=== PATIENT | female | born 1940 | race Caucasian/White ===

== ENCOUNTER 2017-09-25 14:04 | Inpatient (IN) | payer MEDICARE, BC ==
[2017-09-25] MEDS ORDERED: HYDROmorphone 0.5 MG/0.5 ML Syringe IVPUSH ONE (14:11)
[2017-09-25] MEDS ORDERED: Metoclopramide 10 MG/2 ML SDV IVPUSH ONE (14:11)
--- NOTE | 2017-09-25 14:20 | EDM.PDOC ---
ED HPI GENERAL MEDICAL PROBLEM - General Chief Complaint: Trauma Stated Complaint: [facility] Time Seen by Provider: 09/25/17 14:05 Source of Information: Reports: Patient, EMS History Limitations: Reports: No Limitations - History of Present Illness INITIAL COMMENTS - FREE TEXT/NARRATIVE: 77-year-old female reports that she was walking back towards her easy chair in her living room when she got tripped up and fell. She was carrying a cup of hot apple cider and honey which she spilled up all over herself including her hair. She landed hard on her left hip and was unable to get up from the floor. She therefore had to use her life alert to call for help. Patient has suffered a previous fracture to her left hip and had open reduction internal fixation it's unclear whether she had an Danilo Kumar prosthesis or a compression mary alice and side plate. Her pain is currently from above her right iliac crest laterally to her toes. Patient by history has multiple sclerosis. Her left side is weak at the best of times. She also has a peripheral neuropathy involving the lower extremities. She does not believe she hit her head and did not strike any furniture. She denies any pain in her ribs. She states she landed on thinly carpeted floor on top of concrete. 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.) Left Feet Pain Score (Numeric/FACES): 5 Abdomen Pain Score (Numeric/FACES): 5 - Related Data Allergies Allergy/AdvReac Type Severity Reaction Status Date / Time Sulfa (Sulfonamide Allergy Cannot Verified 04/08/15 01:23 Antibiotics) Remember Home Meds: Home Meds Diazepam [Valium] 5 mg PO BEDTIME PRN 03/09/14 [History] Gabapentin [Neurontin] 300 mg PO TID 03/09/14 [History] Acetaminophen/Diphenhydramine [Acetaminophen Pm Gelcap] 1 tab PO BEDTIME [History] Aspirin [Adult Low Dose Aspirin EC] 81 mg PO BEDTIME 04/08/15 [History] Fish Oil/[place]-3 Fatty Acids [Fish Oil 1,000 MG] 1,000 mg PO TID 04/08/15 [ History] Lactobacillus Acidophilus [Acidophilus] 1 each PO BEDTIME 04/08/15 [History] Multivits-Min/Iron/FA/Lutein [Centrum Silver Women Tablet] 1 tab PO DAILY [History] Vit A/Vit C/Vit E/Zinc/Copper [Preservision Areds Softgel] 1 tab PO DAILY [History] Docusate Sodium [Colace] 100 mg PO BID PRN #60 cap 04/12/15 [Rx] Trimethoprim 100 mg PO BEDTIME 09/25/17 [History] Acetaminophen/HYDROcodone [[place] 325-5 MG] 1 tab PO Q6H PRN #20 tablet 09/28/17 [Rx] Bisacodyl [Dulcolax] 10 mg RECTAL DAILY PRN supp 09/28/17 [Rx] Calcium Carbonate [Tums] 500 mg PO Q2H PRN tab.chew 09/28/17 [Rx] Magnesium Hydroxide [Milk of Magnesia] 30 ml PO BID PRN cup 09/28/17 [Rx] Pantoprazole [ProTONIX] 40 mg PO DAILY@0700 #30 tab.cr 09/28/17 [Rx] Sucralfate [Carafate] 1 gm PO QIDACANDBED #480 ml 09/28/17 [Rx] Past Medical History Other Musculoskeletal History: pt has progressing MS Other Neuro History: previous CVA Social & Family History - Tobacco Use Smoking Status *Q: Former Smoker (quit 40yrs ago) Years of Tobacco use: 40 Second Hand Smoke Exposure: No - Alcohol Use Days Per Week of Alcohol Use: 1 Number of Drinks Per Day: 1 Total Drinks Per Week: 1 - Recreational Drug Use Recreational Drug Use: No - Living Situation & Occupation Living situation: Reports: Occupation: Retired Review of Systems - Review of Systems Review Of Systems: See Below Constitutional: Denies: Chills, Diaphoresis, Fever, Weakness, Other Eyes: Reports: No Symptoms Ears: Reports: No Symptoms Nose: Reports: No Symptoms Mouth/Throat: Reports: No Symptoms Respiratory: Reports: No Symptoms Cardiovascular: Reports: No Symptoms GI/Abdominal: Reports: No Symptoms Genitourinary: Reports: Incontinence (Chronic incontinence due to multiple sclerosis.) Musculoskeletal: Reports: Leg Pain (Left hip and thigh pain.) Skin: Reports: No Symptoms Neurological: Reports: Difficulty Walking (Due to multiple sclerosis. Findings that she trips quite easily.) Psychiatric: Reports: No Symptoms ED EXAM, GENERAL - Physical Exam Exam: See Below Exam Limited By: No Limitations General Appearance: Alert, WD/WN, Moderate Distress (In obvious pain and discomfort upon movement of her lower extremities.) Eye Exam: Bilateral Eye: Normal Inspection Throat/Mouth: Normal Inspection, Normal Lips, Normal Oropharynx Head: Atraumatic Neck: Normal Inspection, Supple, Non-Tender, Full Range of Motion Respiratory/Chest: No Respiratory Distress, Lungs Clear, Normal Breath Sounds, No Accessory Muscle Use Cardiovascular: Normal Peripheral Pulses, Regular Rate, Rhythm, No Edema, No Gallop, No Murmur Peripheral Pulses: 1+: Posterior Tibial (L), Posterior Tibial (R), Dorsalis Pedis (L), Dorsalis Pedis (R) GI/Abdominal: Normal Bowel Sounds, Soft, Non-Tender, No Organomegaly, No Abnormal Bruit, No Mass Back Exam: Normal Inspection, Full Range of Motion Extremities: No Pedal Edema, Other (Left great toe is ecchymotic. Any movement causes pain. It does not show any obvious deformity. There is mild pain on squeezing the mid aspect of the foot as well. Ankle appears to be intact. There is soft tissue swelling of both anterior knees but there is a traumatic effusion on the left as compared to the right. Slight abrasion appreciated over the patella on the right knee.) Neurological: Alert, Oriented, CN II-XII Intact, Normal Cognition, Abnormal Gait Psychiatric: Normal Affect, Normal Mood (She tends to have a left foot drag due to multiple sclerosis.) Skin Exam: Warm, Dry, Intact, Normal Color, No Rash Course - Vital Signs Last Recorded V/S: Last Vital Signs Temp 36.7 C 09/28/17 08:56 Pulse 96 09/28/17 08:56 Resp 18 12/15/17 08:56 BP 124/49 L 12/15/17 08:56 Pulse Ox 93 L 09/28/17 08:56 - Orders/Labs/Meds Labs: Laboratory Tests 09/25/17 09/25/17 09/25/17 Range/Units 14:12 14:41 14:41 WBC 6.10 (3.98-10.04) K/mm3 RBC 4.03 (3.98-5.22) M/mm3 Hgb 12.4 (11.2-15.7) gm/L Hct 37.8 (34.1-44.9) % MCV 93.8 (79.4-94.8) fl MCH 30.8 (25.6-32.2) pg MCHC 32.8 (32.2-35.5) g/dl RDW Std Deviation 45.0 (36.4-46.3) fL Plt Count 224 (182-369) K/mm3 MPV 9.0 L (9.4-12.3) fl Neutrophils % (Manual) 76 H (40-60) % Band Neutrophils % 0 (0-10) % Lymphocytes % (Manual) 15 L (20-40) % Atypical Lymphs % 0 % Monocytes % (Manual) 8 (2-10) % Eosinophils % (Manual) 1 (0.7-5.8) % Basophils % (Manual) 0 L (0.1-1.2) Platelet Estimate Adequate Plt Morphology Comment Normal RBC Morph Comment Normal Sodium 138 (136-145) mEq/L Potassium 3.4 L (3.5-5.1) mEq/L Chloride 104 (98-107) mEq/L Carbon Dioxide 28 (21-32) mEq/L Anion Gap 9.4 (5-15) BUN 15 (7-18) mg/dL Creatinine 0.8 (0.55-1.02) mg/dL Est Cr Clr Drug Dosing 56.56 mL/min Estimated GFR (MDRD) > 60 (>60) mL/min BUN/Creatinine Ratio 18.8 H (14-18) Glucose 108 (83-115) mg/dL Calcium 8.9 (8.5-10.1) mg/dL Total Bilirubin 0.7 (0.2-1.0) mg/dL AST 26 (15-37) U/L ALT 23 (14-59) U/L Alkaline Phosphatase 99 (46-116) U/L NT-Pro-B Natriuret Pep 82 (0-450) pg/mL Total Protein 7.1 (6.4-8.2) g/dl Albumin 3.3 L (3.4-5.0) g/dl Globulin 3.8 gm/dL Albumin/Globulin Ratio 0.9 L (1-2) Blood Type O POSITIVE Meds: Medications Discontinued Medications Generic Name Dose Route Start Last Admin Trade Name Freq PRN Reason Stop Dose Admin Hydrocodone Bitart/Acetaminophen 1 tab 09/25/17 19:34 09/27/17 20:16 [place]ett 325-5 Mg PO 1 tab Q6H PRN Administration pain Aspirin 81 mg 09/28/17 21:00 Halfprin PO BEDTIME GEETA Bisacodyl 10 mg 09/26/17 10:52 09/26/17 11:01 Dulcolax RECTAL 10 mg DAILY PRN Administration Constipation Calcium Carbonate/Glycine 500 mg 09/27/17 10:40 09/28/17 06:16 Tums PO 500 mg Q2H PRN Administration Indigestion Diazepam 5 mg 09/26/17 12:02 Valium. PO BEDTIME PRN Sleep Enoxaparin Sodium 40 mg 09/28/17 09:00 09/28/17 09:32 Lovenox SUBCUT 40 mg DAILY GEETA Administration Furosemide 10 mg 09/27/17 09:00 09/27/17 08:12 Lasix IVPUSH 09/27/17 09:01 10 mg DAILY ONE Administration Gabapentin 300 mg 09/26/17 15:00 09/27/17 08:13 Neurontin PO 300 mg TID GEETA Administration Gabapentin 300 mg 09/27/17 15:00 09/28/17 09:32 Neurontin PO 300 mg TID GEETA Administration Hydromorphone HCl 0.5 mg 09/25/17 14:11 09/25/17 15:07 Dilaudid IVPUSH 09/25/17 14:12 0.5 mg ONETIME ONE Administration Hydromorphone HCl 1 mg 09/25/17 19:27 09/28/17 02:30 Dilaudid IVPUSH 1 mg Q4H PRN Administration Pain Sodium Chloride 1,000 mls @ 150 mls/hr 09/25/17 14:15 09/26/17 12:09 Normal Saline IV 150 mls/hr ASDIRECTED GEETA Administration Magnesium Sulfate 2 gm/ Premix 50 mls @ 25 mls/hr 09/26/17 12:11 09/26/17 12: 34 IV 09/26/17 14:10 25 mls/hr ONETIME ONE Administration Lorazepam 0.5 mg 09/28/17 07:23 Ativan PO TID PRN restlessness Magnesium Hydroxide 30 ml 09/26/17 10:51 09/26/17 11:01 Milk Of Magnesia PO 30 ml BID PRN Administration Constipation Metoclopramide HCl 7.5 mg 09/25/17 14:11 09/25/17 15:07 Reglan IVPUSH 09/25/17 14:12 7.5 mg ONETIME ONE Administration Ondansetron HCl 4 mg 09/25/17 19:36 09/27/17 06:19 Zofran IVPUSH 4 mg Q8H PRN Administration Nausea/Vomiting Oxycodone/Acetaminophen 1 tab 09/25/17 16:57 09/25/17 17:02 Percocet 325-5 Mg PO 09/25/17 16:58 1 tab ONETIME ONE Administration Pantoprazole Sodium 40 mg 09/27/17 10:45 09/28/17 06:16 Protonix PO 40 mg DAILY@0700 GEETA Administration Potassium Chloride 40 meq 09/26/17 12:11 09/26/17 12:34 Potassium Chloride PO 09/26/17 12:12 40 meq ONETIME ONE Administration Potassium Chloride 40 meq 09/27/17 08:00 09/27/17 08:13 Potassium Chloride PO 09/27/17 08:01 40 meq ONETIME ONE Administration Sucralfate 1 gm 09/28/17 11:00 09/28/17 11:01 Carafate PO 1 gm QIDACANDBED GEETA Administration Temazepam 15 mg 09/25/17 19:35 09/27/17 20:15 Restoril PO 15 mg BEDTIME PRN Administration Insomnia - Radiology Interpretation Free Text/Narrative:: 77-year-old female reports the ED per ambulance after falling at home. She states she was on her way to the living room to sit in her easy chair when she got tripped up and fell to the floor. She landed hard on her left hip and has pain from above the iliac crest on the left side to below the knee. She has had previous fracture of the left hip requiring open reduction internal fixation the by way of sideplate and compression screw. She denies hitting her head shows no outward signs of head or trauma to her ribs. She has pain with any movement of her pelvis or left hip. Plan IV normal saline at 150 mils per hour. Dilaudid 0.5 mg IV with Reglan 7.5 mg IV for pain and nausea relief routine labs including type and screen. ECG and a portable chest x-ray will be done as she clinically has a fractured hip and preop assessment exams will be done. - Re-Assessments/Exams Free Text/Narrative Re-Assessment/Exam: 09/25/17 15:20 On reexamination she is having increasing pain in her lower back now on the left side. Pain is L3,4,5 to palpation. No bruising is evident. I will therefore have lumbar spine CT done since she may have landed butt first instead of hip first. X-rays of her left hip do not reveal any fractures but they do show a hematoma developing. X-rays of the left femur also reveal osteopenic bone but no fractures evident. Similarly hematomas evident over the left anterior knee and she has a mild abrasion over both knees. Her pain in her great toe on the left side is increasing and on examination it is now black and blue. She has some pain in the mid forefoot as well. Therefore x-rays of the foot which will include the toe will be done as well 09/25/17 16:42 Labs reveal a white count of 6.10 with a hemoglobin of 12.4 differential is 76% neutrophils no bands. Hematocrit was 37.8 with platelets of 224,000. Sodium 138 potassium slightly low at 3.4. Chloride 104 bicarbonate 28. And a gap is 9.4 BUN is 15. Creatinine is 0.8 EGFR is greater than 60. Glucose 108. Calcium 8.9. Albumin low at 3.3. BNP is normal at 82. X-rays of the left foot reveals severe osteopenia the bones and no definitive fracture in the toe was identified. Of course occult fracture could easily be missed. See CT of her lumbar spine reveals degenerative changes but no acute compression fractures. There is vacuum disc phenomena noted at T12-L1 through L4-5 disks. Degenerative apophyseal changes noted within the L3-4 and L5-S1 facets. Spoke with her and her daughters about the findings of x-rays. At present her toe hurts worse than anything. I will give her a Percocet by mouth for pain. We will try and get her up and see if she can weight-bear or walk at all. I suspect she will not be up to do so. She does use a walker at home. 09/25/17 17:29 Patient was assisted up with 3 person assist and manage to take 2 steps. Her legs wouldn't given out and she would've fallen. She seems to be off balance and having significant amount of pain both in her left toe and her left knee and her left hip. It therefore appears she will not be able to go home as she has no care providers. I will speak with hospitalist in this regard. 09/25/17 17:[address] 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 Patient will be admitted to the hospital because she essentially cannot weight-bear or walk and she lives alone. She has suffered substantial contusion to her left hip and has a traumatic effusion of her left knee without fracture and injury to her left great toe which limits her mobility. Not safe to send home as fall risk is extremely high. Of note patient does use a walker at home Departure - Departure Time of Disposition: 19:45 Disposition: Admitted As Inpatient 68 Condition: Fair Clinical Impression: Fall as cause of accidental injury at home as place of occurrence Qualifiers: Encounter type: initial encounter Qualified Code(s): W19.XXXA - Unspecified fall, initial encounter; Y92.009 - Unspecified place in unspecified non- institutional (private) residence as the place of occurrence of the external cause; Y92.009 - Unspecified place in unspecified non-institutional (private) residence as the place of occurrence of the external cause Contusion of left hip and thigh Qualifiers: Encounter type: initial encounter Qualified Code(s): S70.02XA - Contusion of left hip, initial encounter; S70.12XA - Contusion of left thigh, initial encounter; S70.12XA - Contusion of left thigh, initial encounter Repetitive strain injury of cervical spine Qualifiers: Encounter type: initial encounter Qualified Code(s): S16.1XXA - Strain of muscle, fascia and tendon at neck level, initial encounter Sprain of left great toe Qualifiers: Encounter type: initial encounter Qualified Code(s): S93.502A - Unspecified sprain of left great toe, initial encounter - Discharge Information
[2017-09-25] MEDS: Sodium Chloride 0.9% 1,000 ML IV SCH ×2 (15:07→22:57)
--- NOTE | 2017-09-25 15:21 | CR ---
Chest: Frontal view of the chest was obtained. Comparison: Prior chest x-ray of 04/08/15. Heart size at the upper limits of normal. Tortuous thoracic aorta is seen. Lungs are clear. Bony structures are slightly osteopenic. Mild scoliosis is noted within the spine. Impression: 1. Incidental findings. Nothing acute is seen. Diagnostic code #2
--- NOTE | 2017-09-25 15:21 | CR ---
Left femur: AP and lateral views of the left femur were obtained. Large joint effusion is seen within the knee. Soft tissue swelling appears to be present within the lateral thigh. Mild chondrocalcinosis is seen within medial and lateral menisci. Compression screw and short intramedullary mary alice affix an old fracture which appears healed within the left hip. No acute fracture or other bony abnormality is appreciated. Impression: 1. Joint effusion within the knee. Mild chondrocalcinosis within the knee. 2. Orthopedic hardware within hip affixing an old hip fracture. 3. No acute bony abnormality is appreciated. Diagnostic code #3
--- NOTE | 2017-09-25 15:21 | CR ---
Pelvis: AP view of the pelvis was obtained. Comparison: Previous pelvis study of 04/08/15. Old healed fracture is noted within the left hip with orthopedic hardware in place. Degenerative change is partially seen within the visualized lower lumbar spine. Joint spaces within both hips are maintained. No fracture or other abnormality is appreciated. Impression: 1. Incidental findings. 2. No acute abnormality is appreciated on AP pelvis study. Diagnostic code #2
--- NOTE | 2017-09-25 15:56 | CT ---
CT lumbar spine Technique: Multiple axial sections were obtained from the top of T12 inferiorly through the L5-S1 disc. Reconstructed sagittal and coronal images were reviewed. Comparison: Previous MRI lumbar spine exam of 09/17/17. Scoliosis is noted. Vacuum disc phenomena is noted within the T12-L1 through L4-L5 discs. Scattered endplate osteophytes are seen. Degenerative apophyseal change is noted within the L3-L4 through L5-S1 levels. Vertebral body heights are maintained. No fracture is identified. No abnormal subluxation is seen. Mild diffuse disc bulging is noted. Impression: 1. Scoliosis, osteopenia and degenerative change. 2. No acute fracture or abnormal subluxation is seen on CT study of the lumbar spine. Diagnostic code #2
--- NOTE | 2017-09-25 16:34 | CR ---
Left foot: Four views of the left foot were obtained. Comparison: No previous study. Bony structures are osteoporotic. No definite fracture or other bony abnormality is seen. Impression: 1. Osteoporosis. No definite acute abnormality is seen. If patient remains symptomatic, recommend repeat study in 10-14 days. Diagnostic code #2
[2017-09-25] MEDS ORDERED: Acetaminophen/oxyCODONE 325-5 MG Tab PO ONE (16:57)
--- NOTE | 2017-09-25 19:18 | PCM.HP ---
H&P History of Present Illness - General Date of Service: 09/25/17 Source of Information: Patient, Provider History Limitations: Reports: No Limitations - History of Present Illness Initial Comments - Free Text/Narative: 77 year old female who lives alone reportedly fell while on her way to her easy chair. She has complained of left hip pain which is the same LE that has been repaired, ORIF of the left hip. She also complains of her right hip as well as her left great toe. The pain is being admitted for intarctible pain limiting her activity level. She lives alone, and SNF will be pursue. Onset of Symptoms: Reports: Sudden Symptom Onset Date: 09/25/17 Duration of Symptoms: Reports: Hour(s):, Getting Worse Location: Reports: Lower Extremity, Left, Other (left foot) Quality: Reports: Throbbing Severity: Moderate Improves with: Reports: Medication Worsens with: Reports: Movement Context: Reports: Trauma (fell) Associated Symptoms: Reports: Weakness - Related Data Allergies/Adverse Reactions: Allergies Allergy/AdvReac Type Severity Reaction Status Date / Time Sulfa (Sulfonamide Allergy Cannot Verified 04/08/15 01:23 Antibiotics) Remember Home Medications: Home Meds Diazepam [Valium] 5 mg PO BEDTIME PRN 03/09/14 [History] Gabapentin [Neurontin] 300 mg PO TID 03/09/14 [History] Acetaminophen/Diphenhydramine [Acetaminophen Pm Gelcap] 1 tab PO BEDTIME [History] Aspirin [Adult Low Dose Aspirin EC] 81 mg PO BEDTIME 04/08/15 [History] Fish Oil/[place]-3 Fatty Acids [Fish Oil 1,000 MG] 1,000 mg PO TID 04/08/15 [ History] Lactobacillus Acidophilus [Acidophilus] 1 each PO BEDTIME 04/08/15 [History] Multivits-Min/Iron/FA/Lutein [Centrum Silver Women Tablet] 1 tab PO DAILY [History] Vit A/Vit C/Vit E/Zinc/Copper [Preservision Areds Softgel] 1 tab PO DAILY [History] Docusate Sodium [Colace] 100 mg PO BID PRN #60 cap 04/12/15 [Rx] Trimethoprim 100 mg PO BEDTIME 09/25/17 [History] Past Medical History HEENT History: Reports: Cataract, Impaired Vision Cardiovascular History: Reports: High Cholesterol Gastrointestinal History: Reports: GI Bleed 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 GI bleed 2001 Social & Family History - Family History Neurological: Reports: CVA - Tobacco Use Smoking Status *Q: Former Smoker (quit 40yrs ago) Years of Tobacco use: 40 Second Hand Smoke Exposure: No - Caffeine Use Caffeine Use: Reports: Coffee - Alcohol Use Days Per Week of Alcohol Use: 1 Number of Drinks Per Day: 1 Total Drinks Per Week: 1 - Recreational Drug Use Recreational Drug Use: No - Living Situation & Occupation Living situation: Reports: Occupation: Retired H&P Review of Systems - Review of Systems: Review Of Systems: See Below General: Reports: Weakness HEENT: Reports: No Symptoms Pulmonary: Reports: No Symptoms Cardiovascular: Reports: No Symptoms Gastrointestinal: Reports: No Symptoms Genitourinary: Reports: No Symptoms Musculoskeletal: Reports: Leg Pain, Foot Pain Skin: Reports: No Symptoms Psychiatric: Reports: No Symptoms Neurological: Reports: Difficulty Walking Hematologic/Lymphatic: Reports: No Symptoms Immunologic: Reports: No Symptoms Exam - Exam Exam: See Below - Vital Signs Vital Signs: Last Vital Signs Temp 36.8 C 09/25/17 14:15 Pulse 96 09/25/17 14:15 Resp 18 09/25/17 14:15 BP 127/70 09/25/17 14:15 Pulse Ox 95 09/25/17 14:15 Weight: 58.967 kg - Exam General: Alert, Oriented, Cooperative HEENT: Conjunctiva Clear, EOMI, Nares Patent, Normal Nasal Septum, Pupils Equal , Pupils Reactive, PERRLA Neck: Supple, Trachea Midline Lungs: Normal Respiratory Effort Cardiovascular: Regular Rate, Regular Rhythm GI/Abdominal Exam: Normal Bowel Sounds, Soft, Non-Tender, No Organomegaly, No Distention (Female) Exam: Deferred Rectal (Female) Exam: Deferred Back Exam: Normal Inspection Extremities: Normal Inspection Skin: Warm Neurological: Cranial Nerves Intact, Reflexes Equal Bilateral Neuro Extensive - Mental Status: Alert, Oriented x3, Normal Mood/Affect, Normal Cognition, Memory Intact Neuro Extensive - Motor, Sensory, Reflexes: CN II-XII Intact Psychiatric: Alert, Normal Affect, Normal Mood - Patient Data Result Diagrams: 09/26/17 06:10 09/26/17 06:10 *Q Meaningful Use (ADM) - VTE *Q VTE Criteria *Q: - Stroke *Q Stroke Criteria *Q: - AMI *Q AMI Criteria *Q: - Problem List (1) Status post fall SNOMED Code(s): 308464250 ICD Code: Z91.81 - HISTORY OF FALLING Status: Acute Current Visit: Yes (2) Multiple sclerosis SNOMED Code(s): 75779160 ICD Code: G35 - MULTIPLE SCLEROSIS Status: Chronic Current Visit: No Problem List Initiated/Reviewed/Updated: Yes Orders Last 24hrs: Medication Orders Sodium Chloride (Normal Saline) 1,000 mls @ 150 mls/hr IV ASDIRECTED [facility] Last Admin: 09/25/17 15:07 Dose: 150 mls/hr Assessment/Plan Comment:: Impression: S/P fall in home with injury to left hip, left great toe. Left knee effusion History of MS Chronic left sided weakness Right sided pelvic pain, S/P fall Chronic Former tobacco use History of CVA Plan: Pain mgt SW/PT/OT consults Radiographic study of left hip S/P fall Home meds Daily labs Code---DNR/DNI DVT/GI prophylaxis
[2017-09-25] MEDS: Acetaminophen/HYDROcodone 325-5 MG Tab PO PRN (20:33)
[2017-09-25] MEDS: Temazepam 15 MG Cap PO PRN (22:56)
[2017-09-26] MEDS: Acetaminophen/HYDROcodone 325-5 MG Tab PO PRN ×3 (02:28→20:57)
[2017-09-26] MEDS: Sodium Chloride 0.9% 1,000 ML IV SCH ×2 (05:23→12:09)
[2017-09-26] MEDS ORDERED: Magnesium Hydroxide 400 MG/5 ML Susp 30 ML Cup PO PRN (10:51)
[2017-09-26] MEDS ORDERED: Bisacodyl 10 MG Supp RECTAL PRN (10:52)
[2017-09-26] MEDS ORDERED: Diazepam 5 MG Tab PO PRN (12:02)
[2017-09-26] MEDS ORDERED: Potassium Chloride 10% 20 MEQ/15 ML Soln 30 ML UD Cup PO ONE (12:11)
[2017-09-26] MEDS ORDERED: Magnesium Sulfate/Water 2 GM in Premix Bag 1 BAG IV ONE (12:11)
[2017-09-26] MEDS: Gabapentin 100 MG Cap PO SCH ×2 (16:03→20:56)
[2017-09-26] MEDS: Ondansetron 4 MG/2 ML SDV IVPUSH PRN (16:11)
--- NOTE | 2017-09-26 19:30 | PCM.PN ---
- General Info Date of Service: 09/26/17 Functional Status: Reports: Tolerating Diet, Urinating - Review of Systems General: Reports: Weakness HEENT: Reports: No Symptoms Pulmonary: Reports: No Symptoms Cardiovascular: Reports: No Symptoms Gastrointestinal: Reports: No Symptoms Genitourinary: Reports: No Symptoms Musculoskeletal: Reports: Leg Pain Skin: Reports: No Symptoms Neurological: Reports: No Symptoms Psychiatric: Reports: No Symptoms - Patient Data Vitals - Most Recent: Last Vital Signs Temp 36.7 C 09/26/17 15:40 Pulse 78 09/26/17 15:40 Resp 24 H 09/26/17 15:40 BP 138/66 09/26/17 15:40 Pulse Ox 96 09/26/17 15:40 Weight - Most Recent: 58.967 kg I&O - Last 24 Hours: Intake & Output 09/26/17 09/26/17 09/26/17 06:59 14:59 22:59 Intake Total 1620 90 580 Balance 1620 90 580 Lab Results Last 24 Hours: Laboratory Results - last 24 hr 09/26/17 09/26/17 Range/Units 06:10 06:10 WBC 5.44 (3.98-10.04) K/mm3 RBC 3.79 L (3.98-5.22) M/mm3 Hgb 11.6 (11.2-15.7) gm/L Hct 35.6 (34.1-44.9) % MCV 93.9 (79.4-94.8) fl MCH 30.6 (25.6-32.2) pg MCHC 32.6 (32.2-35.5) g/dl RDW Std Deviation 44.0 (36.4-46.3) fL Plt Count 203 (182-369) K/mm3 MPV 9.0 L (9.4-12.3) fl Neut % (Auto) 69.8 (34.0-71.1) % Lymph % (Auto) 16.2 L (19.3-51.7) % [place] % (Auto) 11.2 (4.7-12.5) % Eos % (Auto) 2.2 (0.7-5.8) Baso % (Auto) 0.4 (0.1-1.2) % Neut # (Auto) 3.80 (1.56-6.13) K/mm3 Lymph # (Auto) 0.88 L (1.18-3.74) K/mm3 [place] # (Auto) 0.61 H (0.24-0.36) K/mm3 Eos # (Auto) 0.12 (0.04-0.36) K/mm3 Baso # (Auto) 0.02 (0.01-0.08) K/mm3 Sodium 140 (136-145) mEq/L Potassium 3.5 (3.5-5.1) mEq/L Chloride 106 (98-107) mEq/L Carbon Dioxide 26 (21-32) mEq/L Anion Gap 11.5 (5-15) BUN 8 (7-18) mg/dL Creatinine 0.5 L (0.55-1.02) mg/dL Est Cr Clr Drug Dosing 91.01 mL/min Estimated GFR (MDRD) > 60 (>60) mL/min BUN/Creatinine Ratio 16.0 (14-18) Glucose 103 (83-115) mg/dL Calcium 8.1 L (8.5-10.1) mg/dL Magnesium 1.7 L (1.8-2.4) mg/dl Troponin I < 0.017 (0.00-0.056) ng/mL C-Reactive Protein 5.8 H* (<1.0) mg/dL J[place] Results Last 24 Hours: Microbiology 09/26/17 07:03 Influenza Type A Antigen Screen - Final Nasopharyngeal Swab - Nare, Unspecified NEGATIVE INFLUENZA A VIRUS AG Influenza Type B Antigen Screen - Final NEGATIVE INFLUENZA B VIRUS AG Med Orders - Current: Current Medications Hydrocodone Bitart/Acetaminophen ([place] 325-5 Mg) 1 tab PO Q6H PRN PRN Reason: pain Last Admin: 09/26/17 11:40 Dose: 1 tab Bisacodyl (Dulcolax) 10 mg RECTAL DAILY PRN PRN Reason: Constipation Last Admin: 09/26/17 11:01 Dose: 10 mg Diazepam (Valium.) 5 mg PO BEDTIME PRN PRN Reason: Sleep Gabapentin (Neurontin) 300 mg PO TID [facility] Last Admin: 09/26/17 16:03 Dose: 300 mg Hydromorphone HCl (Dilaudid) 1 mg IVPUSH Q4H PRN PRN Reason: Pain Sodium Chloride (Normal Saline) 1,000 mls @ 150 mls/hr IV ASDIRECTED [facility] Last Admin: 09/26/17 12:09 Dose: 150 mls/hr Magnesium Hydroxide (Milk Of Magnesia) 30 ml PO BID PRN PRN Reason: Constipation Last Admin: 09/26/17 11:01 Dose: 30 ml Ondansetron HCl (Zofran) 4 mg IVPUSH Q8H PRN PRN Reason: Nausea/Vomiting Last Admin: 09/26/17 16:11 Dose: 4 mg Temazepam (Restoril) 15 mg PO BEDTIME PRN PRN Reason: Insomnia Last Admin: 09/25/17 22:56 Dose: 15 mg Discontinued Medications Hydromorphone HCl (Dilaudid) 0.5 mg IVPUSH ONETIME ONE Stop: 09/25/17 14:12 Last Admin: 09/25/17 15:07 Dose: 0.5 mg Magnesium Sulfate 2 gm/ Premix 50 mls @ 25 mls/hr IV ONETIME ONE Stop: 09/26/17 14:10 Last Admin: 09/26/17 12:34 Dose: 25 mls/hr Metoclopramide HCl (Reglan) 7.5 mg IVPUSH ONETIME ONE Stop: 09/25/17 14:12 Last Admin: 09/25/17 15:07 Dose: 7.5 mg Oxycodone/Acetaminophen (Percocet 325-5 Mg) 1 tab PO ONETIME ONE Stop: 09/25/17 16:58 Last Admin: 09/25/17 17:02 Dose: 1 tab Potassium Chloride (Potassium Chloride) 40 meq PO ONETIME ONE Stop: 09/26/17 12:12 Last Admin: 09/26/17 12:34 Dose: 40 meq - Exam Quality Assessment: DVT Prophylaxis General: Alert, Oriented, Cooperative, No Acute Distress HEENT: Pupils Equal, Pupils Reactive, EOMI Neck: Supple, Trachea Midline, No JVD Lungs: Normal Respiratory Effort Cardiovascular: Regular Rate, Regular Rhythm GI/Abdominal Exam: Normal Bowel Sounds, Soft, Non-Tender, No Organomegaly, No Distention (Female) Exam: Deferred Back Exam: Normal Inspection Extremities: Normal Inspection Skin: Warm Neurological: No New Focal Deficit Psy/Mental Status: Alert, Normal Affect, Normal Mood - Problem List & Annotations (1) Status post fall SNOMED Code(s): 336682558 Code(s): Z91.81 - HISTORY OF FALLING Status: Acute Priority: High (2) Multiple sclerosis SNOMED Code(s): 34714260 Code(s): G35 - MULTIPLE SCLEROSIS Status: Chronic Priority: Medium - Problem List Review Problem List Initiated/Reviewed/Updated: Yes - My Orders Last 24 Hours: My Active Orders 09/25/17 19:27 HYDROmorphone [Dilaudid] 1 mg IVPUSH Q4H PRN 09/25/17 19:34 Acetaminophen/HYDROcodone [[place] 325-5 MG] 1 tab PO Q6H PRN 09/25/17 19:35 Temazepam [Restoril] 15 mg PO BEDTIME PRN 09/25/17 19:36 Ondansetron [Zofran] 4 mg IVPUSH Q8H PRN 09/26/17 01:30 Resuscitation Status Routine 09/26/17 03:11 Heat Therapy [OM.PC] Routine 09/26/17 10:36 Consult to Nuclear Technician [CONS] Routine 09/26/17 10:51 Magnesium Hydroxide [Milk of Magnesia] 30 ml PO BID PRN 09/26/17 10:52 Bisacodyl [Dulcolax] 10 mg RECTAL DAILY PRN 09/26/17 12:02 Diazepam [Valium] 5 mg PO BEDTIME PRN 09/26/17 15:00 Gabapentin [Neurontin] 300 mg PO TID 09/27/17 05:00 BASIC METABOLIC PANEL,BMP [CHEM] DAILY CBC WITH AUTO DIFF [HEME] DAILY CRP [C-REACTIVE PROTEIN] [CHEM] DAILY MAGNESIUM [CHEM] DAILY 09/28/17 05:00 BASIC METABOLIC PANEL,BMP [CHEM] DAILY CBC WITH AUTO DIFF [HEME] DAILY CRP [C-REACTIVE PROTEIN] [CHEM] DAILY MAGNESIUM [CHEM] DAILY 09/29/17 05:00 CBC WITH AUTO DIFF [HEME] DAILY CRP [C-REACTIVE PROTEIN] [CHEM] DAILY MAGNESIUM [CHEM] DAILY - Plan Plan:: Impression: S/P fall in home with injury to left hip, left great toe. Chronic left sided weakness Right sided pelvic pain History of MS Chronic Former tobacco use History of CVA Plan: Pain mgt SW/PT/OT consults Radiographic study of left hip S/P fall Home meds Daily labs Code---DNR/DNI DVT/GI prophylaxis
[2017-09-26] MEDS: Temazepam 15 MG Cap PO PRN (20:56)
[2017-09-27] MEDS: HYDROmorphone 1 MG/ML Syringe IVPUSH PRN (01:58)
[2017-09-27] MEDS: Ondansetron 4 MG/2 ML SDV IVPUSH PRN (06:19)
[2017-09-27] MEDS ORDERED: Potassium Chloride 10% 20 MEQ/15 ML Soln 30 ML UD Cup PO ONE (08:00)
[2017-09-27] MEDS: Gabapentin 100 MG Cap PO SCH (08:13)
[2017-09-27] MEDS ORDERED: Furosemide 20 MG/2 ML VIAL IVPUSH ONE (09:00)
[2017-09-27] MEDS: Calcium Carbonate 500 MG Tab.Chew PO PRN ×2 (11:46→20:15)
[2017-09-27] MEDS: Pantoprazole 40 MG Tab.CR PO SCH (11:46)
[2017-09-27] MEDS: Gabapentin 300 MG Cap PO SCH ×2 (14:28→20:16)
[2017-09-27] MEDS: Temazepam 15 MG Cap PO PRN (20:15)
[2017-09-27] MEDS: Acetaminophen/HYDROcodone 325-5 MG Tab PO PRN (20:16)
[2017-09-28] MEDS: Calcium Carbonate 500 MG Tab.Chew PO PRN ×2 (02:30→06:16)
[2017-09-28] MEDS: HYDROmorphone 1 MG/ML Syringe IVPUSH PRN (02:30)
[2017-09-28] MEDS: Pantoprazole 40 MG Tab.CR PO SCH (06:16)
[2017-09-28] MEDS ORDERED: LORazepam 0.5 MG Tab PO PRN (07:23)
[2017-09-28 08:59] VITALS: BP 124/49
[2017-09-28] MEDS ORDERED: Enoxaparin 40 MG/0.4 ML Syringe SUBCUT SCH (09:00)
[2017-09-28] MEDS: Gabapentin 300 MG Cap PO SCH (09:32)
--- NOTE | 2017-09-28 10:13 | PCM.DCSUM1 ---
Discharge Summary - Hospital Course Free Text/Narrative:: 77-year-old female reports that she was walking back towards her easy chair in her living room when she got tripped up and fell. She was carrying a cup of hot apple cider and honey which she spilled up all polyp herself including her hair. She landed hard in her left hip and was unable to get up from the floor. She therefore had to use her life alert to call for help. is suffered a previous fracture to her left hip and had open reduction internal fixation it's unclear whether she had an Danilo Kumar prosthesis or a compression mary alice and side plate. Her pain is currently from above her right iliac crest laterally to her toes. Patient by history has multiple sclerosis. Her left side is weak at the best of times. She also has a peripheral neuropathy involving the lower extremities. She does not believe she hit her head and did not strike any furniture. She denies any pain in her ribs. She states she landed on thinly carpeted floor on top of concrete. - Discharge Data Discharge Date: 09/28/17 (admit date 09/25/17) Discharge Disposition: DC/Tfer to SNF 03 Condition: Fair - Discharge Diagnosis/Problem(s) (1) Status post fall SNOMED Code(s): 124458670 ICD Code: Z91.81 - HISTORY OF FALLING Status: Acute Priority: High Current Visit: Yes (2) Generalized weakness SNOMED Code(s): 50228203 ICD Code: R53.1 - WEAKNESS Status: Chronic Priority: High Current Visit : Yes (3) Multiple sclerosis SNOMED Code(s): 99076346 ICD Code: G35 - MULTIPLE SCLEROSIS Status: Chronic Priority: Medium Current Visit: No - Patient Summary/Data Operative Procedure(s) Performed: None Complications: None Consults: Consultations 09/26/17 07:53 OT Evaluation and Treatment [CONS] Routine PT Evaluation and Treatment [CONS] Routine 09/26/17 10:36 Consult to [employer] [place] [employer] [CONS] Routine Labs Pending at D/C: None Recommended Follow-up Testing/Procedures: Patient DC instructions: Physical and occupational therapy to evaluate and treat. Dr. Shepard has accepted care of patient at [facility] Follow up with PCP within one week of discharge. Planned Operative Procedure(s) after DC: None Hospital Course: ED evaluation, scans and xrays were all unremarkable for acute changes or fractures. Patient was admitted, hydrated. Labs were followed and essentially WNL. PT/OT worked with her, recommend SNF stay as patient is pivot and turn with assist currently. She is started on protonix and carafate (which she has taken in the past) for GERD/heartburn symptoms; she does have hx of PUD. Hgb is stable. Recommend f/up with PCP to assure improvement with medications. She is discharged to [facility] for SNF/Rehab stay. Dr. Zabala will oversee her care there, Jessica Perkins has been her PCP prior to this time. - Patient Instructions Diet: Drink 8-10+ Glasses/Day Activity: As Tolerated (Continue with PT/OT at SNF) Driving: Do Not Drive Showering/Bathing: May Shower Notify Provider of: Fever, Increased Pain, Nausea and/or Vomiting - Discharge Plan Prescriptions/Med Rec: Acetaminophen/HYDROcodone [[place] 325-5 MG] 1 tab PO Q6H PRN #20 tablet PRN Reason: pain Pantoprazole [ProTONIX] 40 mg PO DAILY@0700 #30 tab.cr Sucralfate [Carafate] 1 gm PO QIDACANDBED #480 ml Home Medications: Home Meds Diazepam [Valium] 5 mg PO BEDTIME PRN 03/09/14 [History] Gabapentin [Neurontin] 300 mg PO TID 03/09/14 [History] Acetaminophen/Diphenhydramine [Acetaminophen Pm Gelcap] 1 tab PO BEDTIME [History] Aspirin [Adult Low Dose Aspirin EC] 81 mg PO BEDTIME 04/08/15 [History] Fish Oil/[place]-3 Fatty Acids [Fish Oil 1,000 MG] 1,000 mg PO TID 04/08/15 [ History] Lactobacillus Acidophilus [Acidophilus] 1 each PO BEDTIME 04/08/15 [History] Multivits-Min/Iron/FA/Lutein [Centrum Silver Women Tablet] 1 tab PO DAILY [History] Vit A/Vit C/Vit E/Zinc/Copper [Preservision Areds Softgel] 1 tab PO DAILY [History] Docusate Sodium [Colace] 100 mg PO BID PRN #60 cap 04/12/15 [Rx] Trimethoprim 100 mg PO BEDTIME 09/25/17 [History] Acetaminophen/HYDROcodone [[place] 325-5 MG] 1 tab PO Q6H PRN #20 tablet 09/28/17 [Rx] Bisacodyl [Dulcolax] 10 mg RECTAL DAILY PRN supp 09/28/17 [Rx] Calcium Carbonate [Tums] 500 mg PO Q2H PRN tab.chew 09/28/17 [Rx] Magnesium Hydroxide [Milk of Magnesia] 30 ml PO BID PRN cup 09/28/17 [Rx] Pantoprazole [ProTONIX] 40 mg PO DAILY@0700 #30 tab.cr 09/28/17 [Rx] Sucralfate [Carafate] 1 gm PO QIDACANDBED #480 ml 09/28/17 [Rx] Patient Handouts: Fall Prevention in the Home, [id number], Deconditioning Referrals: Jessica Perkins PA-C [Primary Care Provider] - Ciaran Shepard MD [Physician] - - Discharge Summary/Plan Comment DC Time >30 min.: Yes (40 min) - General Info Date of Service: 09/28/17 Functional Status: Reports: Pain Controlled, Tolerating Diet, Urinating. Denies : Ambulating (stand and pivot with assist) - Review of Systems General: Reports: Weakness, Fatigue. Denies: Fever HEENT: Reports: No Symptoms Pulmonary: Reports: No Symptoms. Denies: Shortness of Breath Cardiovascular: Reports: No Symptoms. Denies: Chest Pain Gastrointestinal: Reports: Other (heartburn and "sour stomach"- better today) Genitourinary: Reports: No Symptoms Musculoskeletal: Reports: Back Pain, Leg Pain, Foot Pain, Joint Pain Neurological: Reports: No Symptoms Psychiatric: Reports: No Symptoms - Patient Data Vitals - Most Recent: Last Vital Signs Temp 98.1 F 09/28/17 08:56 Pulse 96 09/28/17 08:56 Resp 18 09/28/17 08:56 BP 124/49 L 09/28/17 08:56 Pulse Ox 93 L 09/28/17 08:56 Weight - Most Recent: 135 lb 8 oz I&O - Last 24 hours: Intake & Output 09/27/17 09/28/17 09/28/17 22:59 06:59 14:59 Intake Total 800 400 Balance 800 400 Lab Results - Last 24 hrs: Laboratory Results - last 24 hr 09/28/17 09/28/17 Range/Units 06:04 06:04 WBC 5.03 (3.98-10.04) K/mm3 RBC 4.06 (3.98-5.22) M/mm3 Hgb 12.6 (11.2-15.7) gm/L Hct 38.3 (34.1-44.9) % MCV 94.3 (79.4-94.8) fl MCH 31.0 (25.6-32.2) pg MCHC 32.9 (32.2-35.5) g/dl RDW Std Deviation 44.6 (36.4-46.3) fL Plt Count 232 (182-369) K/mm3 MPV 8.7 L (9.4-12.3) fl Neut % (Auto) 52.1 (34.0-71.1) % Lymph % (Auto) 28.0 (19.3-51.7) % [place] % (Auto) 12.3 (4.7-12.5) % Eos % (Auto) 6.8 H (0.7-5.8) Baso % (Auto) 0.6 (0.1-1.2) % Neut # (Auto) 2.62 (1.56-6.13) K/mm3 Lymph # (Auto) 1.41 (1.18-3.74) K/mm3 [place] # (Auto) 0.62 H (0.24-0.36) K/mm3 Eos # (Auto) 0.34 (0.04-0.36) K/mm3 Baso # (Auto) 0.03 (0.01-0.08) K/mm3 Sodium 140 (136-145) mEq/L Potassium 4.3 (3.5-5.1) mEq/L Chloride 103 (98-107) mEq/L Carbon Dioxide 29 (21-32) mEq/L Anion Gap 12.3 (5-15) BUN 13 (7-18) mg/dL Creatinine 0.7 (0.55-1.02) mg/dL Est Cr Clr Drug Dosing 65.01 mL/min Estimated GFR (MDRD) > 60 (>60) mL/min BUN/Creatinine Ratio 18.6 H (14-18) Glucose 104 (83-115) mg/dL Calcium 9.2 (8.5-10.1) mg/dL Magnesium 2.0 (1.8-2.4) mg/dl C-Reactive Protein 5.7 H* (<1.0) mg/dL Med Orders - Current: Current Medications Hydrocodone Bitart/Acetaminophen ([place] 325-5 Mg) 1 tab PO Q6H PRN PRN Reason: pain Last Admin: 09/27/17 20:16 Dose: 1 tab Aspirin (Halfprin) 81 mg PO BEDTIME [facility] Bisacodyl (Dulcolax) 10 mg RECTAL DAILY PRN PRN Reason: Constipation Last Admin: 09/26/17 11:01 Dose: 10 mg Calcium Carbonate/Glycine (Tums) 500 mg PO Q2H PRN PRN Reason: Indigestion Last Admin: 09/28/17 06:16 Dose: 500 mg Diazepam (Valium.) 5 mg PO BEDTIME PRN PRN Reason: Sleep Enoxaparin Sodium (Lovenox) 40 mg SUBCUT DAILY [facility] Last Admin: 09/28/17 09:32 Dose: 40 mg Gabapentin (Neurontin) 300 mg PO TID [facility] Last Admin: 09/28/17 09:32 Dose: 300 mg Hydromorphone HCl (Dilaudid) 1 mg IVPUSH Q4H PRN PRN Reason: Pain Last Admin: 09/28/17 02:30 Dose: 1 mg Lorazepam (Ativan) 0.5 mg PO TID PRN PRN Reason: restlessness Magnesium Hydroxide (Milk Of Magnesia) 30 ml PO BID PRN PRN Reason: Constipation Last Admin: 09/26/17 11:01 Dose: 30 ml Ondansetron HCl (Zofran) 4 mg IVPUSH Q8H PRN PRN Reason: Nausea/Vomiting Last Admin: 09/27/17 06:19 Dose: 4 mg Pantoprazole Sodium (Protonix) 40 mg PO DAILY@0700 [facility] Last Admin: 09/28/17 06:16 Dose: 40 mg Sucralfate (Carafate) 1 gm PO QIDACANDBED [facility] Temazepam (Restoril) 15 mg PO BEDTIME PRN PRN Reason: Insomnia Last Admin: 09/27/17 20:15 Dose: 15 mg Discontinued Medications Furosemide (Lasix) 10 mg IVPUSH DAILY ONE Stop: 09/27/17 09:01 Last Admin: 09/27/17 08:12 Dose: 10 mg Gabapentin (Neurontin) 300 mg PO TID [facility] Last Admin: 09/27/17 08:13 Dose: 300 mg Hydromorphone HCl (Dilaudid) 0.5 mg IVPUSH ONETIME ONE Stop: 09/25/17 14:12 Last Admin: 09/25/17 15:07 Dose: 0.5 mg Sodium Chloride (Normal Saline) 1,000 mls @ 150 mls/hr IV ASDIRECTED [facility] Last Admin: 09/26/17 12:09 Dose: 150 mls/hr Magnesium Sulfate 2 gm/ Premix 50 mls @ 25 mls/hr IV ONETIME ONE Stop: 09/26/17 14:10 Last Admin: 09/26/17 12:34 Dose: 25 mls/hr Metoclopramide HCl (Reglan) 7.5 mg IVPUSH ONETIME ONE Stop: 09/25/17 14:12 Last Admin: 09/25/17 15:07 Dose: 7.5 mg Oxycodone/Acetaminophen (Percocet 325-5 Mg) 1 tab PO ONETIME ONE Stop: 09/25/17 16:58 Last Admin: 09/25/17 17:02 Dose: 1 tab Potassium Chloride (Potassium Chloride) 40 meq PO ONETIME ONE Stop: 09/26/17 12:12 Last Admin: 09/26/17 12:34 Dose: 40 meq Potassium Chloride (Potassium Chloride) 40 meq PO ONETIME ONE Stop: 09/27/17 08:01 Last Admin: 09/27/17 08:13 Dose: 40 meq - Exam Quality Assessment: Reports: DVT Prophylaxis General: Reports: Alert, Oriented, Cooperative, No Acute Distress HEENT: Reports: Pupils Equal, EOMI, Mucous Membr. Moist/[place] Neck: Reports: Supple Lungs: Reports: Clear to Auscultation, Normal Respiratory Effort Cardiovascular: Reports: Regular Rate, Regular Rhythm GI/Abdominal Exam: Normal Bowel Sounds, Soft, Non-Tender (Female) Exam: Deferred Rectal (Female) Exam: Deferred Neurological: Reports: No New Focal Deficit Psy/Mental Status: Reports: Alert, Normal Affect, Normal Mood *Q Meaningful Use (DIS) - VTE *Q VTE Criteria *Q: - Stroke *Q Stroke Criteria *Q: - AMI *Q AMI Criteria *Q:
[2017-09-28] MEDS ORDERED: Sucralfate Suspension 1 GM/10 ML Cup PO SCH (11:00)
[2017-09-28] MEDS ORDERED: Aspirin 81 MG Tab.EC PO SCH (21:00)
--- NOTE | 2017-10-01 19:38 | PCM.PN ---
- General Info Date of Service: 09/27/17 Admission Dx/Problem (Free Text): Fall, generalized weakness, bilateral leg and foot pain (chronic) Patient with complaints of heartburn today. She is concerned as she has had "a bleeding ulcer" in the past. She is not ambulating. Plans are for SNF rehab stay thus far. Functional Status: Reports: Tolerating Diet, Urinating, Incentive Spirometry - Review of Systems General: Reports: Weakness, Fatigue HEENT: Reports: No Symptoms Pulmonary: Reports: No Symptoms Cardiovascular: Reports: No Symptoms Gastrointestinal: Reports: Other (heartburn and "sour stomach" feelings today) Musculoskeletal: Reports: Other (weakness) Psychiatric: Reports: No Symptoms - Patient Data Vitals - Most Recent: Last Vital Signs Temp 98.1 F 09/28/17 08:56 Pulse 96 09/28/17 08:56 Resp 18 09/28/17 08:56 BP 124/49 L 09/28/17 08:56 Pulse Ox 93 L 09/28/17 08:56 Weight - Most Recent: 130 lb Med Orders - Current: Current Medications Discontinued Medications Hydrocodone Bitart/Acetaminophen ([place] 325-5 Mg) 1 tab PO Q6H PRN PRN Reason: pain Last Admin: 09/27/17 20:16 Dose: 1 tab Aspirin (Halfprin) 81 mg PO BEDTIME [facility] Bisacodyl (Dulcolax) 10 mg RECTAL DAILY PRN PRN Reason: Constipation Last Admin: 09/26/17 11:01 Dose: 10 mg Calcium Carbonate/Glycine (Tums) 500 mg PO Q2H PRN PRN Reason: Indigestion Last Admin: 09/28/17 06:16 Dose: 500 mg Diazepam (Valium.) 5 mg PO BEDTIME PRN PRN Reason: Sleep Enoxaparin Sodium (Lovenox) 40 mg SUBCUT DAILY [facility] Last Admin: 09/28/17 09:32 Dose: 40 mg Furosemide (Lasix) 10 mg IVPUSH DAILY ONE Stop: 09/27/17 09:01 Last Admin: 09/27/17 08:12 Dose: 10 mg Gabapentin (Neurontin) 300 mg PO TID [facility] Last Admin: 09/27/17 08:13 Dose: 300 mg Gabapentin (Neurontin) 300 mg PO TID [facility] Last Admin: 09/28/17 09:32 Dose: 300 mg Hydromorphone HCl (Dilaudid) 0.5 mg IVPUSH ONETIME ONE Stop: 09/25/17 14:12 Last Admin: 09/25/17 15:07 Dose: 0.5 mg Hydromorphone HCl (Dilaudid) 1 mg IVPUSH Q4H PRN PRN Reason: Pain Last Admin: 09/28/17 02:30 Dose: 1 mg Sodium Chloride (Normal Saline) 1,000 mls @ 150 mls/hr IV ASDIRECTED [facility] Last Admin: 09/26/17 12:09 Dose: 150 mls/hr Magnesium Sulfate 2 gm/ Premix 50 mls @ 25 mls/hr IV ONETIME ONE Stop: 09/26/17 14:10 Last Admin: 09/26/17 12:34 Dose: 25 mls/hr Lorazepam (Ativan) 0.5 mg PO TID PRN PRN Reason: restlessness Magnesium Hydroxide (Milk Of Magnesia) 30 ml PO BID PRN PRN Reason: Constipation Last Admin: 09/26/17 11:01 Dose: 30 ml Metoclopramide HCl (Reglan) 7.5 mg IVPUSH ONETIME ONE Stop: 09/25/17 14:12 Last Admin: 09/25/17 15:07 Dose: 7.5 mg Ondansetron HCl (Zofran) 4 mg IVPUSH Q8H PRN PRN Reason: Nausea/Vomiting Last Admin: 09/27/17 06:19 Dose: 4 mg Oxycodone/Acetaminophen (Percocet 325-5 Mg) 1 tab PO ONETIME ONE Stop: 09/25/17 16:58 Last Admin: 09/25/17 17:02 Dose: 1 tab Pantoprazole Sodium (Protonix) 40 mg PO DAILY@0700 [facility] Last Admin: 09/28/17 06:16 Dose: 40 mg Potassium Chloride (Potassium Chloride) 40 meq PO ONETIME ONE Stop: 09/26/17 12:12 Last Admin: 09/26/17 12:34 Dose: 40 meq Potassium Chloride (Potassium Chloride) 40 meq PO ONETIME ONE Stop: 09/27/17 08:01 Last Admin: 09/27/17 08:13 Dose: 40 meq [facility]) [facility] Last Admin: 09/28/17 11:01 Dose: 1 gm Temazepam (Restoril) 15 mg PO BEDTIME PRN PRN Reason: Insomnia Last Admin: 09/27/17 20:15 Dose: 15 mg - Exam Quality Assessment: DVT Prophylaxis General: Alert, Oriented, Cooperative, No Acute Distress HEENT: Pupils Equal, EOMI, Mucous Membr. 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) Peripheral Pulses: 2+: Dorsalis Pedis (L), Dorsalis Pedis (R) Neurological: No New Focal Deficit Psy/Mental Status: Alert, Normal Affect, Normal Mood - Problem List & Annotations (1) Status post fall SNOMED Code(s): 937818414 Code(s): Z91.81 - HISTORY OF FALLING Status: Acute Priority: High (2) Generalized weakness SNOMED Code(s): 41151365 Code(s): R53.1 - WEAKNESS Status: Chronic Priority: High (3) Multiple sclerosis SNOMED Code(s): 71019920 Code(s): G35 - MULTIPLE SCLEROSIS Status: Chronic Priority: Medium - Problem List Review Problem List Initiated/Reviewed/Updated: Yes - Plan Plan:: Impression: S/P fall in home with injury to left hip, left great toe. Chronic left sided weakness Right sided pelvic pain GERD with hx of remote PUD History of MS Chronic Former tobacco use History of CVA Plan: Pain mgt SW/PT/OT consults Radiographic study of left hip S/P fall--unremarkable Add protonix and carafate for GERD symptoms Home meds Daily labs Code---DNR/DNI DVT/GI prophylaxis Plan for DC to SNF tomorrow for rehab stay.
== END 2017-09-28 11:45 | DRG 948 ==
LOC: JD.ED 14:04 → JD.MS 17:35 → UNDOADMIN 18:14 → JD.MS 18:14 → UNDODISIN 09-28 11:45
PROVIDERS: ADMIT Internal Medicine Cardiovascular Disease; ATTEND Internal Medicine Cardiovascular Disease
DX: G89.11 Acute pain due to trauma (principal); R53.1 Weakness; G35 Multiple sclerosis; S70.02XA Contusion of left hip, initial encounter; S70.12XA Contusion of left thigh, initial encounter; S16.1XXA Strain of muscle, fascia and tendon at neck level, initial encounter; S93.502A Unspecified sprain of left great toe, initial encounter; M25.462 Effusion, left knee; W01.0XXA Fall on same level from slipping, tripping and stumbling without subsequent striking against object, initial encounter; Y92.009 Unspecified place in unspecified non-institutional (private) residence as the place of occurrence of the external cause; G62.9 Polyneuropathy, unspecified; Z86.73 Personal history of transient ischemic attack (TIA), and cerebral infarction without residual deficits; K21.9 Gastro-esophageal reflux disease without esophagitis; Z87.891 Personal history of nicotine dependence; Z88.2 Allergy status to sulfonamides; Z79.82 Long term (current) use of aspirin; Z79.899 Other long term (current) drug therapy
CPT/HCPCS: 36415; 71010; 72131; 72170; 73552; 73630; 80053; 83880; 85025; 86900; 86901; 93005; 96361; 96374; 96375; 99285; A9270; J1170; J2765; J7040; 80048; 83735; 84484; 86140; 87804; 97110-GO; 97110-GP; 97161-GP; 97165-GO; 97530-GO; 97530-GP; 99284; J1650; J2405; J3475

== ENCOUNTER 2018-04-18 13:26 | Inpatient (IN) | payer MEDICARE, BC ==
[2018-04-18] MEDS ORDERED: Sodium Chloride 0.9% 10 ML Syringe FLUSH PRN (13:50)
[2018-04-18] MEDS ORDERED: Sodium Chloride 0.9% 500 ML IV ONE (13:53)
--- NOTE | 2018-04-18 14:53 | CT ---
Head CT Technique: Multiple axial sections through the brain were obtained. Intravenous contrast was not utilized. Comparison: Prior head CT study of 10/20/14. Findings: Ventricles along with basal cisterns and sulci over the convexities are mildly prominent. Mild diminished density is noted within the periventricular white matter compatible with small vessel ischemic demyelination change. No other abnormal parenchymal densities are seen. No evidence of intracranial hemorrhage. No midline shift or mass effect is seen. Bone window settings were reviewed which shows no acute calvarial abnormality. Slight soft tissue swelling is seen within the right frontal scalp. Stable areas of mucosal thickening are seen within the ethmoid sinuses. Impression: 1. Slight soft tissue swelling within the right frontal scalp. 2. Mild senescent change. Mild stable sinus disease. 3. No acute intracranial abnormality is seen. Diagnostic code #2
--- NOTE | 2018-04-18 15:03 | EDM.PDOC ---
ED HPI GENERAL MEDICAL PROBLEM - General Chief Complaint: Fever Stated Complaint: [facility] Time Seen by Provider: 04/18/18 13:46 Source of Information: Reports: Patient, Family (daughter) History Limitations: Reports: No Limitations - History of Present Illness INITIAL COMMENTS - FREE TEXT/NARRATIVE: 77-year-old female is brought in via [place] [facility] for evaluation and treatment of injury sustained from a fall. Reportedly the patient fell twice today. She fell around 4 or 5 this morning. States that her walker got away from her. Does not sound that she put the brakes on her walker. EMS was called and came to her apartment and checked her over. She then fell again at least 2 hours prior to arrival in the ER. She is unsure exactly what time this was. She is unable to me exactly why or how she fell. Initially she had pain to her right arm but EMS did notice that she was laying on this arm. She states that she was down for 2 hours calling for help. She reports that she has chronic pain from MS and previous CVA. She has a skin tear to her right hand. She denies any headache, chest pain, shortness of breath, neck pain, abdominal pain, epistaxis, nausea, vomiting or any diarrhea. She denies any blood in her stools recently. She reports back pain but states this is chronic. She has pain and swelling in her legs also reports this is chronic. She is not appreciated any new pain to her back or extremities. She does get frequent urinary tract infections and was just on Macrobid for this. She did not complete the course of Macrobid due to discomfort in her stomach. Upon EMS arrival she was complaining of pain to the right arm. They she was also found to be 80s on room air at the scene. She does not normally wear oxygen. Primary care provider is Jessica Perkins. Onset: Today Head Pain Score (Numeric/FACES): 5 - Related Data Allergies Allergy/AdvReac Type Severity Reaction Status Date / Time Sulfa (Sulfonamide Allergy Cannot Verified 04/18/18 13:53 Antibiotics) Remember Home Meds: Home Meds Diazepam [Valium] 5 mg PO BEDTIME PRN 03/09/14 [History] Aspirin [Adult Low Dose Aspirin EC] 81 mg PO BEDTIME 04/08/15 [History] Trimethoprim 100 mg PO BEDTIME 09/25/17 [History] Gabapentin [Neurontin] 600 mg PO TID 04/18/18 [History] Past Medical History HEENT History: Reports: Cataract, Impaired Vision Cardiovascular History: Reports: High Cholesterol Gastrointestinal History: Reports: GI Bleed [employer]PING [employer]PER[employer] History: Reports: Other Musculoskeletal History: pt has progressing MS Other Neuro History: previous CVA Psychiatric History: Reports: Dementia - Past Surgical History HEENT Surgical History: Reports: Cataract Surgery, Tonsillectomy Other GI Surgeries/Procedures: very sensitive stomach. GI bleed 2001 Social & Family History - Family History Family Medical History: Noncontributory Neurological: Reports: CVA - Caffeine Use Caffeine Use: Reports: Coffee - Living Situation & Occupation Living situation: Reports: Occupation: Retired Review of Systems - Review of Systems Review Of Systems: See Below Respiratory: Denies: Shortness of Breath Cardiovascular: Denies: Chest Pain GI/Abdominal: Denies: Abdominal Pain, Nausea, Vomiting Genitourinary: Reports: Other (frequent UTIs) Musculoskeletal: Reports: Back Pain (chronic), Leg Pain (chronic). Denies: Neck Pain Skin: Reports: Wound (skin tear dorsal right hand) Neurological: Denies: Headache ED EXAM, GENERAL - Physical Exam Exam: See Below Exam Limited By: No Limitations General Appearance: Alert, WD/WN, No Apparent Distress Eye Exam: Bilateral Eye: EOMI, Normal Inspection, PERRL Ears: Normal External Exam Nose: Normal Inspection Throat/Mouth: Normal Inspection, Normal Lips, Normal Voice, No Airway Compromise Head: Atraumatic, Normocephalic Neck: Normal Inspection, Supple, Non-Tender, Full Range of Motion Respiratory/Chest: No Respiratory Distress, Lungs Clear, Normal Breath Sounds Cardiovascular: Normal Peripheral Pulses, Regular Rate, Rhythm, No Murmur Peripheral Pulses: 2+: Radial (L), Radial (R), Posterior Tibial (L), Posterior Tibial (R) GI/Abdominal: Normal Bowel Sounds, Soft, Non-Tender Back Exam: Normal Inspection. No: Vertebral Tenderness Extremities: Normal Inspection, Normal Range of Motion, Non-Tender, Normal Capillary Refill, Other (stable pelvis, no pain with rotation of the hips) Neurological: Alert, Oriented, Normal Cognition Psychiatric: Normal Affect, Normal Mood Skin Exam: Warm, Dry, Normal Color, Erythema (right ear; right poserior shoulder ), Other (skin tear dorsal right hand) EKG INTERPRETATION EKG Date: 04/18/18 Time: 14:45 Rhythm: Other (sinus tachycardia) Rate (Beats/Min): 100 [place]: Normal P-Wave: Present QRS: LBBB ST-T: Normal QT: Normal Comparison: No Change EKG Interpretation Comments: Sinus tachycardia at 100 bpm. LBBB. PVCs. No significant change from 09/25/17 EKG. Reviewed by myself and Dr. Logan. Course - Vital Signs Last Recorded V/S: Last Vital Signs Temp 99.7 F 04/18/18 20:23 Pulse 98 04/18/18 20:24 Resp 18 04/18/18 20:23 BP 103/64 04/18/18 20:23 Pulse Ox 92 L 04/18/18 20:24 - Orders/Labs/Meds Orders: Active Orders 24 hr Category Date Time Status Cardiac Monitoring [RC] . DIRECTED Care 04/18/18 13:50 Active EKG 12 Lead [EKG Documentation Completion] [RC] STAT Care 04/18/18 13:48 Active Consult to It Systems Analyst Consultant [CONS] Routine Cons 04/18/18 17:06 Active Chest 1V Frontal [CR] Stat Exams 04/18/18 13:50 Taken Venous Doppler Lwr Ext Bi [US] Stat Exams 04/18/18 17:06 Taken CULTURE BLOOD [BC] Stat Lab 04/18/18 14:45 Received CULTURE BLOOD [BC] Stat Lab 04/18/18 14:56 Received CULTURE URINE [RM] Stat Lab 04/18/18 13:50 Received UA W/MICROSCOPIC [URIN] Stat Lab 04/18/18 13:50 Ordered Sodium Chloride 0.9% [Saline Flush] Med 04/18/18 13:50 Active 10 ml FLUSH ASDIRECTED PRN Blood Culture x2 Reflex Set [OM.PC] Stat Oth 04/18/18 14:28 Ordered Peripheral IV Insertion Adult [OM.PC] Routine Oth 04/18/18 13:50 Ordered Medication Orders Acetaminophen (Tylenol) 650 mg PO Q6H PRN PRN Reason: Pain/Fever Aspirin (Halfprin) 81 mg PO BEDTIME [facility] Last Admin: 04/18/18 21:56 Dose: 81 mg Diazepam (Valium.) 5 mg PO BEDTIME PRN PRN Reason: Sleep Gabapentin (Neurontin) 600 mg PO TID [facility] Last Admin: 04/18/18 21:56 Dose: 600 mg Ceftriaxone Sodium 2 gm/ (Sodium Chloride) 100 mls @ 100 mls/hr IV Q24H GEETA Sodium Chloride (Normal Saline) 1,000 mls @ 125 mls/hr IV ASDIRECTED GEETA Sodium Chloride (Saline Flush) 10 ml FLUSH ASDIRECTED PRN PRN Reason: Keep Vein Open Last Admin: 04/18/18 14:41 Dose: 10 ml Temazepam (Restoril) 7.5 mg PO BEDTIME PRN PRN Reason: Insomnia Labs: Laboratory Tests 04/18/18 04/18/18 04/18/18 Range/Units 13:50 14:15 14:15 WBC 7.86 (3.98-10.04) K/mm3 RBC 4.13 (3.98-5.22) M/mm3 Hgb 12.8 (11.2-15.7) gm/L Hct 38.8 (34.1-44.9) % MCV 93.9 (79.4-94.8) fl MCH 31.0 (25.6-32.2) pg MCHC 33.0 (32.2-35.5) g/dl RDW Std Deviation 42.7 (36.4-46.3) fL Plt Count 233 (182-369) K/mm3 MPV 8.8 L (9.4-12.3) fl Neut % (Auto) 85.9 H (34.0-71.1) % Lymph % (Auto) 6.1 L (19.3-51.7) % [place] % (Auto) 7.6 (4.7-12.5) % Eos % (Auto) 0 L (0.7-5.8) Baso % (Auto) 0.1 (0.1-1.2) % Neut # (Auto) 6.75 H (1.56-6.13) K/mm3 Lymph # (Auto) 0.48 L (1.18-3.74) K/mm3 [place] # (Auto) 0.60 H (0.24-0.36) K/mm3 Eos # (Auto) 0.00 L (0.04-0.36) K/mm3 Baso # (Auto) 0.01 (0.01-0.08) K/mm3 Manual Slide Review Normal smear PT 11.8 (9.5-12.1) SECONDS INR 1.08 APTT 27 (24-31) SECONDS D-Dimer, Quantitative > 35.20 H (0.19-0.50) mg/L Sodium (136-145) mEq/L Potassium (3.5-5.1) mEq/L Chloride (98-107) mEq/L Carbon Dioxide (21-32) mEq/L Anion Gap (5-15) BUN (7-18) mg/dL Creatinine (0.55-1.02) mg/dL Est Cr Clr Drug Dosing mL/min Estimated GFR (MDRD) (>60) mL/min BUN/Creatinine Ratio (14-18) Glucose (83-115) mg/dL Lactic Acid (0.4-2.0) mmol/L Calcium (8.5-10.1) mg/dL Total Bilirubin (0.2-1.0) mg/dL AST (15-37) U/L ALT (14-59) U/L Alkaline Phosphatase (46-116) U/L Creatine Kinase (26-192) U/L Troponin I (0.00-0.056) ng/mL NT-Pro-B Natriuret Pep (0-450) pg/mL Total Protein (6.4-8.2) g/dl Albumin (3.4-5.0) g/dl Globulin gm/dL Albumin/Globulin Ratio (1-2) Urine Color Yellow (Yellow) Urine Appearance Clear (Clear) Urine pH 7.0 (5.0-8.0) Ur Specific [place] 1.015 (1.005-1.030) Urine Protein 1+ H (Negative) Urine Glucose (UA) Negative (Negative) Urine Ketones 1+ H (Negative) Urine Occult Blood 2+ H (Negative) Urine Nitrite Negative (Negative) Urine Bilirubin Negative (Negative) Urine Urobilinogen 0.2 (0.2-1.0) Ur Leukocyte Esterase 3+ H (Negative) Urine RBC 5-10 H (0-5) /hpf Urine WBC >100 H (0-5) /hpf Urine WBC Clumps Few (NOT SEEN) /hpf Ur Epithelial Cells 10-20 H (0-5) /hpf Urine Bacteria Moderate H (FEW) /hpf Hyaline Casts 0-5 (0-5) /lpf Urine Mucus Not seen (FEW) /hpf 07/05/18 07/05/18 07/05/18 Range/Units 14:15 14:15 14:45 WBC (3.98-10.04) K/mm3 RBC (3.98-5.22) M/mm3 Hgb (11.2-15.7) gm/L Hct (34.1-44.9) % MCV (79.4-94.8) fl MCH (25.6-32.2) pg MCHC (32.2-35.5) g/dl RDW Std Deviation (36.4-46.3) fL Plt Count (182-369) K/mm3 MPV (9.4-12.3) fl Neut % (Auto) (34.0-71.1) % Lymph % (Auto) (19.3-51.7) % [place] % (Auto) (4.7-12.5) % Eos % (Auto) (0.7-5.8) Baso % (Auto) (0.1-1.2) % Neut # (Auto) (1.56-6.13) K/mm3 Lymph # (Auto) (1.18-3.74) K/mm3 [place] # (Auto) (0.24-0.36) K/mm3 Eos # (Auto) (0.04-0.36) K/mm3 Baso # (Auto) (0.01-0.08) K/mm3 Manual Slide Review PT (9.5-12.1) SECONDS INR APTT (24-31) SECONDS D-Dimer, Quantitative (0.19-0.50) mg/L Sodium 138 (136-145) mEq/L Potassium 3.8 (3.5-5.1) mEq/L Chloride 103 (98-107) mEq/L Carbon Dioxide 27 (21-32) mEq/L Anion Gap 11.8 (5-15) BUN 12 (7-18) mg/dL Creatinine 0.8 (0.55-1.02) mg/dL Est Cr Clr Drug Dosing 50.26 mL/min Estimated GFR (MDRD) > 60 (>60) mL/min BUN/Creatinine Ratio 15.0 (14-18) Glucose 143 H (83-115) mg/dL Lactic Acid 1.1 (0.4-2.0) mmol/L Calcium 9.1 (8.5-10.1) mg/dL Total Bilirubin 1.1 H (0.2-1.0) mg/dL AST 41 H (15-37) U/L ALT 31 (14-59) U/L Alkaline Phosphatase 107 (46-116) U/L Creatine Kinase 347 H (26-192) U/L Troponin I 0.046 (0.00-0.056) ng/mL NT-Pro-B Natriuret Pep 404 (0-450) pg/mL Total Protein 7.1 (6.4-8.2) g/dl Albumin 3.4 (3.4-5.0) g/dl Globulin 3.7 gm/dL Albumin/Globulin Ratio 0.9 L (1-2) Urine Color (Yellow) Urine Appearance (Clear) Urine pH (5.0-8.0) Ur Specific [place] (1.005-1.030) Urine Protein (Negative) Urine Glucose (UA) (Negative) Urine Ketones (Negative) Urine Occult Blood (Negative) Urine Nitrite (Negative) Urine Bilirubin (Negative) Urine Urobilinogen (0.2-1.0) Ur Leukocyte Esterase (Negative) Urine RBC (0-5) /hpf Urine WBC (0-5) /hpf Urine WBC Clumps (NOT SEEN) /hpf Ur Epithelial Cells (0-5) /hpf Urine Bacteria (FEW) /hpf Hyaline Casts (0-5) /lpf Urine Mucus (FEW) /hpf Meds: Medications Generic Name Dose Route Start Last Admin Trade Name Freq PRN Reason Stop Dose Admin Acetaminophen 650 mg 04/18/18 20:31 Tylenol PO Q6H PRN Pain/Fever Aspirin 81 mg 04/18/18 21:00 04/18/18 21:56 Halfprin PO 81 mg BEDTIME GEETA Administration Diazepam 5 mg 04/18/18 20:21 Valium. PO BEDTIME PRN Sleep Gabapentin 600 mg 04/18/18 21:00 04/18/18 21:56 Neurontin PO 600 mg TID GEETA Administration Ceftriaxone Sodium 2 gm/ 100 mls @ 100 mls/hr 04/19/18 17:00 Sodium Chloride IV Q24H GEETA Sodium Chloride 1,000 mls @ 125 mls/hr 04/18/18 20:30 Normal Saline IV ASDIRECTED GEETA Sodium Chloride 10 ml 04/18/18 13:50 04/18/18 14:41 Saline Flush FLUSH 10 ml ASDIRECTED PRN Administration Keep Vein Open Temazepam 7.5 mg 04/18/18 20:31 Restoril PO BEDTIME PRN Insomnia Discontinued Medications Generic Name Dose Route Start Last Admin Trade Name Freq PRN Reason Stop Dose Admin Sodium Chloride 500 mls @ 500 mls/hr 04/18/18 13:53 04/18/18 14:41 Normal Saline IV 04/18/18 14:52 500 mls/hr ONETIME ONE Administration Sodium Chloride 100 mls @ 60 mls/hr 04/18/18 15:15 04/18/18 15:32 Normal Saline IV 60 mls/hr ASDIRECTED GEETA Administration Sodium Chloride 1,000 mls @ 100 mls/hr 04/18/18 16:15 Normal Saline IV ASDIRECTED GEETA Ceftriaxone Sodium 2 gm/ 100 mls @ 100 mls/hr 04/18/18 16:46 04/18/18 17:14 Sodium Chloride IV 04/18/18 17:45 100 mls/hr ONETIME ONE Administration Iopamidol 100 ml 04/18/18 15:08 04/18/18 15:32 Isovue-370 (76%) IVPUSH 04/18/18 15:09 100 ml ONETIME ONE Administration Sodium Chloride 10 ml 04/18/18 15:08 04/18/18 15:32 Saline Flush FLUSH 04/18/18 15:09 10 ml ONETIME ONE Administration - Radiology Interpretation Free Text/Narrative:: Head CT Technique: Multiple axial sections through the brain were obtained. Intravenous contrast was not utilized. Comparison: Prior head CT study of 10/20/14. Findings: Ventricles along with basal cisterns and sulci over the convexities are mildly prominent. Mild diminished density is noted within the periventricular white matter compatible with small vessel ischemic demyelination change. No other abnormal parenchymal densities are seen. No evidence of intracranial hemorrhage. No midline shift or mass effect is seen. Bone window settings were reviewed which shows no acute calvarial abnormality. Slight soft tissue swelling is seen within the right frontal scalp. Stable areas of mucosal thickening are seen within the ethmoid sinuses. Impression: 1. Slight soft tissue swelling within the right frontal scalp. 2. Mild senescent change. Mild stable sinus disease. 3. No acute intracranial abnormality is seen. CT chest Technique: Multiple axial sections of the chest were obtained. Intravenous contrast was utilized. Study has been performed as a pulmonary angiogram protocol. Findings: Pulmonary arteries are well opacified. No filling defects are seen to indicate pulmonary embolism. Small portion of the visualized upper abdominal structures are within normal limits. Heart is mildly enlarged. No mediastinal mass or adenopathy is seen. Hilar regions are within normal limits. Basilar lung markings slightly increased compatible with a combination of minimal fibrosis and dependent atelectasis. Lungs otherwise are clear without acute parenchymal change. Bone window settings were obtained which shows minimal degenerative change within the spine. Impression: 1. Incidental findings as noted above. No findings of pulmonary embolism. No acute abnormality is identified. chest xray shows no acute intrathoracic process. doppler ultrasound of the bilateral lower extremities impression per vrad: Negative examination for DVT. - Re-Assessments/Exams Free Text/Narrative Re-Assessment/Exam: 04/18/18 18:45 I reviewed the labs, EKG and imaging with the patient and her daughters. I discussed the case with Dr. Elkins, hospitalist on-call. She agrees to the admission. Patient has been offered pain medication during her ER stay but has declined. Yusra Maurer social insurance specialist has come and seen the patient and her daughter. as she will likely need skilled nursing placement meds after hospitalization. they have begun the process. Patient to be admitted to [facility] for urinary tract infection. Departure - Departure Time of Disposition: 18:50 Disposition: Admitted As Inpatient 68 Condition: Fair Clinical Impression: UTI, Urinary tract infectious disease - Discharge Information - My Orders Last 24 Hours: My Active Orders 04/18/18 13:48 EKG 12 Lead [EKG Documentation Completion] [RC] STAT 04/18/18 13:50 Cardiac Monitoring [RC] . DIRECTED Chest 1V Frontal [CR] Stat CULTURE URINE [RM] Stat UA W/MICROSCOPIC [URIN] Stat Sodium Chloride 0.9% [Saline Flush] 10 ml FLUSH ASDIRECTED PRN Peripheral IV Insertion Adult [OM.PC] Routine 04/18/18 14:28 Blood Culture x2 Reflex Set [OM.PC] Stat 04/18/18 14:45 CULTURE BLOOD [BC] Stat 04/18/18 14:56 CULTURE BLOOD [BC] Stat 04/18/18 17:06 Consult to It Systems Analyst Consultant [CONS] Routine Venous Doppler Lwr Ext Bi [US] Stat - Assessment/Plan Last 24 Hours: My Active Orders 04/18/18 13:48 EKG 12 Lead [EKG Documentation Completion] [RC] STAT 04/18/18 13:50 Cardiac Monitoring [RC] . DIRECTED Chest 1V Frontal [CR] Stat CULTURE URINE [RM] Stat UA W/MICROSCOPIC [URIN] Stat Sodium Chloride 0.9% [Saline Flush] 10 ml FLUSH ASDIRECTED PRN Peripheral IV Insertion Adult [OM.PC] Routine 04/18/18 14:28 Blood Culture x2 Reflex Set [OM.PC] Stat 04/18/18 14:45 CULTURE BLOOD [BC] Stat 04/18/18 14:56 CULTURE BLOOD [BC] Stat 04/18/18 17:06 Consult to It Systems Analyst Consultant [CONS] Routine Venous Doppler Lwr Ext Bi [US] Stat
[2018-04-18] MEDS ORDERED: Sodium Chloride 0.9% 10 ML Syringe FLUSH ONE (15:08)
[2018-04-18] MEDS ORDERED: Iopamidol 755 Mg/ML 100 ML Bottle IVPUSH ONE (15:08)
[2018-04-18] MEDS ORDERED: Sodium Chloride 0.9% 100 ML IV SCH (15:15)
--- NOTE | 2018-04-18 16:00 | CT ---
CT chest Technique: Multiple axial sections of the chest were obtained. Intravenous contrast was utilized. Study has been performed as a pulmonary angiogram protocol. Findings: Pulmonary arteries are well opacified. No filling defects are seen to indicate pulmonary embolism. Small portion of the visualized upper abdominal structures are within normal limits. Heart is mildly enlarged. No mediastinal mass or adenopathy is seen. Hilar regions are within normal limits. Basilar lung markings slightly increased compatible with a combination of minimal fibrosis and dependent atelectasis. Lungs otherwise are clear without acute parenchymal change. Bone window settings were obtained which shows minimal degenerative change within the spine. Impression: 1. Incidental findings as noted above. No findings of pulmonary embolism. No acute abnormality is identified. Diagnostic code #2
[2018-04-18] MEDS ORDERED: Sodium Chloride 0.9% 1,000 ML IV SCH (16:15)
[2018-04-18] MEDS ORDERED: cefTRIAXone 2 GM in Sodium Chloride 0.9% 100 ML IV ONE (16:46)
--- NOTE | 2018-04-18 19:43 | PCM.HP ---
H&P History of Present Illness - General Date of Service: 04/18/18 Admit Problem/Dx: Admission Diagnosis/Problem Admission Diagnosis/Problem Urinary tract infection Source of Information: Family, Provider History Limitations: Reports: No Limitations - History of Present Illness Initial Comments - Free Text/Narative: 77 year old female with MS presents with abdominal pain. 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 The patient is S/ P several falls without LOC. The patient denies SOB, CP, Syncopal, Pre- syncopal episodes. She had been started on Macrobid but took 3/7 days of the ATB therapy. Her PMH includes multiple sclerosis. She is a DNR/DNI and will be admitted to [facility] with telemetry. Onset of Symptoms: Reports: Sudden Symptom Onset Date: 04/18/18 Duration of Symptoms: Reports: Hour(s):, Getting Worse Location: Reports: Generalized Severity: Moderate Improves with: Reports: Medication Worsens with: Reports: None Associated Symptoms: Reports: Confusion, Malaise, Weakness Head Pain Score (Numeric/FACES): 5 - Related Data Allergies/Adverse Reactions: Allergies Allergy/AdvReac Type Severity Reaction Status Date / Time Sulfa (Sulfonamide Allergy Cannot Verified 04/18/18 13:53 Antibiotics) Remember Home Medications: Home Meds Diazepam [Valium] 5 mg PO BEDTIME PRN 03/09/14 [History] Aspirin [Adult Low Dose Aspirin EC] 81 mg PO BEDTIME 04/08/15 [History] Trimethoprim 100 mg PO BEDTIME 09/25/17 [History] Gabapentin [Neurontin] 600 mg PO TID 04/18/18 [History] Past Medical History HEENT History: Reports: Cataract, Impaired Vision Cardiovascular History: Reports: High Cholesterol Gastrointestinal History: Reports: GI Bleed Genitourinary History: Reports: Urinary Incontinence, UTI, Recurrent EAR SPECIALIST History: Reports: Other Musculoskeletal History: pt has progressing MS Neurological History: Reports: CVA Other Neuro History: previous CVA Psychiatric History: Reports: Dementia Hematologic History: Reports: Blood Transfusion(s) - Past Surgical History HEENT Surgical History: Reports: Cataract Surgery, Tonsillectomy Other GI Surgeries/Procedures: very sensitive stomach. GI bleed 2001 Social & Family History - Family History Family Medical History: Noncontributory Neurological: Reports: CVA - Tobacco Use Smoking Status *Q: Former Smoker Used Tobacco, but Quit: Yes Month/Year Tobacco Last Used: 1997 - Caffeine Use Caffeine Use: Reports: Coffee Other Caffeine Use: daily - Recreational Drug Use Recreational Drug Use: No - Living Situation & Occupation Living situation: Reports: Occupation: Retired H&P Review of Systems - Review of Systems: Review Of Systems: See Below General: Reports: Malaise, Weakness HEENT: Reports: No Symptoms Pulmonary: Reports: No Symptoms Cardiovascular: Reports: No Symptoms Gastrointestinal: Reports: Abdominal Pain Genitourinary: Reports: No Symptoms Musculoskeletal: Reports: No Symptoms Skin: Reports: No Symptoms Psychiatric: Reports: No Symptoms Neurological: Reports: No Symptoms Exam - Exam Exam: See Below - Vital Signs Vital Signs: Last Vital Signs Temp 37.1 C 04/18/18 15:59 Pulse 105 H 04/18/18 13:53 Resp 19 04/18/18 15:59 BP 126/68 04/18/18 15:59 Pulse Ox 91 L 04/18/18 15:59 Weight: 63.503 kg - Exam Quality Assessment: Supplemental Oxygen, DVT Prophylaxis, Skin Breakdown General: Alert, Oriented, Cooperative HEENT: Conjunctiva Clear, Nares Patent, Normal Nasal Septum, Pupils Equal, Pupils Reactive Neck: Trachea Midline Lungs: Clear to Auscultation, Normal Respiratory Effort Cardiovascular: Regular Rate GI/Abdominal Exam: Normal Bowel Sounds, Soft, Non-Tender, No Organomegaly (Female) Exam: Normal External Exam, Deferred Rectal (Female) Exam: Deferred Back Exam: Full Range of Motion Extremities: Normal Inspection, Slow Capillary Refill Skin: Warm Neurological: Cranial Nerves Intact Neuro Extensive - Mental Status: Alert, Oriented x3 Neuro Extensive - Motor, Sensory, Reflexes: CN II-XII Intact Psychiatric: Alert, Normal Affect - Patient Data Lab Results Last 24 hrs: Laboratory Results - last 24 hr 04/18/18 04/18/18 04/18/18 Range/Units 13:50 14:15 14:15 WBC 7.86 (3.98-10.04) K/mm3 RBC 4.13 (3.98-5.22) M/mm3 Hgb 12.8 (11.2-15.7) gm/L Hct 38.8 (34.1-44.9) % MCV 93.9 (79.4-94.8) fl MCH 31.0 (25.6-32.2) pg MCHC 33.0 (32.2-35.5) g/dl RDW Std Deviation 42.7 (36.4-46.3) fL Plt Count 233 (182-369) K/mm3 MPV 8.8 L (9.4-12.3) fl Neut % (Auto) 85.9 H (34.0-71.1) % Lymph % (Auto) 6.1 L (19.3-51.7) % [place] % (Auto) 7.6 (4.7-12.5) % Eos % (Auto) 0 L (0.7-5.8) Baso % (Auto) 0.1 (0.1-1.2) % Neut # (Auto) 6.75 H (1.56-6.13) K/mm3 Lymph # (Auto) 0.48 L (1.18-3.74) K/mm3 [place] # (Auto) 0.60 H (0.24-0.36) K/mm3 Eos # (Auto) 0.00 L (0.04-0.36) K/mm3 Baso # (Auto) 0.01 (0.01-0.08) K/mm3 Manual Slide Review Normal smear PT 11.8 (9.5-12.1) SECONDS INR 1.08 APTT 27 (24-31) SECONDS D-Dimer, Quantitative > 35.20 H (0.19-0.50) mg/L Sodium (136-145) mEq/L Potassium (3.5-5.1) mEq/L Chloride (98-107) mEq/L Carbon Dioxide (21-32) mEq/L Anion Gap (5-15) BUN (7-18) mg/dL Creatinine (0.55-1.02) mg/dL Est Cr Clr Drug Dosing mL/min Estimated GFR (MDRD) (>60) mL/min BUN/Creatinine Ratio (14-18) Glucose (83-115) mg/dL Lactic Acid (0.4-2.0) mmol/L Calcium (8.5-10.1) mg/dL Total Bilirubin (0.2-1.0) mg/dL AST (15-37) U/L ALT (14-59) U/L Alkaline Phosphatase (46-116) U/L Creatine Kinase (26-192) U/L Troponin I (0.00-0.056) ng/mL NT-Pro-B Natriuret Pep (0-450) pg/mL Total Protein (6.4-8.2) g/dl Albumin (3.4-5.0) g/dl Globulin gm/dL Albumin/Globulin Ratio (1-2) Urine Color Yellow (Yellow) Urine Appearance Clear (Clear) Urine pH 7.0 (5.0-8.0) Ur Specific [place] 1.015 (1.005-1.030) Urine Protein 1+ H (Negative) Urine Glucose (UA) Negative (Negative) Urine Ketones 1+ H (Negative) Urine Occult Blood 2+ H (Negative) Urine Nitrite Negative (Negative) Urine Bilirubin Negative (Negative) Urine Urobilinogen 0.2 (0.2-1.0) Ur Leukocyte Esterase 3+ H (Negative) Urine RBC 5-10 H (0-5) /hpf Urine WBC >100 H (0-5) /hpf Urine WBC Clumps Few (NOT SEEN) /hpf Ur Epithelial Cells 10-20 H (0-5) /hpf Urine Bacteria Moderate H (FEW) /hpf Hyaline Casts 0-5 (0-5) /lpf Urine Mucus Not seen (FEW) /hpf 04/18/18 04/18/18 04/18/18 Range/Units 14:15 14:15 14:45 WBC (3.98-10.04) K/mm3 RBC (3.98-5.22) M/mm3 Hgb (11.2-15.7) gm/L Hct (34.1-44.9) % MCV (79.4-94.8) fl MCH (25.6-32.2) pg MCHC (32.2-35.5) g/dl RDW Std Deviation (36.4-46.3) fL Plt Count (182-369) K/mm3 MPV (9.4-12.3) fl Neut % (Auto) (34.0-71.1) % Lymph % (Auto) (19.3-51.7) % [place] % (Auto) (4.7-12.5) % Eos % (Auto) (0.7-5.8) Baso % (Auto) (0.1-1.2) % Neut # (Auto) (1.56-6.13) K/mm3 Lymph # (Auto) (1.18-3.74) K/mm3 [place] # (Auto) (0.24-0.36) K/mm3 Eos # (Auto) (0.04-0.36) K/mm3 Baso # (Auto) (0.01-0.08) K/mm3 Manual Slide Review PT (9.5-12.1) SECONDS INR APTT (24-31) SECONDS D-Dimer, Quantitative (0.19-0.50) mg/L Sodium 138 (136-145) mEq/L Potassium 3.8 (3.5-5.1) mEq/L Chloride 103 (98-107) mEq/L Carbon Dioxide 27 (21-32) mEq/L Anion Gap 11.8 (5-15) BUN 12 (7-18) mg/dL Creatinine 0.8 (0.55-1.02) mg/dL Est Cr Clr Drug Dosing 50.26 mL/min Estimated GFR (MDRD) > 60 (>60) mL/min BUN/Creatinine Ratio 15.0 (14-18) Glucose 143 H (83-115) mg/dL Lactic Acid 1.1 (0.4-2.0) mmol/L Calcium 9.1 (8.5-10.1) mg/dL Total Bilirubin 1.1 H (0.2-1.0) mg/dL AST 41 H (15-37) U/L ALT 31 (14-59) U/L Alkaline Phosphatase 107 (46-116) U/L Creatine Kinase 347 H (26-192) U/L Troponin I 0.046 (0.00-0.056) ng/mL NT-Pro-B Natriuret Pep 404 (0-450) pg/mL Total Protein 7.1 (6.4-8.2) g/dl Albumin 3.4 (3.4-5.0) g/dl Globulin 3.7 gm/dL Albumin/Globulin Ratio 0.9 L (1-2) Urine Color (Yellow) Urine Appearance (Clear) Urine pH (5.0-8.0) Ur Specific [place] (1.005-1.030) Urine Protein (Negative) Urine Glucose (UA) (Negative) Urine Ketones (Negative) Urine Occult Blood (Negative) Urine Nitrite (Negative) Urine Bilirubin (Negative) Urine Urobilinogen (0.2-1.0) Ur Leukocyte Esterase (Negative) Urine RBC (0-5) /hpf Urine WBC (0-5) /hpf Urine WBC Clumps (NOT SEEN) /hpf Ur Epithelial Cells (0-5) /hpf Urine Bacteria (FEW) /hpf Hyaline Casts (0-5) /lpf Urine Mucus (FEW) /hpf Result Diagrams: 04/20/18 05:58 04/20/18 05:58 - Problem List (1) UTI, Urinary tract infectious disease SNOMED Code(s): 53207978 ICD Code: N39.0 - URINARY TRACT INFECTION, SITE NOT SPECIFIED Status: Acute Priority: High Current Visit: Yes (2) Dementia SNOMED Code(s): 70895478 ICD Code: F03.90 - UNSPECIFIED DEMENTIA WITHOUT BEHAVIORAL DISTURBANCE Status: Chronic Priority: Medium Current Visit: Yes Qualifiers: Dementia type: unspecified type Dementia behavioral disturbance: without behavioral disturbance Qualified Code(s): F03.90 - Unspecified dementia without behavioral disturbance (3) HLD (hyperlipidemia) SNOMED Code(s): 65399808 ICD Code: E78.5 - HYPERLIPIDEMIA, UNSPECIFIED Status: Chronic Priority: Low Current Visit: No Qualifiers: Hyperlipidemia type: unspecified Qualified Code(s): E78.5 - Hyperlipidemia , unspecified (4) History of CVA (cerebrovascular accident) SNOMED Code(s): 326625982 ICD Code: Z86.73 - PRSNL HX OF TIA (TIA), AND CEREB INFRC W/O RESID DEFICITS Status: Chronic Priority: Medium Current Visit: No Problem List Initiated/Reviewed/Updated: Yes Orders Last 24hrs: Active Orders 24 hr Category Date Time Status Patient Status [ADT] Routine ADT 04/18/18 18:52 Active Cardiac Monitoring [RC] . DIRECTED Care 04/18/18 13:50 Active EKG 12 Lead [EKG Documentation Completion] [RC] STAT Care 04/18/18 13:48 Active Peripheral IV Care [RC] . DIRECTED Care 04/18/18 13:51 Active Consult to Head Of Integrated Media [CONS] Routine Cons 04/18/18 17:06 Active Chest 1V Frontal [CR] Stat Exams 04/18/18 13:50 Taken Venous Doppler Lwr Ext Bi [US] Stat Exams 04/18/18 17:06 Taken CULTURE BLOOD [BC] Stat Lab 04/18/18 14:45 Received CULTURE BLOOD [BC] Stat Lab 04/18/18 14:56 Received CULTURE URINE [RM] Stat Lab 04/18/18 13:50 Received UA W/MICROSCOPIC [URIN] Stat Lab 04/18/18 13:50 Ordered Sodium Chloride 0.9% [Normal Saline] 1,000 ml Med 04/18/18 16:15 Active IV ASDIRECTED Sodium Chloride 0.9% [Normal Saline] 100 ml Med 04/18/18 15:15 Active IV ASDIRECTED Sodium Chloride 0.9% [Saline Flush] Med 04/18/18 13:50 Active 10 ml FLUSH ASDIRECTED PRN Blood Culture x2 Reflex Set [OM.PC] Stat Oth 04/18/18 14:28 Ordered Peripheral IV Insertion Adult [OM.PC] Routine Oth 04/18/18 13:50 Ordered Medication Orders Sodium Chloride (Normal Saline) 100 mls @ 60 mls/hr IV ASDIRECTED GEETA Last Admin: 04/18/18 15:32 Dose: 60 mls/hr Sodium Chloride (Normal Saline) 1,000 mls @ 100 mls/hr IV ASDIRECTED GEETA Sodium Chloride (Saline Flush) 10 ml FLUSH ASDIRECTED PRN PRN Reason: Keep Vein Open Last Admin: 04/18/18 14:41 Dose: 10 ml Assessment/Plan Comment:: Impression: Failed OP therapy for AUTI with medical noncompliance MS-reported as stable per daughters HTN HLD Plan: Rocephin 2mg IV QD. Adjust as needed Daily labs Home meds PT/OT/CM --> Disposition pending. DVT.GI prophylaxis Possible SNF wwwwwwwwwwwwwwwwwwwwwwwwwwwwwwwwwwwwwwwwwwwwwwwwwwwwwwwwwwwwwwwwwwwwwwwwwwwwwwww wwwwwwwwwwwwwwwwwwwwwwwwwww[email or web address]
[2018-04-18] MEDS ORDERED: Temazepam 7.5 MG Cap PO PRN (20:31)
[2018-04-18] MEDS ORDERED: Acetaminophen 325 MG Tab PO PRN (20:31)
[2018-04-18] MEDS: Aspirin 81 MG Tab.EC PO SCH (21:56)
[2018-04-18] MEDS: Gabapentin 300 MG Cap PO SCH (21:56)
[2018-04-18] MEDS: Diazepam 5 MG Tab PO PRN (23:36)
[2018-04-18] MEDS: Sodium Chloride 0.9% 1,000 ML IV SCH (23:38)
[2018-04-19] MEDS: Sodium Chloride 0.9% 1,000 ML IV SCH ×3 (07:37→22:36)
--- NOTE | 2018-04-19 08:25 | CR ---
Chest: Portable view of the chest was obtained. Comparison: Prior chest x-ray of 09/25/17. Heart size at the upper limits of normal. Tortuous thoracic aorta is seen. Lung markings are mildly increased which are felt accentuated from portable technique. No acute parenchymal densities are suspected. Bony structures are osteopenic. Minimal scoliosis is present within the spine. Impression: 1. Incidental findings. Nothing acute is appreciated on portable chest x-ray. Diagnostic code #2
--- NOTE | 2018-04-19 08:25 | US ---
Bilateral lower extremity deep venous ultrasound: Duplex and color flow imaging was obtained of the right and left common femoral, greater saphenous, superficial femoral, popliteal, posterior tibial and peroneal veins. Findings: Normal phasic flow, augmentation and compression are seen. Incidental lymph nodes seen within both inguinal regions which is normal. Impression: 1. No evidence of deep venous thrombosis within the right or left lower extremities. Diagnostic code #1 I agree with preliminary report from [facility], finalized at 04/18/18, 7:01 PM Central Time
[2018-04-19] MEDS: Gabapentin 300 MG Cap PO SCH ×3 (09:22→21:51)
--- NOTE | 2018-04-19 09:50 | PCM.PN ---
- General Info Date of Service: 04/19/18 Admission Dx/Problem (Free Text): Admission Diagnosis/Problem Admission Diagnosis/Problem Urinary tract infection Functional Status: Reports: Pain Controlled, Tolerating Diet, Ambulating, Urinating. Denies: New Symptoms - Review of Systems General: Reports: Weakness, Fatigue. Denies: Fever, Malaise, Chills HEENT: Reports: No Symptoms. Denies: Headaches, Rhinitis, Visual Changes Pulmonary: Reports: No Symptoms. Denies: Shortness of Breath, Cough, Sputum, Wheezing Cardiovascular: Reports: No Symptoms. Denies: Chest Pain, Palpitations, Dyspnea on Exertion, Edema Gastrointestinal: Reports: Decreased Appetite. Denies: Abdominal Pain, Constipation, Nausea, Vomiting Genitourinary: Reports: Frequency, Pain Musculoskeletal: Reports: Back Pain (chronic ), Leg Pain (chronic ), Foot Pain ( left heel) Skin: Reports: No Symptoms Neurological: Reports: Difficulty Walking, Weakness, Gait Disturbance. Denies: Confusion, Dizziness, Numbness, Trouble Speaking Psychiatric: Reports: No Symptoms - Patient Data Vitals - Most Recent: Last Vital Signs Temp 98.4 F 04/19/18 07:45 Pulse 86 04/19/18 07:45 Resp 18 04/19/18 07:45 BP 100/53 L 04/19/18 07:45 Pulse Ox 94 L 04/19/18 07:45 Weight - Most Recent: 128 lb I&O - Last 24 Hours: Intake & Output 04/18/18 04/19/18 04/19/18 22:59 06:59 14:59 Intake Total 1420 Balance 1420 Lab Results Last 24 Hours: Laboratory Results - last 24 hr 04/18/18 04/18/18 04/18/18 Range/Units 13:50 14:15 14:15 WBC 7.86 (3.98-10.04) K/mm3 RBC 4.13 (3.98-5.22) M/mm3 Hgb 12.8 (11.2-15.7) gm/L Hct 38.8 (34.1-44.9) % MCV 93.9 (79.4-94.8) fl MCH 31.0 (25.6-32.2) pg MCHC 33.0 (32.2-35.5) g/dl RDW Std Deviation 42.7 (36.4-46.3) fL Plt Count 233 (182-369) K/mm3 MPV 8.8 L (9.4-12.3) fl Neut % (Auto) 85.9 H (34.0-71.1) % Lymph % (Auto) 6.1 L (19.3-51.7) % [place] % (Auto) 7.6 (4.7-12.5) % Eos % (Auto) 0 L (0.7-5.8) Baso % (Auto) 0.1 (0.1-1.2) % Neut # (Auto) 6.75 H (1.56-6.13) K/mm3 Lymph # (Auto) 0.48 L (1.18-3.74) K/mm3 [place] # (Auto) 0.60 H (0.24-0.36) K/mm3 Eos # (Auto) 0.00 L (0.04-0.36) K/mm3 Baso # (Auto) 0.01 (0.01-0.08) K/mm3 Manual Slide Review Normal smear PT 11.8 (9.5-12.1) SECONDS INR 1.08 APTT 27 (24-31) SECONDS D-Dimer, Quantitative > 35.20 H (0.19-0.50) mg/L Sodium (136-145) mEq/L Potassium (3.5-5.1) mEq/L Chloride (98-107) mEq/L Carbon Dioxide (21-32) mEq/L Anion Gap (5-15) BUN (7-18) mg/dL Creatinine (0.55-1.02) mg/dL Est Cr Clr Drug Dosing mL/min Estimated GFR (MDRD) (>60) mL/min BUN/Creatinine Ratio (14-18) Glucose (83-115) mg/dL Lactic Acid (0.4-2.0) mmol/L Calcium (8.5-10.1) mg/dL Total Bilirubin (0.2-1.0) mg/dL AST (15-37) U/L ALT (14-59) U/L Alkaline Phosphatase (46-116) U/L Creatine Kinase (26-192) U/L Troponin I (0.00-0.056) ng/mL C-Reactive Protein (<1.0) mg/dL NT-Pro-B Natriuret Pep (0-450) pg/mL Total Protein (6.4-8.2) g/dl Albumin (3.4-5.0) g/dl Globulin gm/dL Albumin/Globulin Ratio (1-2) Urine Color Yellow (Yellow) Urine Appearance Clear (Clear) Urine pH 7.0 (5.0-8.0) Ur Specific [place] 1.015 (1.005-1.030) Urine Protein 1+ H (Negative) Urine Glucose (UA) Negative (Negative) Urine Ketones 1+ H (Negative) Urine Occult Blood 2+ H (Negative) Urine Nitrite Negative (Negative) Urine Bilirubin Negative (Negative) Urine Urobilinogen 0.2 (0.2-1.0) Ur Leukocyte Esterase 3+ H (Negative) Urine RBC 5-10 H (0-5) /hpf Urine WBC >100 H (0-5) /hpf Urine WBC Clumps Few (NOT SEEN) /hpf Ur Epithelial Cells 10-20 H (0-5) /hpf Urine Bacteria Moderate H (FEW) /hpf Hyaline Casts 0-5 (0-5) /lpf Urine Mucus Not seen (FEW) /hpf 04/18/18 04/18/18 04/18/18 Range/Units 14:15 14:15 14:45 WBC (3.98-10.04) K/mm3 RBC (3.98-5.22) M/mm3 Hgb (11.2-15.7) gm/L Hct (34.1-44.9) % MCV (79.4-94.8) fl MCH (25.6-32.2) pg MCHC (32.2-35.5) g/dl RDW Std Deviation (36.4-46.3) fL Plt Count (182-369) K/mm3 MPV (9.4-12.3) fl Neut % (Auto) (34.0-71.1) % Lymph % (Auto) (19.3-51.7) % [place] % (Auto) (4.7-12.5) % Eos % (Auto) (0.7-5.8) Baso % (Auto) (0.1-1.2) % Neut # (Auto) (1.56-6.13) K/mm3 Lymph # (Auto) (1.18-3.74) K/mm3 [place] # (Auto) (0.24-0.36) K/mm3 Eos # (Auto) (0.04-0.36) K/mm3 Baso # (Auto) (0.01-0.08) K/mm3 Manual Slide Review PT (9.5-12.1) SECONDS INR APTT (24-31) SECONDS D-Dimer, Quantitative (0.19-0.50) mg/L Sodium 138 (136-145) mEq/L Potassium 3.8 (3.5-5.1) mEq/L Chloride 103 (98-107) mEq/L Carbon Dioxide 27 (21-32) mEq/L Anion Gap 11.8 (5-15) BUN 12 (7-18) mg/dL Creatinine 0.8 (0.55-1.02) mg/dL Est Cr Clr Drug Dosing 50.26 mL/min Estimated GFR (MDRD) > 60 (>60) mL/min BUN/Creatinine Ratio 15.0 (14-18) Glucose 143 H (83-115) mg/dL Lactic Acid 1.1 (0.4-2.0) mmol/L Calcium 9.1 (8.5-10.1) mg/dL Total Bilirubin 1.1 H (0.2-1.0) mg/dL AST 41 H (15-37) U/L ALT 31 (14-59) U/L Alkaline Phosphatase 107 (46-116) U/L Creatine Kinase 347 H (26-192) U/L Troponin I 0.046 (0.00-0.056) ng/mL C-Reactive Protein (<1.0) mg/dL NT-Pro-B Natriuret Pep 404 (0-450) pg/mL Total Protein 7.1 (6.4-8.2) g/dl Albumin 3.4 (3.4-5.0) g/dl Globulin 3.7 gm/dL Albumin/Globulin Ratio 0.9 L (1-2) Urine Color (Yellow) Urine Appearance (Clear) Urine pH (5.0-8.0) Ur Specific [place] (1.005-1.030) Urine Protein (Negative) Urine Glucose (UA) (Negative) Urine Ketones (Negative) Urine Occult Blood (Negative) Urine Nitrite (Negative) Urine Bilirubin (Negative) Urine Urobilinogen (0.2-1.0) Ur Leukocyte Esterase (Negative) Urine RBC (0-5) /hpf Urine WBC (0-5) /hpf Urine WBC Clumps (NOT SEEN) /hpf Ur Epithelial Cells (0-5) /hpf Urine Bacteria (FEW) /hpf Hyaline Casts (0-5) /lpf Urine Mucus (FEW) /hpf 04/19/18 04/19/18 04/19/18 Range/Units 06:24 06:24 06:24 WBC 5.42 (3.98-10.04) K/mm3 RBC 3.63 L (3.98-5.22) M/mm3 Hgb 11.3 (11.2-15.7) gm/L Hct 34.6 (34.1-44.9) % MCV 95.3 H (79.4-94.8) fl MCH 31.1 (25.6-32.2) pg MCHC 32.7 (32.2-35.5) g/dl RDW Std Deviation 43.8 (36.4-46.3) fL Plt Count 191 (182-369) K/mm3 MPV 8.9 L (9.4-12.3) fl Neut % (Auto) 72.1 H (34.0-71.1) % Lymph % (Auto) 15.1 L (19.3-51.7) % [place] % (Auto) 10.0 (4.7-12.5) % Eos % (Auto) 2.4 (0.7-5.8) Baso % (Auto) 0.4 (0.1-1.2) % Neut # (Auto) 3.91 (1.56-6.13) K/mm3 Lymph # (Auto) 0.82 L (1.18-3.74) K/mm3 [place] # (Auto) 0.54 H (0.24-0.36) K/mm3 Eos # (Auto) 0.13 (0.04-0.36) K/mm3 Baso # (Auto) 0.02 (0.01-0.08) K/mm3 Manual Slide Review PT (9.5-12.1) SECONDS INR APTT (24-31) SECONDS D-Dimer, Quantitative (0.19-0.50) mg/L Sodium 142 (136-145) mEq/L Potassium 3.2 L (3.5-5.1) mEq/L Chloride 109 H (98-107) mEq/L Carbon Dioxide 26 (21-32) mEq/L Anion Gap 10.2 (5-15) BUN 9 (7-18) mg/dL Creatinine 0.6 (0.55-1.02) mg/dL Est Cr Clr Drug Dosing 67.02 mL/min Estimated GFR (MDRD) > 60 (>60) mL/min BUN/Creatinine Ratio 15.0 (14-18) Glucose 94 (83-115) mg/dL Lactic Acid 0.5 (0.4-2.0) mmol/L Calcium 7.9 L (8.5-10.1) mg/dL Total Bilirubin (0.2-1.0) mg/dL AST (15-37) U/L ALT (14-59) U/L Alkaline Phosphatase (46-116) U/L Creatine Kinase (26-192) U/L Troponin I (0.00-0.056) ng/mL C-Reactive Protein 12.5 H* (<1.0) mg/dL NT-Pro-B Natriuret Pep (0-450) pg/mL Total Protein (6.4-8.2) g/dl Albumin (3.4-5.0) g/dl Globulin gm/dL Albumin/Globulin Ratio (1-2) Urine Color (Yellow) Urine Appearance (Clear) Urine pH (5.0-8.0) Ur Specific [place] (1.005-1.030) Urine Protein (Negative) Urine Glucose (UA) (Negative) Urine Ketones (Negative) Urine Occult Blood (Negative) Urine Nitrite (Negative) Urine Bilirubin (Negative) Urine Urobilinogen (0.2-1.0) Ur Leukocyte Esterase (Negative) Urine RBC (0-5) /hpf Urine WBC (0-5) /hpf Urine WBC Clumps (NOT SEEN) /hpf Ur Epithelial Cells (0-5) /hpf Urine Bacteria (FEW) /hpf Hyaline Casts (0-5) /lpf Urine Mucus (FEW) /hpf Jayson Results Last 24 Hours: Microbiology 04/18/18 13:50 Urine Culture - Preliminary Urine, Quick Cath (In-Out) NO GROWTH AFTER 1 DAY Med Orders - Current: Current Medications Acetaminophen (Tylenol) 650 mg PO Q6H PRN PRN Reason: Pain/Fever Last Admin: 04/18/18 23:35 Dose: 650 mg Aspirin (Halfprin) 81 mg PO BEDTIME [facility] Last Admin: 04/18/18 21:56 Dose: 81 mg Diazepam (Valium.) 5 mg PO BEDTIME PRN PRN Reason: Sleep Last Admin: 04/18/18 23:36 Dose: 5 mg Gabapentin (Neurontin) 600 mg PO TID [facility] Last Admin: 04/19/18 09:22 Dose: 600 mg Ceftriaxone Sodium 2 gm/ (Sodium Chloride) 100 mls @ 100 mls/hr IV Q24H [facility] Sodium Chloride (Normal Saline) 1,000 mls @ 125 mls/hr IV ASDIRECTED [facility] Last Admin: 04/19/18 07:37 Dose: 125 mls/hr Sodium Chloride (Saline Flush) 10 ml FLUSH ASDIRECTED PRN PRN Reason: Keep Vein Open Last Admin: 04/18/18 14:41 Dose: 10 ml Temazepam (Restoril) 7.5 mg PO BEDTIME PRN PRN Reason: Insomnia Discontinued Medications Sodium Chloride (Normal Saline) 500 mls @ 500 mls/hr IV ONETIME ONE Stop: 04/18/18 14:52 Last Admin: 04/18/18 14:41 Dose: 500 mls/hr Sodium Chloride (Normal Saline) 100 mls @ 60 mls/hr IV ASDIRECTED [facility] Last Admin: 04/18/18 15:32 Dose: 60 mls/hr Sodium Chloride (Normal Saline) 1,000 mls @ 100 mls/hr IV ASDIRECTED [facility] Ceftriaxone Sodium 2 gm/ (Sodium Chloride) 100 mls @ 100 mls/hr IV ONETIME ONE Stop: 04/18/18 17:45 Last Admin: 04/18/18 17:14 Dose: 100 mls/hr Iopamidol (Isovue-370 (76%)) 100 ml IVPUSH ONETIME ONE Stop: 04/18/18 15:09 Last Admin: 04/18/18 15:32 Dose: 100 ml Sodium Chloride (Saline Flush) 10 ml FLUSH ONETIME ONE Stop: 04/18/18 15:09 Last Admin: 04/18/18 15:32 Dose: 10 ml - Exam Quality Assessment: Supplemental Oxygen, DVT Prophylaxis General: Alert, Oriented, Cooperative, No Acute Distress HEENT: Pupils Equal, Pupils Reactive, EOMI, Mucous Membr. Moist/[place] Neck: Supple, Trachea Midline, No JVD Lungs: Clear to Auscultation, Normal Respiratory Effort Cardiovascular: Regular Rate, Regular Rhythm GI/Abdominal Exam: Normal Bowel Sounds, Soft, Non-Tender, No Distention, Pelvis Stable (Female) Exam: Deferred Back Exam: Normal Inspection Extremities: Normal Inspection, Normal Range of Motion, Non-Tender, No Pedal Edema, Normal Capillary Refill Peripheral Pulses: 2+: Radial (L), Radial (R), Posterior Tibial (L), Posterior Tibial (R), Dorsalis Pedis (L), Dorsalis Pedis (R) Skin: Warm, Dry, Intact Wound/Incisions: Healing Well Neurological: No New Focal Deficit Psy/Mental Status: Alert, Normal Affect, Normal Mood - Problem List & Annotations (1) UTI, Urinary tract infectious disease SNOMED Code(s): 61685741 Code(s): N39.0 - URINARY TRACT INFECTION, SITE NOT SPECIFIED Status: Acute Priority: High Current Visit: Yes (2) Fall as cause of accidental injury at home as place of occurrence SNOMED Code(s): 15768849 Code(s): W19.XXXA - UNSPECIFIED FALL, INITIAL ENCOUNTER; Y92.009 - UNSP PLACE IN UNSP NON-INSTITUT (PRIVATE) RESIDENCE PLACE Status: Acute Priority: High Current Visit: Yes Qualifiers: Encounter type: initial encounter Qualified Code(s): W19.XXXA - Unspecified fall, initial encounter; Y92.009 - Unspecified place in unspecified non-institutional (private) residence as the place of occurrence of the external cause; Y92.009 - Unspecified place in unspecified non-institutional ( private) residence as the place of occurrence of the external cause (3) Contusion of left hip and thigh SNOMED Code(s): 026632855 Code(s): S70.02XA - CONTUSION OF LEFT HIP, INITIAL ENCOUNTER; S70.12XA - CONTUSION OF LEFT THIGH, INITIAL ENCOUNTER Status: Acute Priority: Medium Current Visit: No Qualifiers: Encounter type: initial encounter Qualified Code(s): S70.02XA - Contusion of left hip, initial encounter; S70.12XA - Contusion of left thigh, initial encounter; S70.12XA - Contusion of left thigh, initial encounter (4) HLD (hyperlipidemia) SNOMED Code(s): 41309546 Code(s): E78.5 - HYPERLIPIDEMIA, UNSPECIFIED Status: Chronic Priority: Low Current Visit: No Qualifiers: Hyperlipidemia type: unspecified Qualified Code(s): E78.5 - Hyperlipidemia , unspecified (5) History of CVA (cerebrovascular accident) SNOMED Code(s): 751672624 Code(s): Z86.73 - PRSNL HX OF TIA (TIA), AND CEREB INFRC W/O RESID DEFICITS Status: Chronic Priority: Medium Current Visit: No (6) Dementia SNOMED Code(s): 57843119 Code(s): F03.90 - UNSPECIFIED DEMENTIA WITHOUT BEHAVIORAL DISTURBANCE Status: Chronic Priority: Medium Current Visit: Yes Qualifiers: Dementia type: unspecified type Dementia behavioral disturbance: without behavioral disturbance Qualified Code(s): F03.90 - Unspecified dementia without behavioral disturbance (7) Multiple sclerosis SNOMED Code(s): 54878056 Code(s): G35 - MULTIPLE SCLEROSIS Status: Chronic Priority: Medium Current Visit: No - Problem List Review Problem List Initiated/Reviewed/Updated: Yes - Plan Plan:: I/P: Acute: UTI -Reportedly fell multiple times just prior to coming to ED via ambulance -Reportedly was on antibiotic recently for UTI, however stopped taking this after a few days when she experienced upset stomach -Hx/o frequent UTIs, incontinent -Reports increased frequency and pain in groin, however afebrile -No leukocytosis -CRP 12.5 -UA shows 1+ protein, 1+ ketones, 2+ occult blood, 3+ leuk esterase, 5-10 RBC , >100 WBC, 10-20 epithelial cells, Moderate bacteria -Urine cultures and sensitivities pending -Lactic acid 1.1 -Rocephin started in ED - continue -Blood cultures pending -Probiotic Frequent falls/weakness -Has fallen several times at home -Was hospitalized late last year for a fall -Could be exacerbated by UTIs -Hx/o prior CVA, pelvic fracture -Has progressing MS, impaired vision, dementia -Utilizes walker -Negative head CT, CXR in ED -PT/OT -CM/SW consult - will likely need SNF at discharge Multiple contusions/ecchymosis -Reportedly fell twice before being brought in by EMS to ED -Reportedly was laying on ground for several hours -Skin tear to right hand -Right ear and right posterior shoulder erythema -Negative workup in ED Elevated D-Dimmer -D-Dimmer >35.20 -Negative CTA -Negative lower extremity venous ultrasound -Denies SOB -May be due to -No further workup Hypokalemia -Potassium 3.2 today -Supplement -Monitor Chronic: Impaired vision HLD Hx/o GI bleed MS Hx/o CVA Dementia Plan: Admit to medical floor on telemetry Other orders as above Home meds as ordered PT/OT Routine AM labs DVT prophylaxis: Lovenox GI prophylaxis: Pepcid CM/SW for discharge planning - will likely need SNF at discharge Code status: DNR/DNI; PCP: Jessica Perkins PA-C
[2018-04-19] MEDS ORDERED: Potassium Chloride 20 MEQ Tab.ER PO ONE ×2 (10:15→14:00)
[2018-04-19] MEDS ORDERED: Ondansetron 4 MG Tab.DIS PO PRN (12:09)
[2018-04-19] MEDS ORDERED: Ondansetron 4 MG/2 ML SDV IV PRN (12:09)
[2018-04-19] MEDS ORDERED: Acetaminophen/HYDROcodone 325-5 MG Tab PO PRN (12:09)
[2018-04-19] MEDS: Acetaminophen 325 MG Tab PO PRN (12:21)
[2018-04-19] MEDS ORDERED: cefTRIAXone 2 GM in Sodium Chloride 0.9% 100 ML IV SCH (17:00)
[2018-04-19] MEDS: Diazepam 5 MG Tab PO PRN (21:51)
[2018-04-19] MEDS: Famotidine 20 MG Tab PO SCH (21:52)
[2018-04-19] MEDS: Aspirin 81 MG Tab.EC PO SCH (21:52)
[2018-04-20] MEDS: Acetaminophen 325 MG Tab PO PRN (02:13)
[2018-04-20] MEDS: Sodium Chloride 0.9% 1,000 ML IV SCH (08:15)
[2018-04-20] MEDS: Enoxaparin 40 MG/0.4 ML Syringe SUBCUT SCH (08:25)
[2018-04-20] MEDS: Saccharomyces Boulardii (Probiotic) 250 MG Cap PO SCH ×2 (08:25→22:05)
[2018-04-20] MEDS: Gabapentin 300 MG Cap PO SCH ×3 (08:25→22:06)
[2018-04-20] MEDS: Famotidine 20 MG Tab PO SCH ×2 (08:25→22:05)
--- NOTE | 2018-04-20 14:00 | PCM.PN ---
- General Info Date of Service: 04/20/18 Functional Status: Reports: Tolerating Diet, Urinating - Review of Systems General: Reports: No Symptoms HEENT: Reports: No Symptoms Pulmonary: Reports: No Symptoms Cardiovascular: Reports: No Symptoms Gastrointestinal: Reports: No Symptoms Genitourinary: Reports: No Symptoms Musculoskeletal: Reports: No Symptoms Skin: Reports: No Symptoms Neurological: Reports: No Symptoms Psychiatric: Reports: No Symptoms - Patient Data Vitals - Most Recent: Last Vital Signs Temp 36.8 C 04/20/18 11:26 Pulse 81 04/20/18 11:26 Resp 20 04/20/18 11:26 BP 126/62 04/20/18 11:26 Pulse Ox 93 L 04/20/18 12:09 Weight - Most Recent: 63.503 kg I&O - Last 24 Hours: Intake & Output 04/19/18 04/20/18 04/20/18 22:59 06:59 14:59 Intake Total 2201 2119 240 Balance 2201 2119 240 Lab Results Last 24 Hours: Laboratory Results - last 24 hr 04/20/18 04/20/18 04/20/18 Range/Units 05:58 05:58 05:58 WBC 6.03 (3.98-10.04) K/mm3 RBC 3.70 L (3.98-5.22) M/mm3 Hgb 11.2 (11.2-15.7) gm/L Hct 34.7 (34.1-44.9) % MCV 93.8 (79.4-94.8) fl MCH 30.3 (25.6-32.2) pg MCHC 32.3 (32.2-35.5) g/dl RDW Std Deviation 42.4 (36.4-46.3) fL Plt Count 186 (182-369) K/mm3 MPV 9.2 L (9.4-12.3) fl Neut % (Auto) 72.1 H (34.0-71.1) % Lymph % (Auto) 14.6 L (19.3-51.7) % [place] % (Auto) 9.6 (4.7-12.5) % Eos % (Auto) 3.2 (0.7-5.8) Baso % (Auto) 0.3 (0.1-1.2) % Neut # (Auto) 4.35 (1.56-6.13) K/mm3 Lymph # (Auto) 0.88 L (1.18-3.74) K/mm3 [place] # (Auto) 0.58 H (0.24-0.36) K/mm3 Eos # (Auto) 0.19 (0.04-0.36) K/mm3 Baso # (Auto) 0.02 (0.01-0.08) K/mm3 Sodium 138 (136-145) mEq/L Potassium 4.0 (3.5-5.1) mEq/L Chloride 105 (98-107) mEq/L Carbon Dioxide 23 (21-32) mEq/L Anion Gap 14.0 (5-15) BUN 4 L (7-18) mg/dL Creatinine 0.5 L (0.55-1.02) mg/dL Est Cr Clr Drug Dosing 80.42 mL/min Estimated GFR (MDRD) > 60 (>60) mL/min BUN/Creatinine Ratio 8.0 L (14-18) Glucose 104 (83-115) mg/dL Lactic Acid 0.5 (0.4-2.0) mmol/L Calcium 7.8 L (8.5-10.1) mg/dL C-Reactive Protein 15.0 H* (<1.0) mg/dL Jayson Results Last 24 Hours: Microbiology 04/18/18 13:50 Urine Culture - Final Urine, Quick Cath (In-Out) NO GROWTH AFTER 2 DAYS 04/18/18 14:45 Aerobic Blood Culture - Preliminary Blood - Venous NO GROWTH AFTER 1 DAY Anaerobic Blood Culture - Preliminary NO GROWTH AFTER 1 DAY 04/18/18 14:56 Aerobic Blood Culture - Preliminary Blood - Venous - Lab Draw NO GROWTH AFTER 1 DAY Anaerobic Blood Culture - Preliminary NO GROWTH AFTER 1 DAY Med Orders - Current: Current Medications Acetaminophen (Tylenol) 650 mg PO Q4H PRN PRN Reason: Pain (Mild 1-3)/fever Last Admin: 04/20/18 02:13 Dose: 650 mg Hydrocodone Bitart/Acetaminophen ([place] 325-5 Mg) 1 tab PO Q4H PRN PRN Reason: Pain (moderate 4-6) Aspirin (Halfprin) 81 mg PO BEDTIME [facility] Last Admin: 04/19/18 21:52 Dose: 81 mg Diazepam (Valium.) 5 mg PO BEDTIME PRN PRN Reason: Sleep Last Admin: 04/19/18 21:51 Dose: 5 mg Enoxaparin Sodium (Lovenox) 40 mg SUBCUT DAILY [facility] Last Admin: 04/20/18 08:25 Dose: 40 mg Famotidine (Pepcid) 20 mg PO BID [facility] Last Admin: 04/20/18 08:25 Dose: 20 mg Gabapentin (Neurontin) 600 mg PO TID [facility] Last Admin: 04/20/18 08:25 Dose: 600 mg Sodium Chloride (Normal Saline) 1,000 mls @ 125 mls/hr IV ASDIRECTED [facility] Last Admin: 04/20/18 08:15 Dose: 125 mls/hr Ondansetron HCl (Zofran Odt) 4 mg PO Q6H PRN PRN Reason: nausea, able to take PO Ondansetron HCl (Zofran) 4 mg IV Q6H PRN PRN Reason: Nausea/Vomiting Saccharomyces Boulardii (Florastor) 250 mg PO BID [facility] Last Admin: 04/20/18 08:25 Dose: 250 mg Sodium Chloride (Saline Flush) 10 ml FLUSH ASDIRECTED PRN PRN Reason: Keep Vein Open Last Admin: 04/18/18 14:41 Dose: 10 ml Temazepam (Restoril) 7.5 mg PO BEDTIME PRN PRN Reason: Insomnia Discontinued Medications Acetaminophen (Tylenol) 650 mg PO Q6H PRN PRN Reason: Pain/Fever Last Admin: 04/18/18 23:35 Dose: 650 mg Sodium Chloride (Normal Saline) 500 mls @ 500 mls/hr IV ONETIME ONE Stop: 04/18/18 14:52 Last Admin: 04/18/18 14:41 Dose: 500 mls/hr Sodium Chloride (Normal Saline) 100 mls @ 60 mls/hr IV ASDIRECTED [facility] Last Admin: 04/18/18 15:32 Dose: 60 mls/hr Sodium Chloride (Normal Saline) 1,000 mls @ 100 mls/hr IV ASDIRECTED [facility] Ceftriaxone Sodium 2 gm/ (Sodium Chloride) 100 mls @ 100 mls/hr IV ONETIME ONE Stop: 04/18/18 17:45 Last Admin: 04/18/18 17:14 Dose: 100 mls/hr Ceftriaxone Sodium 2 gm/ (Sodium Chloride) 100 mls @ 100 mls/hr IV Q24H [facility] Last Admin: 04/19/18 17:34 Dose: 100 mls/hr Iopamidol (Isovue-370 (76%)) 100 ml IVPUSH ONETIME ONE Stop: 04/18/18 15:09 Last Admin: 04/18/18 15:32 Dose: 100 ml Potassium Chloride (Klor-Con M20) 40 meq PO ONETIME ONE Stop: 04/19/18 10:16 Last Admin: 04/19/18 11:09 Dose: 40 meq Potassium Chloride (Klor-Con M20) 40 meq PO ONETIME ONE Stop: 04/19/18 14:01 Last Admin: 04/19/18 15:10 Dose: 40 meq Sodium Chloride (Saline Flush) 10 ml FLUSH ONETIME ONE Stop: 04/18/18 15:09 Last Admin: 04/18/18 15:32 Dose: 10 ml - Exam Quality Assessment: DVT Prophylaxis General: Alert, Oriented HEENT: Pupils Equal, Pupils Reactive, EOMI Neck: Trachea Midline, No JVD Lungs: Normal Respiratory Effort Cardiovascular: Regular Rate, Regular Rhythm GI/Abdominal Exam: Normal Bowel Sounds, Soft, Non-Tender, No Organomegaly, No Distention (Female) Exam: Deferred Back Exam: Normal Inspection Extremities: Normal Inspection, Normal Capillary Refill Skin: Warm Neurological: No New Focal Deficit Psy/Mental Status: Alert, Normal Affect, Normal Mood - Problem List & Annotations (1) UTI, Urinary tract infectious disease SNOMED Code(s): 46738352 Code(s): N39.0 - URINARY TRACT INFECTION, SITE NOT SPECIFIED Status: Acute Priority: High Current Visit: Yes (2) Dementia SNOMED Code(s): 58657756 Code(s): F03.90 - UNSPECIFIED DEMENTIA WITHOUT BEHAVIORAL DISTURBANCE Status: Chronic Priority: Medium Current Visit: Yes Qualifiers: Dementia type: unspecified type Dementia behavioral disturbance: without behavioral disturbance Qualified Code(s): F03.90 - Unspecified dementia without behavioral disturbance (3) HLD (hyperlipidemia) SNOMED Code(s): 00053095 Code(s): E78.5 - HYPERLIPIDEMIA, UNSPECIFIED Status: Chronic Priority: Low Current Visit: No Qualifiers: Hyperlipidemia type: unspecified Qualified Code(s): E78.5 - Hyperlipidemia , unspecified (4) History of CVA (cerebrovascular accident) SNOMED Code(s): 622208560 Code(s): Z86.73 - PRSNL HX OF TIA (TIA), AND CEREB INFRC W/O RESID DEFICITS Status: Chronic Priority: Medium Current Visit: No - Problem List Review Problem List Initiated/Reviewed/Updated: Yes - My Orders Last 24 Hours: My Active Orders 04/21/18 05:00 BMP [BASIC METABOLIC PANEL,BMP] [CHEM] DAILY CBC WITH AUTO DIFF [HEME] DAILY CRP [C-REACTIVE PROTEIN] [CHEM] DAILY LACTIC ACID [CHEM] DAILY 04/22/18 05:00 BMP [BASIC METABOLIC PANEL,BMP] [CHEM] DAILY CBC WITH AUTO DIFF [HEME] DAILY CRP [C-REACTIVE PROTEIN] [CHEM] DAILY 04/23/18 05:00 BMP [BASIC METABOLIC PANEL,BMP] [CHEM] DAILY CBC WITH AUTO DIFF [HEME] DAILY CRP [C-REACTIVE PROTEIN] [CHEM] DAILY - Plan Plan:: Impression: Failed OP therapy for AUTI with medical noncompliance MS-reported as stable per daughters HTN HLD Plan: Rocephin 2mg IV QD. Adjust as needed Daily labs Home meds PT/OT/CM --> Disposition pending. DVT.GI prophylaxis Possible SNF wwwwwwwwwwwwwwwwwwwwwwwwwwwwwwwwwwwwwwwwwwwwwwwwwwwwwwwwwwwwwwwwwwwwwwww wwwwwwwwwwwwwwwwwwwwwwwwwwwwwwwwwwwwwwwwwwwwwwwwwwwwwwwwwwwwwwwwwwwwwwwwwwwwwwww wwwwwwwwwwwwwwwwwwwwwwwwwwwwwwwwwwwwwwwwwwwwwwwwwwwwwwwwwwwwwwwwwwwwwwwwwwwwwwww wwwwwwwwwwwwwwwwwwwwwwwwwwwwwwwwwwwwwwww wwwwwwwwwwwwwwwwwwwwwwwwwwwwwwwwwwwwwwwwwwwwwwwwwwwwwwwwwwwwwwwwwwwwwwwwwwwwwwww wwwwwwwwwwwwwwwwwwwwwwwwwwwwwwwwwwwwwwwwwwwwwwwwwwwwwwwwwwwwwwwwwwwwwwwwwwwwwmachellew priscillawwwwwwmilton
[2018-04-20] MEDS: Aspirin 81 MG Tab.EC PO SCH (22:05)
[2018-04-20] MEDS: Diazepam 5 MG Tab PO PRN (22:10)
[2018-04-21] MEDS: Gabapentin 300 MG Cap PO SCH ×3 (08:51→21:37)
[2018-04-21] MEDS: Saccharomyces Boulardii (Probiotic) 250 MG Cap PO SCH (08:52)
[2018-04-21] MEDS: Famotidine 20 MG Tab PO SCH ×2 (08:52→21:37)
[2018-04-21] MEDS: Enoxaparin 40 MG/0.4 ML Syringe SUBCUT SCH (08:54)
--- NOTE | 2018-04-21 09:47 | PCM.PN ---
- General Info Date of Service: 04/21/18 Admission Dx/Problem (Free Text): Admission Diagnosis/Problem Admission Diagnosis/Problem Urinary tract infection Subjective Update: Follow Up Functional Status: Reports: Pain Controlled, Tolerating Diet, Urinating. Denies : New Symptoms - Review of Systems General: Denies: Fever, Malaise HEENT: Reports: No Symptoms Pulmonary: Denies: Shortness of Breath Cardiovascular: Denies: Chest Pain, Dyspnea on Exertion, Orthopnea, Edema Gastrointestinal: Denies: Abdominal Pain, Difficulty Swallowing, Nausea, Vomiting Genitourinary: Reports: No Symptoms Musculoskeletal: Reports: No Symptoms Skin: Reports: Other (discoloration on bilateral lower extremity). Denies: Cyanosis, Pruritis Neurological: Reports: Difficulty Walking, Weakness, Gait Disturbance. Denies: Confusion, Dizziness Psychiatric: Reports: Confusion, Anxiety. 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 Otherwise she has no acute issues. Her ESR is 61 and CRP is 14.3. She carries relative hypotension. - Patient Data Vitals - Most Recent: Last Vital Signs Temp 37.3 C 04/21/18 08:04 Pulse 87 04/21/18 08:04 Resp 15 04/21/18 08:04 BP 113/55 L 04/21/18 08:04 Pulse Ox 90 L 04/21/18 08:04 Weight - Most Recent: 57.878 kg I&O - Last 24 Hours: Intake & Output 04/20/18 04/21/18 04/21/18 22:59 06:59 14:59 Intake Total 764 550 Balance 764 550 Lab Results Last 24 Hours: Laboratory Results - last 24 hr 04/21/18 04/21/18 04/21/18 Range/Units 06:05 06:05 06:05 WBC 5.02 (3.98-10.04) K/mm3 RBC 3.92 L (3.98-5.22) M/mm3 Hgb 12.0 (11.2-15.7) gm/L Hct 36.3 (34.1-44.9) % MCV 92.6 (79.4-94.8) fl MCH 30.6 (25.6-32.2) pg MCHC 33.1 (32.2-35.5) g/dl RDW Std Deviation 42.2 (36.4-46.3) fL Plt Count 192 (182-369) K/mm3 MPV 9.7 (9.4-12.3) fl Neut % (Auto) 65.5 (34.0-71.1) % Lymph % (Auto) 16.9 L (19.3-51.7) % [place] % (Auto) 11.2 (4.7-12.5) % Eos % (Auto) 5.8 (0.7-5.8) Baso % (Auto) 0.4 (0.1-1.2) % Neut # (Auto) 3.29 (1.56-6.13) K/mm3 Lymph # (Auto) 0.85 L (1.18-3.74) K/mm3 [place] # (Auto) 0.56 H (0.24-0.36) K/mm3 Eos # (Auto) 0.29 (0.04-0.36) K/mm3 Baso # (Auto) 0.02 (0.01-0.08) K/mm3 Sodium 137 (136-145) mEq/L Potassium 3.7 (3.5-5.1) mEq/L Chloride 103 (98-107) mEq/L Carbon Dioxide 25 (21-32) mEq/L Anion Gap 12.7 (5-15) BUN 6 L (7-18) mg/dL Creatinine 0.6 (0.55-1.02) mg/dL Est Cr Clr Drug Dosing 67.02 mL/min Estimated GFR (MDRD) > 60 (>60) mL/min BUN/Creatinine Ratio 10.0 L (14-18) Glucose 101 (83-115) mg/dL Lactic Acid 0.5 (0.4-2.0) mmol/L Calcium 8.5 (8.5-10.1) mg/dL C-Reactive Protein 14.3 H* (<1.0) mg/dL [place] Results Last 24 Hours: Microbiology 04/18/18 14:45 Aerobic Blood Culture - Preliminary Blood - Venous NO GROWTH AFTER 2 DAYS Anaerobic Blood Culture - Preliminary NO GROWTH AFTER 2 DAYS 04/18/18 14:56 Aerobic Blood Culture - Preliminary Blood - Venous - Lab Draw NO GROWTH AFTER 2 DAYS Anaerobic Blood Culture - Preliminary NO GROWTH AFTER 2 DAYS 04/18/18 13:50 Urine Culture - Final Urine, Quick Cath (In-Out) NO GROWTH AFTER 2 DAYS Med Orders - Current: Current Medications Acetaminophen (Tylenol) 650 mg PO Q4H PRN PRN Reason: Pain (Mild 1-3)/fever Last Admin: 04/20/18 02:13 Dose: 650 mg Hydrocodone Bitart/Acetaminophen ([place] 325-5 Mg) 1 tab PO Q4H PRN PRN Reason: Pain (moderate 4-6) Aspirin (Halfprin) 81 mg PO BEDTIME [facility] Last Admin: 04/20/18 22:05 Dose: 81 mg Diazepam (Valium.) 5 mg PO BEDTIME PRN PRN Reason: Sleep Last Admin: 04/20/18 22:10 Dose: 5 mg Enoxaparin Sodium (Lovenox) 40 mg SUBCUT DAILY [facility] Last Admin: 04/21/18 08:54 Dose: 40 mg Famotidine (Pepcid) 20 mg PO BID [facility] Last Admin: 04/21/18 08:52 Dose: 20 mg Gabapentin (Neurontin) 600 mg PO TID [facility] Last Admin: 04/21/18 08:51 Dose: 600 mg Ondansetron HCl (Zofran Odt) 4 mg PO Q6H PRN PRN Reason: nausea, able to take PO Ondansetron HCl (Zofran) 4 mg IV Q6H PRN PRN Reason: Nausea/Vomiting Sodium Chloride (Saline Flush) 10 ml FLUSH ASDIRECTED PRN PRN Reason: Keep Vein Open Last Admin: 04/18/18 14:41 Dose: 10 ml Temazepam (Restoril) 7.5 mg PO BEDTIME PRN PRN Reason: Insomnia Discontinued Medications Acetaminophen (Tylenol) 650 mg PO Q6H PRN PRN Reason: Pain/Fever Last Admin: 04/18/18 23:35 Dose: 650 mg Sodium Chloride (Normal Saline) 500 mls @ 500 mls/hr IV ONETIME ONE Stop: 04/18/18 14:52 Last Admin: 04/18/18 14:41 Dose: 500 mls/hr Sodium Chloride (Normal Saline) 100 mls @ 60 mls/hr IV ASDIRECTED [facility] Last Admin: 04/18/18 15:32 Dose: 60 mls/hr Sodium Chloride (Normal Saline) 1,000 mls @ 100 mls/hr IV ASDIRECTED [facility] Ceftriaxone Sodium 2 gm/ (Sodium Chloride) 100 mls @ 100 mls/hr IV ONETIME ONE Stop: 04/18/18 17:45 Last Admin: 04/18/18 17:14 Dose: 100 mls/hr Ceftriaxone Sodium 2 gm/ (Sodium Chloride) 100 mls @ 100 mls/hr IV Q24H [facility] Last Admin: 04/19/18 17:34 Dose: 100 mls/hr Sodium Chloride (Normal Saline) 1,000 mls @ 125 mls/hr IV ASDIRECTED [facility] Last Admin: 04/20/18 08:15 Dose: 125 mls/hr Iopamidol (Isovue-370 (76%)) 100 ml IVPUSH ONETIME ONE Stop: 04/18/18 15:09 Last Admin: 04/18/18 15:32 Dose: 100 ml Potassium Chloride (Klor-Con M20) 40 meq PO ONETIME ONE Stop: 04/19/18 10:16 Last Admin: 04/19/18 11:09 Dose: 40 meq Potassium Chloride (Klor-Con M20) 40 meq PO ONETIME ONE Stop: 04/19/18 14:01 Last Admin: 04/19/18 15:10 Dose: 40 meq Saccharomyces Boulardii (Florastor) 250 mg PO BID [facility] Last Admin: 04/21/18 08:52 Dose: 250 mg Sodium Chloride (Saline Flush) 10 ml FLUSH ONETIME ONE Stop: 04/18/18 15:09 Last Admin: 04/18/18 15:32 Dose: 10 ml - Exam General: Alert, Oriented, Cooperative, No Acute Distress HEENT: Pupils Equal, Pupils Reactive, EOMI, Mucous Membr. Moist/[place] Neck: Supple, Trachea Midline, No JVD, No Thyromegaly Lungs: Clear to Auscultation, Normal Respiratory Effort Cardiovascular: Regular Rate, Regular Rhythm GI/Abdominal Exam: Normal Bowel Sounds, Soft, Non-Tender, No Organomegaly, No Distention, No Abnormal Bruit, No Mass (Female) Exam: Deferred Back Exam: Normal Inspection, Decreased Range of Motion Extremities: Normal Inspection, Non-Tender, No Pedal Edema, Normal Capillary Refill, Limited Range of Motion (left lwer extremity) Peripheral Pulses: 2+: Dorsalis Pedis (L), Dorsalis Pedis (R) Skin: Warm, Dry, Intact, Ecchymosis (on dorsum of left hand), Other (brown discoloration on bilateral lower extremity) Neurological: No New Focal Deficit. No: Normal Gait, Strength Equal Bilateral Psy/Mental Status: Alert, Normal Affect, Normal Mood - Problem List Review Problem List Initiated/Reviewed/Updated: Yes - My Orders Last 24 Hours: My Active Orders 04/21/18 09:44 IGM, SERUM [REF] Urgent - Plan Plan:: Impression/Plan: Acute: MS Exacerbation/Relapsing MS - Intolerant of Immuno-suppressants/Anti-inflammatory agents or DMARDs - Offered steroids; refused it--> she just wants to get over the acute phase - Last time she saw rheumatology was a couple of years ago - She is not on DMARDs for maintenance medications - Monitor inflammatory markers (CK, ESR and CRP all elevated) - IgM serum level ordered Significantly High D-Dimer Level - D-Dimer of >35.20 - 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 Autoimmune Disease - CXR shows no acute abnormal findings - CTA shows negative for PE but noted for bibasilar minimal fibrosis and dependent atelectasis on - Duplex U/S shows no DVT Patient has no UTI on this admission - UA shows no growth for 2 days - However she received treatment if intravenous antibiotic Chronic: Impaired Vision HTN HLD Urinary Incontinence from neurogenic bladder: MS vs Hx/o CVA Recurrent UTI H/o CVA Dementia Plan: She is clinically stable Routine AM Labs Continue PT/OT DVT/GI prophylaxis: H2B and Lovenox SubQ daily LOS > 96h hrs pending SNF/Rehab placement for mobility and regain of function
[2018-04-21] MEDS: Aspirin 81 MG Tab.EC PO SCH (21:37)
[2018-04-21] MEDS: Diazepam 5 MG Tab PO PRN (21:37)
[2018-04-21] MEDS: Acetaminophen 325 MG Tab PO PRN (22:51)
[2018-04-22] MEDS: Enoxaparin 40 MG/0.4 ML Syringe SUBCUT SCH (08:10)
[2018-04-22] MEDS: Gabapentin 300 MG Cap PO SCH (08:10)
[2018-04-22] MEDS: Famotidine 20 MG Tab PO SCH (08:10)
--- NOTE | 2018-04-22 11:25 | PCM.DCSUM1 ---
Discharge Summary - Hospital Course HPI Initial Comments: 77 year old female with MS presents with abdominal pain. 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 The patient is S/ P several falls without LOC. The patient denies SOB, CP, Syncopal, Pre- syncopal episodes. She had been started on Macrobid but took 3/7 days of the ATB therapy. Her PMH includes multiple sclerosis. She is a DNR/DNI and will be admitted to [facility] with telemetry. Diagnosis: Stroke: No - Discharge Data Discharge Date: 04/22/18 (Admit date: 04/17/18) Discharge Disposition: DC/Tfer to SNF 03 Condition: Good - Discharge Diagnosis/Problem(s) (1) Exacerbation of multiple sclerosis SNOMED Code(s): 474516275 ICD Code: G35 - MULTIPLE SCLEROSIS Status: Acute Priority: High (2) Fall as cause of accidental injury at home as place of occurrence SNOMED Code(s): 71929205 ICD Code: W19.XXXA - UNSPECIFIED FALL, INITIAL ENCOUNTER; Y92.009 - UNSP PLACE IN UNSP NON-INSTITUT (PRIVATE) RESIDENCE PLACE Status: Acute Priority: High Qualifiers: Encounter type: initial encounter Qualified Code(s): W19.XXXA - Unspecified fall, initial encounter; Y92.009 - Unspecified place in unspecified non-institutional (private) residence as the place of occurrence of the external cause; Y92.009 - Unspecified place in unspecified non-institutional ( private) residence as the place of occurrence of the external cause (3) Contusion of left hip and thigh SNOMED Code(s): 122415845 ICD Code: S70.02XA - CONTUSION OF LEFT HIP, INITIAL ENCOUNTER; S70.12XA - CONTUSION OF LEFT THIGH, INITIAL ENCOUNTER Status: Acute Priority: Medium Qualifiers: Encounter type: initial encounter Qualified Code(s): S70.02XA - Contusion of left hip, initial encounter; S70.12XA - Contusion of left thigh, initial encounter; S70.12XA - Contusion of left thigh, initial encounter (4) HLD (hyperlipidemia) SNOMED Code(s): 03799186 ICD Code: E78.5 - HYPERLIPIDEMIA, UNSPECIFIED Status: Chronic Priority: Low Qualifiers: Hyperlipidemia type: unspecified Qualified Code(s): E78.5 - Hyperlipidemia , unspecified (5) History of CVA (cerebrovascular accident) SNOMED Code(s): 605527818 ICD Code: Z86.73 - PRSNL HX OF TIA (TIA), AND CEREB INFRC W/O RESID DEFICITS Status: Chronic Priority: Medium (6) Dementia SNOMED Code(s): 64113546 ICD Code: F03.90 - UNSPECIFIED DEMENTIA WITHOUT BEHAVIORAL DISTURBANCE Status: Chronic Priority: Medium Qualifiers: Dementia type: unspecified type Dementia behavioral disturbance: without behavioral disturbance Qualified Code(s): F03.90 - Unspecified dementia without behavioral disturbance (7) Multiple sclerosis SNOMED Code(s): 41288042 ICD Code: G35 - MULTIPLE SCLEROSIS Status: Chronic Priority: Medium - Patient Summary/Data Consults: Consultations 04/18/18 17:06 Consult to Account Support Analyst [CONS] Routine 04/19/18 10:00 Consult to Case Management [CONS] Routine 04/19/18 11:00 Consult to Occupational Therapy [OT Evaluation and Treatment] [CONS] Routine Consult to Physical Therapy [PT Evaluation and Treatment] [CONS] Routine Labs Pending at D/C: Serum IgM Recommended Follow-up Testing/Procedures: Follow-up with PCP within 7-10 days of discharge. 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 Disease - CXR shows no acute abnormal findings - CTA shows negative for PE but noted for bibasilar minimal fibrosis and dependent atelectasis - Duplex U/S shows no DVT Patient has no UTI on this admission - UA shows no growth for 2 days - However she received treatment if intravenous antibiotic Chronic: Impaired Vision HTN HLD Urinary Incontinence from neurogenic bladder: MS vs Hx/o CVA Recurrent UTI H/o CVA Dementia Plan: She is clinically stable Routine AM Labs Continue PT/OT DVT/GI prophylaxis: H2B and Lovenox SubQ daily LOS > 96h hrs pending SNF/Rehab placement for mobility and regain of function Overall Juany did ok. She was thought to have a UTI initially and was started on Rocephin. Her cultures continued to have no growth and the antibiotic was stopped. Her D-dimer was very high however VTE workup was negative. All of her inflammatory markers were elevated and she is not on any maintenance medications for her MS. She refused steroids while here. She continued to work with PT/OT and SNF was recommended for a rehabilitation stay. She will be discharged today to [facility] for a rehabilitation stay. She has been continued on her home meds. She should follow-up with her PCP within 7-10 days of discharge. She may benefit from a rheumatology consult in future. - Patient Instructions Diet: Mechanical Soft Activity: As Tolerated Driving: Do Not Drive Showering/Bathing: May Shower Notify Provider of: Fever, Increased Pain, Nausea and/or Vomiting - Discharge Plan Home Medications: Home Meds Aspirin [Adult Low Dose Aspirin EC] 81 mg PO BEDTIME 04/08/15 [History] Trimethoprim 100 mg PO BEDTIME 09/25/17 [History] Patient Handouts: Urinary Tract Infection, Adult, [id number], Contusion, Easy -to-Read Referrals: Jessica Perkins PA-C [Primary Care Provider] - - Discharge Summary/Plan Comment DC Time >30 min.: Yes (45 mins ) - General Info Date of Service: 04/22/18 Admission Dx/Problem (Free Text: Admission Diagnosis/Problem Admission Diagnosis/Problem Urinary tract infection Subjective Update: In to see Juany. She is doing well but still complains of weakness. We discussed her disease progression and plan after discharge. She has no concerns. No nursing concerns. She is excited to leave the hospital and begin her rehabilitation stay. Vitals have been stable and labs look good. Functional Status: Reports: Pain Controlled, Tolerating Diet, Ambulating, Urinating. Denies: New Symptoms - Review of Systems General: Reports: Weakness, Fatigue. Denies: Fever, Malaise, Chills HEENT: Reports: No Symptoms. Denies: Eye Pain, Sinus Congestion, Sore Throat Pulmonary: Reports: No Symptoms. Denies: Shortness of Breath, Cough, Sputum, Wheezing Cardiovascular: Reports: No Symptoms. Denies: Chest Pain, Dyspnea on Exertion, Edema Gastrointestinal: Reports: No Symptoms. Denies: Abdominal Pain, Constipation, Decreased Appetite, Diarrhea, Nausea, Vomiting Genitourinary: Reports: No Symptoms Musculoskeletal: Reports: Other (generalized myaglias ) Skin: Reports: No Symptoms Neurological: Reports: Difficulty Walking, Weakness, Gait Disturbance. Denies: Confusion, Dizziness, Numbness, Seizure, Syncope, Tingling, Trouble Speaking, Change in Speech Psychiatric: Reports: No Symptoms - Patient Data Vitals - Most Recent: Last Vital Signs Temp 98.1 F 04/22/18 06:12 Pulse 83 04/22/18 06:12 Resp 20 04/22/18 06:12 BP 103/54 L 04/22/18 06:12 Pulse Ox 93 L 04/22/18 06:12 Weight - Most Recent: 126 lb 6.4 oz I&O - Last 24 hours: Intake & Output 04/21/18 04/22/18 04/22/18 22:59 06:59 14:59 Intake Total 400 600 Balance 400 600 Lab Results - Last 24 hrs: Laboratory Results - last 24 hr 04/21/18 04/22/18 04/22/18 Range/Units 06:05 05:30 05:30 WBC 4.18 (3.98-10.04) K/mm3 RBC 3.90 L (3.98-5.22) M/mm3 Hgb 11.8 (11.2-15.7) gm/L Hct 36.5 (34.1-44.9) % MCV 93.6 (79.4-94.8) fl MCH 30.3 (25.6-32.2) pg MCHC 32.3 (32.2-35.5) g/dl RDW Std Deviation 43.0 (36.4-46.3) fL Plt Count 218 (182-369) K/mm3 MPV 9.4 (9.4-12.3) fl Neut % (Auto) 53.4 (34.0-71.1) % Lymph % (Auto) 26.1 (19.3-51.7) % [place] % (Auto) 12.4 (4.7-12.5) % Eos % (Auto) 7.4 H (0.7-5.8) Baso % (Auto) 0.5 (0.1-1.2) % Neut # (Auto) 2.23 (1.56-6.13) K/mm3 Lymph # (Auto) 1.09 L (1.18-3.74) K/mm3 [place] # (Auto) 0.52 H (0.24-0.36) K/mm3 Eos # (Auto) 0.31 (0.04-0.36) K/mm3 Baso # (Auto) 0.02 (0.01-0.08) K/mm3 ESR 61 H (0-20) mm/hr Sodium 137 (136-145) mEq/L Potassium 3.8 (3.5-5.1) mEq/L Chloride 102 (98-107) mEq/L Carbon Dioxide 25 (21-32) mEq/L Anion Gap 13.8 (5-15) BUN 12 (7-18) mg/dL Creatinine 0.5 L (0.55-1.02) mg/dL Est Cr Clr Drug Dosing 80.42 mL/min Estimated GFR (MDRD) > 60 (>60) mL/min BUN/Creatinine Ratio 24.0 H (14-18) Glucose 100 (83-115) mg/dL Calcium 8.6 (8.5-10.1) mg/dL C-Reactive Protein 8.2 H* (<1.0) mg/dL [place] Results - Last 24 hrs: Microbiology 04/18/18 14:45 Aerobic Blood Culture - Preliminary Blood - Venous NO GROWTH AFTER 3 DAYS Anaerobic Blood Culture - Preliminary NO GROWTH AFTER 3 DAYS 04/18/18 14:56 Aerobic Blood Culture - Preliminary Blood - Venous - Lab Draw NO GROWTH AFTER 3 DAYS Anaerobic Blood Culture - Preliminary NO GROWTH AFTER 3 DAYS Med Orders - Current: Current Medications Acetaminophen (Tylenol) 650 mg PO Q4H PRN PRN Reason: Pain (Mild 1-3)/fever Last Admin: 04/21/18 22:51 Dose: 650 mg Hydrocodone Bitart/Acetaminophen ([place] 325-5 Mg) 1 tab PO Q4H PRN PRN Reason: Pain (moderate 4-6) Aspirin (Halfprin) 81 mg PO BEDTIME [facility] Last Admin: 04/21/18 21:37 Dose: 81 mg Diazepam (Valium.) 5 mg PO BEDTIME PRN PRN Reason: Sleep Last Admin: 04/21/18 21:37 Dose: 5 mg Enoxaparin Sodium (Lovenox) 40 mg SUBCUT DAILY [facility] Last Admin: 04/22/18 08:10 Dose: 40 mg Famotidine (Pepcid) 20 mg PO BID [facility] Last Admin: 04/22/18 08:10 Dose: 20 mg Gabapentin (Neurontin) 600 mg PO TID [facility] Last Admin: 04/22/18 08:10 Dose: 600 mg Ondansetron HCl (Zofran Odt) 4 mg PO Q6H PRN PRN Reason: nausea, able to take PO Ondansetron HCl (Zofran) 4 mg IV Q6H PRN PRN Reason: Nausea/Vomiting Sodium Chloride (Saline Flush) 10 ml FLUSH ASDIRECTED PRN PRN Reason: Keep Vein Open Last Admin: 04/18/18 14:41 Dose: 10 ml Temazepam (Restoril) 7.5 mg PO BEDTIME PRN PRN Reason: Insomnia Last Admin: 04/21/18 22:51 Dose: 7.5 mg Discontinued Medications Acetaminophen (Tylenol) 650 mg PO Q6H PRN PRN Reason: Pain/Fever Last Admin: 04/18/18 23:35 Dose: 650 mg Sodium Chloride (Normal Saline) 500 mls @ 500 mls/hr IV ONETIME ONE Stop: 04/18/18 14:52 Last Admin: 04/18/18 14:41 Dose: 500 mls/hr Sodium Chloride (Normal Saline) 100 mls @ 60 mls/hr IV ASDIRECTED [facility] Last Admin: 04/18/18 15:32 Dose: 60 mls/hr Sodium Chloride (Normal Saline) 1,000 mls @ 100 mls/hr IV ASDIRECTED [facility] Ceftriaxone Sodium 2 gm/ (Sodium Chloride) 100 mls @ 100 mls/hr IV ONETIME ONE Stop: 04/18/18 17:45 Last Admin: 04/18/18 17:14 Dose: 100 mls/hr Ceftriaxone Sodium 2 gm/ (Sodium Chloride) 100 mls @ 100 mls/hr IV Q24H [facility] Last Admin: 04/19/18 17:34 Dose: 100 mls/hr Sodium Chloride (Normal Saline) 1,000 mls @ 125 mls/hr IV ASDIRECTED [facility] Last Admin: 04/20/18 08:15 Dose: 125 mls/hr Iopamidol (Isovue-370 (76%)) 100 ml IVPUSH ONETIME ONE Stop: 04/18/18 15:09 Last Admin: 04/18/18 15:32 Dose: 100 ml Potassium Chloride (Klor-Con M20) 40 meq PO ONETIME ONE Stop: 04/19/18 10:16 Last Admin: 04/19/18 11:09 Dose: 40 meq Potassium Chloride (Klor-Con M20) 40 meq PO ONETIME ONE Stop: 04/19/18 14:01 Last Admin: 04/19/18 15:10 Dose: 40 meq Saccharomyces Boulardii (Florastor) 250 mg PO BID [facility] Last Admin: 04/21/18 08:52 Dose: 250 mg Sodium Chloride (Saline Flush) 10 ml FLUSH ONETIME ONE Stop: 04/18/18 15:09 Last Admin: 04/18/18 15:32 Dose: 10 ml - Exam Quality Assessment: Reports: DVT Prophylaxis General: Reports: Alert, Oriented, Cooperative, No Acute Distress HEENT: Reports: Pupils Equal, Pupils Reactive, EOMI, Mucous Membr. Moist/[place] Neck: Reports: Supple, Trachea Midline, No JVD Lungs: Reports: Clear to Auscultation, Normal Respiratory Effort Cardiovascular: Reports: Regular Rate, Regular Rhythm GI/Abdominal Exam: Normal Bowel Sounds, Soft, Non-Tender, No Distention (Female) Exam: Deferred Rectal (Female) Exam: Deferred Back Exam: Reports: Normal Inspection, Decreased Range of Motion Extremities: Normal Inspection, Non-Tender, No Pedal Edema, Normal Capillary Refill, Limited Range of Motion Skin: Reports: Warm, Dry, Intact Neurological: Reports: No New Focal Deficit Psy/Mental Status: Reports: Alert, Normal Affect, Normal Mood
[2018-04-22 12:08] VITALS: BP 111/56
== END 2018-04-22 14:00 | DRG 60 ==
LOC: JD.ED 13:26 → JD.MS 18:52
PROVIDERS: ADMIT Internal Medicine Cardiovascular Disease; ATTEND Internal Medicine Cardiovascular Disease
DX: N39.0 Urinary tract infection, site not specified (principal); G35 Multiple sclerosis; S61.411A Laceration without foreign body of right hand, initial encounter; S70.12XA Contusion of left thigh, initial encounter; S70.02XA Contusion of left hip, initial encounter; W18.30XA Fall on same level, unspecified, initial encounter; E78.00 Pure hypercholesterolemia, unspecified; F03.90 Unspecified dementia, unspecified severity, without behavioral disturbance, psychotic disturbance, mood disturbance, and anxiety; E78.5 Hyperlipidemia, unspecified; I10 Essential (primary) hypertension; G89.29 Other chronic pain; M54.9 Dorsalgia, unspecified; M79.605 Pain in left leg; M79.604 Pain in right leg; H54.7 Unspecified visual loss; R32 Unspecified urinary incontinence; R50.9 Fever, unspecified; M79.601 Pain in right arm; R22.43 Localized swelling, mass and lump, lower limb, bilateral; R79.1 Abnormal coagulation profile; N31.9 Neuromuscular dysfunction of bladder, unspecified; E87.6 Hypokalemia; Z88.2 Allergy status to sulfonamides; Z79.82 Long term (current) use of aspirin; Z79.899 Other long term (current) drug therapy; Z87.440 Personal history of urinary (tract) infections; Z86.73 Personal history of transient ischemic attack (TIA), and cerebral infarction without residual deficits; Z91.14 Patient's other noncompliance with medication regimen; Z87.891 Personal history of nicotine dependence; Z66 Do not resuscitate; Z91.81 History of falling
CPT/HCPCS: 36415; 70450; 71045; 71275; 80053; 81001; 82550; 83605; 83880; 84484; 85025; 85379; 85610; 85730; 87040 ×2; 87086; 93005; 93970; 96361; 96365; 99285; J0696; J7030 ×2; J7040 ×2; J7050 ×2; Q9967; 80048; 82784; 85652; 86140; 93010; 97162-GP; 97166-GO; 97530-GO; 97530-GP; 99284; A9270-GY; J1650

== ENCOUNTER 2018-05-31 13:55 | Emergency (ER) | payer MEDICARE, BC ==
[2018-05-31 14:16] VITALS: BP 128/68
--- NOTE | 2018-05-31 14:51 | EDM.PDOC ---
ED HPI GENERAL MEDICAL PROBLEM - General Chief Complaint: Lower Extremity Injury/Pain Stated Complaint: L FOOT SWOLLEN Time Seen by Provider: 05/31/18 14:29 Source of Information: Reports: Patient History Limitations: Reports: No Limitations - History of Present Illness INITIAL COMMENTS - FREE TEXT/NARRATIVE: 78-year-old female presents for evaluation and treatment of swelling to the bilateral lower legs. She first appreciated the swelling several weeks ago it has been worsening. Reports that the left is worse than the left lower leg. She denies any pain to the legs. No chest pain or shortness of breath. No numbness or tingling. She has been using compression socks swelling is not been improved. She's never had anything like this before. No history of any heart problems. No history of any recent trauma. Patient has a PMHx of MS. - Related Data Allergies Allergy/AdvReac Type Severity Reaction Status Date / Time Sulfa (Sulfonamide Allergy Cannot Verified 05/31/18 14:16 Antibiotics) Remember Home Meds: Home Meds Aspirin [Adult Low Dose Aspirin EC] 81 mg PO BEDTIME 04/08/15 [History] Trimethoprim 100 mg PO BEDTIME 09/25/17 [History] Furosemide [Lasix] 20 mg PO DAILY #14 tab 05/31/18 [Rx] Gabapentin [Neurontin] 300 mg PO TID 05/31/18 [History] Potassium Chloride 10 meq PO DAILY #14 tablet.er 05/31/18 [Rx] diazePAM [Valium] 5 mg PO QPM 05/31/18 [History] Past Medical History HEENT History: Reports: Cataract, Impaired Vision Cardiovascular History: Reports: High Cholesterol Gastrointestinal History: Reports: GI Bleed Genitourinary History: Reports: Urinary Incontinence, UTI, Recurrent 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 GI bleed 2001 Social & Family History - Family History Family Medical History: Noncontributory Neurological: Reports: CVA - Tobacco Use Smoking Status *Q: Never Smoker - Caffeine Use Caffeine Use: Reports: None Other Caffeine Use: daily - Recreational Drug Use Recreational Drug Use: No - Living Situation & Occupation Living situation: Reports: Occupation: Retired Review of Systems - Review of Systems Review Of Systems: See Below Respiratory: Denies: Shortness of Breath Cardiovascular: Denies: Chest Pain Musculoskeletal: Reports: Back Pain (chronic), Other (swelling to the left foot and leg). Denies: Leg Pain Neurological: Denies: Numbness, Tingling ED EXAM, GENERAL - Physical Exam Exam: See Below Exam Limited By: No Limitations General Appearance: Alert, WD/WN, No Apparent Distress Nose: Normal Inspection Throat/Mouth: Normal Inspection, Normal Lips, Normal Voice, No Airway Compromise Respiratory/Chest: No Respiratory Distress, Lungs Clear, Normal Breath Sounds Cardiovascular: Normal Peripheral Pulses, Regular Rate, Rhythm, No Murmur Extremities: Normal Inspection, Other (left lower leg and foot selling). No: Leticia's Sign Neurological: Alert, Oriented, Normal Cognition Psychiatric: Normal Affect, Normal Mood Skin Exam: Warm, Dry, Normal Color. No: Ecchymosis, Erythema Course - Vital Signs Last Recorded V/S: Last Vital Signs Temp 98.4 F 05/31/18 14:11 Pulse 75 05/31/18 14:11 Resp 13 05/31/18 14:11 BP 128/68 05/31/18 14:11 Pulse Ox 97 05/31/18 14:11 - Orders/Labs/Meds Labs: Laboratory Tests 05/31/18 05/31/18 05/31/18 Range/Units 14:59 14:59 14:59 WBC 4.11 (3.98-10.04) K/mm3 RBC 3.90 L (3.98-5.22) M/mm3 Hgb 11.9 (11.2-15.7) gm/L Hct 37.1 (34.1-44.9) % MCV 95.1 H (79.4-94.8) fl MCH 30.5 (25.6-32.2) pg MCHC 32.1 L (32.2-35.5) g/dl RDW Std Deviation 43.0 (36.4-46.3) fL Plt Count 244 (182-369) K/mm3 MPV 8.9 L (9.4-12.3) fl Neut % (Auto) 54.3 (34.0-71.1) % Lymph % (Auto) 30.7 (19.3-51.7) % [place] % (Auto) 11.4 (4.7-12.5) % Eos % (Auto) 2.9 (0.7-5.8) Baso % (Auto) 0.7 (0.1-1.2) % Neut # (Auto) 2.23 (1.56-6.13) K/mm3 Lymph # (Auto) 1.26 (1.18-3.74) K/mm3 [place] # (Auto) 0.47 H (0.24-0.36) K/mm3 Eos # (Auto) 0.12 (0.04-0.36) K/mm3 Baso # (Auto) 0.03 (0.01-0.08) K/mm3 Sodium 141 (136-145) mEq/L Potassium 3.6 (3.5-5.1) mEq/L Chloride 105 (98-107) mEq/L Carbon Dioxide 27 (21-32) mEq/L Anion Gap 12.6 (5-15) BUN 11 (7-18) mg/dL Creatinine 0.7 (0.55-1.02) mg/dL Est Cr Clr Drug Dosing 63.65 mL/min Estimated GFR (MDRD) > 60 (>60) mL/min BUN/Creatinine Ratio 15.7 (14-18) Glucose 92 (83-115) mg/dL Calcium 9.2 (8.5-10.1) mg/dL Total Bilirubin 0.5 (0.2-1.0) mg/dL AST 24 (15-37) U/L ALT 17 (14-59) U/L Alkaline Phosphatase 101 (46-116) U/L NT-Pro-B Natriuret Pep 236 (0-450) pg/mL Total Protein 7.2 (6.4-8.2) g/dl Albumin 3.5 (3.4-5.0) g/dl Globulin 3.7 gm/dL Albumin/Globulin Ratio 1.0 (1-2) - Radiology Interpretation Free Text/Narrative:: Bilateral lower extremity deep venous ultrasound: Duplex and color flow imaging was obtained of the right and left common femoral, proximal greater saphenous, superficial femoral, popliteal, posterior tibial and peroneal veins. Comparison: Prior bilateral lower extremity ultrasound dated 04/18/18. Findings: Peroneal veins were not well seen on both sides. Other veins show normal phasic flow, augmentation and compression. Incidental inguinal lymph nodes are seen. Impression: 1. Peroneal veins not well seen. No findings of deep venous thrombosis is seen within either right or left lower extremity. - Re-Assessments/Exams Free Text/Narrative Re-Assessment/Exam: 05/31/18 16:52 Review the labs and imaging were patient. Will start on a low-dose lasix and potassium. Follow-up in the clinic. Discharge instructions as documented. Departure - Departure Time of Disposition: 16:54 Disposition: Home, Self-Care 01 Condition: Good Clinical Impression: Edema - Discharge Information *PRESCRIPTION DRUG MONITORING PROGRAM REVIEWED*: No *COPY OF PRESCRIPTION DRUG MONITORING REPORT IN PATIENT [place]: No Prescriptions: Furosemide [Lasix] 20 mg PO DAILY #14 tab Potassium Chloride 10 meq PO DAILY #14 tablet.er Instructions: Edema, [id number] Referrals: Jessica Perkins PA-C [Primary Care Provider] - Forms: ED Department Discharge Additional Instructions: use compression stockings, low sodium diet and elevation. Start the lasix,1 tab PO every morning. Take the potassium 1 tab PO daily. Follow-up with your PCP in 1-2 weeks for a recheck. Please return to the ER should your symptoms change or worsen.
--- NOTE | 2018-05-31 16:02 | US ---
Bilateral lower extremity deep venous ultrasound: Duplex and color flow imaging was obtained of the right and left common femoral, proximal greater saphenous, superficial femoral, popliteal, posterior tibial and peroneal veins. Comparison: Prior bilateral lower extremity ultrasound dated 04/18/18. Findings: Peroneal veins were not well seen on both sides. Other veins show normal phasic flow, augmentation and compression. Incidental inguinal lymph nodes are seen. Impression: 1. Peroneal veins not well seen. No findings of deep venous thrombosis is seen within either right or left lower extremity. Diagnostic code #2
== END 2018-05-31 17:00 | disposition home or self-care (01) ==
LOC: JD.ED 13:55
DX: R60.0 Localized edema (principal); Z79.82 Long term (current) use of aspirin; Z79.899 Other long term (current) drug therapy; Z88.2 Allergy status to sulfonamides
CPT/HCPCS: 36415; 80053; 83880; 85025; 93970; 93970-26; 99284-25

== ENCOUNTER 2020-07-30 17:50 | Inpatient (IN) | payer MEDICARE, BC ==
--- NOTE | 2020-07-30 18:21 | EDM.PDOC ---
ED HPI GENERAL MEDICAL PROBLEM - General Chief Complaint: General Stated Complaint: [facility] Time Seen by Provider: 07/30/20 18:02 - History of Present Illness INITIAL COMMENTS - FREE TEXT/NARRATIVE: 80-year-old female presents the emergency room brought in by EMS with lower extremity pain and weakness. Patient states this started and progressed between 1 AM and 4 AM this morning she is been unable to get up and move around due to pain and has weakness. The patient suffers from progressive MS. She has not seen a neurologist for this in years. She is not on any therapy. The patient lives independently at home. Patient denies any other problems she is not having any breathing difficulties shortness of breath chest pain chest pressure nausea vomiting abdominal pain or urinary symptoms. Feet Pain Score (Numeric/FACES): 8 - Related Data Allergies Allergy/AdvReac Type Severity Reaction Status Date / Time Sulfa (Sulfonamide Allergy Cannot Verified 07/30/20 18:03 Antibiotics) Remember Home Meds: Home Meds Aspirin [Adult Low Dose Aspirin EC] 81 mg PO BEDTIME 04/08/15 [History] Trimethoprim 100 mg PO BEDTIME 09/25/17 [History] Gabapentin [Neurontin] 600 mg PO TID 05/31/18 [History] diazePAM [Valium.] 5 mg PO QPM 05/31/18 [History] Acetaminophen/Diphenhydramine [Tylenol Pm Ex-Strength Caplet] 2 tab PO BEDTIME 07/30/20 [History] Cranberry Fruit Extract [Cranberry] 1,500 mg PO ASDIRECTED 07/30/20 [History] Sodium Citrate [Nauzene Upset Stomach-Nausea] 1 tab PO ASDIRECTED PRN 07/30/20 [History] Past Medical History HEENT History: Reports: Cataract, Impaired Vision Cardiovascular History: Reports: High Cholesterol Gastrointestinal History: Reports: GI Bleed Genitourinary History: Reports: Urinary Incontinence, UTI, Recurrent 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 GI bleed 2001 Social & Family History - Family History Family Medical History: Noncontributory Neurological: Reports: CVA - Caffeine Use Caffeine Use: Reports: None Other Caffeine Use: daily - Living Situation & Occupation Living situation: Reports: Occupation: Retired ED ROS GENERAL - Review of Systems Review Of Systems: See Below Constitutional: Reports: Weakness. Denies: No Symptoms, Fever, Chills HEENT: Reports: No Symptoms Respiratory: Reports: No Symptoms Cardiovascular: Reports: No Symptoms Endocrine: Reports: No Symptoms GI/Abdominal: Reports: No Symptoms : Reports: No Symptoms Musculoskeletal: Reports: No Symptoms Skin: Reports: No Symptoms Neurological: Reports: No Symptoms Psychiatric: Reports: No Symptoms ED EXAM, GENERAL - Physical Exam Exam: See Below Exam Limited By: No Limitations General Appearance: Alert, No Apparent Distress, Other (She cannot or will not move her lower extremities) Eye Exam: Bilateral Eye: Normal Inspection, PERRL Ears: Normal External Exam, Normal Canal, Hearing Grossly Normal, Normal TMs, Other (Hearing aid had to be removed from the right) Nose: Normal Inspection, Normal Mucosa, No Blood Throat/Mouth: Normal Inspection, Normal Lips, Normal Gums, Normal Oropharynx, Normal Voice, No Airway Compromise, Other (She has dentures in place) Head: Atraumatic, Normocephalic Neck: Normal Inspection, Supple, Non-Tender, Full Range of Motion. No: Lymp hadenopathy (L), Lymphadenopathy (R) Respiratory/Chest: No Respiratory Distress, Lungs Clear, Normal Breath Sounds Cardiovascular: Regular Rate, Rhythm, No Edema, No Murmur GI/Abdominal: Normal Bowel Sounds, Soft, Non-Tender Back Exam: Normal Inspection. No: CVA Tenderness (L), CVA Tenderness (R), Vertebral Tenderness Extremities: Other (She has vague pain in both extremities and will not move them is difficult for her to get her to sit up in the gurney we had to assist with 2 people to get her to sit up) Course - Vital Signs Last Recorded V/S: Last Vital Signs Temp 36.8 C 07/30/20 17:57 Pulse 87 07/30/20 19:28 Resp 18 07/30/20 19:28 BP 113/60 07/30/20 19:28 Pulse Ox 96 07/30/20 19:28 - Orders/Labs/Meds Orders: Active Orders 24 hr Category Date Time Status EKG Documentation Completion [RC] STAT Care 07/30/20 18:43 Active Chest 1V Frontal [CR] Stat Exams 07/30/20 18:43 Taken Head wo Cont [CT] Stat Exams 07/30/20 18:50 Taken Lumbar Spine wo Cont [CT] Stat Exams 07/30/20 18:47 Taken CULTURE BLOOD [BC] Stat Lab 07/30/20 20:21 Ordered CULTURE BLOOD [BC] Stat Lab 07/30/20 20:21 Ordered CULTURE URINE [RM] Stat Lab 07/30/20 19:29 Received Blood Culture x2 Reflex Set [OM.PC] Stat Oth 07/30/20 20:21 Ordered Labs: Laboratory Tests 07/30/20 07/30/20 07/30/20 Range/Units 19:06 19:06 19:06 WBC 12.07 H (3.98-10.04) K/mm3 RBC 3.98 (3.98-5.22) M/mm3 Hgb 12.0 (11.2-15.7) gm/dl Hct 37.2 (34.1-44.9) % MCV 93.5 (79.4-94.8) fl MCH 30.2 (25.6-32.2) pg MCHC 32.3 (32.2-35.5) g/dl RDW Std Deviation 41.9 (36.4-46.3) fL Plt Count 219 (182-369) K/mm3 MPV 8.9 L (9.4-12.3) fl Neut % (Auto) 82.4 H (34.0-71.1) % Lymph % (Auto) 10.3 L (19.3-51.7) % [place] % (Auto) 6.3 (4.7-12.5) % Eos % (Auto) 0.6 L (0.7-5.8) Baso % (Auto) 0.2 (0.1-1.2) % Neut # (Auto) 9.96 H (1.56-6.13) K/mm3 Lymph # (Auto) 1.24 (1.18-3.74) K/mm3 [place] # (Auto) 0.76 H (0.24-0.36) K/mm3 Eos # (Auto) 0.07 (0.04-0.36) K/mm3 Baso # (Auto) 0.02 (0.01-0.08) K/mm3 Manual Slide Review Normal smear Sodium 137 (136-145) mEq/L Potassium 3.8 (3.5-5.1) mEq/L Chloride 100 (98-107) mEq/L Carbon Dioxide 28 (21-32) mEq/L Anion Gap 12.8 (5-15) BUN 14 (7-18) mg/dL Creatinine 0.8 (0.55-1.02) mg/dL Est Cr Clr Drug Dosing 49.80 mL/min Estimated GFR (MDRD) > 60 (>60) mL/min BUN/Creatinine Ratio 17.5 (14-18) Glucose 113 (83-115) mg/dL Calcium 8.8 (8.5-10.1) mg/dL Total Bilirubin 0.5 (0.2-1.0) mg/dL AST 19 (15-37) U/L ALT 19 (14-59) U/L Alkaline Phosphatase 87 (46-116) U/L Troponin I < 0.017 (0.00-0.056) ng/mL Total Protein 7.3 (6.4-8.2) g/dl Albumin 3.3 L (3.4-5.0) g/dl Globulin 4.0 gm/dL Albumin/Globulin Ratio 0.8 L (1-2) Urine Color (Yellow) Urine Appearance (Clear) Urine pH (5.0-8.0) Ur Specific [place] (1.005-1.030) Urine Protein (Negative) Urine Glucose (UA) (Negative) Urine Ketones (Negative) Urine Occult Blood (Negative) Urine Nitrite (Negative) Urine Bilirubin (Negative) Urine Urobilinogen (0.2-1.0) Ur Leukocyte Esterase (Negative) Urine RBC (0-5) /hpf Urine WBC (0-5) /hpf Urine WBC Clumps (NOT SEEN) /hpf Ur Squamous Epith Cells (0-5) /hpf Urine Bacteria (FEW) /hpf Urine Mucus (FEW) /hpf SARS-CoV-2 RNA (CONNIE) (NEGATIVE) 07/30/20 07/30/20 Range/Units 19:29 19:35 WBC (3.98-10.04) K/mm3 RBC (3.98-5.22) M/mm3 Hgb (11.2-15.7) gm/dl Hct (34.1-44.9) % MCV (79.4-94.8) fl MCH (25.6-32.2) pg MCHC (32.2-35.5) g/dl RDW Std Deviation (36.4-46.3) fL Plt Count (182-369) K/mm3 MPV (9.4-12.3) fl Neut % (Auto) (34.0-71.1) % Lymph % (Auto) (19.3-51.7) % [place] % (Auto) (4.7-12.5) % Eos % (Auto) (0.7-5.8) Baso % (Auto) (0.1-1.2) % Neut # (Auto) (1.56-6.13) K/mm3 Lymph # (Auto) (1.18-3.74) K/mm3 [place] # (Auto) (0.24-0.36) K/mm3 Eos # (Auto) (0.04-0.36) K/mm3 Baso # (Auto) (0.01-0.08) K/mm3 Manual Slide Review Sodium (136-145) mEq/L Potassium (3.5-5.1) mEq/L Chloride (98-107) mEq/L Carbon Dioxide (21-32) mEq/L Anion Gap (5-15) BUN (7-18) mg/dL Creatinine (0.55-1.02) mg/dL Est Cr Clr Drug Dosing mL/min Estimated GFR (MDRD) (>60) mL/min BUN/Creatinine Ratio (14-18) Glucose (83-115) mg/dL Calcium (8.5-10.1) mg/dL Total Bilirubin (0.2-1.0) mg/dL AST (15-37) U/L ALT (14-59) U/L Alkaline Phosphatase (46-116) U/L Troponin I (0.00-0.056) ng/mL Total Protein (6.4-8.2) g/dl Albumin (3.4-5.0) g/dl Globulin gm/dL Albumin/Globulin Ratio (1-2) Urine Color Yellow (Yellow) Urine Appearance Clear (Clear) Urine pH 7.5 (5.0-8.0) Ur Specific [place] 1.020 (1.005-1.030) Urine Protein 1+ H (Negative) Urine Glucose (UA) Negative (Negative) Urine Ketones Negative (Negative) Urine Occult Blood Trace-lysed H (Negative) Urine Nitrite Negative (Negative) Urine Bilirubin Negative (Negative) Urine Urobilinogen 0.2 (0.2-1.0) Ur Leukocyte Esterase 3+ H (Negative) Urine RBC 5-10 H (0-5) /hpf Urine WBC 30-40 H (0-5) /hpf Urine WBC Clumps Few (NOT SEEN) /hpf Ur Squamous Epith Cells 0-5 (0-5) /hpf Urine Bacteria Few (FEW) /hpf Urine Mucus Not seen (FEW) /hpf SARS-CoV-2 RNA (CONNIE) Negative (NEGATIVE) - Re-Assessments/Exams Free Text/Narrative Re-Assessment/Exam: 07/30/20 20:30 Labs reviewed white count minimally elevated looks like she is got a urinary tract infection which could explain some of her back pain. At this point we are anticipating admission for treatment of the UTI I will review with neurology whether or not they believe this is an exacerbation of her MS. 07/30/20 20:48 I did discuss situation with Dr. Voss he recommended no steroids at this point he believes at her age the MS is probably burntout. And will treat the UTI case discussed with Dr. Dennis, our hospitalist who kindly accepts the patient for admission. Patient has a pending CT and if she continues to have symptoms further imaging with an MRI would be warranted. Departure - Departure Time of Disposition: 20:26 Disposition: Admitted As Inpatient 68 Clinical Impression: Urinary tract infection, Weakness of lower extremity, Multiple sclerosis - Discharge Information Referrals: PCP,None [Primary Care Provider] - Forms: ED Department Discharge Sepsis Event Note (ED) - Focused Exam Vital Signs: Vital Signs Temp Pulse Resp BP Pulse Ox 07/30/20 19:28 87 18 113/60 96 07/30/20 17:57 36.8 C 93 18 130/61 95 - My Orders Last 24 Hours: My Active Orders 07/30/20 18:43 EKG Documentation Completion [RC] STAT Chest 1V Frontal [CR] Stat 07/30/20 18:47 Lumbar Spine wo Cont [CT] Stat 07/30/20 18:50 Head wo Cont [CT] Stat 07/30/20 19:29 CULTURE URINE [RM] Stat 07/30/20 20:21 CULTURE BLOOD [BC] Stat CULTURE BLOOD [BC] Stat Blood Culture x2 Reflex Set [OM.PC] Stat - Assessment/Plan Last 24 Hours: My Active Orders 07/30/20 18:43 EKG Documentation Completion [RC] STAT Chest 1V Frontal [CR] Stat 07/30/20 18:47 Lumbar Spine wo Cont [CT] Stat 07/30/20 18:50 Head wo Cont [CT] Stat 07/30/20 19:29 CULTURE URINE [RM] Stat 07/30/20 20:21 CULTURE BLOOD [BC] Stat CULTURE BLOOD [BC] Stat Blood Culture x2 Reflex Set [OM.PC] Stat
[2020-07-30] MEDS ORDERED: Acetaminophen 325 MG Tab PO PRN (21:34)
[2020-07-30] MEDS ORDERED: Ondansetron 4 MG/2 ML SDV IV PRN (21:34)
[2020-07-30] MEDS ORDERED: cefTRIAXone 2 GM in Sodium Chloride 0.9% 100 ML IV ONE (21:45)
--- NOTE | 2020-07-30 21:53 | PCM.HP.2 ---
H&P History of Present Illness - General Date of Service: 07/30/20 Admit Problem/Dx: Generalized weakness - History of Present Illness Initial Comments - Free Text/Narative: 80-year-old female with history of MS presents to the emergency department with lower extremity pain and weakness. She states that she is unable to walk because of her MS, but she suddenly was unable to stand up this morning. She states that yesterday she started getting weaker, but this morning after going to the [facility] when she returned to her apartment she could not stand. She has had no other symptoms including nausea, vomiting, diarrhea, right dysuria, fever, chills, or headache. She has had multiple sclerosis for 29 years and is currently on gabapentin for pain. She does not know when the last time she had a urinary tract infection or antibiotics. She was fairly poor historian on recent events. In the emergency department she was found to have pyuria with urine WBCs of 30-40. Blood work also showed white count of 12 with 82% neutrophils and no bands. Normal smear on manual review. Feet Pain Score (Numeric/FACES): 8 - Related Data Allergies/Adverse Reactions: Allergies Allergy/AdvReac Type Severity Reaction Status Date / Time Sulfa (Sulfonamide Allergy Cannot Verified 07/30/20 18:03 Antibiotics) Remember Home Medications: Home Meds Aspirin [Adult Low Dose Aspirin EC] 81 mg PO BEDTIME 04/08/15 [History] Trimethoprim 100 mg PO BEDTIME 09/25/17 [History] Gabapentin [Neurontin] 600 mg PO TID 05/31/18 [History] diazePAM [Valium.] 5 mg PO QPM 05/31/18 [History] Acetaminophen/Diphenhydramine [Tylenol Pm Ex-Strength Caplet] 2 tab PO BEDTIME 07/30/20 [History] Cranberry Fruit Extract [Cranberry] 1,500 mg PO ASDIRECTED 07/30/20 [History] Sodium Citrate [Nauzene Upset Stomach-Nausea] 1 tab PO ASDIRECTED PRN 07/30/20 [History] Past Medical History HEENT History: Reports: Cataract, Impaired Vision Cardiovascular History: Reports: High Cholesterol Gastrointestinal History: Reports: GI Bleed Genitourinary History: Reports: Urinary Incontinence, UTI, Recurrent CHEMICALS DISTILLER History: Reports: Other Musculoskeletal History: pt has progressing MS Neurological History: Reports: CVA Other Neuro History: previous CVA Psychiatric History: Reports: Dementia Hematologic History: Reports: Blood Transfusion(s) - Past Surgical History HEENT Surgical History: Reports: Cataract Surgery, Tonsillectomy Other GI Surgeries/Procedures: very sensitive stomach. GI bleed 2001 Social & Family History - Family History Family Medical History: Noncontributory Neurological: Reports: CVA - Tobacco Use Tobacco Use Status *Q: Former Tobacco User Used Tobacco, but Quit: Yes Month/Year Tobacco Last Used: 1989 - Caffeine Use Caffeine Use: Reports: None Other Caffeine Use: daily - Recreational Drug Use Recreational Drug Use: No - Living Situation & Occupation Living situation: Reports: Occupation: Retired H&P Review of Systems - Review of Systems: Review Of Systems: Comprehensive ROS is negative, except as noted in HPI. Exam - Exam Exam: See Below - Vital Signs Vital Signs: Last Vital Signs Temp 98.2 F 07/30/20 17:57 Pulse 87 07/30/20 19:28 Resp 18 07/30/20 19:28 BP 113/60 07/30/20 19:28 Pulse Ox 96 07/30/20 19:28 Weight: 54.431 kg - Exam Quality Assessment: No: Supplemental Oxygen General: Alert, Oriented, 4 HEENT: Conjunctiva Clear, Mucosa Moist & [place], Normal Nasal Septum Neck: Supple, Trachea Midline, 2 Lungs: Clear to Auscultation, Normal Respiratory Effort Cardiovascular: Regular Rate, Regular Rhythm GI/Abdominal Exam: Normal Bowel Sounds, Soft, Non-Tender, No Organomegaly, No Distention, No Abnormal Bruit, No Mass, Pelvis Stable - Patient Data Lab Results Last 24 hrs: Laboratory Results - last 24 hr 07/30/20 07/30/20 07/30/20 Range/Units 19:06 19:06 19:06 WBC 12.07 H (3.98-10.04) K/mm3 RBC 3.98 (3.98-5.22) M/mm3 Hgb 12.0 (11.2-15.7) gm/dl Hct 37.2 (34.1-44.9) % MCV 93.5 (79.4-94.8) fl MCH 30.2 (25.6-32.2) pg MCHC 32.3 (32.2-35.5) g/dl RDW Std Deviation 41.9 (36.4-46.3) fL Plt Count 219 (182-369) K/mm3 MPV 8.9 L (9.4-12.3) fl Neut % (Auto) 82.4 H (34.0-71.1) % Lymph % (Auto) 10.3 L (19.3-51.7) % [place] % (Auto) 6.3 (4.7-12.5) % Eos % (Auto) 0.6 L (0.7-5.8) Baso % (Auto) 0.2 (0.1-1.2) % Neut # (Auto) 9.96 H (1.56-6.13) K/mm3 Lymph # (Auto) 1.24 (1.18-3.74) K/mm3 [place] # (Auto) 0.76 H (0.24-0.36) K/mm3 Eos # (Auto) 0.07 (0.04-0.36) K/mm3 Baso # (Auto) 0.02 (0.01-0.08) K/mm3 Manual Slide Review Normal smear Sodium 137 (136-145) mEq/L Potassium 3.8 (3.5-5.1) mEq/L Chloride 100 (98-107) mEq/L Carbon Dioxide 28 (21-32) mEq/L Anion Gap 12.8 (5-15) BUN 14 (7-18) mg/dL Creatinine 0.8 (0.55-1.02) mg/dL Est Cr Clr Drug Dosing 49.80 mL/min Estimated GFR (MDRD) > 60 (>60) mL/min BUN/Creatinine Ratio 17.5 (14-18) Glucose 113 (83-115) mg/dL Calcium 8.8 (8.5-10.1) mg/dL Total Bilirubin 0.5 (0.2-1.0) mg/dL AST 19 (15-37) U/L ALT 19 (14-59) U/L Alkaline Phosphatase 87 (46-116) U/L Troponin I < 0.017 (0.00-0.056) ng/mL Total Protein 7.3 (6.4-8.2) g/dl Albumin 3.3 L (3.4-5.0) g/dl Globulin 4.0 gm/dL Albumin/Globulin Ratio 0.8 L (1-2) Urine Color (Yellow) Urine Appearance (Clear) Urine pH (5.0-8.0) Ur Specific [place] (1.005-1.030) Urine Protein (Negative) Urine Glucose (UA) (Negative) Urine Ketones (Negative) Urine Occult Blood (Negative) Urine Nitrite (Negative) Urine Bilirubin (Negative) Urine Urobilinogen (0.2-1.0) Ur Leukocyte Esterase (Negative) Urine RBC (0-5) /hpf Urine WBC (0-5) /hpf Urine WBC Clumps (NOT SEEN) /hpf Ur Squamous Epith Cells (0-5) /hpf Urine Bacteria (FEW) /hpf Urine Mucus (FEW) /hpf SARS-CoV-2 RNA (CONNIE) (NEGATIVE) 07/30/20 07/30/20 Range/Units 19:29 19:35 WBC (3.98-10.04) K/mm3 RBC (3.98-5.22) M/mm3 Hgb (11.2-15.7) gm/dl Hct (34.1-44.9) % MCV (79.4-94.8) fl MCH (25.6-32.2) pg MCHC (32.2-35.5) g/dl RDW Std Deviation (36.4-46.3) fL Plt Count (182-369) K/mm3 MPV (9.4-12.3) fl Neut % (Auto) (34.0-71.1) % Lymph % (Auto) (19.3-51.7) % [place] % (Auto) (4.7-12.5) % Eos % (Auto) (0.7-5.8) Baso % (Auto) (0.1-1.2) % Neut # (Auto) (1.56-6.13) K/mm3 Lymph # (Auto) (1.18-3.74) K/mm3 [place] # (Auto) (0.24-0.36) K/mm3 Eos # (Auto) (0.04-0.36) K/mm3 Baso # (Auto) (0.01-0.08) K/mm3 Manual Slide Review Sodium (136-145) mEq/L Potassium (3.5-5.1) mEq/L Chloride (98-107) mEq/L Carbon Dioxide (21-32) mEq/L Anion Gap (5-15) BUN (7-18) mg/dL Creatinine (0.55-1.02) mg/dL Est Cr Clr Drug Dosing mL/min Estimated GFR (MDRD) (>60) mL/min BUN/Creatinine Ratio (14-18) Glucose (83-115) mg/dL Calcium (8.5-10.1) mg/dL Total Bilirubin (0.2-1.0) mg/dL AST (15-37) U/L ALT (14-59) U/L Alkaline Phosphatase (46-116) U/L Troponin I (0.00-0.056) ng/mL Total Protein (6.4-8.2) g/dl Albumin (3.4-5.0) g/dl Globulin gm/dL Albumin/Globulin Ratio (1-2) Urine Color Yellow (Yellow) Urine Appearance Clear (Clear) Urine pH 7.5 (5.0-8.0) Ur Specific [place] 1.020 (1.005-1.030) Urine Protein 1+ H (Negative) Urine Glucose (UA) Negative (Negative) Urine Ketones Negative (Negative) Urine Occult Blood Trace-lysed H (Negative) Urine Nitrite Negative (Negative) Urine Bilirubin Negative (Negative) Urine Urobilinogen 0.2 (0.2-1.0) Ur Leukocyte Esterase 3+ H (Negative) Urine RBC 5-10 H (0-5) /hpf Urine WBC 30-40 H (0-5) /hpf Urine WBC Clumps Few (NOT SEEN) /hpf Ur Squamous Epith Cells 0-5 (0-5) /hpf Urine Bacteria Few (FEW) /hpf Urine Mucus Not seen (FEW) /hpf SARS-CoV-2 RNA (CONNIE) Negative (NEGATIVE) Result Diagrams: 07/30/20 19:06 07/30/20 19:06 Imaging Impressions Last 24 hrs: Chest x-ray shows no acute infiltrates. CT of the head and CT of the lumbar spine are pending. Sepsis Event Note - Evaluation Sepsis Screening Result: No Definite Risk - Focused Exam Vital Signs: Vital Signs Temp Pulse Resp BP Pulse Ox 07/30/20 19:28 87 18 113/60 96 07/30/20 17:57 98.2 F 93 18 130/61 95 - Problem List (1) Urinary tract infection SNOMED Code(s): 65452050 ICD Code: N39.0 - URINARY TRACT INFECTION, SITE NOT SPECIFIED Status: Acute Current Visit: Yes (2) Weakness of lower extremity SNOMED Code(s): 885017055, 660897607 ICD Code: R29.898 - OTH SYMPTOMS AND SIGNS INVOLVING THE MUSCULOSKELETAL SYSTEM Status: Acute Current Visit: Yes (3) Multiple sclerosis SNOMED Code(s): 23152446 ICD Code: G35 - MULTIPLE SCLEROSIS Status: Chronic Priority: Medium Current Visit: Yes Problem List Initiated/Reviewed/Updated: Yes Orders Last 24hrs: Active Orders 24 hr Category Date Time Status EKG Documentation Completion [RC] STAT Care 07/30/20 18:43 Active Oxygen Therapy [RC] PRN Care 07/30/20 21:34 Ordered Up With Assistance [RC] ASDIRECTED Care 07/30/20 21:34 Ordered VTE/DVT Education [RC] PER UNIT ROUTINE Care 07/30/20 21:34 Ordered Vital Signs [RC] Q4H Care 07/30/20 21:34 Ordered PT Evaluation and Treatment [CONS] Routine Cons 07/30/20 21:34 Ordered Regular Diet [DIET] Diet 07/30/20 Dinner Ordered Chest 1V Frontal [CR] Stat Exams 07/30/20 18:43 Taken Head wo Cont [CT] Stat Exams 07/30/20 18:50 Taken Lumbar Spine wo Cont [CT] Stat Exams 07/30/20 18:47 Taken C-REACTIVE PROTEIN [CHEM] AM Lab 07/31/20 05:11 Ordered CBC WITH AUTO DIFF [HEME] AM Lab 07/31/20 05:11 Ordered COMPREHENSIVE METABOLIC PN,CMP [CHEM] AM Lab 07/31/20 05:11 Ordered CULTURE BLOOD [BC] Stat Lab 07/30/20 20:10 Received CULTURE BLOOD [BC] Stat Lab 07/30/20 20:47 Received CULTURE URINE [RM] Stat Lab 07/30/20 19:29 Received MAGNESIUM [CHEM] AM Lab 07/31/20 05:11 Ordered PHOSPHORUS [CHEM] AM Lab 07/31/20 05:11 Ordered PROCALCITONIN [REF] Routine Lab 07/30/20 21:40 Ordered Acetaminophen [TylenoL] Med 07/30/20 21:34 Ordered 650 mg PO Q4H PRN Aspirin [Halfprin] Med 07/31/20 21:00 Ordered 81 mg PO BEDTIME Enoxaparin [Lovenox] Med 07/31/20 09:00 Ordered 40 mg SUBCUT DAILY Ondansetron [Zofran] Med 07/30/20 21:34 Ordered 4 mg IV Q4H PRN cefTRIAXone [Rocephin] 2 gm Med 07/30/20 21:45 Active Sodium Chloride 0.9% [Normal Saline] 100 ml IV ONETIME cefTRIAXone [Rocephin] 2 gm Med 07/30/20 21:45 Ordered Sodium Chloride 0.9% [Normal Saline] 100 ml IV Q24H diazePAM [Valium.] Med 07/31/20 18:00 Ordered 5 mg PO QPM Blood Culture x2 Reflex Set [OM.PC] Stat Oth 07/30/20 20:21 Ordered Resuscitation Status Routine Resus Stat 07/30/20 21:34 Ordered Medication Orders Acetaminophen (Tylenol) 650 mg PO Q4H PRN PRN Reason: Pain (Mild 1-3)/fever Aspirin (Halfprin) 81 mg PO BEDTIME [facility] Diazepam (Valium.) 5 mg PO QPM [facility] Enoxaparin Sodium (Lovenox) 40 mg SUBCUT DAILY [facility] Ceftriaxone Sodium 2 gm/ (Sodium Chloride) 100 mls @ 200 mls/hr IV Q24H [facility] Ceftriaxone Sodium 2 gm/ (Sodium Chloride) 100 mls @ 200 mls/hr IV ONETIME ONE Stop: 07/30/20 22:14 Ondansetron HCl (Zofran) 4 mg IV Q4H PRN PRN Reason: Nausea/Vomiting Assessment/Plan Comment:: 80-year-old female with history of multiple sclerosis with 29 years presents to the emergency department with lower extremity weakness. UTI * Patient had increasing weakness over the last 24 hours with difficulty or inability to stand this morning. * In the emergency department she was given Rocephin, had urine and blood cultures drawn, and lab work. * White count was slightly elevated at 12 with 80% neutrophils with no bands. * Potential for the urinary tract infection be causing the lower extremity weakness. * Review of her records suggest that she has had problems with recurrent urinary tract infections in the past. She has been on trimethoprim daily and cranberry supplements. Plan * Admit to medical floor * Continue Rocephin 2 g daily * Await urine and blood cultures * Get CBC, CMP, mag, procalcitonin, CRP in the morning * PT to evaluate and treat * Continue home meds * Lovenox for VTE prophylaxis * Length of stay likely 2 to 3 days. - Mortality Measure Prognosis:: Good
[2020-07-31] MEDS: Gabapentin 300 MG Cap PO SCH ×3 (09:05→22:20)
[2020-07-31] MEDS: Oxybutynin 5 MG Tab PO SCH ×2 (09:05→22:20)
[2020-07-31] MEDS: Enoxaparin 40 MG/0.4 ML Syringe SUBCUT SCH (09:06)
--- NOTE | 2020-07-31 09:09 | PCM.PN ---
- General Info Date of Service: 07/31/20 Admission Dx/Problem (Free Text): Generalized weakness Subjective Update: The patient is a 80-year-old lady who was admitted on July 30, 2020 secondary to generalized weakness. The patient has had long-term history of multiple sclerosis. She says that she has not been able to walk secondary to pain in her legs today. The patient says that she does not want to be in bed all day. Is denied any new pain. She has been eating. Functional Status: Denies: Pain Controlled - Review of Systems General: Reports: Weakness HEENT: Reports: No Symptoms Pulmonary: Reports: No Symptoms Cardiovascular: Reports: No Symptoms Gastrointestinal: Reports: No Symptoms Genitourinary: Reports: No Symptoms Musculoskeletal: Reports: Leg Pain Skin: Reports: No Symptoms Neurological: Reports: No Symptoms Psychiatric: Reports: No Symptoms - Patient Data Vitals - Most Recent: Last Vital Signs Temp 36.4 C 07/31/20 00:38 Pulse 82 07/31/20 00:38 Resp 16 07/31/20 00:38 BP 125/64 07/31/20 00:38 Pulse Ox 96 07/31/20 00:38 Weight - Most Recent: 54.431 kg I&O - Last 24 Hours: Intake & Output 07/30/20 07/31/20 07/31/20 22:59 06:59 14:59 Intake Total 60 Balance 60 Lab Results Last 24 Hours: Laboratory Results - last 24 hr 07/30/20 07/30/20 07/30/20 Range/Units 19:06 19:06 19:06 WBC 12.07 H (3.98-10.04) K/mm3 RBC 3.98 (3.98-5.22) M/mm3 Hgb 12.0 (11.2-15.7) gm/dl Hct 37.2 (34.1-44.9) % MCV 93.5 (79.4-94.8) fl MCH 30.2 (25.6-32.2) pg MCHC 32.3 (32.2-35.5) g/dl RDW Std Deviation 41.9 (36.4-46.3) fL Plt Count 219 (182-369) K/mm3 MPV 8.9 L (9.4-12.3) fl Neut % (Auto) 82.4 H (34.0-71.1) % Lymph % (Auto) 10.3 L (19.3-51.7) % [place] % (Auto) 6.3 (4.7-12.5) % Eos % (Auto) 0.6 L (0.7-5.8) Baso % (Auto) 0.2 (0.1-1.2) % Neut # (Auto) 9.96 H (1.56-6.13) K/mm3 Lymph # (Auto) 1.24 (1.18-3.74) K/mm3 [place] # (Auto) 0.76 H (0.24-0.36) K/mm3 Eos # (Auto) 0.07 (0.04-0.36) K/mm3 Baso # (Auto) 0.02 (0.01-0.08) K/mm3 Manual Slide Review Normal smear Sodium 137 (136-145) mEq/L Potassium 3.8 (3.5-5.1) mEq/L Chloride 100 (98-107) mEq/L Carbon Dioxide 28 (21-32) mEq/L Anion Gap 12.8 (5-15) BUN 14 (7-18) mg/dL Creatinine 0.8 (0.55-1.02) mg/dL Est Cr Clr Drug Dosing 49.80 mL/min Estimated GFR (MDRD) > 60 (>60) mL/min BUN/Creatinine Ratio 17.5 (14-18) Glucose 113 (83-115) mg/dL Calcium 8.8 (8.5-10.1) mg/dL Phosphorus (2.6-4.7) mg/dL Magnesium (1.8-2.4) mg/dl Total Bilirubin 0.5 (0.2-1.0) mg/dL AST 19 (15-37) U/L ALT 19 (14-59) U/L Alkaline Phosphatase 87 (46-116) U/L Troponin I < 0.017 (0.00-0.056) ng/mL C-Reactive Protein (<1.0) mg/dL Total Protein 7.3 (6.4-8.2) g/dl Albumin 3.3 L (3.4-5.0) g/dl Globulin 4.0 gm/dL Albumin/Globulin Ratio 0.8 L (1-2) Urine Color (Yellow) Urine Appearance (Clear) Urine pH (5.0-8.0) Ur Specific [place] (1.005-1.030) Urine Protein (Negative) Urine Glucose (UA) (Negative) Urine Ketones (Negative) Urine Occult Blood (Negative) Urine Nitrite (Negative) Urine Bilirubin (Negative) Urine Urobilinogen (0.2-1.0) Ur Leukocyte Esterase (Negative) Urine RBC (0-5) /hpf Urine WBC (0-5) /hpf Urine WBC Clumps (NOT SEEN) /hpf Ur Squamous Epith Cells (0-5) /hpf Urine Bacteria (FEW) /hpf Urine Mucus (FEW) /hpf SARS-CoV-2 RNA (CONNIE) (NEGATIVE) 07/30/20 07/30/20 07/31/20 Range/Units 19:29 19:35 06:15 WBC 8.76 (3.98-10.04) K/mm3 RBC 3.95 L (3.98-5.22) M/mm3 Hgb 11.9 (11.2-15.7) gm/dl Hct 36.8 (34.1-44.9) % MCV 93.2 (79.4-94.8) fl MCH 30.1 (25.6-32.2) pg MCHC 32.3 (32.2-35.5) g/dl RDW Std Deviation 41.8 (36.4-46.3) fL Plt Count 215 (182-369) K/mm3 MPV 9.0 L (9.4-12.3) fl Neut % (Auto) 68.1 (34.0-71.1) % Lymph % (Auto) 20.9 (19.3-51.7) % [place] % (Auto) 8.6 (4.7-12.5) % Eos % (Auto) 2.1 (0.7-5.8) Baso % (Auto) 0.2 (0.1-1.2) % Neut # (Auto) 5.97 (1.56-6.13) K/mm3 Lymph # (Auto) 1.83 (1.18-3.74) K/mm3 [place] # (Auto) 0.75 H (0.24-0.36) K/mm3 Eos # (Auto) 0.18 (0.04-0.36) K/mm3 Baso # (Auto) 0.02 (0.01-0.08) K/mm3 Manual Slide Review Not Reportable Sodium (136-145) mEq/L Potassium (3.5-5.1) mEq/L Chloride (98-107) mEq/L Carbon Dioxide (21-32) mEq/L Anion Gap (5-15) BUN (7-18) mg/dL Creatinine (0.55-1.02) mg/dL Est Cr Clr Drug Dosing mL/min Estimated GFR (MDRD) (>60) mL/min BUN/Creatinine Ratio (14-18) Glucose (83-115) mg/dL Calcium (8.5-10.1) mg/dL Phosphorus (2.6-4.7) mg/dL Magnesium (1.8-2.4) mg/dl Total Bilirubin (0.2-1.0) mg/dL AST (15-37) U/L ALT (14-59) U/L Alkaline Phosphatase (46-116) U/L Troponin I (0.00-0.056) ng/mL C-Reactive Protein (<1.0) mg/dL Total Protein (6.4-8.2) g/dl Albumin (3.4-5.0) g/dl Globulin gm/dL Albumin/Globulin Ratio (1-2) Urine Color Yellow (Yellow) Urine Appearance Clear (Clear) Urine pH 7.5 (5.0-8.0) Ur Specific [place] 1.020 (1.005-1.030) Urine Protein 1+ H (Negative) Urine Glucose (UA) Negative (Negative) Urine Ketones Negative (Negative) Urine Occult Blood Trace-lysed H (Negative) Urine Nitrite Negative (Negative) Urine Bilirubin Negative (Negative) Urine Urobilinogen 0.2 (0.2-1.0) Ur Leukocyte Esterase 3+ H (Negative) Urine RBC 5-10 H (0-5) /hpf Urine WBC 30-40 H (0-5) /hpf Urine WBC Clumps Few (NOT SEEN) /hpf Ur Squamous Epith Cells 0-5 (0-5) /hpf Urine Bacteria Few (FEW) /hpf Urine Mucus Not seen (FEW) /hpf SARS-CoV-2 RNA (CONNIE) Negative (NEGATIVE) 07/31/20 Range/Units 06:15 WBC (3.98-10.04) K/mm3 RBC (3.98-5.22) M/mm3 Hgb (11.2-15.7) gm/dl Hct (34.1-44.9) % MCV (79.4-94.8) fl MCH (25.6-32.2) pg MCHC (32.2-35.5) g/dl RDW Std Deviation (36.4-46.3) fL Plt Count (182-369) K/mm3 MPV (9.4-12.3) fl Neut % (Auto) (34.0-71.1) % Lymph % (Auto) (19.3-51.7) % [place] % (Auto) (4.7-12.5) % Eos % (Auto) (0.7-5.8) Baso % (Auto) (0.1-1.2) % Neut # (Auto) (1.56-6.13) K/mm3 Lymph # (Auto) (1.18-3.74) K/mm3 [place] # (Auto) (0.24-0.36) K/mm3 Eos # (Auto) (0.04-0.36) K/mm3 Baso # (Auto) (0.01-0.08) K/mm3 Manual Slide Review Sodium 137 (136-145) mEq/L Potassium 3.6 (3.5-5.1) mEq/L Chloride 101 (98-107) mEq/L Carbon Dioxide 27 (21-32) mEq/L Anion Gap 12.6 (5-15) BUN 12 (7-18) mg/dL Creatinine 0.7 (0.55-1.02) mg/dL Est Cr Clr Drug Dosing 56.91 mL/min Estimated GFR (MDRD) > 60 (>60) mL/min BUN/Creatinine Ratio 17.1 (14-18) Glucose 96 (83-115) mg/dL Calcium 8.7 (8.5-10.1) mg/dL Phosphorus 3.2 (2.6-4.7) mg/dL Magnesium 1.9 (1.8-2.4) mg/dl Total Bilirubin 0.7 (0.2-1.0) mg/dL AST 19 (15-37) U/L ALT 19 (14-59) U/L Alkaline Phosphatase 79 (46-116) U/L Troponin I (0.00-0.056) ng/mL C-Reactive Protein 12.3 H* (<1.0) mg/dL Total Protein 7.1 (6.4-8.2) g/dl Albumin 3.1 L (3.4-5.0) g/dl Globulin 4.0 gm/dL Albumin/Globulin Ratio 0.8 L (1-2) Urine Color (Yellow) Urine Appearance (Clear) Urine pH (5.0-8.0) Ur Specific [place] (1.005-1.030) Urine Protein (Negative) Urine Glucose (UA) (Negative) Urine Ketones (Negative) Urine Occult Blood (Negative) Urine Nitrite (Negative) Urine Bilirubin (Negative) Urine Urobilinogen (0.2-1.0) Ur Leukocyte Esterase (Negative) Urine RBC (0-5) /hpf Urine WBC (0-5) /hpf Urine WBC Clumps (NOT SEEN) /hpf Ur Squamous Epith Cells (0-5) /hpf Urine Bacteria (FEW) /hpf Urine Mucus (FEW) /hpf SARS-CoV-2 RNA (CONNIE) (NEGATIVE) Med Orders - Current: Current Medications Acetaminophen (Tylenol) 650 mg PO Q4H PRN PRN Reason: Pain (Mild 1-3)/fever Aspirin (Halfprin) 81 mg PO BEDTIME [facility] Diazepam (Valium.) 5 mg PO QPM [facility] Enoxaparin Sodium (Lovenox) 40 mg SUBCUT DAILY [facility] Gabapentin (Neurontin) 600 mg PO TID [facility] Ceftriaxone Sodium 2 gm/ (Sodium Chloride) 100 mls @ 200 mls/hr IV Q24H [facility] Ondansetron HCl (Zofran) 4 mg IV Q4H PRN PRN Reason: Nausea/Vomiting Oxybutynin Chloride (Oxybutynin) 5 mg PO BID [facility] Discontinued Medications Ceftriaxone Sodium 2 gm/ (Sodium Chloride) 100 mls @ 200 mls/hr IV ONETIME ONE Stop: 07/30/20 22:14 Last Admin: 07/30/20 23:01 Dose: 200 mls/hr Documented by: - Exam Quality Assessment: No: Supplemental Oxygen General: Alert, Oriented, Cooperative HEENT: Pupils Equal, Pupils Reactive. No: Mucous Membr. Moist/[place] (Dry) Neck: Supple Lungs: Clear to Auscultation, Normal Respiratory Effort Cardiovascular: Regular Rate, Regular Rhythm GI/Abdominal Exam: Normal Bowel Sounds, Soft, No Distention (Female) Exam: Deferred Back Exam: Normal Inspection (Age-appropriate), Full Range of Motion (Age- appropriate, kyphosis) Extremities: Normal Inspection, No Pedal Edema Skin: Warm, Dry, Intact Psy/Mental Status: Alert, Normal Affect Sepsis Event Note - Evaluation Sepsis Screening Result: No Definite Risk - Focused Exam Vital Signs: Vital Signs Temp Pulse Resp BP Pulse Ox 07/31/20 00:38 36.4 C 82 16 125/64 96 - Problem List & Annotations (1) Urinary tract infection SNOMED Code(s): 61752136 Code(s): N39.0 - URINARY TRACT INFECTION, SITE NOT SPECIFIED Status: Acute Priority: High Current Visit: Yes Qualifiers: Urinary tract infection type: acute cystitis Hematuria presence: with hematuria Qualified Code(s): N30.01 - Acute cystitis with hematuria (2) Weakness of lower extremity SNOMED Code(s): 540202973, 800031898 Code(s): R29.898 - OTH SYMPTOMS AND SIGNS INVOLVING THE MUSCULOSKELETAL SYSTEM Status: Chronic Priority: High Current Visit: Yes Qualifiers: Laterality: bilateral Qualified Code(s): R29.898 - Other symptoms and signs involving the musculoskeletal system (3) Multiple sclerosis SNOMED Code(s): 47984132 Code(s): G35 - MULTIPLE SCLEROSIS Status: Chronic Priority: Medium Current Visit: Yes (4) Physical deconditioning SNOMED Code(s): 81770258120119 Code(s): R53.81 - OTHER [place] Status: Chronic Priority: Medium Current Visit: Yes - Problem List Review Problem List Initiated/Reviewed/Updated: Yes - My Orders Last 24 Hours: My Active Orders 07/31/20 09:00 Gabapentin [Neurontin] 600 mg PO TID Oxybutynin 5 mg PO BID - Plan Plan:: 80-year-old female with history of multiple sclerosis with 29 years presents to the emergency department with lower extremity weakness. UTI * Patient had increasing weakness over the last 24 hours with difficulty or inability to stand this morning. * In the emergency department she was given Rocephin, had urine and blood cultures drawn, and lab work. * White count was slightly elevated at 12 with 80% neutrophils with no bands. * Potential for the urinary tract infection be causing the lower extremity weakness. * Review of her records suggest that she has had problems with recurrent urinary tract infections in the past. She has been on trimethoprim daily and cranberry supplements. Plan * Admit to medical floor * Continue Rocephin 2 g daily * Await urine and blood cultures * Get CBC, CMP, mag, procalcitonin, CRP in the morning * PT to evaluate and treat * Continue home meds * Lovenox for VTE prophylaxis * Length of stay likely 2 to 3 days. 07/31/2020 The patient is currently on ceftriaxone and this will be continued 2 g IV every 24 hours. She has also had her gabapentin restarted. Physical therapy has also been ordered for the patient. Blood cultures are currently pending and her antibiotics will be altered depending upon sensitivities. CBC, CMP, magnesium and CRP will be ordered in the morning. She is also on Lovenox for VTE prophylaxis and this will be continued. The patient has been encouraged to set up in chair.
[2020-07-31] MEDS ORDERED: Diazepam 5 MG Tab PO SCH (18:00)
[2020-07-31] MEDS: Diazepam 5 MG Tab PO SCH (22:20)
[2020-07-31] MEDS: Aspirin 81 MG Tab.EC PO SCH (22:21)
[2020-07-31] MEDS: cefTRIAXone 2 GM in Sodium Chloride 0.9% 100 ML IV SCH (22:22)
--- NOTE | 2020-08-01 07:27 | PCM.PN ---
- General Info Date of Service: 08/01/20 Admission Dx/Problem (Free Text): Generalized weakness Subjective Update: Patient is a 80-year-old lady who was admitted secondary to generalized weakness. The patient does not walk. She has been using her home chair for mobilization. Patient currently lives alone. She states that she has been able to complete her activities of daily living. The patient says that her pain is somewhat improved. She has been tolerating her diet. She has been agreeable to home health helping her. Functional Status: Reports: Pain Controlled, Tolerating Diet - Review of Systems General: Reports: Weakness, Fatigue, Other (Not walking) HEENT: Reports: No Symptoms Pulmonary: Reports: No Symptoms Cardiovascular: Reports: No Symptoms Gastrointestinal: Reports: No Symptoms Genitourinary: Reports: No Symptoms Musculoskeletal: Reports: Leg Pain Skin: Reports: No Symptoms Neurological: Reports: Difficulty Walking Psychiatric: Reports: No Symptoms - Patient Data Vitals - Most Recent: Last Vital Signs Temp 36.6 C 08/01/20 00:26 Pulse 85 08/01/20 00:26 Resp 18 08/01/20 00:26 BP 114/49 L 08/01/20 00:26 Pulse Ox 96 08/01/20 00:26 Weight - Most Recent: 54.431 kg I&O - Last 24 Hours: Intake & Output 07/31/20 08/01/20 08/01/20 22:59 06:59 14:59 Intake Total 500 900 Balance 500 900 Lab Results Last 24 Hours: Laboratory Results - last 24 hr 07/30/20 08/01/20 08/01/20 Range/Units 19:06 06:00 06:00 WBC 6.22 (3.98-10.04) K/mm3 RBC 4.04 (3.98-5.22) M/mm3 Hgb 12.0 (11.2-15.7) gm/dl Hct 38.1 (34.1-44.9) % MCV 94.3 (79.4-94.8) fl MCH 29.7 (25.6-32.2) pg MCHC 31.5 L (32.2-35.5) g/dl RDW Std Deviation 43.4 (36.4-46.3) fL Plt Count 216 (182-369) K/mm3 MPV 9.4 (9.4-12.3) fl Neut % (Auto) 56.6 (34.0-71.1) % Lymph % (Auto) 24.1 (19.3-51.7) % [place] % (Auto) 12.7 H (4.7-12.5) % Eos % (Auto) 5.8 (0.7-5.8) Baso % (Auto) 0.5 (0.1-1.2) % Neut # (Auto) 3.52 (1.56-6.13) K/mm3 Lymph # (Auto) 1.50 (1.18-3.74) K/mm3 [place] # (Auto) 0.79 H (0.24-0.36) K/mm3 Eos # (Auto) 0.36 (0.04-0.36) K/mm3 Baso # (Auto) 0.03 (0.01-0.08) K/mm3 Sodium 138 (136-145) mEq/L Potassium 3.8 (3.5-5.1) mEq/L Chloride 102 (98-107) mEq/L Carbon Dioxide 27 (21-32) mEq/L Anion Gap 12.8 (5-15) BUN 11 (7-18) mg/dL Creatinine 0.5 L (0.55-1.02) mg/dL Est Cr Clr Drug Dosing 79.68 mL/min Estimated GFR (MDRD) > 60 (>60) mL/min BUN/Creatinine Ratio 22.0 H (14-18) Glucose 91 (83-115) mg/dL Calcium 9.0 (8.5-10.1) mg/dL Phosphorus 3.2 (2.6-4.7) mg/dL Magnesium 2.1 (1.8-2.4) mg/dl C-Reactive Protein 13.5 H* (<1.0) mg/dL Procalcitonin <0.05 (<0.10) ng/mL Jayson Results Last 24 Hours: Microbiology 07/30/20 20:47 Aerobic Blood Culture - Preliminary Blood - Venous - Lab Draw NO GROWTH AFTER 1 DAY Anaerobic Blood Culture - Preliminary NO GROWTH AFTER 1 DAY 07/30/20 20:10 Aerobic Blood Culture - Preliminary Blood - Venous NO GROWTH AFTER 1 DAY Anaerobic Blood Culture - Preliminary NO GROWTH AFTER 1 DAY Med Orders - Current: Current Medications Acetaminophen (Tylenol) 650 mg PO Q4H PRN PRN Reason: Pain (Mild 1-3)/fever Aspirin (Halfprin) 81 mg PO BEDTIME [facility] Last Admin: 07/31/20 22:21 Dose: 81 mg Documented by: Diazepam (Valium.) 5 mg PO BEDTIME [facility] Last Admin: 07/31/20 22:20 Dose: 5 mg Documented by: Enoxaparin Sodium (Lovenox) 40 mg SUBCUT DAILY [facility] Last Admin: 07/31/20 09:06 Dose: 40 mg Documented by: Gabapentin (Neurontin) 600 mg PO TID [facility] Last Admin: 07/31/20 22:20 Dose: 600 mg Documented by: Ceftriaxone Sodium 2 gm/ (Sodium Chloride) 100 mls @ 200 mls/hr IV Q24H [facility] Last Admin: 07/31/20 22:22 Dose: 200 mls/hr Documented by: [place] Extra Strength Probiotic * *Own Med 1 cap PO DAILY [facility] Ondansetron HCl (Zofran) 4 mg IV Q4H PRN PRN Reason: Nausea/Vomiting Oxybutynin Chloride (Oxybutynin) 5 mg PO BID [facility] Last Admin: 07/31/20 22:20 Dose: 5 mg Documented by: Discontinued Medications Diazepam (Valium.) 5 mg PO QPM [facility] Ceftriaxone Sodium 2 gm/ (Sodium Chloride) 100 mls @ 200 mls/hr IV ONETIME ONE Stop: 07/30/20 22:14 Last Admin: 07/30/20 23:01 Dose: 200 mls/hr Documented by: - Exam Quality Assessment: No: Supplemental Oxygen General: Alert, Oriented, Cooperative, No Acute Distress HEENT: Pupils Equal, Pupils Reactive, EOMI. No: Mucous Membr. Moist/[place] (Dry) Neck: Supple, Trachea Midline Lungs: Clear to Auscultation, Normal Respiratory Effort Cardiovascular: Regular Rate, Regular Rhythm GI/Abdominal Exam: Normal Bowel Sounds, Soft, Non-Tender, No Distention (Female) Exam: Deferred Back Exam: Normal Inspection Extremities: No Pedal Edema. No: Normal Inspection, Normal Range of Motion Skin: Warm, Dry, Intact Neurological: No New Focal Deficit. No: Normal Gait Psy/Mental Status: Alert, Normal Affect Sepsis Event Note - Evaluation Sepsis Screening Result: No Definite Risk - Focused Exam Vital Signs: Vital Signs Temp Pulse Resp BP Pulse Ox Pulse Ox 08/01/20 00:26 36.6 C 85 18 114/49 L 96 07/31/20 22:33 36.6 C 79 16 120/91 H 95 07/31/20 21:34 98 - Problem List & Annotations (1) Weakness of lower extremity SNOMED Code(s): 469154594, 081270985 Code(s): R29.898 - OTH SYMPTOMS AND SIGNS INVOLVING THE MUSCULOSKELETAL SYSTEM Status: Chronic Priority: High Current Visit: Yes Qualifiers: Laterality: bilateral Qualified Code(s): R29.898 - Other symptoms and signs involving the musculoskeletal system (2) Multiple sclerosis SNOMED Code(s): 12001128 Code(s): G35 - MULTIPLE SCLEROSIS Status: Chronic Priority: Medium Current Visit: Yes (3) Physical deconditioning SNOMED Code(s): 12596089618167 Code(s): R53.81 - OTHER MALAISE Status: Chronic Priority: Medium Current Visit: Yes (4) Urinary tract infection SNOMED Code(s): 86685669 Code(s): N39.0 - URINARY TRACT INFECTION, SITE NOT SPECIFIED Status: Acute Priority: High Current Visit: Yes Qualifiers: Urinary tract infection type: acute cystitis Hematuria presence: with hematuria Qualified Code(s): N30.01 - Acute cystitis with hematuria - Problem List Review Problem List Initiated/Reviewed/Updated: Yes - My Orders Last 24 Hours: My Active Orders 07/31/20 09:00 Gabapentin [Neurontin] 600 mg PO TID Oxybutynin 5 mg PO BID 08/01/20 09:00 Lactobacill 46/B.animal/Inulin [Probiotic-10 10 Bill Cell Cap] 1 cap PO DAILY - Plan Plan:: 80-year-old female with history of multiple sclerosis with 29 years presents to the emergency department with lower extremity weakness. UTI * Patient had increasing weakness over the last 24 hours with difficulty or inability to stand this morning. * In the emergency department she was given Rocephin, had urine and blood cultures drawn, and lab work. * White count was slightly elevated at 12 with 80% neutrophils with no bands. * Potential for the urinary tract infection be causing the lower extremity weakness. * Review of her records suggest that she has had problems with recurrent urinary tract infections in the past. She has been on trimethoprim daily and cranberry supplements. Plan * Admit to medical floor * Continue Rocephin 2 g daily * Await urine and blood cultures * Get CBC, CMP, mag, procalcitonin, CRP in the morning * PT to evaluate and treat * Continue home meds * Lovenox for VTE prophylaxis * Length of stay likely 2 to 3 days. 07/31/2020 The patient is currently on ceftriaxone and this will be continued 2 g IV every 24 hours. She has also had her gabapentin restarted. Physical therapy has also been ordered for the patient. Blood cultures are currently pending and her antibiotics will be altered depending upon sensitivities. CBC, CMP, magnesium and CRP will be ordered in the morning. She is also on Lovenox for VTE prophylaxis and this will be continued. The patient has been encouraged to set up in chair. 08/01/2020 The patient's UTI has improved. She will be continued on ceftriaxone. The patient also will have physical therapy and I have also ordered home health for the patient. The patient does live alone with her cat. Blood cultures are still pending. The patient will be continued on VTE prophylaxis with Lovenox. I have also elected to place patient on prednisone 1 mg/kg daily to help with MS exacerbation. The patient will be kept on her regular diet as tolerated. She has been encouraged to move around more often. The patient should be appropriate for discharge in 1 to 2 days depending upon health set up.
[2020-08-01] MEDS: [UNRECOGNIZED DRUG - OTHER] PO SCH (08:07)
[2020-08-01] MEDS: Enoxaparin 40 MG/0.4 ML Syringe SUBCUT SCH (08:10)
[2020-08-01] MEDS: Gabapentin 300 MG Cap PO SCH ×3 (08:11→22:04)
[2020-08-01] MEDS: Oxybutynin 5 MG Tab PO SCH ×2 (08:11→22:04)
--- NOTE | 2020-08-01 09:11 | PCM.SN.2 ---
- Free Text/Narrative Note: Face to Face meeting with pt and or family. Pt has multiple sclerosis with inability to walk. She lives at home alone and says she can complete her ADL's. Pt is in need Home Health Care services for; low activity tolerance, functional mobility, standing balance, strength, transfers. Nursing for vitals, skilled assessment, medication education, disease management. Physical therapy for pt for balance training, gait training, neuromuscular reduction, therapeutic exercises, and transfer training. Occupational therapy for activity tolerance, self-care training, ADLs and t/f training. Pt is currently homebound related to being wheel chair dependent, decreased activity tolerance, and a decreased level of endurance. Pt will be followed by his primary provider.
[2020-08-01] MEDS: predniSONE 10 MG Tab PO SCH (09:30)
[2020-08-01] MEDS: cefTRIAXone 2 GM in Sodium Chloride 0.9% 100 ML IV SCH (20:23)
[2020-08-01] MEDS: Diazepam 5 MG Tab PO SCH (22:04)
[2020-08-01] MEDS: Aspirin 81 MG Tab.EC PO SCH (22:04)
[2020-08-02] MEDS: Pantoprazole 40 MG Tab.CR PO SCH (06:09)
[2020-08-02] MEDS: predniSONE 10 MG Tab PO SCH (07:50)
[2020-08-02] MEDS: [UNRECOGNIZED DRUG - OTHER] PO SCH (09:03)
[2020-08-02] MEDS: Oxybutynin 5 MG Tab PO SCH ×2 (09:04→21:52)
[2020-08-02] MEDS: Gabapentin 600 MG Tab PO SCH ×3 (09:04→21:53)
[2020-08-02] MEDS: Enoxaparin 40 MG/0.4 ML Syringe SUBCUT SCH (09:05)
--- NOTE | 2020-08-02 10:19 | PCM.PN ---
- General Info Date of Service: 08/02/20 Admission Dx/Problem (Free Text): Generalized weakness Subjective Update: The patient is a 80-year-old lady who was admitted secondary to general lysed weakness. The patient also has been having difficulty ambulating. She lives alone. Today she says that she feels much better with the prednisone. Patient also has agreed to home health helping her at home. The patient says that she has been able to tolerate her diet. Functional Status: Reports: Pain Controlled, Tolerating Diet - Review of Systems General: Reports: No Symptoms HEENT: Reports: No Symptoms Pulmonary: Reports: No Symptoms Cardiovascular: Reports: No Symptoms Gastrointestinal: Reports: No Symptoms Genitourinary: Reports: No Symptoms Musculoskeletal: Reports: Leg Pain Skin: Reports: No Symptoms Neurological: Reports: No Symptoms Psychiatric: Reports: No Symptoms - Patient Data Vitals - Most Recent: Last Vital Signs Temp 36.6 C 08/02/20 04:10 Pulse 85 08/02/20 04:10 Resp 16 08/02/20 04:10 BP 112/51 L 08/02/20 04:10 Pulse Ox 97 08/02/20 04:10 Weight - Most Recent: 54.431 kg I&O - Last 24 Hours: Intake & Output 08/01/20 08/02/20 08/02/20 22:59 06:59 14:59 Intake Total 1160 700 320 Balance 1160 700 320 Lab Results Last 24 Hours: Laboratory Results - last 24 hr 08/02/20 08/02/20 Range/Units 06:00 06:00 WBC 7.33 (3.98-10.04) K/mm3 RBC 3.84 L (3.98-5.22) M/mm3 Hgb 11.6 (11.2-15.7) gm/dl Hct 35.6 (34.1-44.9) % MCV 92.7 (79.4-94.8) fl MCH 30.2 (25.6-32.2) pg MCHC 32.6 (32.2-35.5) g/dl RDW Std Deviation 41.5 (36.4-46.3) fL Plt Count 221 (182-369) K/mm3 MPV 9.0 L (9.4-12.3) fl Neut % (Auto) 67.0 (34.0-71.1) % Lymph % (Auto) 20.9 (19.3-51.7) % [place] % (Auto) 11.6 (4.7-12.5) % Eos % (Auto) 0.3 L (0.7-5.8) Baso % (Auto) 0.1 (0.1-1.2) % Neut # (Auto) 4.91 (1.56-6.13) K/mm3 Lymph # (Auto) 1.53 (1.18-3.74) K/mm3 [place] # (Auto) 0.85 H (0.24-0.36) K/mm3 Eos # (Auto) 0.02 L (0.04-0.36) K/mm3 Baso # (Auto) 0.01 (0.01-0.08) K/mm3 Sodium 137 (136-145) mEq/L Potassium 3.6 (3.5-5.1) mEq/L Chloride 101 (98-107) mEq/L Carbon Dioxide 26 (21-32) mEq/L Anion Gap 13.6 (5-15) BUN 16 (7-18) mg/dL Creatinine 0.7 (0.55-1.02) mg/dL Est Cr Clr Drug Dosing 56.91 mL/min Estimated GFR (MDRD) > 60 (>60) mL/min BUN/Creatinine Ratio 22.9 H (14-18) Glucose 95 (83-115) mg/dL Calcium 8.8 (8.5-10.1) mg/dL C-Reactive Protein 8.6 H* (<1.0) mg/dL Jayson Results Last 24 Hours: Microbiology 07/30/20 19:29 Urine Culture - Final Urine, Johns Cath (Indwelling) 07/30/20 20:47 Aerobic Blood Culture - Preliminary Blood - Venous - Lab Draw NO GROWTH AFTER 2 DAYS Anaerobic Blood Culture - Preliminary NO GROWTH AFTER 2 DAYS 07/30/20 20:10 Aerobic Blood Culture - Preliminary Blood - Venous NO GROWTH AFTER 2 DAYS Anaerobic Blood Culture - Preliminary NO GROWTH AFTER 2 DAYS Med Orders - Current: Current Medications Acetaminophen (Tylenol) 650 mg PO Q4H PRN PRN Reason: Pain (Mild 1-3)/fever Aspirin (Halfprin) 81 mg PO BEDTIME [facility] Last Admin: 08/01/20 22:04 Dose: 81 mg Documented by: Diazepam (Valium.) 5 mg PO BEDTIME [facility] Last Admin: 08/01/20 22:04 Dose: 5 mg Documented by: Enoxaparin Sodium (Lovenox) 40 mg SUBCUT DAILY [facility] Last Admin: 08/02/20 09:05 Dose: 40 mg Documented by: Gabapentin (Neurontin) 600 mg PO TID [facility] Last Admin: 08/02/20 09:04 Dose: 600 mg Documented by: Ceftriaxone Sodium 2 gm/ (Sodium Chloride) 100 mls @ 200 mls/hr IV Q24H [facility] Last Admin: 08/01/20 20:23 Dose: 200 mls/hr Documented by: [place] Extra Strength Probiotic * *Own Med 1 cap PO DAILY [facility] Last Admin: 08/02/20 09:03 Dose: 1 cap Documented by: Ondansetron HCl (Zofran) 4 mg IV Q4H PRN PRN Reason: Nausea/Vomiting Oxybutynin Chloride (Oxybutynin) 5 mg PO BID [facility] Last Admin: 08/02/20 09:04 Dose: 5 mg Documented by: Pantoprazole Sodium (Protonix) 40 mg PO ACBREAKFAST [facility] Last Admin: 08/02/20 06:09 Dose: 40 mg Documented by: Prednisone (Prednisone) 55 mg PO WITHBREAKFAST [facility] Last Admin: 08/02/20 07:50 Dose: 55 mg Documented by: Discontinued Medications Diazepam (Valium.) 5 mg PO QPM [facility] Gabapentin (Neurontin) 600 mg PO TID [facility] Last Admin: 08/01/20 22:04 Dose: 600 mg Documented by: Ceftriaxone Sodium 2 gm/ (Sodium Chloride) 100 mls @ 200 mls/hr IV ONETIME ONE Stop: 07/30/20 22:14 Last Admin: 07/30/20 23:01 Dose: 200 mls/hr Documented by: - Exam Quality Assessment: No: Supplemental Oxygen General: Alert, Oriented, Cooperative, No Acute Distress HEENT: Pupils Equal, Pupils Reactive Neck: Supple, Trachea Midline Lungs: Clear to Auscultation, Normal Respiratory Effort Cardiovascular: Regular Rate, Regular Rhythm GI/Abdominal Exam: Normal Bowel Sounds, No Distention (Female) Exam: Deferred Back Exam: Normal Inspection. No: Full Range of Motion Extremities: Normal Inspection, No Pedal Edema. No: Normal Range of Motion (Predominantly due to patient's MS) Skin: Warm, Dry, Intact Neurological: No New Focal Deficit Psy/Mental Status: Alert, Normal Affect, Normal Mood Sepsis Event Note - Evaluation Sepsis Screening Result: No Definite Risk - Focused Exam Vital Signs: Vital Signs Temp Pulse Resp BP Pulse Ox 08/02/20 04:10 36.6 C 85 16 112/51 L 97 08/02/20 00:07 36.7 C 88 20 108/55 L 96 08/02/20 00:05 91 96 - Problem List & Annotations (1) Weakness of lower extremity SNOMED Code(s): 972441084, 663931290 Code(s): R29.898 - OTH SYMPTOMS AND SIGNS INVOLVING THE MUSCULOSKELETAL SYSTEM Status: Chronic Priority: High Current Visit: Yes Qualifiers: Laterality: bilateral Qualified Code(s): R29.898 - Other symptoms and signs involving the musculoskeletal system (2) Multiple sclerosis SNOMED Code(s): 97109343 Code(s): G35 - MULTIPLE SCLEROSIS Status: Chronic Priority: Medium Current Visit: Yes (3) Physical deconditioning SNOMED Code(s): 54161737029222 Code(s): R53.81 - OTHER MALAISE Status: Chronic Priority: Medium Current Visit: Yes (4) Urinary tract infection SNOMED Code(s): 10796760 Code(s): N39.0 - URINARY TRACT INFECTION, SITE NOT SPECIFIED Status: Acute Priority: High Current Visit: Yes Qualifiers: Urinary tract infection type: acute cystitis Hematuria presence: with hematuria Qualified Code(s): N30.01 - Acute cystitis with hematuria - Problem List Review Problem List Initiated/Reviewed/Updated: Yes - My Orders Last 24 Hours: My Active Orders 08/02/20 06:00 Pantoprazole [ProTONIX] 40 mg PO ACBREAKFAST 08/02/20 09:00 Gabapentin [Neurontin] 600 mg PO TID - Plan Plan:: 80-year-old female with history of multiple sclerosis with 29 years presents to the emergency department with lower extremity weakness. UTI * Patient had increasing weakness over the last 24 hours with difficulty or inability to stand this morning. * In the emergency department she was given Rocephin, had urine and blood cultures drawn, and lab work. * White count was slightly elevated at 12 with 80% neutrophils with no bands. * Potential for the urinary tract infection be causing the lower extremity weakness. * Review of her records suggest that she has had problems with recurrent urinary tract infections in the past. She has been on trimethoprim daily and cranberry supplements. Plan * Admit to medical floor * Continue Rocephin 2 g daily * Await urine and blood cultures * Get CBC, CMP, mag, procalcitonin, CRP in the morning * PT to evaluate and treat * Continue home meds * Lovenox for VTE prophylaxis * Length of stay likely 2 to 3 days. 07/31/2020 The patient is currently on ceftriaxone and this will be continued 2 g IV every 24 hours. She has also had her gabapentin restarted. Physical therapy has also been ordered for the patient. Blood cultures are currently pending and her antibiotics will be altered depending upon sensitivities. CBC, CMP, magnesium and CRP will be ordered in the morning. She is also on Lovenox for VTE prophylaxis and this will be continued. The patient has been encouraged to set up in chair. 08/01/2020 The patient's UTI has improved. She will be continued on ceftriaxone. The emily hickey also will have physical therapy and I have also ordered home health for the patient. The patient does live alone with her cat. Blood cultures are still pending. The patient will be continued on VTE prophylaxis with Lovenox. I have also elected to place patient on prednisone 1 mg/kg daily to help with MS exacerbation. The patient will be kept on her regular diet as tolerated. She has been encouraged to move around more often. The patient should be appropriate for discharge in 1 to 2 days depending upon health set up. 08/02/2020 Overall the patient has exhibited some significant improvement. The patient will be continued on her ceftriaxone. The patient has been doing well with the prednisone at 1 mg/kg and this will be continued. She will also be kept on a regular diet. Home health has been ordered. If home health has been arranged and able to help with the patient she should be appropriate for discharge tomorrow. The patient is not ready for discharge tomorrow we will consider ordering laboratory studies tomorrow. She is currently on VTE prophylaxis with Lovenox since will be continued.
[2020-08-02] MEDS: Diazepam 5 MG Tab PO SCH (21:52)
[2020-08-02] MEDS: cefTRIAXone 2 GM in Sodium Chloride 0.9% 100 ML IV SCH (21:53)
[2020-08-02] MEDS: Aspirin 81 MG Tab.EC PO SCH (21:53)
[2020-08-03] MEDS ORDERED: Magnesium Hydroxide 400 MG/5 ML Susp 30 ML Cup PO ONE (04:43)
[2020-08-03] MEDS: Pantoprazole 40 MG Tab.CR PO SCH (06:32)
[2020-08-03] MEDS: predniSONE 10 MG Tab PO SCH (06:34)
--- NOTE | 2020-08-03 08:35 | PCM.DCSUM1 ---
Discharge Summary - Hospital Course Free Text/Narrative:: Patient was admitted secondary to generalized weakness and UTI. Diagnosis: Stroke: No - Discharge Data Discharge Date: 08/03/20 Discharge Disposition: Home, W Home Health Agency 06 Condition: Good - Referral to Home Health Date of Face to Face Encounter: 08/03/20 Reason for Homebound Status: Unable to ambulate. Uses chair at home. Able to transfer self. Not able to drive. Primary Care Physician: PCP None Skilled Need: Physical therapy, strengthening, assisting at home. - Discharge Diagnosis/Problem(s) (1) Weakness of lower extremity SNOMED Code(s): 136777891, 136425156 ICD Code: R29.898 - OTH SYMPTOMS AND SIGNS INVOLVING THE MUSCULOSKELETAL SYSTEM Status: Chronic Priority: High Current Visit: Yes Qualifiers: Laterality: bilateral Qualified Code(s): R29.898 - Other symptoms and signs involving the musculoskeletal system (2) Multiple sclerosis SNOMED Code(s): 49717833 ICD Code: G35 - MULTIPLE SCLEROSIS Status: Chronic Priority: Medium Current Visit: Yes (3) Physical deconditioning SNOMED Code(s): 85141006155839 ICD Code: R53.81 - OTHER MALAISE Status: Chronic Priority: Medium Current Visit: Yes (4) Urinary tract infection SNOMED Code(s): 14134018 ICD Code: N39.0 - URINARY TRACT INFECTION, SITE NOT SPECIFIED Status: Acute Priority: High Current Visit: Yes Qualifiers: Urinary tract infection type: acute cystitis Hematuria presence: with hematuria Qualified Code(s): N30.01 - Acute cystitis with hematuria - Patient Summary/Data Consults: Consultations 07/30/20 21:34 PT Evaluation and Treatment [CONS] Routine 08/01/20 09:03 Consult to Home Health [CONS] Routine Hospital Course: The patient is a 80-year-old lady who has known multiple sclerosis from diagnosis at least 30 years ago. The patient at home has been able to complete all of her activities of daily living she had been admitted secondary to a complicated urinary tract infection. The patient was initially admitted on July 30, 2020. Patient was placed on Rocephin IV 2 g daily for her urinary tract infection. The patient had completed 5 doses of Rocephin and does not need antibiotics for home. Patient was also has blood cultures which have thus far been negative. The patient continued to improve through her course of hospitalization. The patient also had been evaluated by physical therapy who had recommended home health. The patient states that she also has a good assortment of equipment to help her. The patient had been started on high-dose prednisone 1 g/kg daily and this helped the her symptoms and her weakness. The patient also will be sent home with high-dose prednisone. She is to follow-up with her primary care physician. Patient also has been recommended to continue with her home medications. She is to have activity as tolerated. The patient is also hemodynamically stable at this time and she has been discharged from acute hospitalization with the recommendations listed above. - Patient Instructions Diet: Regular Diet as Tolerated Activity: As Tolerated - Discharge Plan *PRESCRIPTION DRUG MONITORING PROGRAM REVIEWED*: No *COPY OF PRESCRIPTION DRUG MONITORING REPORT IN PATIENT [place]: No Prescriptions/Med Rec: predniSONE 55 mg PO WITHBREAKFAST 30 Days #180 tablet Home Medications: Home Meds Aspirin [Adult Low Dose Aspirin EC] 81 mg PO BEDTIME 04/08/15 [History] Trimethoprim 100 mg PO BEDTIME 09/25/17 [History] Gabapentin [Neurontin] 600 mg PO TID 05/31/18 [History] diazePAM [Valium.] 5 mg PO QPM 05/31/18 [History] Acetaminophen/Diphenhydramine [Tylenol Pm Ex-Strength Caplet] 2 tab PO BEDTIME 07/30/20 [History] Cranberry Fruit Extract [Cranberry] 1,500 mg PO ASDIRECTED 07/30/20 [History] Sodium Citrate [Nauzene Upset Stomach-Nausea] 1 tab PO ASDIRECTED PRN 07/30/20 [History] Cranberry Fruit Extract [Cranberry] 15,000 mg PO DAILY 07/31/20 [History] Lactobacill 46/B.animal/Inulin [Probiotic-10 10 Bill Cell Cap] 1 cap PO DAILY 07/31/20 [History] Oxybutynin 5 mg PO BID 07/31/20 [History] predniSONE 55 mg PO WITHBREAKFAST 30 Days #180 tablet 08/03/20 [Rx] Forms: ED Department Discharge Referrals: Fabiana Marino MD [Ordering Only Provider] - - Discharge Summary/Plan Comment DC Time >30 min.: Yes - General Info Date of Service: 08/03/20 Admission Dx/Problem (Free Text: Generalized weakness Subjective Update: The patient is a 80-year-old lady who was admitted secondary to general lysed weakness. The patient also has been having difficulty ambulating. She lives alone. Today she says that she feels much better with the prednisone. Patient also has agreed to home health helping her at home. The patient has been doing well. The patient will be discharged today. Functional Status: Reports: Pain Controlled, Tolerating Diet - Review of Systems General: Reports: No Symptoms HEENT: Reports: No Symptoms Pulmonary: Reports: No Symptoms Cardiovascular: Reports: No Symptoms Gastrointestinal: Reports: No Symptoms Genitourinary: Reports: No Symptoms Musculoskeletal: Reports: No Symptoms Skin: Reports: No Symptoms Neurological: Reports: Pre-Existing Deficit Psychiatric: Reports: No Symptoms - Patient Data Vitals - Most Recent: Last Vital Signs Temp 36.5 C 08/03/20 06:33 Pulse 71 08/03/20 06:33 Resp 16 08/03/20 06:33 BP 111/78 08/03/20 06:33 Pulse Ox 97 08/03/20 06:33 Weight - Most Recent: 54.431 kg I&O - Last 24 hours: Intake & Output 08/02/20 08/03/20 08/03/20 22:59 06:59 14:59 Intake Total 1140 500 Balance 1140 500 COLLEEN Results - Last 24 hrs: Microbiology 07/30/20 20:47 Aerobic Blood Culture - Preliminary Blood - Venous - Lab Draw NO GROWTH AFTER 3 DAYS Anaerobic Blood Culture - Preliminary NO GROWTH AFTER 3 DAYS 07/30/20 20:10 Aerobic Blood Culture - Preliminary Blood - Venous NO GROWTH AFTER 3 DAYS Anaerobic Blood Culture - Preliminary NO GROWTH AFTER 3 DAYS 07/30/20 19:29 Urine Culture - Final Urine, Johns Cath (Indwelling) Med Orders - Current: Current Medications Acetaminophen (Tylenol) 650 mg PO Q4H PRN PRN Reason: Pain (Mild 1-3)/fever Aspirin (Halfprin) 81 mg PO BEDTIME [facility] Last Admin: 08/02/20 21:53 Dose: 81 mg Documented by: Diazepam (Valium.) 5 mg PO BEDTIME [facility] Last Admin: 08/02/20 21:52 Dose: 5 mg Documented by: Enoxaparin Sodium (Lovenox) 40 mg SUBCUT DAILY [facility] Last Admin: 08/02/20 09:05 Dose: 40 mg Documented by: Gabapentin (Neurontin) 600 mg PO TID [facility] Last Admin: 08/02/20 21:53 Dose: 600 mg Documented by: Ceftriaxone Sodium 2 gm/ (Sodium Chloride) 100 mls @ 200 mls/hr IV Q24H [facility] Last Admin: 08/02/20 21:53 Dose: 200 mls/hr Documented by: [place] Extra Strength Probiotic * *Own Med 1 cap PO DAILY [facility] Last Admin: 08/02/20 09:03 Dose: 1 cap Documented by: Ondansetron HCl (Zofran) 4 mg IV Q4H PRN PRN Reason: Nausea/Vomiting Oxybutynin Chloride (Oxybutynin) 5 mg PO BID [facility] Last Admin: 08/02/20 21:52 Dose: 5 mg Documented by: Pantoprazole Sodium (Protonix) 40 mg PO ACBREAKFAST [facility] Last Admin: 08/03/20 06:32 Dose: 40 mg Documented by: Prednisone (Prednisone) 55 mg PO WITHBREAKFAST [facility] Last Admin: 08/03/20 06:34 Dose: 55 mg Documented by: Discontinued Medications Diazepam (Valium.) 5 mg PO QPM [facility] Gabapentin (Neurontin) 600 mg PO TID [facility] Last Admin: 08/01/20 22:04 Dose: 600 mg Documented by: Ceftriaxone Sodium 2 gm/ (Sodium Chloride) 100 mls @ 200 mls/hr IV ONETIME ONE Stop: 07/30/20 22:14 Last Admin: 07/30/20 23:01 Dose: 200 mls/hr Documented by: Magnesium Hydroxide (Milk Of Magnesia) 30 ml PO ONETIME ONE Stop: 08/03/20 04:44 Last Admin: 08/03/20 06:32 Dose: 30 ml Documented by: - Exam Quality Assessment: Denies: Supplemental Oxygen General: Reports: Alert, Oriented, Cooperative HEENT: Reports: Pupils Equal, Pupils Reactive, EOMI Neck: Reports: Supple, Trachea Midline Lungs: Reports: Clear to Auscultation, Normal Respiratory Effort Cardiovascular: Reports: Regular Rate, Regular Rhythm GI/Abdominal Exam: Normal Bowel Sounds, Soft, No Distention (Female) Exam: Deferred Rectal (Female) Exam: Deferred Back Exam: Reports: Normal Inspection, Full Range of Motion Extremities: No: Normal Inspection, Normal Range of Motion Skin: Reports: Warm, Dry, Intact Neurological: Reports: No New Focal Deficit Psy/Mental Status: Reports: Alert, Normal Affect, Normal Mood
[2020-08-03] MEDS: Enoxaparin 40 MG/0.4 ML Syringe SUBCUT SCH (09:18)
[2020-08-03] MEDS: Gabapentin 600 MG Tab PO SCH ×2 (09:19→14:59)
[2020-08-03] MEDS: [UNRECOGNIZED DRUG - OTHER] PO SCH (09:20)
[2020-08-03] MEDS: Oxybutynin 5 MG Tab PO SCH (09:20)
[2020-08-03 12:14] VITALS: BP 101/78; PULSE 77
--- NOTE | 2020-08-03 12:24 | PCM.SN.2 ---
- Free Text/Narrative Note: This will count as a [id number] meeting with the patient. The patient has multiple sclerosis, UTI and left leg weakness. She also has physical deconditioning. The patient is in need of home health care services for low activity tolerance, functional mobility, standing balance, strength and transfers. Nursing for vitals, skilled assessment, disease education and disease management. [employer] services for bathing and assistance with self-cares. The patient will also need to have physical therapy for balance training, neuromuscular reduction, therapeutic exercises and transfer training. Occupational Therapy for tolerance, self-care training, ADLs and other training. The patient is currently homebound waiting to being walker/wheelchair dependent, decreased physical activity, and a decreased level of endurance. The patient will be followed by her primary care provider, Dr. Marino.
== END 2020-08-03 17:02 | disposition home health service (06) | DRG 690 ==
LOC: JD.ED 17:50 → JD.MS 23:09
PROVIDERS: ADMIT Family Medicine; ATTEND Family Medicine
DX: N39.0 Urinary tract infection, site not specified (principal); R53.1 Weakness; N30.01 Acute cystitis with hematuria; G35 Multiple sclerosis; R29.898 Other symptoms and signs involving the musculoskeletal system; H54.7 Unspecified visual loss; E78.00 Pure hypercholesterolemia, unspecified; F03.90 Unspecified dementia, unspecified severity, without behavioral disturbance, psychotic disturbance, mood disturbance, and anxiety; R32 Unspecified urinary incontinence; Z87.440 Personal history of urinary (tract) infections; Z79.899 Other long term (current) drug therapy; Z20.828 Contact with and (suspected) exposure to other viral communicable diseases; Z88.2 Allergy status to sulfonamides; Z79.52 Long term (current) use of systemic steroids; Z79.82 Long term (current) use of aspirin; Z86.73 Personal history of transient ischemic attack (TIA), and cerebral infarction without residual deficits; Z90.89 Acquired absence of other organs; Z87.891 Personal history of nicotine dependence
CPT/HCPCS: 36415; 70450; 71045; 72131; 80053; 81001; 84145; 84484; 85025; 87040 ×2; 87086; 93005; 96374; 99285; J0696; J7050; U0002; 80048; 83735; 84100; 86140; 97162-GP; 97530-GP; A9270-GY; J1650; J7512

== ENCOUNTER 2021-06-03 23:58 | Inpatient (IN) | payer MEDICARE, BC ==
[2021-06-04] MEDS ORDERED: Morphine 2 MG/ML SYRINGE IVPUSH ONE (00:48)
--- NOTE | 2021-06-04 00:57 | EDM.PDOC ---
ED HPI GENERAL MEDICAL PROBLEM - General Chief Complaint: Fever Stated Complaint: [facility] Time Seen by Provider: 06/04/21 00:30 Source of Information: Reports: Patient, EMS - History of Present Illness INITIAL COMMENTS - FREE TEXT/NARRATIVE: Patient arrived to ED via ambulance She was referred for evaluation of fever, with temperature 103 degrees per daughter's report Patient reports that she fell this afternoon while transferring herself between chairs at home She was unable to get up, and laid on the floor for 1 to 2 hours until found by an aide, who helped her up into the chair States that she had shaking/chills while lying on the floor She was subsequently determined to have fever, and her daughter recommended she come to ED for evaluation She complains of pain to the left thigh/hip area since her fall She has prior history of surgery for hip fracture on that side She has chronic urinary incontinence and history of UTI Denies dysuria, hematuria, nausea, vomiting, abdominal pain, dyspnea, cough Bilateral Leg Pain Score (Numeric/FACES): 10 Abdomen Pain Score (Numeric/FACES): 8 - Related Data Allergies Allergy/AdvReac Type Severity Reaction Status Date / Time Sulfa (Sulfonamide Allergy Cannot Verified 06/04/21 09:47 Antibiotics) Remember Home Meds: Home Meds Trimethoprim 100 mg PO BEDTIME 09/25/17 [History] diazePAM [Valium.] 5 mg PO QPM 05/31/18 [History] Gabapentin [Neurontin] 600 mg PO TID 06/04/21 [History] Past Medical History HEENT History: Reports: Cataract, Impaired Vision, Other (See Below) Other HEENT History: wears glasses, full dentures and a right hearing aide Cardiovascular History: Reports: High Cholesterol Gastrointestinal History: Reports: GI Bleed Genitourinary History: Reports: Urinary Incontinence, UTI, Recurrent, Other (See Below) Other Genitourinary History: pt reports that she just has a steady stream most of the time 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 GI bleed 2001 Female Surgical History: Reports: None Neurological Surgical History: Reports: None Musculoskeletal Surgical History: Reports: None Other Musculoskeletal Surgeries/Procedures:: Left hip surgery, broken hip Dermatological Surgical History: Reports: None Social & Family History - Family History Family Medical History: No Pertinent Family History Neurological: Reports: CVA - Tobacco Use Tobacco Use Status *Q: Former Tobacco User Used Tobacco, but Quit: Yes Month/Year Tobacco Last Used: 20+ years - Caffeine Use Caffeine Use: Reports: None Other Caffeine Use: daily - Recreational Drug Use Recreational Drug Use: No - Living Situation & Occupation Living situation: Reports: Occupation: Retired ED ROS GENERAL - Review of Systems Review Of Systems: See Below Free Text/Narrative/Comment: Constitutional - fever Eyes - no eye pain; no visual disturbance ENT - no rhinorrhea; no congestion; no epistaxis Cardiovascular - no chest pain Respiratory - no shortness of breath; no cough Gastrointestinal - no abdominal pain; no nausea; no vomiting; no diarrhea Genitourinary - no dysuria Musculoskeletal - no neck pain; no back pain; left thigh/hip pain Neurological - no headache; no speech disturbance; generalized weakness; ambulatory dysfunction ED EXAM, GENERAL - Physical Exam Exam: See Below Free Text/Narrative:: Constitutional - awake; alert; mild pain distress Head - no facial swelling or weakness Eyes - extra ocular motion intact; conjunctiva normal ENT - no nasal deformity; no epistaxis; normal phonation; mucus membranes moist Neck - no swelling; no tenderness on palpation Respiratory - normal respiratory effort; no crackles or wheezing; no stridor Cardiovascular - regular rhythm; normal rate; S1; S2; grade 3/6 systolic murmur GI/Abdomen - normal bowel sounds; soft; mild, suprapubic tenderness; no rebound; no guarding; no mass Musculoskeletal - functional range of motion left hip, mild hip pain induced by hip flexion - grossly normal strength and motion other extremities - no swelling or deformity Skin - warm; dry Neurologic - normal speech; no weakness Psychiatric - normal mood and affect; attention normal Course - Vital Signs Text/Narrative:: . Considered etiologies included: Fall, hip pain, contusion, fracture, fever, abdominal pain, UTI, sepsis, pneumonia Symptoms and examination were discussed Investigations were initiated Empiric analgesic treatment was provided with IV morphine Results were discussed, with findings suggestive for UTI Empiric treatment was provided with IV ceftriaxone and oral levofloxacin, in anticipation of possible discharge home Patient's daughter reported to RN that patient does not walk, however is normally able to stand and pivot to transfer In discussion regarding disposition, patient reported she has fallen 3 times this month She has been having difficulty increasing home care resources She stated that her left knee has been bothering her since one of the recent falls, and that has affected her ability to stand She was unable to stand at bedside in ED with assist of 2 and was unsafe for discharge She was referred to hospitalist service for admission and further care Last Recorded V/S: Last Vital Signs Temp 37.1 C 06/05/21 15:43 Pulse 52 L 06/05/21 15:43 Resp 20 06/05/21 15:43 BP 99/53 L 06/05/21 15:49 Pulse Ox 91 L 06/05/21 15:49 - Orders/Labs/Meds Orders: Medication Orders Acetaminophen (Acetaminophen 325 Mg Tab) 650 mg PO Q4H PRN PRN Reason: Pain (Mild 1-3)/fever Last Admin: 06/05/21 13:03 Dose: 650 mg Documented by: Admin: 06/04/21 15:14 Dose: 650 mg Documented by: ARMEN Diazepam (Diazepam 5 Mg Tab) 5 mg PO QPM PRN PRN Reason: Anxiety Last Admin: 06/04/21 21:58 Dose: 5 mg Documented by: PHYLICIA Docusate Sodium (Docusate Sodium 100 Mg Cap) 100 mg PO BID PRN PRN Reason: Constipation Gabapentin (Gabapentin 300 Mg Cap) 600 mg PO TID [facility] Last Admin: 06/05/21 14:04 Dose: 600 mg Documented by: Admin: 06/05/21 08:25 Dose: 600 mg Documented by: Admin: 06/04/21 21:57 Dose: 600 mg Documented by: Admin: 06/04/21 15:15 Dose: 600 mg Documented by: Admin: 06/04/21 10:12 Dose: 600 mg Documented by: ARMEN Heparin Sodium (Porcine) (Heparin Sodium 5,000 Units/Ml Vial) 5,000 units SUBCUT Q8H [facility] Last Admin: 06/05/21 15:57 Dose: 5,000 units Documented by: Admin: 06/05/21 08:24 Dose: 5,000 units Documented by: Admin: 06/05/21 00:28 Dose: 5,000 units Documented by: Admin: 06/04/21 16:26 Dose: 5,000 units Documented by: Admin: 06/04/21 10:12 Dose: 5,000 units Documented by: ARMEN Sodium Chloride (Normal Saline) 1,000 mls @ 75 mls/hr IV ASDIRECTED [facility] Last Admin: 06/05/21 18:04 Dose: 75 mls/hr Documented by: Infusion: 06/05/21 17:58 Dose: 75 mls/hr Documented by: Admin: 06/05/21 04:38 Dose: 75 mls/hr Documented by: Infusion: 06/05/21 04:35 Dose: 75 mls/hr Documented by: Admin: 06/04/21 15:15 Dose: 75 mls/hr Documented by: ARMEN Ceftriaxone Sodium 1 gm/ (Sodium Chloride) 100 mls @ 200 mls/hr IV Q24H [facility] Admin: 06/05/21 18:04 Dose: 200 mls/hr Documented by: Infusion: 06/04/21 18:39 Dose: 200 mls/hr Documented by: Admin: 06/04/21 18:09 Dose: 200 mls/hr Documented by: ARMEN Ondansetron HCl (Ondansetron 4 Mg Tab.Dis) 4 mg PO Q4H PRN PRN Reason: nausea, able to take PO Oxycodone HCl (Oxycodone 5 Mg Tab) 5 mg PO Q4H PRN PRN Reason: Pain (moderate 4-6) Labs: Laboratory Tests 06/04/21 06/04/21 06/04/21 Range/Units 00:11 00:54 00:54 WBC 9.20 (3.98-10.04) K/mm3 RBC 3.86 L (3.98-5.22) M/mm3 Hgb 11.6 (11.2-15.7) gm/dl Hct 35.8 (34.1-44.9) % MCV 92.7 (79.4-94.8) fl MCH 30.1 (25.6-32.2) pg MCHC 32.4 (32.2-35.5) g/dl RDW Std Deviation 43.1 (36.4-46.3) fL Plt Count 211 (182-369) K/mm3 MPV 9.4 (9.4-12.3) fl Neut % (Auto) 88.7 H (34.0-71.1) % Lymph % (Auto) 6.8 L (19.3-51.7) % [place] % (Auto) 4.1 L (4.7-12.5) % Eos % (Auto) 0 L (0.7-5.8) Baso % (Auto) 0.2 (0.1-1.2) % Neut # (Auto) 8.15 H (1.56-6.13) K/mm3 Lymph # (Auto) 0.63 L (1.18-3.74) K/mm3 [place] # (Auto) 0.38 H (0.24-0.36) K/mm3 Eos # (Auto) 0.00 L (0.04-0.36) K/mm3 Baso # (Auto) 0.02 (0.01-0.08) K/mm3 Manual Slide Review Abnormal smear Sodium 144 (136-145) mEq/L Potassium 3.4 L (3.5-5.1) mEq/L Chloride 106 (98-107) mEq/L Carbon Dioxide 27 (21-32) mEq/L Anion Gap 14.4 (5-15) BUN 17 (7-18) mg/dL Creatinine 0.8 (0.55-1.02) mg/dL Est Cr Clr Drug Dosing TNP Estimated GFR (MDRD) > 60 (>60) mL/min BUN/Creatinine Ratio 21.3 H (14-18) Glucose 120 H (70-99) mg/dL Lactic Acid (0.4-2.0) mmol/L Calcium 8.3 L (8.5-10.1) mg/dL Total Bilirubin 0.6 (0.2-1.0) mg/dL AST 20 (15-37) U/L ALT 19 (14-59) U/L Alkaline Phosphatase 93 (46-116) U/L Creatine Kinase (26-192) U/L Total Protein 6.7 (6.4-8.2) g/dl Albumin 3.1 L (3.4-5.0) g/dl Globulin 3.6 gm/dL Albumin/Globulin Ratio 0.9 L (1-2) Urine Color Yellow (Yellow) Urine Appearance Clear (Clear) Urine pH 7.0 (5.0-8.0) Ur Specific [place] 1.020 (1.005-1.030) Urine Protein Negative (Negative) Urine Glucose (UA) Negative (Negative) Urine Ketones Negative (Negative) Urine Occult Blood Negative (Negative) Urine Nitrite Positive H (Negative) Urine Bilirubin Negative (Negative) Urine Urobilinogen 0.2 (0.2-1.0) Ur Leukocyte Esterase Trace H (Negative) Urine RBC 0-5 (0-5) /hpf Urine WBC 5-10 H (0-5) /hpf Ur Squamous Epith Cells 0-5 (0-5) /hpf Urine Bacteria Moderate H (FEW) /hpf Urine Mucus Not seen (FEW) /hpf SARS-CoV-2 RNA (CONNIE) (NEGATIVE) 06/04/21 06/04/21 06/04/21 Range/Units 00:54 00:54 01:01 WBC (3.98-10.04) K/mm3 RBC (3.98-5.22) M/mm3 Hgb (11.2-15.7) gm/dl Hct (34.1-44.9) % MCV (79.4-94.8) fl MCH (25.6-32.2) pg MCHC (32.2-35.5) g/dl RDW Std Deviation (36.4-46.3) fL Plt Count (182-369) K/mm3 MPV (9.4-12.3) fl Neut % (Auto) (34.0-71.1) % Lymph % (Auto) (19.3-51.7) % [place] % (Auto) (4.7-12.5) % Eos % (Auto) (0.7-5.8) Baso % (Auto) (0.1-1.2) % Neut # (Auto) (1.56-6.13) K/mm3 Lymph # (Auto) (1.18-3.74) K/mm3 [place] # (Auto) (0.24-0.36) K/mm3 Eos # (Auto) (0.04-0.36) K/mm3 Baso # (Auto) (0.01-0.08) K/mm3 Manual Slide Review Sodium (136-145) mEq/L Potassium (3.5-5.1) mEq/L Chloride (98-107) mEq/L Carbon Dioxide (21-32) mEq/L Anion Gap (5-15) BUN (7-18) mg/dL Creatinine (0.55-1.02) mg/dL Est Cr Clr Drug Dosing Estimated GFR (MDRD) (>60) mL/min BUN/Creatinine Ratio (14-18) Glucose (70-99) mg/dL Lactic Acid 0.8 (0.4-2.0) mmol/L Calcium (8.5-10.1) mg/dL Total Bilirubin (0.2-1.0) mg/dL AST (15-37) U/L ALT (14-59) U/L Alkaline Phosphatase (46-116) U/L Creatine Kinase 87 (26-192) U/L Total Protein (6.4-8.2) g/dl Albumin (3.4-5.0) g/dl Globulin gm/dL Albumin/Globulin Ratio (1-2) Urine Color (Yellow) Urine Appearance (Clear) Urine pH (5.0-8.0) Ur Specific [place] (1.005-1.030) Urine Protein (Negative) Urine Glucose (UA) (Negative) Urine Ketones (Negative) Urine Occult Blood (Negative) Urine Nitrite (Negative) Urine Bilirubin (Negative) Urine Urobilinogen (0.2-1.0) Ur Leukocyte Esterase (Negative) Urine RBC (0-5) /hpf Urine WBC (0-5) /hpf Ur Squamous Epith Cells (0-5) /hpf Urine Bacteria (FEW) /hpf Urine Mucus (FEW) /hpf SARS-CoV-2 RNA (CONNIE) Negative (NEGATIVE) Meds: Medications Generic Name Dose Route Start Last Admin Trade Name Freq PRN Reason Stop Dose Admin Acetaminophen 650 mg 06/04/21 08:27 06/05/21 13:03 Acetaminophen 325 Mg Tab PO 650 mg Q4H PRN Administration Pain (Mild 1-3)/fever Diazepam 5 mg 06/04/21 08:11 06/04/21 21:58 Diazepam 5 Mg Tab PO 5 mg QPM PRN Administration Anxiety Docusate Sodium 100 mg 06/04/21 08:27 Docusate Sodium 100 Mg Cap PO BID PRN Constipation Gabapentin 600 mg 06/04/21 09:00 06/05/21 14:04 Gabapentin 300 Mg Cap PO 600 mg TID GEETA Administration Heparin Sodium (Porcine) 5,000 units 06/04/21 08:30 06/05/21 15:57 Heparin Sodium 5,000 Units/Ml Vial SUBCUT 5,000 units Q8H GEETA Administration Sodium Chloride 1,000 mls @ 75 mls/hr 06/04/21 08:30 06/05/21 18:04 Normal Saline IV 75 mls/hr ASDIRECTED GEETA Administration Ceftriaxone Sodium 1 gm/ 100 mls @ 200 mls/hr 06/04/21 18:00 06/05/21 18:04 Sodium Chloride IV 200 mls/hr Q24H GEETA Administration Ondansetron HCl 4 mg 06/04/21 08:27 Ondansetron 4 Mg Tab.Dis PO Q4H PRN nausea, able to take PO Oxycodone HCl 5 mg 06/04/21 08:27 Oxycodone 5 Mg Tab PO Q4H PRN Pain (moderate 4-6) Discontinued Medications Generic Name Dose Route Start Last Admin Trade Name Freq PRN Reason Stop Dose Admin Al Hydroxide/Mg Hydroxide 30 ml 06/04/21 16:57 06/04/21 17:01 Aluminum Hydroxide/Magnesium Hydroxide/Simethicone Susp 30 Ml Cup PO 06/04/21 16:58 30 ml ONETIME ONE Administration Al Hydroxide/Mg Hydroxide 30 ml 06/05/21 12:43 06/05/21 13:03 Aluminum Hydroxide/Magnesium Hydroxide/Simethicone Susp 30 Ml Cup PO 06/05/21 12:44 30 ml ONETIME ONE Administration Ceftriaxone Sodium 1 gm/ 100 mls @ 200 mls/hr 06/04/21 03:46 06/04/21 04:01 Sodium Chloride IV 06/04/21 04:15 200 mls/hr ONETIME ONE Administration Magnesium Sulfate 2 gm/ Premix 50 mls @ 25 mls/hr 06/05/21 12:01 06/05/21 12:29 IV 06/05/21 14:00 25 mls/hr ONETIME ONE Administration Levofloxacin 500 mg 06/04/21 03:45 06/04/21 04:01 Levofloxacin 500 Mg Tab PO 06/04/21 03:46 500 mg ONETIME ONE Administration Morphine Sulfate 2 mg 06/04/21 00:48 06/04/21 01:02 Morphine 2 Mg/Ml Syringe IVPUSH 06/04/21 00:49 2 mg ONETIME ONE Administration Morphine Sulfate 2 mg 06/04/21 08:27 06/04/21 18:16 Morphine 2 Mg/Ml Syringe IVPUSH 06/05/21 08:29 2 mg Q2H PRN Administration Pain (severe 7-10) Temazepam 7.5 mg 06/04/21 08:27 Temazepam 7.5 Mg Cap PO BEDTIME PRN Sleep - Radiology Interpretation Free Text/Narrative:: XR chest, AP portable, preliminary radiology report: Hyperinflation interstitial markings are compatible with emphysema and chronic interstitial disease. ... No significant interval change XR left hip/pelvis, interpreted by senior mortgage underwriter: No acute fracture XR left knee, interpreted by senior mortgage underwriter: No acute fracture Departure - Departure Time of Disposition: 07:20 Disposition: Admitted As Inpatient 68 Condition: Fair Clinical Impression: Fever and chills, Fall on same level as cause of accidental injury, Ambulatory dysfunction UTI (urinary tract infection) Qualifiers: Urinary tract infection type: acute cystitis Hematuria presence: with hematuria Qualified Code(s): N30.01 - Acute cystitis with hematuria - Discharge Information Sepsis Event Note (ED) - Evaluation Sepsis Screening Result: Possible Sepsis Risk
[2021-06-04] MEDS ORDERED: Levofloxacin 500 MG Tab PO ONE (03:45)
[2021-06-04] MEDS ORDERED: cefTRIAXone 1 GM in Sodium Chloride 0.9% 100 ML IV ONE (03:46)
--- NOTE | 2021-06-04 08:15 | PCM.HP.2 ---
H&P History of Present Illness - General Date of Service: 06/04/21 Admit Problem/Dx: Admission Diagnosis/Problem Admission Diagnosis/Problem Ambulatory dysfunction Source of Information: Patient, Old Records History Limitations: Reports: No Limitations - History of Present Illness Initial Comments - Free Text/Narative: The patient is a 81-year-old lady who had presented to the emergency department out of concern for a fever. Reportedly she had a fever at home of 103 F. The patient however, is not really sure why she came to the emergency room. Information has been taken from the patient's charting and it has been reported that she was unable to get up and had been lying on the floor for 1 to 2 hours before being discovered. The patient has a long history of severe multiple sclerosis and has been essentially bedridden. The patient also reportedly has a decubitus ulcer to her sacrum. The patient has been at home alone and she reports that she has had multiple falls. In July 2020 the patient had [facility] and apparently she did not like the outcome and had returned home. The patient reports that she had fallen and hit her knee on toilet seat and her main concern is pain of her left knee that is severe in nature. She also has pain in the left hip area from the fall. The patient had surgery for hip fracture left side. The patient has denied any fever or chills although it has been reported that she had fever and chills at home. The patient also has denied any dysuria hematuria or abdominal pain. The patient became somewhat defensive when asked about urinary or fecal incontinence. Onset of Symptoms: Reports: Gradual Duration of Symptoms: Reports: Week(s): Location: Reports: Lower Extremity, Left Quality: Reports: Stabbing, Throbbing Severity: Moderate Improves with: Reports: Rest Worsens with: Reports: Movement Context: Reports: Trauma (Patient fell at home.) - Related Data Allergies/Adverse Reactions: Allergies Allergy/AdvReac Type Severity Reaction Status Date / Time Sulfa (Sulfonamide Allergy Cannot Verified 06/04/21 09:47 Antibiotics) Remember Home Medications: Home Meds Trimethoprim 100 mg PO BEDTIME 09/25/17 [History] diazePAM [Valium.] 5 mg PO QPM 05/31/18 [History] Gabapentin [Neurontin] 600 mg PO TID 06/04/21 [History] Past Medical History HEENT History: Reports: Cataract, Impaired Vision, Other (See Below) Other HEENT History: wears glasses, full dentures and a right hearing aide Cardiovascular History: Reports: High Cholesterol Respiratory History: Reports: None Gastrointestinal History: Reports: GI Bleed Genitourinary History: Reports: Urinary Incontinence, UTI, Recurrent, Other (See Below) Other Genitourinary History: pt reports that she just has a steady stream most of the time 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 GI bleed 2001 Female Surgical History: Reports: None Neurological Surgical History: Reports: None Musculoskeletal Surgical History: Reports: None Other Musculoskeletal Surgeries/Procedures:: Left hip surgery, broken hip Dermatological Surgical History: Reports: None Social & Family History - Family History Family Medical History: No Pertinent Family History Neurological: Reports: CVA - Tobacco Use Tobacco Use Status *Q: Former Tobacco User Used Tobacco, but Quit: Yes Month/Year Tobacco Last Used: 20+ years - Caffeine Use Caffeine Use: Reports: None Other Caffeine Use: daily - Recreational Drug Use Recreational Drug Use: No - Living Situation & Occupation Living situation: Reports: , Alone Occupation: Retired H&P Review of Systems - Review of Systems: Review Of Systems: See Below General: Reports: Malaise, Weakness HEENT: Reports: No Symptoms Pulmonary: Reports: No Symptoms Cardiovascular: Reports: No Symptoms Gastrointestinal: Reports: No Symptoms Genitourinary: Reports: No Symptoms Musculoskeletal: Reports: Leg Pain Skin: Reports: No Symptoms Psychiatric: Reports: No Symptoms Neurological: Reports: Pre-Existing Deficit, Weakness (Predominantly left side.) Hematologic/Lymphatic: Reports: No Symptoms Immunologic: Reports: No Symptoms Exam - Exam Exam: See Below - Vital Signs Vital Signs: Last Vital Signs Temp 38.0 C 06/04/21 00:13 Pulse 105 H 06/04/21 00:13 Resp 16 06/04/21 00:13 BP 115/54 L 06/04/21 00:13 Pulse Ox 91 L 06/04/21 00:13 - Exam Quality Assessment: DVT Prophylaxis. No: Supplemental Oxygen General: Alert, Oriented, Cooperative, Mild Distress HEENT: Conjunctiva Clear, EACs Clear, EOMI. No: Mucosa Moist & [place] (Dry) Neck: Supple, Trachea Midline Lungs: Clear to Auscultation, Normal Respiratory Effort Cardiovascular: Regular Rate, Regular Rhythm GI/Abdominal Exam: Normal Bowel Sounds, Soft, Non-Tender, No Distention (Female) Exam: Deferred Rectal (Female) Exam: Deferred Back Exam: No: Normal Inspection (Appropriate for age), Full Range of Motion (Physical weakness) Extremities: Normal Inspection (Tenderness left knee) Skin: Warm, Dry, Decubitis (Unstageable decubitus ulcer sacrum with fibrotic covering. Present on admission.) Neurological: Cranial Nerves Intact. No: Strength Equal Bilateral (Pre- existing) Neuro Extensive - Mental Status: Alert, Oriented x3 Psychiatric: Alert, Normal Affect, Normal Mood - Patient Data Lab Results Last 24 hrs: Laboratory Results - last 24 hr 06/04/21 06/04/21 06/04/21 Range/Units 00:11 00:54 00:54 WBC 9.20 (3.98-10.04) K/mm3 RBC 3.86 L (3.98-5.22) M/mm3 Hgb 11.6 (11.2-15.7) gm/dl Hct 35.8 (34.1-44.9) % MCV 92.7 (79.4-94.8) fl MCH 30.1 (25.6-32.2) pg MCHC 32.4 (32.2-35.5) g/dl RDW Std Deviation 43.1 (36.4-46.3) fL Plt Count 211 (182-369) K/mm3 MPV 9.4 (9.4-12.3) fl Neut % (Auto) 88.7 H (34.0-71.1) % Lymph % (Auto) 6.8 L (19.3-51.7) % [place] % (Auto) 4.1 L (4.7-12.5) % Eos % (Auto) 0 L (0.7-5.8) Baso % (Auto) 0.2 (0.1-1.2) % Neut # (Auto) 8.15 H (1.56-6.13) K/mm3 Lymph # (Auto) 0.63 L (1.18-3.74) K/mm3 [place] # (Auto) 0.38 H (0.24-0.36) K/mm3 Eos # (Auto) 0.00 L (0.04-0.36) K/mm3 Baso # (Auto) 0.02 (0.01-0.08) K/mm3 Manual Slide Review Abnormal smear Sodium 144 (136-145) mEq/L Potassium 3.4 L (3.5-5.1) mEq/L Chloride 106 (98-107) mEq/L Carbon Dioxide 27 (21-32) mEq/L Anion Gap 14.4 (5-15) BUN 17 (7-18) mg/dL Creatinine 0.8 (0.55-1.02) mg/dL Est Cr Clr Drug Dosing TNP Estimated GFR (MDRD) > 60 (>60) mL/min BUN/Creatinine Ratio 21.3 H (14-18) Glucose 120 H (70-99) mg/dL Lactic Acid (0.4-2.0) mmol/L Calcium 8.3 L (8.5-10.1) mg/dL Total Bilirubin 0.6 (0.2-1.0) mg/dL AST 20 (15-37) U/L ALT 19 (14-59) U/L Alkaline Phosphatase 93 (46-116) U/L Creatine Kinase (26-192) U/L Total Protein 6.7 (6.4-8.2) g/dl Albumin 3.1 L (3.4-5.0) g/dl Globulin 3.6 gm/dL Albumin/Globulin Ratio 0.9 L (1-2) Urine Color Yellow (Yellow) Urine Appearance Clear (Clear) Urine pH 7.0 (5.0-8.0) Ur Specific [place] 1.020 (1.005-1.030) Urine Protein Negative (Negative) Urine Glucose (UA) Negative (Negative) Urine Ketones Negative (Negative) Urine Occult Blood Negative (Negative) Urine Nitrite Positive H (Negative) Urine Bilirubin Negative (Negative) Urine Urobilinogen 0.2 (0.2-1.0) Ur Leukocyte Esterase Trace H (Negative) Urine RBC 0-5 (0-5) /hpf Urine WBC 5-10 H (0-5) /hpf Ur Squamous Epith Cells 0-5 (0-5) /hpf Urine Bacteria Moderate H (FEW) /hpf Urine Mucus Not seen (FEW) /hpf SARS-CoV-2 RNA (CONNIE) (NEGATIVE) 06/04/21 06/04/21 06/04/21 Range/Units 00:54 00:54 01:01 WBC (3.98-10.04) K/mm3 RBC (3.98-5.22) M/mm3 Hgb (11.2-15.7) gm/dl Hct (34.1-44.9) % MCV (79.4-94.8) fl MCH (25.6-32.2) pg MCHC (32.2-35.5) g/dl RDW Std Deviation (36.4-46.3) fL Plt Count (182-369) K/mm3 MPV (9.4-12.3) fl Neut % (Auto) (34.0-71.1) % Lymph % (Auto) (19.3-51.7) % [place] % (Auto) (4.7-12.5) % Eos % (Auto) (0.7-5.8) Baso % (Auto) (0.1-1.2) % Neut # (Auto) (1.56-6.13) K/mm3 Lymph # (Auto) (1.18-3.74) K/mm3 [place] # (Auto) (0.24-0.36) K/mm3 Eos # (Auto) (0.04-0.36) K/mm3 Baso # (Auto) (0.01-0.08) K/mm3 Manual Slide Review Sodium (136-145) mEq/L Potassium (3.5-5.1) mEq/L Chloride (98-107) mEq/L Carbon Dioxide (21-32) mEq/L Anion Gap (5-15) BUN (7-18) mg/dL Creatinine (0.55-1.02) mg/dL Est Cr Clr Drug Dosing Estimated GFR (MDRD) (>60) mL/min BUN/Creatinine Ratio (14-18) Glucose (70-99) mg/dL Lactic Acid 0.8 (0.4-2.0) mmol/L Calcium (8.5-10.1) mg/dL Total Bilirubin (0.2-1.0) mg/dL AST (15-37) U/L ALT (14-59) U/L Alkaline Phosphatase (46-116) U/L Creatine Kinase 87 (26-192) U/L Total Protein (6.4-8.2) g/dl Albumin (3.4-5.0) g/dl Globulin gm/dL Albumin/Globulin Ratio (1-2) Urine Color (Yellow) Urine Appearance (Clear) Urine pH (5.0-8.0) Ur Specific [place] (1.005-1.030) Urine Protein (Negative) Urine Glucose (UA) (Negative) Urine Ketones (Negative) Urine Occult Blood (Negative) Urine Nitrite (Negative) Urine Bilirubin (Negative) Urine Urobilinogen (0.2-1.0) Ur Leukocyte Esterase (Negative) Urine RBC (0-5) /hpf Urine WBC (0-5) /hpf Ur Squamous Epith Cells (0-5) /hpf Urine Bacteria (FEW) /hpf Urine Mucus (FEW) /hpf SARS-CoV-2 RNA (CONNIE) Negative (NEGATIVE) Result Diagrams: 06/04/21 00:54 06/04/21 00:54 Sepsis Event Note - Evaluation Sepsis Screening Result: Possible Sepsis Risk - Focused Exam Vital Signs: Vital Signs Temp Pulse Resp BP Pulse Ox 06/04/21 00:13 38.0 C 105 H 16 115/54 L 91 L - Problem List (1) UTI, Urinary tract infectious disease SNOMED Code(s): 04863025 ICD Code: N39.0 - URINARY TRACT INFECTION, SITE NOT SPECIFIED Status: Acute Priority: High Current Visit: Yes (2) Failure to thrive in adult SNOMED Code(s): 756888482 ICD Code: R62.7 - ADULT FAILURE TO THRIVE Status: Chronic Priority: High Current Visit: Yes (3) Decubitus ulcer of sacral region, unstageable SNOMED Code(s): 485771063 ICD Code: L89.150 - PRESSURE ULCER OF SACRAL REGION, UNSTAGEABLE Status: Chronic Priority: High Current Visit: Yes (4) Total self-care deficit SNOMED Code(s): 55200649 ICD Code: R68.89 - OTHER GENERAL SYMPTOMS AND SIGNS Status: Acute Priority: High Current Visit: Yes (5) Multiple sclerosis SNOMED Code(s): 66519582 ICD Code: G35 - MULTIPLE SCLEROSIS Status: Chronic Priority: Medium Current Visit: Yes Problem List Initiated/Reviewed/Updated: Yes Orders Last 24hrs: Active Orders 24 hr Category Date Time Status Patient Status [ADT] Routine ADT 06/04/21 07:20 Active Chest 1V Frontal [CR] Stat Exams 06/04/21 00:44 Taken Hip Min 2V or 3V w Pelvis Lt [CR] Stat Exams 06/04/21 00:46 Taken Knee 3V Lt [CR] Stat Exams 06/04/21 06:11 Taken BLOOD CULTURE [MREF] Stat Lab 06/04/21 01:11 Received BLOOD CULTURE [MREF] Stat Lab 06/04/21 01:16 Received CULTURE URINE [MREF] Stat Lab 06/04/21 00:11 Received Gabapentin [Neurontin] Med 06/04/21 09:00 Ordered 600 mg PO TID diazePAM [Valium.] Med 06/04/21 08:11 Ordered 5 mg PO QPM PRN Blood Culture x2 Reflex Set [OM.PC] Stat Oth 06/04/21 00:59 Ordered Medication Orders Diazepam (Diazepam 5 Mg Tab) 5 mg PO QPM PRN PRN Reason: Anxiety Gabapentin (Gabapentin 300 Mg Cap) 600 mg PO TID GEETA Assessment/Plan Comment:: The patient is a 81-year-old lady with chronic multiple sclerosis who had been admitted secondary to inability to care for herself. While at home she is essentially been bedbound. The patient lives by herself. The patient had been admitted as an inpatient. The patient has a pre-existing unstageable sacral decubitus ulcer and wound care has been ordered for this. She has also been recommended to have PT OT as well for discharge planning as well as [facility] placement. The patient lives alone. The patient had x-rays in ER which did not show anything acute. Repeat laboratory studies have been ordered for the morning. The patient also had been noted to have a mild urinary tract infection and she will be kept on Rocephin 2 g IV daily. This will continue until cultures show organism and species. The patient will also have DVT prophylaxis with use of heparin. The patient should be appropriate for discharge in 3 to 4 days depending on placement. - Mortality Measure Prognosis:: Poor
[2021-06-04] MEDS ORDERED: oxyCODONE 5 MG Tab PO PRN (08:27)
[2021-06-04] MEDS ORDERED: Morphine 2 MG/ML SYRINGE IVPUSH PRN (08:27)
[2021-06-04] MEDS ORDERED: Temazepam 7.5 MG Cap PO PRN (08:27)
[2021-06-04] MEDS ORDERED: Ondansetron 4 MG Tab.DIS PO PRN (08:27)
[2021-06-04] MEDS ORDERED: Docusate Sodium 100 MG Cap PO PRN (08:27)
--- NOTE | 2021-06-04 08:53 | CR ---
Pelvis and left hip: AP view of the pelvis was obtained as well as AP and frog leg lateral views of the left hip. Comparison: Prior left femur exam of 09/25/17 and prior AP pelvis study of 09/25/17. Compression screw and intramedullary mary alice are noted within the left hip which affixes an old fracture. Degenerative change is partially seen within the lower lumbar spine. Bony structures are osteoporotic. Vascular calcification is seen. No acute fracture or subluxation is seen. Impression: 1. Orthopedic hardware within the left hip affixing an old healed fracture. 2. Osteoporosis, vascular calcification and degenerative change within the lower lumbar spine. 3. No definite acute abnormality is appreciated. Diagnostic code #2
--- NOTE | 2021-06-04 08:54 | CR ---
Chest: Frontal view of the chest was obtained. Comparison: Prior chest x-ray of 04/18/[address] of 04/18/18. Heart size and mediastinum are within normal limits. Interstitial change is noted. Interstitial change is minimally increased from prior study possibly due to slight worsening of fibrosis. Difficult to exclude fibrosis with mild bronchitis if patient has acute symptoms. Bony structures are osteopenic. No definite acute osseous abnormality is appreciated. Surgical clips are noted from previous cholecystectomy. Impression: 1. Worsening interstitial change within both lungs from prior chest x-ray. Differential includes worsening interstitial fibrosis versus bronchitis which is superimposed on fibrosis. Please correlate with the patient's symptoms. 2. Other incidental findings as noted above. Diagnostic code #2 I agree with preliminary report from [facility], finalized on 06/04/21, 5:26 AM CDT, code 1
--- NOTE | 2021-06-04 09:01 | CR ---
Left knee: AP, lateral and sunrise patellar view of the left knee was obtained. Comparison: No prior left knee study is available. Chondrocalcinosis is noted within the medial and lateral menisci. Bony structures are osteoporotic. Minimal joint effusion is seen. No acute fracture, dislocation or other bony abnormality is appreciated. Impression: 1. Chondrocalcinosis within both menisci. 2. Osteoporosis and small joint effusion. 3. Nothing acute is otherwise seen. Diagnostic code #2
[2021-06-04] MEDS: Heparin Sodium 5,000 Units/ML Vial SUBCUT SCH ×2 (10:12→16:26)
[2021-06-04] MEDS: Gabapentin 300 MG Cap PO SCH ×3 (10:12→21:57)
[2021-06-04] MEDS: Acetaminophen 325 MG Tab PO PRN (15:14)
[2021-06-04] MEDS: Sodium Chloride 0.9% 1,000 ML IV SCH (15:15)
[2021-06-04] MEDS ORDERED: Aluminum Hydroxide/Magnesium Hydroxide/Simethicone Susp 30 ML Cup PO ONE (16:57)
[2021-06-04] MEDS: cefTRIAXone 1 GM in Sodium Chloride 0.9% 100 ML IV SCH (18:09)
[2021-06-04] MEDS: Diazepam 5 MG Tab PO PRN (21:58)
[2021-06-05] MEDS: Heparin Sodium 5,000 Units/ML Vial SUBCUT SCH ×4 (00:28→23:32)
[2021-06-05] MEDS: Sodium Chloride 0.9% 1,000 ML IV SCH ×2 (04:38→18:04)
[2021-06-05] MEDS: Gabapentin 300 MG Cap PO SCH ×3 (08:25→20:47)
--- NOTE | 2021-06-05 08:39 | PCM.PN ---
- General Info Date of Service: 06/05/21 Admission Dx/Problem (Free Text): Admission Diagnosis/Problem Admission Diagnosis/Problem Ambulatory dysfunction Subjective Update: The patient is a 81-year-old lady who was admitted yesterday secondary to inability to care for self and chronic pain issues due to her multiple sclerosis. Patient has been complaining of some abdominal pain at the site she is previously had a bleeding ulcer. She has not had a bowel movement. She is very frustrated. The patient has not been tolerating her diet. Functional Status: Denies: Pain Controlled, Tolerating Diet - Review of Systems General: Reports: Weakness, Fatigue HEENT: Reports: No Symptoms Pulmonary: Reports: No Symptoms Cardiovascular: Reports: No Symptoms Gastrointestinal: Reports: Abdominal Pain Genitourinary: Reports: No Symptoms Musculoskeletal: Reports: No Symptoms Skin: Reports: No Symptoms Neurological: Reports: No Symptoms Psychiatric: Reports: No Symptoms - Patient Data Vitals - Most Recent: Last Vital Signs Temp 37.3 C 06/05/21 04:42 Pulse 75 06/05/21 04:42 Resp 13 06/05/21 04:42 BP 121/53 L 06/05/21 04:42 Pulse Ox 97 06/05/21 04:42 Weight - Most Recent: 55.928 kg I&O - Last 24 Hours: Intake & Output 06/04/21 06/05/21 06/05/21 22:59 06:59 14:59 Intake Total 475 1350 Balance 475 1350 Lab Results Last 24 Hours: Laboratory Results - last 24 hr 06/05/21 06/05/21 Range/Units 06:52 06:52 WBC 7.37 (3.98-10.04) K/mm3 RBC 3.79 L (3.98-5.22) M/mm3 Hgb 11.4 (11.2-15.7) gm/dl Hct 35.5 (34.1-44.9) % MCV 93.7 (79.4-94.8) fl MCH 30.1 (25.6-32.2) pg MCHC 32.1 L (32.2-35.5) g/dl RDW Std Deviation 44.1 (36.4-46.3) fL Plt Count 186 (182-369) K/mm3 MPV 10.0 (9.4-12.3) fl Neut % (Auto) 83.3 H (34.0-71.1) % Lymph % (Auto) 9.4 L (19.3-51.7) % [place] % (Auto) 6.6 (4.7-12.5) % Eos % (Auto) 0.3 L (0.7-5.8) Baso % (Auto) 0.3 (0.1-1.2) % Neut # (Auto) 6.14 H (1.56-6.13) K/mm3 Lymph # (Auto) 0.69 L (1.18-3.74) K/mm3 [place] # (Auto) 0.49 H (0.24-0.36) K/mm3 Eos # (Auto) 0.02 L (0.04-0.36) K/mm3 Baso # (Auto) 0.02 (0.01-0.08) K/mm3 Manual Slide Review Normal smear Sodium 140 (136-145) mEq/L Potassium 3.5 (3.5-5.1) mEq/L Chloride 107 (98-107) mEq/L Carbon Dioxide 23 (21-32) mEq/L Anion Gap 13.5 (5-15) BUN 10 (7-18) mg/dL Creatinine 0.7 (0.55-1.02) mg/dL Est Cr Clr Drug Dosing 56.27 mL/min Estimated GFR (MDRD) > 60 (>60) mL/min BUN/Creatinine Ratio 14.3 (14-18) Glucose 105 H (70-99) mg/dL Calcium 7.8 L (8.5-10.1) mg/dL Magnesium 1.7 L (1.8-2.4) mg/dL Total Bilirubin 0.7 (0.2-1.0) mg/dL AST 20 (15-37) U/L ALT 17 (14-59) U/L Alkaline Phosphatase 83 (46-116) U/L Total Protein 6.3 L (6.4-8.2) g/dl Albumin 2.6 L (3.4-5.0) g/dl Globulin 3.7 gm/dL Albumin/Globulin Ratio 0.7 L (1-2) Med Orders - Current: Current Medications Acetaminophen (Acetaminophen 325 Mg Tab) 650 mg PO Q4H PRN PRN Reason: Pain (Mild 1-3)/fever Last Admin: 06/04/21 15:14 Dose: 650 mg Documented by: Diazepam (Diazepam 5 Mg Tab) 5 mg PO QPM PRN PRN Reason: Anxiety Last Admin: 06/04/21 21:58 Dose: 5 mg Documented by: Docusate Sodium (Docusate Sodium 100 Mg Cap) 100 mg PO BID PRN PRN Reason: Constipation Gabapentin (Gabapentin 300 Mg Cap) 600 mg PO TID [facility] Last Admin: 06/05/21 08:25 Dose: 600 mg Documented by: Heparin Sodium (Porcine) (Heparin Sodium 5,000 Units/Ml Vial) 5,000 units SUBCUT Q8H [facility] Last Admin: 06/05/21 08:24 Dose: 5,000 units Documented by: Sodium Chloride (Normal Saline) 1,000 mls @ 75 mls/hr IV ASDIRECTED [facility] Last Admin: 06/05/21 04:38 Dose: 75 mls/hr Documented by: Ceftriaxone Sodium 1 gm/ (Sodium Chloride) 100 mls @ 200 mls/hr IV Q24H [facility] Last Admin: 06/04/21 18:09 Dose: 200 mls/hr Documented by: Ondansetron HCl (Ondansetron 4 Mg Tab.Dis) 4 mg PO Q4H PRN PRN Reason: nausea, able to take PO Oxycodone HCl (Oxycodone 5 Mg Tab) 5 mg PO Q4H PRN PRN Reason: Pain (moderate 4-6) Discontinued Medications Al Hydroxide/Mg Hydroxide (Aluminum Hydroxide/Magnesium Hydroxide/Simethicone Susp 30 Ml Cup) 30 ml PO ONETIME ONE Stop: 06/04/21 16:58 Last Admin: 06/04/21 17:01 Dose: 30 ml Documented by: Ceftriaxone Sodium 1 gm/ (Sodium Chloride) 100 mls @ 200 mls/hr IV ONETIME ONE Stop: 06/04/21 04:15 Last Admin: 06/04/21 04:01 Dose: 200 mls/hr Documented by: Levofloxacin (Levofloxacin 500 Mg Tab) 500 mg PO ONETIME ONE Stop: 06/04/21 03:46 Last Admin: 06/04/21 04:01 Dose: 500 mg Documented by: Morphine Sulfate (Morphine 2 Mg/Ml Syringe) 2 mg IVPUSH ONETIME ONE Stop: 06/04/21 00:49 Last Admin: 06/04/21 01:02 Dose: 2 mg Documented by: Morphine Sulfate (Morphine 2 Mg/Ml Syringe) 2 mg IVPUSH Q2H PRN PRN Reason: Pain (severe 7-10) Stop: 06/05/21 08:29 Last Admin: 06/04/21 18:16 Dose: 2 mg Documented by: Temazepam (Temazepam 7.5 Mg Cap) 7.5 mg PO BEDTIME PRN PRN Reason: Sleep - Exam Quality Assessment: DVT Prophylaxis. No: Supplemental Oxygen General: Alert, Oriented, Mild Distress (Abdominal pain) HEENT: Pupils Equal, Pupils Reactive, EOMI. No: Mucous Membr. Moist/[place] Neck: Supple, Trachea Midline Lungs: Clear to Auscultation, Normal Respiratory Effort Cardiovascular: Regular Rate, Regular Rhythm GI/Abdominal Exam: Normal Bowel Sounds, Soft, No Distention, Tender (Tender at Lovenox injection site). No: Guarding, Rigid, Rebound (Female) Exam: Deferred Back Exam: Normal Inspection Extremities: Normal Inspection, No Pedal Edema Skin: Warm, Dry, Other (Sacral decubitus) Wound/Incisions: Decubitis Neurological: No New Focal Deficit Psy/Mental Status: Alert, Normal Affect, Depressed - Patient Data Lab Results Last 24 hrs: Laboratory Results - last 24 hr 06/05/21 06/05/21 Range/Units 06:52 06:52 WBC 7.37 (3.98-10.04) K/mm3 RBC 3.79 L (3.98-5.22) M/mm3 Hgb 11.4 (11.2-15.7) gm/dl Hct 35.5 (34.1-44.9) % MCV 93.7 (79.4-94.8) fl MCH 30.1 (25.6-32.2) pg MCHC 32.1 L (32.2-35.5) g/dl RDW Std Deviation 44.1 (36.4-46.3) fL Plt Count 186 (182-369) K/mm3 MPV 10.0 (9.4-12.3) fl Neut % (Auto) 83.3 H (34.0-71.1) % Lymph % (Auto) 9.4 L (19.3-51.7) % [place] % (Auto) 6.6 (4.7-12.5) % Eos % (Auto) 0.3 L (0.7-5.8) Baso % (Auto) 0.3 (0.1-1.2) % Neut # (Auto) 6.14 H (1.56-6.13) K/mm3 Lymph # (Auto) 0.69 L (1.18-3.74) K/mm3 [place] # (Auto) 0.49 H (0.24-0.36) K/mm3 Eos # (Auto) 0.02 L (0.04-0.36) K/mm3 Baso # (Auto) 0.02 (0.01-0.08) K/mm3 Manual Slide Review Normal smear Sodium 140 (136-145) mEq/L Potassium 3.5 (3.5-5.1) mEq/L Chloride 107 (98-107) mEq/L Carbon Dioxide 23 (21-32) mEq/L Anion Gap 13.5 (5-15) BUN 10 (7-18) mg/dL Creatinine 0.7 (0.55-1.02) mg/dL Est Cr Clr Drug Dosing 56.27 mL/min Estimated GFR (MDRD) > 60 (>60) mL/min BUN/Creatinine Ratio 14.3 (14-18) Glucose 105 H (70-99) mg/dL Calcium 7.8 L (8.5-10.1) mg/dL Magnesium 1.7 L (1.8-2.4) mg/dL Total Bilirubin 0.7 (0.2-1.0) mg/dL AST 20 (15-37) U/L ALT 17 (14-59) U/L Alkaline Phosphatase 83 (46-116) U/L Total Protein 6.3 L (6.4-8.2) g/dl Albumin 2.6 L (3.4-5.0) g/dl Globulin 3.7 gm/dL Albumin/Globulin Ratio 0.7 L (1-2) Result Diagrams: 06/05/21 06:52 06/05/21 06:52 Sepsis Event Note - Evaluation Sepsis Screening Result: No Definite Risk - Focused Exam Vital Signs: Vital Signs Temp Temp Pulse Resp BP Pulse Ox 06/05/21 04:42 37.3 C 75 13 121/53 L 97 06/05/21 00:00 37.2 C 06/04/21 21:51 38.0 C 90 14 104/39 L 92 L - Problem List & Annotations (1) UTI, Urinary tract infectious disease SNOMED Code(s): 79189363 Code(s): N39.0 - URINARY TRACT INFECTION, SITE NOT SPECIFIED Status: Acute Priority: High Current Visit: Yes (2) Failure to thrive in adult SNOMED Code(s): 357822875 Code(s): R62.7 - ADULT FAILURE TO THRIVE Status: Chronic Priority: High Current Visit: Yes (3) Decubitus ulcer of sacral region, unstageable SNOMED Code(s): 018300948 Code(s): L89.150 - PRESSURE ULCER OF SACRAL REGION, UNSTAGEABLE Status: Chronic Priority: High Current Visit: Yes (4) Total self-care deficit SNOMED Code(s): 05326221 Code(s): R68.89 - OTHER GENERAL SYMPTOMS AND SIGNS Status: Acute Priority: High Current Visit: Yes (5) Multiple sclerosis SNOMED Code(s): 93004862 Code(s): G35 - MULTIPLE SCLEROSIS Status: Chronic Priority: Medium Current Visit: Yes - Problem List Review Problem List Initiated/Reviewed/Updated: Yes - My Orders Last 24 Hours: My Active Orders 06/04/21 08:11 [email or web address] [Valium.] 5 mg PO QPM PRN 06/04/21 08:27 Bedrest Bedside Commode [RC] ASDIRECTED Oxygen Therapy [RC] PRN VTE/DVT Education [RC] PER UNIT ROUTINE Vital Signs [RC] Q4HR OT Evaluation and Treatment [CONS] Routine PT Evaluation and Treatment [CONS] Routine Acetaminophen [TylenoL] 650 mg PO Q4H PRN Docusate Sodium [Colace] 100 mg PO BID PRN Ondansetron [Zofran ODT] 4 mg PO Q4H PRN oxyCODONE 5 mg PO Q4H PRN VTE Mechanical Contraindications [AST] Per Unit Routine 06/04/21 08:30 Heparin Sodium 5,000 units SUBCUT Q8H Sodium Chloride 0.9% [Normal Saline] 1,000 ml IV ASDIRECTED 06/04/21 09:00 Gabapentin [Neurontin] 600 mg PO TID 06/04/21 10:04 Resuscitation Status Routine 06/04/21 Lunch Regular Diet [DIET] 06/04/21 18:00 [email or web address] [Rocephin] 1 gm Sodium Chloride 0.9% [Normal Saline] 100 ml IV Q24H 06/04/21 19:33 Consult to Physical Therapy [PT Evaluation and Treatment] [CONS] Routine - Assessment Assessment:: The patient is a chronically ill 81-year-old lady who has been living at home and unable to care for herself. Wound care will continue for the decubitus ulcer on her sacrum. The patient also has been encouraged to ambulate. She has been offered medication for her pain and she is refused this. The patient's magnesium will be replaced. I have ordered repeat laboratory studies for the morning her electrolytes will be replaced as necessary. PT OT will continue. The patient will need placement although she has refused this in the past. The patient is simply at this point unable to care for self. The patient urinary tract infection we will continue antibiotics with Rocephin. Cultures are currently pending. She will continue on her diet as tolerated. Currently awaiting placement. - Plan Plan:: The patient is a 81-year-old lady with chronic multiple sclerosis who had been admitted secondary to inability to care for herself. While at home she is essentially been bedbound. The patient lives by herself. The patient had been admitted as an inpatient. The patient has a pre-existing unstageable sacral decubitus ulcer and wound care has been ordered for this. She has also been recommended to have PT OT as well for discharge planning as well as long-term placement. The patient lives alone. The patient had x-rays in ER which did not show anything acute. Repeat laboratory studies have been ordered for the morning. The patient also had been noted to have a mild urinary tract infection and she will be kept on Rocephin 2 g IV daily. This will continue until cultures show organism and species. The patient will also have DVT prophylaxis with use of heparin. The patient should be appropriate for discharge in 3 to 4 days depending on placement.
[2021-06-05] MEDS ORDERED: Magnesium Sulfate/Water 2 GM in Premix Bag 1 BAG IV ONE (12:01)
[2021-06-05] MEDS ORDERED: Aluminum Hydroxide/Magnesium Hydroxide/Simethicone Susp 30 ML Cup PO ONE (12:43)
[2021-06-05] MEDS: Acetaminophen 325 MG Tab PO PRN ×2 (13:03→20:47)
[2021-06-05] MEDS: cefTRIAXone 1 GM in Sodium Chloride 0.9% 100 ML IV SCH (18:04)
[2021-06-05] MEDS: Diazepam 5 MG Tab PO PRN (20:47)
[2021-06-06] MEDS ORDERED: Magnesium Sulfate/Water 2 GM in Premix Bag 1 BAG IV ONE (06:52)
[2021-06-06] MEDS: Sodium Chloride 0.9% 1,000 ML IV SCH (07:35)
--- NOTE | 2021-06-06 08:00 | PCM.PN ---
<Jose De Jesus Guerra - Last Filed: 06/06/21 12:27> - General Info Date of Service: 06/06/21 Admission Dx/Problem (Free Text): Admission Diagnosis/Problem Admission Diagnosis/Problem Ambulatory dysfunction Functional Status: Reports: Tolerating Diet (but minimal intake ), Urinating. Denies: Pain Controlled (reports worsening pain), Ambulating, New Symptoms - Review of Systems General: Reports: Weakness, Fatigue, Malaise. Denies: Fever, Chills HEENT: Reports: No Symptoms. Denies: Headaches, Sore Throat Pulmonary: Reports: No Symptoms. Denies: Shortness of Breath, Cough, Sputum, Wheezing Cardiovascular: Reports: No Symptoms. Denies: Chest Pain, Palpitations, Dyspnea on Exertion, Edema, Lightheadedness Gastrointestinal: Reports: Decreased Appetite. Denies: Abdominal Pain, Constipation, Diarrhea, Nausea, Vomiting Genitourinary: Reports: No Symptoms. Denies: Pain Musculoskeletal: Reports: Back Pain Skin: Reports: No Symptoms. Denies: Cyanosis Neurological: Reports: Pre-Existing Deficit (MS), Difficulty Walking, Weakness, Gait Disturbance. Denies: Confusion, Dizziness, Headache, Numbness, Seizure, Syncope, Tingling, Tremors, Trouble Speaking, Change in Speech Psychiatric: Reports: No Symptoms - Patient Data Vitals - Most Recent: Last Vital Signs Temp 100.0 F 06/06/21 03:55 Pulse 77 06/06/21 03:55 Resp 14 06/06/21 03:55 BP 108/38 L 06/06/21 03:55 Pulse Ox 93 L 06/06/21 03:55 Weight - Most Recent: 56.79 kg I&O - Last 24 Hours: Intake & Output 06/05/21 06/06/21 06/06/21 22:59 06:59 14:59 Intake Total 2141 1216 Output Total 825 Balance 2141 391 Lab Results Last 24 Hours: Laboratory Results - last 24 hr 06/06/21 06/06/21 Range/Units 07:20 07:20 WBC 6.54 (3.98-10.04) K/mm3 RBC 3.65 L (3.98-5.22) M/mm3 Hgb 10.9 L (11.2-15.7) gm/dl Hct 33.8 L (34.1-44.9) % MCV 92.6 (79.4-94.8) fl MCH 29.9 (25.6-32.2) pg MCHC 32.2 (32.2-35.5) g/dl RDW Std Deviation 43.5 (36.4-46.3) fL Plt Count 177 L (182-369) K/mm3 MPV 9.4 (9.4-12.3) fl Neut % (Auto) 76.8 H (34.0-71.1) % Lymph % (Auto) 11.8 L (19.3-51.7) % Lyman % (Auto) 10.6 (4.7-12.5) % Eos % (Auto) 0.3 L (0.7-5.8) Baso % (Auto) 0.3 (0.1-1.2) % Neut # (Auto) 5.03 (1.56-6.13) K/mm3 Lymph # (Auto) 0.77 L (1.18-3.74) K/mm3 Lyman # (Auto) 0.69 H (0.24-0.36) K/mm3 Eos # (Auto) 0.02 L (0.04-0.36) K/mm3 Baso # (Auto) 0.02 (0.01-0.08) K/mm3 Sodium 140 (136-145) mEq/L Potassium 3.5 (3.5-5.1) mEq/L Chloride 106 (98-107) mEq/L Carbon Dioxide 23 (21-32) mEq/L Anion Gap 14.5 (5-15) BUN 12 (7-18) mg/dL Creatinine 0.6 (0.55-1.02) mg/dL Est Cr Clr Drug Dosing 65.65 mL/min Estimated GFR (MDRD) > 60 (>60) mL/min BUN/Creatinine Ratio 20.0 H (14-18) Glucose 109 H (70-99) mg/dL Calcium 7.6 L (8.5-10.1) mg/dL Magnesium 2.1 (1.8-2.4) mg/dL Jayson Results Last 24 Hours: Microbiology 06/04/21 01:11 Blood Culture - Preliminary Blood - Venous - Lab Draw 06/04/21 01:16 Blood Culture - Preliminary Blood - Venous Med Orders - Current: Current Medications Acetaminophen (Acetaminophen 325 Mg Tab) 650 mg PO Q4H PRN PRN Reason: Pain (Mild 1-3)/fever Last Admin: 06/05/21 20:47 Dose: 650 mg Documented by: Diazepam (Diazepam 5 Mg Tab) 5 mg PO QPM PRN PRN Reason: Anxiety Last Admin: 06/05/21 20:47 Dose: 5 mg Documented by: Docusate Sodium (Docusate Sodium 100 Mg Cap) 100 mg PO BID PRN PRN Reason: Constipation Gabapentin (Gabapentin 300 Mg Cap) 600 mg PO TID [facility] Last Admin: 06/05/21 20:47 Dose: 600 mg Documented by: Heparin Sodium (Porcine) (Heparin Sodium 5,000 Units/Ml Vial) 5,000 units SUBCUT Q8H [facility] Last Admin: 06/05/21 23:32 Dose: Not Given Documented by: Sodium Chloride (Normal Saline) 1,000 mls @ 75 mls/hr IV ASDIRECTED [facility] Last Admin: 06/06/21 07:35 Dose: 75 mls/hr Documented by: Ceftriaxone Sodium 1 gm/ (Sodium Chloride) 100 mls @ 200 mls/hr IV Q24H [facility] Last Admin: 06/05/21 18:04 Dose: 200 mls/hr Documented by: Magnesium Sulfate 2 gm/ Premix 50 mls @ 25 mls/hr IV ONETIME ONE Stop: 06/06/21 08:51 Ondansetron HCl (Ondansetron 4 Mg Tab.Dis) 4 mg PO Q4H PRN PRN Reason: nausea, able to take PO Oxycodone HCl (Oxycodone 5 Mg Tab) 5 mg PO Q4H PRN PRN Reason: Pain (moderate 4-6) Discontinued Medications Al Hydroxide/Mg Hydroxide (Aluminum Hydroxide/Magnesium Hydroxide/Simethicone Susp 30 Ml Cup) 30 ml PO ONETIME ONE Stop: 06/04/21 16:58 Last Admin: 06/04/21 17:01 Dose: 30 ml Documented by: Al Hydroxide/Mg Hydroxide (Aluminum Hydroxide/Magnesium Hydroxide/Simethicone Susp 30 Ml Cup) 30 ml PO ONETIME ONE Stop: 06/05/21 12:44 Last Admin: 06/05/21 13:03 Dose: 30 ml Documented by: Ceftriaxone Sodium 1 gm/ (Sodium Chloride) 100 mls @ 200 mls/hr IV ONETIME ONE Stop: 06/04/21 04:15 Last Admin: 06/04/21 04:01 Dose: 200 mls/hr Documented by: Magnesium Sulfate 2 gm/ Premix 50 mls @ 25 mls/hr IV ONETIME ONE Stop: 06/05/21 14:00 Last Admin: 06/05/21 12:29 Dose: 25 mls/hr Documented by: Levofloxacin (Levofloxacin 500 Mg Tab) 500 mg PO ONETIME ONE Stop: 06/04/21 03:46 Last Admin: 06/04/21 04:01 Dose: 500 mg Documented by: Morphine Sulfate (Morphine 2 Mg/Ml Syringe) 2 mg IVPUSH ONETIME ONE Stop: 06/04/21 00:49 Last Admin: 06/04/21 01:02 Dose: 2 mg Documented by: Morphine Sulfate (Morphine 2 Mg/Ml Syringe) 2 mg IVPUSH Q2H PRN PRN Reason: Pain (severe 7-10) Stop: 06/05/21 08:29 Last Admin: 06/04/21 18:16 Dose: 2 mg Documented by: Temazepam (Temazepam 7.5 Mg Cap) 7.5 mg PO BEDTIME PRN PRN Reason: Sleep - Exam Quality Assessment: Supplemental Oxygen, Urine Catheter, DVT Prophylaxis Urinary Catheter Total Time: 0Days 12Hours General: Alert, Oriented, Cooperative HEENT: Pupils Equal, Pupils Reactive, Mucous Membr. Moist/[place] Neck: Supple, Trachea Midline Lungs: Clear to Auscultation, Normal Respiratory Effort Cardiovascular: Regular Rate, Regular Rhythm GI/Abdominal Exam: Normal Bowel Sounds, Soft, Non-Tender, No Distention (Female) Exam: Deferred Back Exam: Normal Inspection, Decreased Range of Motion Extremities: Normal Inspection, Normal Range of Motion, Non-Tender, No Pedal Ed wanda, Normal Capillary Refill Peripheral Pulses: 2+: Radial (L), Radial (R), Dorsalis Pedis (L), Dorsalis Pedis (R) Skin: Warm, Dry, Intact Neurological: No New Focal Deficit Psy/Mental Status: Alert, Depressed. No: Labile Mood, Anxious, Agitated - Patient Data Lab Results Last 24 hrs: Laboratory Results - last 24 hr 06/06/21 06/06/21 Range/Units 07:20 07:20 WBC 6.54 (3.98-10.04) K/mm3 RBC 3.65 L (3.98-5.22) M/mm3 Hgb 10.9 L (11.2-15.7) gm/dl Hct 33.8 L (34.1-44.9) % MCV 92.6 (79.4-94.8) fl MCH 29.9 (25.6-32.2) pg MCHC 32.2 (32.2-35.5) g/dl RDW Std Deviation 43.5 (36.4-46.3) fL Plt Count 177 L (182-369) K/mm3 MPV 9.4 (9.4-12.3) fl Neut % (Auto) 76.8 H (34.0-71.1) % Lymph % (Auto) 11.8 L (19.3-51.7) % Lyman % (Auto) 10.6 (4.7-12.5) % Eos % (Auto) 0.3 L (0.7-5.8) Baso % (Auto) 0.3 (0.1-1.2) % Neut # (Auto) 5.03 (1.56-6.13) K/mm3 Lymph # (Auto) 0.77 L (1.18-3.74) K/mm3 Lyman # (Auto) 0.69 H (0.24-0.36) K/mm3 Eos # (Auto) 0.02 L (0.04-0.36) K/mm3 Baso # (Auto) 0.02 (0.01-0.08) K/mm3 Sodium 140 (136-145) mEq/L Potassium 3.5 (3.5-5.1) mEq/L Chloride 106 (98-107) mEq/L Carbon Dioxide 23 (21-32) mEq/L Anion Gap 14.5 (5-15) BUN 12 (7-18) mg/dL Creatinine 0.6 (0.55-1.02) mg/dL Est Cr Clr Drug Dosing 65.65 mL/min Estimated GFR (MDRD) > 60 (>60) mL/min BUN/Creatinine Ratio 20.0 H (14-18) Glucose 109 H (70-99) mg/dL Calcium 7.6 L (8.5-10.1) mg/dL Magnesium 2.1 (1.8-2.4) mg/dL Result Diagrams: 06/06/21 07:20 06/06/21 07:20 Jayson Results Last 24 hrs: Microbiology 06/04/21 01:11 Blood Culture - Preliminary Blood - Venous - Lab Draw 06/04/21 01:16 Blood Culture - Preliminary Blood - Venous Sepsis Event Note - Evaluation Sepsis Screening Result: No Definite Risk - Focused Exam Vital Signs: Vital Signs Temp Temp Pulse Resp BP BP Pulse Ox 06/06/21 03:55 100.0 F 77 14 108/38 L 93 L 06/05/21 23:58 99.4 F 18 105/56 L 93 L 06/05/21 20:47 100.6 F 06/05/21 20:29 83 97 06/05/21 20:18 100.2 F 97 20 104/41 L 86 L - Problem List & Annotations (1) Frequent falls SNOMED Code(s): 585237240 Code(s): R29.6 - REPEATED FALLS Status: Acute Priority: High Current Visit: Yes (2) Ambulatory dysfunction SNOMED Code(s): 176487163 Code(s): R26.2 - DIFFICULTY IN WALKING, NOT ELSEWHERE CLASSIFIED Status: Acute Priority: High Current Visit: Yes (3) Fever and chills SNOMED Code(s): 300510553 Code(s): R50.9 - FEVER, UNSPECIFIED Status: Acute Priority: High Current Visit: Yes (4) Total self-care deficit SNOMED Code(s): 77666135 Code(s): R68.89 - OTHER GENERAL SYMPTOMS AND SIGNS Status: Acute Priority: High Current Visit: Yes (5) Decubitus ulcer of sacral region, unstageable SNOMED Code(s): 601080237 Code(s): L89.150 - PRESSURE ULCER OF SACRAL REGION, UNSTAGEABLE Status: Chronic Priority: High Current Visit: Yes (6) Failure to thrive in adult SNOMED Code(s): 766674023 Code(s): R62.7 - ADULT FAILURE TO THRIVE Status: Chronic Priority: High Current Visit: Yes (7) Multiple sclerosis SNOMED Code(s): 81465094 Code(s): G35 - MULTIPLE SCLEROSIS Status: Chronic Priority: High Current Visit: Yes (8) Generalized weakness SNOMED Code(s): 78575637 Code(s): R53.1 - WEAKNESS Status: Chronic Priority: High Current Visit: Yes (9) HLD (hyperlipidemia) SNOMED Code(s): 67234796 Code(s): E78.5 - HYPERLIPIDEMIA, UNSPECIFIED Status: Chronic Priority: Low Current Visit: No Qualifiers: Hyperlipidemia type: unspecified Qualified Code(s): E78.5 - Hyperlipidemia, unspecified (10) History of CVA (cerebrovascular accident) SNOMED Code(s): 995009885 Code(s): Z86.73 - PRSNL HX OF TIA (TIA), AND CEREB INFRC W/O RESID DEFICITS Status: Chronic Priority: Medium Current Visit: No (11) Macular degeneration SNOMED Code(s): 862038589 Code(s): H35.30 - UNSPECIFIED MACULAR DEGENERATION Status: Chronic Priority: Low Current Visit: No (12) Physical deconditioning SNOMED Code(s): 98856165495299 Code(s): R53.81 - OTHER MALAISE Status: Chronic Priority: High Current Visit: Yes (13) History of GI bleed SNOMED Code(s): 345680068 Code(s): Z87.19 - PERSONAL HISTORY OF OTHER DISEASES OF THE DIGESTIVE SYSTEM Status: Chronic Priority: Low Current Visit: No (14) Urinary incontinence SNOMED Code(s): 363678126 Code(s): R32 - UNSPECIFIED URINARY INCONTINENCE Status: Chronic Priority: Low Current Visit: No Qualifiers: Urinary Incontinence type: unspecified incontinence Qualified Code(s): R32 - Unspecified urinary incontinence (15) Recurrent UTI SNOMED Code(s): 132981650 Code(s): N39.0 - URINARY TRACT INFECTION, SITE NOT SPECIFIED Status: Chronic Priority: High Current Visit: Yes (16) Chronic back pain SNOMED Code(s): 407658931 Code(s): M54.9 - DORSALGIA, UNSPECIFIED; G89.29 - OTHER CHRONIC PAIN Status: Chronic Priority: Low Current Visit: Yes Qualifiers: Back pain location: back pain in unspecified location Back pain laterality: unspecified Qualified Code(s): M54.9 - Dorsalgia, unspecified; G89.29 - Other chronic pain (17) Dementia SNOMED Code(s): 85486876 Code(s): F03.90 - UNSPECIFIED DEMENTIA WITHOUT BEHAVIORAL DISTURBANCE Status: Chronic Priority: Medium Current Visit: No Qualifiers: Dementia type: unspecified type Dementia behavioral disturbance: without behavioral disturbance Qualified Code(s): F03.90 - Unspecified dementia without behavioral disturbance (18) UTI, Urinary tract infectious disease SNOMED Code(s): 56619953 Code(s): N39.0 - URINARY TRACT INFECTION, SITE NOT SPECIFIED Status: Acute Priority: High Current Visit: Yes (19) Hypomagnesemia SNOMED Code(s): 679732492 Code(s): E83.42 - HYPOMAGNESEMIA Status: Resolved Priority: High Current Visit: Yes - Problem List Review Problem List Initiated/Reviewed/Updated: Yes - Assessment Assessment:: 06/04/2021 The patient is a 81-year-old lady with chronic multiple sclerosis who had been admitted secondary to inability to care for herself. While at home she is essentially been bedbound. The patient lives by herself. The patient had been admitted as an inpatient. The patient has a pre-existing unstageable sacral decubitus ulcer and wound care has been ordered for this. She has also been rec ommended to have PT OT as well for discharge planning as well as fpc placement. The patient lives alone. The patient had x-rays in ER which did not show anything acute. Repeat laboratory studies have been ordered for the morning. The patient also had been noted to have a mild urinary tract infection and she will be kept on Rocephin 2 g IV daily. This will continue until cultures show organism and species. The patient will also have DVT prophylaxis with use of heparin. The patient should be appropriate for discharge in 3 to 4 days depending on placement. 06/05/2021 The patient is a chronically ill 81-year-old lady who has been living at home and unable to care for herself. Wound care will continue for the decubitus ulcer on her sacrum. The patient also has been encouraged to ambulate. She has been offered medication for her pain and she is refused this. The patient's magnesium will be replaced. I have ordered repeat laboratory studies for the morning her electrolytes will be replaced as necessary. PT OT will continue. The patient will need placement although she has refused this in the past. The patient is simply at this point unable to care for self. The patient urinary tract infection we will continue antibiotics with Rocephin. Cultures are currently pending. She will continue on her diet as tolerated. Currently awaiting placement. 06/06/2021 This is a 81-year-old female who presents to ED with a fever of 103 and generalized weakness. Patient reportedly fell and was unable to get up. Is reportedly been falling frequently. Carries a history of HLD, GI bleed, urinary incontinence, recurrent UTI, MS, chronic back pain, history of CVA, dementia. Left hip x-rays obtained showing orthopedic hardware within the left hip affixing an old healed fracture and osteoporosis with vascular calcification degenerative change within the lower lumbar spine but no acute abnormality. Left knee x-rays obtained showing chondrocalcinosis within both menisci and osteoporosis with a small joint effusion but nothing acute. Chest x-ray is obtained showing worsening interstitial change from prior x-ray. Differential includes worsening interstitial fibrosis versus bronchitis which is superimposed on fibrosis. There are other findings noted. UA is obtained and is suggestive of UTI. Urine culture today returns 10-50,000 CFU's of coagulase-negative Staphylococcus. Patient has been receiving 1 g IV Rocephin. Electrolytes were supplemented yesterday with magnesium. Labs today remain grossly negative. PT and OT have been working with the patient and recommending SNF placement. Patient is reluctant to this but is aware that she needs more help than she has available to her. Social work is consulted. Plan will be for discharge pending placement. - Plan Plan:: Fever and chills UTI, Urinary tract infectious disease Urinary incontinence Recurrent UTI * Continue Rocephin 1 gm * Await urine cultures * Await blood cultures - negative thus far Frequent falls Ambulatory dysfunction Total self-care deficit Decubitus ulcer of sacral region, unstageable Failure to thrive in adult Multiple sclerosis Generalized weakness Physical deconditioning Chronic back pain Dementia Macular degeneration History of CVA (cerebrovascular accident) * Home medications as ordered * PRN pain medications * PT/OT * CM/SW for likely placement * PT wound care for sacral ulcer * Dressing to sacral wound * Monitor labs * Consider hospice due to rapid decline Hypomagnesemia * Supplemented * Monitor labs HLD (hyperlipidemia) * No acute concerns History of GI bleed * No acute concerns Code status: DNR/DNI PCP: Elvie Donovan NP DVT prophylaxis: Heparin Social: She resides at home alone. Has been at [facility] in the past. Disposition: Patient mated to medical floor for suspected UTI, failure to thrive, and likely placement. Discharge in 1 to 2 days pending placement. <Armando Mehta - Last Filed: 06/06/21 13:40> - Patient Data Vitals - Most Recent: Last Vital Signs Temp 37.8 C 06/06/21 07:54 Pulse 103 H 06/06/21 08:24 Resp 14 06/06/21 07:54 BP 129/65 06/06/21 07:54 Pulse Ox 92 L 06/06/21 08:24 I&O - Last 24 Hours: Intake & Output 06/05/21 06/06/21 06/06/21 22:59 06:59 14:59 Intake Total 2141 1216 Output Total 825 Balance 2141 391 Lab Results Last 24 Hours: Laboratory Results - last 24 hr 06/06/21 06/06/21 Range/Units 07:20 07:20 WBC 6.54 (3.98-10.04) K/mm3 RBC 3.65 L (3.98-5.22) M/mm3 Hgb 10.9 L (11.2-15.7) gm/dl Hct 33.8 L (34.1-44.9) % MCV 92.6 (79.4-94.8) fl MCH 29.9 (25.6-32.2) pg MCHC 32.2 (32.2-35.5) g/dl RDW Std Deviation 43.5 (36.4-46.3) fL Plt Count 177 L (182-369) K/mm3 MPV 9.4 (9.4-12.3) fl Neut % (Auto) 76.8 H (34.0-71.1) % Lymph % (Auto) 11.8 L (19.3-51.7) % Lyman % (Auto) 10.6 (4.7-12.5) % Eos % (Auto) 0.3 L (0.7-5.8) Baso % (Auto) 0.3 (0.1-1.2) % Neut # (Auto) 5.03 (1.56-6.13) K/mm3 Lymph # (Auto) 0.77 L (1.18-3.74) K/mm3 Lyman # (Auto) 0.69 H (0.24-0.36) K/mm3 Eos # (Auto) 0.02 L (0.04-0.36) K/mm3 Baso # (Auto) 0.02 (0.01-0.08) K/mm3 Sodium 140 (136-145) mEq/L Potassium 3.5 (3.5-5.1) mEq/L Chloride 106 (98-107) mEq/L Carbon Dioxide 23 (21-32) mEq/L Anion Gap 14.5 (5-15) BUN 12 (7-18) mg/dL Creatinine 0.6 (0.55-1.02) mg/dL Est Cr Clr Drug Dosing 65.65 mL/min Estimated GFR (MDRD) > 60 (>60) mL/min BUN/Creatinine Ratio 20.0 H (14-18) Glucose 109 H (70-99) mg/dL Calcium 7.6 L (8.5-10.1) mg/dL Magnesium 2.1 (1.8-2.4) mg/dL Jayson Results Last 24 Hours: Microbiology 06/04/21 00:11 Urine Culture - Final Urine Staphylococcus Coagulase Neg 06/04/21 01:11 Blood Culture - Preliminary Blood - Venous - Lab Draw 06/04/21 01:16 Blood Culture - Preliminary Blood - Venous Med Orders - Current: Current Medications Acetaminophen (Acetaminophen 325 Mg Tab) 650 mg PO Q4H PRN PRN Reason: Pain (Mild 1-3)/fever Last Admin: 06/05/21 20:47 Dose: 650 mg Documented by: Diazepam (Diazepam 5 Mg Tab) 5 mg PO QPM PRN PRN Reason: Anxiety Last Admin: 06/05/21 20:47 Dose: 5 mg Documented by: Docusate Sodium (Docusate Sodium 100 Mg Cap) 100 mg PO BID PRN PRN Reason: Constipation Gabapentin (Gabapentin 600 Mg Tab) 600 mg PO TID [facility] Last Admin: 06/06/21 09:42 Dose: 600 mg Documented by: Heparin Sodium (Porcine) (Heparin Sodium 5,000 Units/Ml Vial) 5,000 units SUBCUT Q8H [facility] Last Admin: 06/06/21 09:42 Dose: 5,000 units Documented by: Ceftriaxone Sodium 1 gm/ (Sodium Chloride) 100 mls @ 200 mls/hr IV Q24H [facility] Last Admin: 06/05/21 18:04 Dose: 200 mls/hr Documented by: Morphine Sulfate (Morphine 2 Mg/Ml Syringe) 2 mg IVPUSH Q2H PRN PRN Reason: Pain (severe 7-10) Ondansetron HCl (Ondansetron 4 Mg Tab.Dis) 4 mg PO Q4H PRN PRN Reason: nausea, able to take PO Oxycodone/Acetaminophen (Acetaminophen/Oxycodone 325-5 Mg Tab) 1 tab PO Q4H PRN PRN Reason: Pain Pantoprazole Sodium (Pantoprazole 40 Mg Vial) 40 mg IVPUSH Q12H [facility] Last Admin: 06/06/21 09:42 Dose: 40 mg Documented by: Discontinued Medications Al Hydroxide/Mg Hydroxide (Aluminum Hydroxide/Magnesium Hydroxide/Simethicone Susp 30 Ml Cup) 30 ml PO ONETIME ONE Stop: 06/04/21 16:58 Last Admin: 06/04/21 17:01 Dose: 30 ml Documented by: Al Hydroxide/Mg Hydroxide (Aluminum Hydroxide/Magnesium Hydroxide/Simethicone Susp 30 Ml Cup) 30 ml PO ONETIME ONE Stop: 06/05/21 12:44 Last Admin: 06/05/21 13:03 Dose: 30 ml Documented by: Gabapentin (Gabapentin 300 Mg Cap) 600 mg PO TID [facility] Last Admin: 06/05/21 20:47 Dose: 600 mg Documented by: Ceftriaxone Sodium 1 gm/ (Sodium Chloride) 100 mls @ 200 mls/hr IV ONETIME ONE Stop: 06/04/21 04:15 Last Admin: 06/04/21 04:01 Dose: 200 mls/hr Documented by: Sodium Chloride (Normal Saline) 1,000 mls @ 75 mls/hr IV ASDIRECTED [facility] Last Admin: 06/06/21 07:35 Dose: 75 mls/hr Documented by: Magnesium Sulfate 2 gm/ Premix 50 mls @ 25 mls/hr IV ONETIME ONE Stop: 06/05/21 14:00 Last Admin: 06/05/21 12:29 Dose: 25 mls/hr Documented by: Magnesium Sulfate 2 gm/ Premix 50 mls @ 25 mls/hr IV ONETIME ONE Stop: 06/06/21 08:51 Last Admin: 06/06/21 08:47 Dose: Not Given Documented by: Levofloxacin (Levofloxacin 500 Mg Tab) 500 mg PO ONETIME ONE Stop: 06/04/21 03:46 Last Admin: 06/04/21 04:01 Dose: 500 mg Documented by: Morphine Sulfate (Morphine 2 Mg/Ml Syringe) 2 mg IVPUSH ONETIME ONE Stop: 06/04/21 00:49 Last Admin: 06/04/21 01:02 Dose: 2 mg Documented by: Morphine Sulfate (Morphine 2 Mg/Ml Syringe) 2 mg IVPUSH Q2H PRN PRN Reason: Pain (severe 7-10) Stop: 06/05/21 08:29 Last Admin: 06/04/21 18:16 Dose: 2 mg Documented by: Oxycodone HCl (Oxycodone 5 Mg Tab) 5 mg PO Q4H PRN PRN Reason: Pain (moderate 4-6) Temazepam (Temazepam 7.5 Mg Cap) 7.5 mg PO BEDTIME PRN PRN Reason: Sleep - Patient Data Lab Results Last 24 hrs: Laboratory Results - last 24 hr 06/06/21 06/06/21 Range/Units 07:20 07:20 WBC 6.54 (3.98-10.04) K/mm3 RBC 3.65 L (3.98-5.22) M/mm3 Hgb 10.9 L (11.2-15.7) gm/dl Hct 33.8 L (34.1-44.9) % MCV 92.6 (79.4-94.8) fl MCH 29.9 (25.6-32.2) pg MCHC 32.2 (32.2-35.5) g/dl RDW Std Deviation 43.5 (36.4-46.3) fL Plt Count 177 L (182-369) K/mm3 MPV 9.4 (9.4-12.3) fl Neut % (Auto) 76.8 H (34.0-71.1) % Lymph % (Auto) 11.8 L (19.3-51.7) % Lyman % (Auto) 10.6 (4.7-12.5) % Eos % (Auto) 0.3 L (0.7-5.8) Baso % (Auto) 0.3 (0.1-1.2) % Neut # (Auto) 5.03 (1.56-6.13) K/mm3 Lymph # (Auto) 0.77 L (1.18-3.74) K/mm3 Lyman # (Auto) 0.69 H (0.24-0.36) K/mm3 Eos # (Auto) 0.02 L (0.04-0.36) K/mm3 Baso # (Auto) 0.02 (0.01-0.08) K/mm3 Sodium 140 (136-145) mEq/L Potassium 3.5 (3.5-5.1) mEq/L Chloride 106 (98-107) mEq/L Carbon Dioxide 23 (21-32) mEq/L Anion Gap 14.5 (5-15) BUN 12 (7-18) mg/dL Creatinine 0.6 (0.55-1.02) mg/dL Est Cr Clr Drug Dosing 65.65 mL/min Estimated GFR (MDRD) > 60 (>60) mL/min BUN/Creatinine Ratio 20.0 H (14-18) Glucose 109 H (70-99) mg/dL Calcium 7.6 L (8.5-10.1) mg/dL Magnesium 2.1 (1.8-2.4) mg/dL Result Diagrams: 06/06/21 07:20 06/06/21 07:20 Jayson Results Last 24 hrs: Microbiology 06/04/21 00:11 Urine Culture - Final Urine Staphylococcus Coagulase Neg 06/04/21 01:11 Blood Culture - Preliminary Blood - Venous - Lab Draw 06/04/21 01:16 Blood Culture - Preliminary Blood - Venous Sepsis Event Note - Focused Exam Vital Signs: Vital Signs Temp Pulse Resp BP Pulse Ox 06/06/21 08:24 103 H 92 L 06/06/21 07:54 37.8 C 100 14 129/65 06/06/21 03:55 37.8 C 77 14 108/38 L 93 L - Problem List & Annotations (1) UTI, Urinary tract infectious disease SNOMED Code(s): 29828240 Code(s): N39.0 - URINARY TRACT INFECTION, SITE NOT SPECIFIED Status: Acute Priority: High Current Visit: Yes (2) Failure to thrive in adult SNOMED Code(s): 478212254 Code(s): R62.7 - ADULT FAILURE TO THRIVE Status: Chronic Priority: High Current Visit: Yes (3) Decubitus ulcer of sacral region, unstageable SNOMED Code(s): 823303023 Code(s): L89.150 - PRESSURE ULCER OF SACRAL REGION, UNSTAGEABLE Status: Chronic Priority: High Current Visit: Yes (4) Total self-care deficit SNOMED Code(s): 56679975 Code(s): R68.89 - OTHER GENERAL SYMPTOMS AND SIGNS Status: Acute Priority: High Current Visit: Yes (5) Multiple sclerosis SNOMED Code(s): 87020666 Code(s): G35 - MULTIPLE SCLEROSIS Status: Chronic Priority: High Current Visit: Yes - My Orders Last 24 Hours: My Active Orders 06/05/21 16:26 Urinary Catheter Assessment [RC] 10,04,,06/05/21 16:30 Insert Johns Catheter [Insert Urinary Catheter] [OM.PC] Q24H 06/06/21 09:00 Gabapentin [Neurontin] 600 mg PO TID 06/06/21 Lunch Regular Diet [DIET] - Free Text/Narrative Note: I have seen and examined the patient independently of Jose De Jesus Guerra PA-C and have discussed the case with him. I have reviewed and agree with the orders and plan of care outlined by him. Please see orders.
[2021-06-06] MEDS: Pantoprazole 40 MG Vial IVPUSH SCH ×2 (09:42→21:20)
[2021-06-06] MEDS: Gabapentin 600 MG Tab PO SCH ×3 (09:42→20:47)
[2021-06-06] MEDS: Heparin Sodium 5,000 Units/ML Vial SUBCUT SCH ×2 (09:42→17:29)
[2021-06-06] MEDS ORDERED: Acetaminophen/oxyCODONE 325-5 MG Tab PO PRN (12:23)
[2021-06-06] MEDS ORDERED: Morphine 2 MG/ML SYRINGE IVPUSH PRN (12:24)
[2021-06-06] MEDS: cefTRIAXone 1 GM in Sodium Chloride 0.9% 100 ML IV SCH (17:30)
[2021-06-06] MEDS: Acetaminophen 325 MG Tab PO PRN (20:45)
[2021-06-06] MEDS: Diazepam 5 MG Tab PO PRN (20:45)
[2021-06-07] MEDS: Heparin Sodium 5,000 Units/ML Vial SUBCUT SCH ×2 (00:18→09:52)
--- NOTE | 2021-06-07 09:43 | PCM.PN ---
<Jose De Jesus Guerra - Last Filed: 06/07/21 10:37> - General Info Date of Service: 06/07/21 Admission Dx/Problem (Free Text): Admission Diagnosis/Problem Admission Diagnosis/Problem Ambulatory dysfunction Functional Status: Reports: Pain Controlled (for the most part ), Tolerating Diet (But minimal intake ), Urinating. Denies: Ambulating, New Symptoms - Review of Systems General: Reports: Weakness. Denies: Fever, Fatigue, Malaise, Chills HEENT: Reports: No Symptoms. Denies: Headaches, Visual Changes Pulmonary: Reports: No Symptoms. Denies: Shortness of Breath, Pleuritic Chest Pain, Cough, Sputum, Wheezing Cardiovascular: Reports: No Symptoms. Denies: Chest Pain, Palpitations, Dyspnea on Exertion, Edema Gastrointestinal: Reports: Decreased Appetite. Denies: Abdominal Pain, Constipation, Diarrhea, Nausea, Vomiting Genitourinary: Reports: No Symptoms. Denies: Pain Musculoskeletal: Reports: Other (Generalized myalgias) Skin: Reports: Other (Sacral ulcer noted). Denies: Cyanosis Neurological: Reports: Pre-Existing Deficit (MS), Difficulty Walking, Weakness, Gait Disturbance. Denies: Confusion, Headache, Numbness, Syncope, Tingling, Tremors, Trouble Speaking, Change in Speech Psychiatric: Reports: No Symptoms - Patient Data Vitals - Most Recent: Last Vital Signs Temp 97.2 F 06/07/21 03:14 Pulse 96 06/07/21 03:14 Resp 16 06/07/21 03:14 BP 100/47 L 06/07/21 03:14 Pulse Ox 81 L 06/07/21 03:14 Weight - Most Recent: 56.2 kg I&O - Last 24 Hours: Intake & Output 06/06/21 06/07/21 06/07/21 22:59 06:59 14:59 Intake Total 2376 0 Output Total 250 150 Balance 2126 -150 Jayson Results Last 24 Hours: Microbiology 06/04/21 00:11 Urine Culture - Final Urine Staphylococcus Coagulase Neg Med Orders - Current: Current Medications Acetaminophen (Acetaminophen 325 Mg Tab) 650 mg PO Q4H PRN PRN Reason: Pain (Mild 1-3)/fever Last Admin: 06/06/21 20:45 Dose: 650 mg Documented by: Diazepam (Diazepam 5 Mg Tab) 5 mg PO QPM PRN PRN Reason: Anxiety Last Admin: 06/06/21 20:45 Dose: 5 mg Documented by: Docusate Sodium (Docusate Sodium 100 Mg Cap) 100 mg PO BID PRN PRN Reason: Constipation Fentanyl (Fentanyl 12 Mcg/Hr Transdermal Patch) 12 mcg TRDERM Q72H [facility] Gabapentin (Gabapentin 600 Mg Tab) 600 mg PO TID [facility] Last Admin: 06/06/21 20:47 Dose: 600 mg Documented by: Heparin Sodium (Porcine) (Heparin Sodium 5,000 Units/Ml Vial) 5,000 units SUBCUT Q8H [facility] Last Admin: 06/07/21 00:18 Dose: 5,000 units Documented by: Ceftriaxone Sodium 1 gm/ (Sodium Chloride) 100 mls @ 200 mls/hr IV Q24H [facility] Last Admin: 06/06/21 17:30 Dose: 200 mls/hr Documented by: Morphine Sulfate (Morphine 2 Mg/Ml Syringe) 2 mg IVPUSH Q2H PRN PRN Reason: Pain (severe 7-10) Last Admin: 06/06/21 14:04 Dose: 2 mg Documented by: Ondansetron HCl (Ondansetron 4 Mg Tab.Dis) 4 mg PO Q4H PRN PRN Reason: nausea, able to take PO Oxycodone/Acetaminophen (Acetaminophen/Oxycodone 325-5 Mg Tab) 1 tab PO Q4H PRN PRN Reason: Pain Pantoprazole Sodium (Pantoprazole 40 Mg Vial) 40 mg IVPUSH Q12H [facility] Last Admin: 06/06/21 21:20 Dose: 40 mg Documented by: Discontinued Medications Al Hydroxide/Mg Hydroxide (Aluminum Hydroxide/Magnesium Hydroxide/Simethicone Susp 30 Ml Cup) 30 ml PO ONETIME ONE Stop: 06/04/21 16:58 Last Admin: 06/04/21 17:01 Dose: 30 ml Documented by: Al Hydroxide/Mg Hydroxide (Aluminum Hydroxide/Magnesium Hydroxide/Simethicone Susp 30 Ml Cup) 30 ml PO ONETIME ONE Stop: 06/05/21 12:44 Last Admin: 06/05/21 13:03 Dose: 30 ml Documented by: Gabapentin (Gabapentin 300 Mg Cap) 600 mg PO TID [facility] Last Admin: 06/05/21 20:47 Dose: 600 mg Documented by: Ceftriaxone Sodium 1 gm/ (Sodium Chloride) 100 mls @ 200 mls/hr IV ONETIME ONE Stop: 06/04/21 04:15 Last Admin: 06/04/21 04:01 Dose: 200 mls/hr Documented by: Sodium Chloride (Normal Saline) 1,000 mls @ 75 mls/hr IV ASDIRECTED [facility] Last Admin: 06/06/21 07:35 Dose: 75 mls/hr Documented by: Magnesium Sulfate 2 gm/ Premix 50 mls @ 25 mls/hr IV ONETIME ONE Stop: 06/05/21 14:00 Last Admin: 06/05/21 12:29 Dose: 25 mls/hr Documented by: Magnesium Sulfate 2 gm/ Premix 50 mls @ 25 mls/hr IV ONETIME ONE Stop: 06/06/21 08:51 Last Admin: 06/06/21 08:47 Dose: Not Given Documented by: Levofloxacin (Levofloxacin 500 Mg Tab) 500 mg PO ONETIME ONE Stop: 06/04/21 03:46 Last Admin: 06/04/21 04:01 Dose: 500 mg Documented by: Morphine Sulfate (Morphine 2 Mg/Ml Syringe) 2 mg IVPUSH ONETIME ONE Stop: 06/04/21 00:49 Last Admin: 06/04/21 01:02 Dose: 2 mg Documented by: Morphine Sulfate (Morphine 2 Mg/Ml Syringe) 2 mg IVPUSH Q2H PRN PRN Reason: Pain (severe 7-10) Stop: 06/05/21 08:29 Last Admin: 06/04/21 18:16 Dose: 2 mg Documented by: Oxycodone HCl (Oxycodone 5 Mg Tab) 5 mg PO Q4H PRN PRN Reason: Pain (moderate 4-6) Temazepam (Temazepam 7.5 Mg Cap) 7.5 mg PO BEDTIME PRN PRN Reason: Sleep - Exam Quality Assessment: Urine Catheter, DVT Prophylaxis. No: Supplemental Oxygen (Patient refusing) Urinary Catheter Total Time: 1Days 10Hours General: Alert, Oriented, Cooperative, No Acute Distress HEENT: Pupils Equal, Pupils Reactive, Mucous Membr. Moist/[place] Neck: Supple, Trachea Midline Lungs: Clear to Auscultation, Normal Respiratory Effort, Decreased Breath Sounds. No: Crackles, Rhonchi, Wheezing Cardiovascular: Regular Rate, Regular Rhythm GI/Abdominal Exam: Normal Bowel Sounds, Soft, Non-Tender, No Distention (Female) Exam: Deferred Back Exam: Normal Inspection, Decreased Range of Motion Extremities: Normal Inspection, Non-Tender, No Pedal Edema, Limited Range of Motion Peripheral Pulses: 2+: Radial (L), Radial (R), Dorsalis Pedis (L), Dorsalis Pedis (R) Skin: Warm, Dry, Intact Wound/Incisions: Dressing Dry and Intact, Other (Sacral ulcer noted which is nonunstageable) Neurological: No New Focal Deficit Psy/Mental Status: Alert, Normal Affect - Patient Data Result Diagrams: 06/06/21 07:20 06/06/21 07:20 Jayson Results Last 24 hrs: Microbiology 06/04/21 00:11 Urine Culture - Final Urine Staphylococcus Coagulase Neg Sepsis Event Note - Evaluation Sepsis Screening Result: Possible Sepsis Risk - Focused Exam Vital Signs: Vital Signs Temp Pulse Resp BP Pulse Ox 06/07/21 03:14 97.2 F 96 16 100/47 L 81 L 06/07/21 00:13 108 H 78 L - Problem List & Annotations (1) Frequent falls SNOMED Code(s): 255303872 Code(s): R29.6 - REPEATED FALLS Status: Acute Priority: High Current Visit: Yes (2) Ambulatory dysfunction SNOMED Code(s): 429656644 Code(s): R26.2 - DIFFICULTY IN WALKING, NOT ELSEWHERE CLASSIFIED Status: Acute Priority: High Current Visit: Yes (3) Fever and chills SNOMED Code(s): 798270393 Code(s): R50.9 - FEVER, UNSPECIFIED Status: Acute Priority: High Current Visit: Yes (4) Total self-care deficit SNOMED Code(s): 39124008 Code(s): R68.89 - OTHER GENERAL SYMPTOMS AND SIGNS Status: Acute Priority: High Current Visit: Yes (5) Decubitus ulcer of sacral region, unstageable SNOMED Code(s): 256812308 Code(s): L89.150 - PRESSURE ULCER OF SACRAL REGION, UNSTAGEABLE Status: Chronic Priority: High Current Visit: Yes (6) Failure to thrive in adult SNOMED Code(s): 567778616 Code(s): R62.7 - ADULT FAILURE TO THRIVE Status: Chronic Priority: High Current Visit: Yes (7) Multiple sclerosis SNOMED Code(s): 45590551 Code(s): G35 - MULTIPLE SCLEROSIS Status: Chronic Priority: High Current Visit: Yes (8) Generalized weakness SNOMED Code(s): 27569549 Code(s): R53.1 - WEAKNESS Status: Chronic Priority: High Current Visit: Yes (9) HLD (hyperlipidemia) SNOMED Code(s): 72399963 Code(s): E78.5 - HYPERLIPIDEMIA, UNSPECIFIED Status: Chronic Priority: Low Current Visit: No Qualifiers: Hyperlipidemia type: unspecified Qualified Code(s): E78.5 - Hyperlipidemia, unspecified (10) History of CVA (cerebrovascular accident) SNOMED Code(s): 642777333 Code(s): Z86.73 - PRSNL HX OF TIA (TIA), AND CEREB INFRC W/O RESID DEFICITS Status: Chronic Priority: Medium Current Visit: No (11) Macular degeneration SNOMED Code(s): 119603894 Code(s): H35.30 - UNSPECIFIED MACULAR DEGENERATION Status: Chronic Tiesha ority: Low Current Visit: No (12) Physical deconditioning SNOMED Code(s): 81301380445311 Code(s): R53.81 - OTHER MALAISE Status: Chronic Priority: High Current Visit: Yes (13) History of GI bleed SNOMED Code(s): 735221487 Code(s): Z87.19 - PERSONAL HISTORY OF OTHER DISEASES OF THE DIGESTIVE SYSTEM Status: Chronic Priority: Low Current Visit: No (14) Urinary incontinence SNOMED Code(s): 216384756 Code(s): R32 - UNSPECIFIED URINARY INCONTINENCE Status: Chronic Priority: Low Current Visit: No Qualifiers: Urinary Incontinence type: unspecified incontinence Qualified Code(s): R32 - Unspecified urinary incontinence (15) Recurrent UTI SNOMED Code(s): 248374036 Code(s): N39.0 - URINARY TRACT INFECTION, SITE NOT SPECIFIED Status: Chronic Priority: High Current Visit: Yes (16) Chronic back pain SNOMED Code(s): 314634316 Code(s): M54.9 - DORSALGIA, UNSPECIFIED; G89.29 - OTHER CHRONIC PAIN Status: Chronic Priority: Low Current Visit: Yes Qualifiers: Back pain location: back pain in unspecified location Back pain laterality: unspecified Qualified Code(s): M54.9 - Dorsalgia, unspecified; G89.29 - Other chronic pain (17) Dementia SNOMED Code(s): 42218853 Code(s): F03.90 - UNSPECIFIED DEMENTIA WITHOUT BEHAVIORAL DISTURBANCE Status: Chronic Priority: Medium Current Visit: No Qualifiers: Dementia type: unspecified type Dementia behavioral disturbance: without behavioral disturbance Qualified Code(s): F03.90 - Unspecified dementia without behavioral disturbance (18) UTI, Urinary tract infectious disease SNOMED Code(s): 07193695 Code(s): N39.0 - URINARY TRACT INFECTION, SITE NOT SPECIFIED Status: Acute Priority: High Current Visit: Yes (19) Hypomagnesemia SNOMED Code(s): 383522474 Code(s): E83.42 - HYPOMAGNESEMIA Status: Resolved Priority: High Current Visit: Yes (20) Bronchitis SNOMED Code(s): 43597510 Code(s): J40 - BRONCHITIS, NOT SPECIFIED ACUTE OR CHRONIC Status: Acute Priority: High Current Visit: Yes (21) GERD (gastroesophageal reflux disease) SNOMED Code(s): 049550808 Code(s): K21.9 - GASTRO-ESOPHAGEAL REFLUX DISEASE WITHOUT ESOPHAGITIS Status: Acute Priority: High Current Visit: Yes Qualifiers: Esophagitis presence: esophagitis presence not specified Qualified Code(s): K21.9 - Gastro-esophageal reflux disease without esophagitis - Problem List Review Problem List Initiated/Reviewed/Updated: Yes - My Orders Last 24 Hours: My Active Orders 06/06/21 09:00 Pantoprazole [ProTONIX IV] 40 mg IVPUSH Q12H 06/06/21 12:23 Acetaminophen/oxyCODONE [Percocet 325-5 MG] 1 tab PO Q4H PRN 06/06/21 12:24 Morphine 2 mg IVPUSH Q2H PRN 06/07/21 08:54 Patient Status [ADT] Routine 06/07/21 09:45 fentaNYL [Duragesic] 12 mcg TRDERM Q72H - Assessment Assessment:: 06/04/2021 The patient is a 81-year-old lady with chronic multiple sclerosis who had been admitted secondary to inability to care for herself. While at home she is essentially been bedbound. The patient lives by herself. The patient had been admitted as an inpatient. The patient has a pre-existing unstageable sacral decubitus ulcer and wound care has been ordered for this. She has also been recommended to have PT OT as well for discharge planning as well as jail placement. The patient lives alone. The patient had x-rays in ER which did not show anything acute. Repeat laboratory studies have been ordered for the morning. The patient also had been noted to have a mild urinary tract infection and she will be kept on Rocephin 2 g IV daily. This will continue until cultures show organism and species. The patient will also have DVT prophylaxis with use of heparin. The patient should be appropriate for discharge in 3 to 4 days depending on placement. 06/05/2021 The patient is a chronically ill 81-year-old lady who has been living at home and unable to care for herself. Wound care will continue for the decubitus ulcer on her sacrum. The patient also has been encouraged to ambulate. She has been offered medication for her pain and she is refused this. The patient's magnesium will be replaced. I have ordered repeat laboratory studies for the morning her electrolytes will be replaced as necessary. PT OT will continue. The patient will need placement although she has refused this in the past. The patient is simply at this point unable to care for self. The patient urinary tract infection we will continue antibiotics with Rocephin. Cultures are currently pending. She will continue on her diet as tolerated. Currently awaiting placement. 06/06/2021 This is a 81-year-old female who presents to ED with a fever of 103 and generalized weakness. Patient reportedly fell and was unable to get up. Is reportedly been falling frequently. Carries a history of HLD, GI bleed, urinary incontinence, recurrent UTI, MS, chronic back pain, history of CVA, dementia. Left hip x-rays obtained showing orthopedic hardware within the left hip affixing an old healed fracture and osteoporosis with vascular calcification degenerative change within the lower lumbar spine but no acute abnormality. Left knee x-rays obtained showing chondrocalcinosis within both menisci and osteoporosis with a small joint effusion but nothing acute. Chest x-ray is obtained showing worsening interstitial change from prior x-ray. Differential includes worsening interstitial fibrosis versus bronchitis which is superimposed on fibrosis. There are other findings noted. UA is obtained and is suggestive of UTI. Urine culture today returns 10-50,000 CFU's of coagulase-negative Staphylococcus. Patient has been receiving 1 g IV Rocephin. Electrolytes were supplemented yesterday with magnesium. Labs today remain grossly negative. PT and OT have been working with the patient and recommending SNF placement. Patient is reluctant to this but is aware that she needs more help than she has available to her. Social work is consulted. Plan will be for discharge pending placement. 06/07/2021 81-year-old female admitted due to UTI and multiple falls. Blood cultures have thus far been negative and urine cultures are growing 10-50,000 CFU coagulase negative Staphylococcus. Patient has been receiving 1 g IV Rocephin. Imaging was concerning for bronchitis as well. Patient has had saturations in the 70s to 80s overnight but has been refusing her oxygen. This morning she refused lab draws and further imaging. Patient reports she does not want any further work- up and she would like to discharge to the jail on comfort cares. We will discuss antibiotic choice further. She is aware that her overall prognosis is poor. She is aware that by refusing labs and oxygen she may experience ME, hypoxic brain injury, renal or liver failure and possibly even . She states she would like to discharge the jail and not come back to the hospital for anything further. Social work is getting admission paperwork. PT and OT have worked with the patient are recommending SNF. Patient's daughters were at bedside. - Plan Plan:: Fever and chills UTI, Urinary tract infectious disease Urinary incontinence Recurrent UTI Bronchitis * Continue Rocephin 1 gm * Await urine cultures - 10-50 CFU coagulase negative Staphylococcus * Await blood cultures - negative thus far * Patient refusing future labs and imaging * Discuss comfort care/hospice Frequent falls Ambulatory dysfunction Total self-care deficit Decubitus ulcer of sacral region, unstageable Failure to thrive in adult Multiple sclerosis Generalized weakness Physical deconditioning Chronic back pain Dementia Macular degeneration History of CVA (cerebrovascular accident) * Home medications as ordered * PRN pain medications * Start 12mg fentanyl patch * PT/OT * CM/SW for likely placement * PT wound care for sacral ulcer * Dressing to sacral wound * Monitor labs * Consider hospice/comfort cares due to rapid decline Hypomagnesemia, resolved * Supplemented * Patient refusing future lab draws HLD (hyperlipidemia) * No acute concerns History of GI bleed GERD, acute on chronic * Continue protonix BID IVP * No acute bleeding concerns * Patient refusing endoscopy or future workup Code status: DNR/DNI PCP: Elvie Donovan NP DVT prophylaxis: Heparin Social: She resides at home alone. Has been at [facility] and [facility] in the past. Disposition: Patient mated to medical floor for suspected UTI, failure to thrive, and likely placement. Likely discharge tomorrow pending placement <Armando Mehta - Last Filed: 06/07/21 17:02> - Patient Data Vitals - Most Recent: Last Vital Signs Temp 36.2 C 06/07/21 03:14 Pulse 96 06/07/21 03:14 Resp 16 06/07/21 03:14 BP 100/47 L 06/07/21 03:14 Pulse Ox 83 L 06/07/21 10:00 I&O - Last 24 Hours: Intake & Output 06/07/21 06/07/21 06/07/21 06:59 14:59 22:59 Intake Total 0 0 Output Total 150 Balance -150 0 Med Orders - Current: Current Medications Acetaminophen (Acetaminophen 325 Mg Tab) 650 mg PO Q4H PRN PRN Reason: Pain (Mild 1-3)/fever Last Admin: 06/06/21 20:45 Dose: 650 mg Documented by: Diazepam (Diazepam 5 Mg Tab) 5 mg PO QPM PRN PRN Reason: Anxiety Last Admin: 06/06/21 20:45 Dose: 5 mg Documented by: Docusate Sodium (Docusate Sodium 100 Mg Cap) 100 mg PO BID PRN PRN Reason: Constipation Fentanyl (Fentanyl 12 Mcg/Hr Transdermal Patch) 12 mcg TRDERM Q72H [facility] Last Admin: 06/07/21 09:54 Dose: 12 mcg Documented by: Gabapentin (Gabapentin 600 Mg Tab) 600 mg PO TID [facility] Last Admin: 06/07/21 16:22 Dose: 600 mg Documented by: Lorazepam (Lorazepam 2 Mg/Ml Sdv) 0.5 mg IVPUSH Q4H PRN PRN Reason: Anxiety Miscellaneous Information (Remove Fentanyl Patch) 1 ea TRDERM Q72H [facility] Morphine Sulfate (Morphine 2 Mg/Ml Syringe) 2 mg IVPUSH Q2H PRN PRN Reason: Pain (severe 7-10) Last Admin: 06/06/21 14:04 Dose: 2 mg Documented by: Ondansetron HCl (Ondansetron 4 Mg Tab.Dis) 4 mg PO Q4H PRN PRN Reason: nausea, able to take PO Oxycodone/Acetaminophen (Acetaminophen/Oxycodone 325-5 Mg Tab) 1 tab PO Q4H PRN PRN Reason: Pain Last Admin: 06/07/21 10:50 Dose: 1 tab Documented by: Pantoprazole Sodium (Pantoprazole 40 Mg Vial) 40 mg IVPUSH Q12H [facility] Last Admin: 06/07/21 09:57 Dose: 40 mg Documented by: Discontinued Medications Al Hydroxide/Mg Hydroxide (Aluminum Hydroxide/Magnesium Hydroxide/Simethicone Susp 30 Ml Cup) 30 ml PO ONETIME ONE Stop: 06/04/21 16:58 Last Admin: 06/04/21 17:01 Dose: 30 ml Documented by: Al Hydroxide/Mg Hydroxide (Aluminum Hydroxide/Magnesium Hydroxide/Simethicone Susp 30 Ml Cup) 30 ml PO ONETIME ONE Stop: 06/05/21 12:44 Last Admin: 06/05/21 13:03 Dose: 30 ml Documented by: Bismuth Subsalicylate (Bismuth Subsalicylate 262 Mg/15 Ml Susp 236 Ml Bottle) 30 ml PO ONETIME ONE Stop: 06/07/21 11:22 Last Admin: 06/07/21 12:02 Dose: 30 ml Documented by: Gabapentin (Gabapentin 300 Mg Cap) 600 mg PO TID [facility] Last Admin: 06/05/21 20:47 Dose: 600 mg Documented by: Heparin Sodium (Porcine) (Heparin Sodium 5,000 Units/Ml Vial) 5,000 units SUBCUT Q8H [facility] Last Admin: 06/07/21 09:52 Dose: 5,000 units Documented by: Ceftriaxone Sodium 1 gm/ (Sodium Chloride) 100 mls @ 200 mls/hr IV ONETIME ONE Stop: 06/04/21 04:15 Last Admin: 06/04/21 04:01 Dose: 200 mls/hr Documented by: Sodium Chloride (Normal Saline) 1,000 mls @ 75 mls/hr IV ASDIRECTED [facility] Last Admin: 06/06/21 07:35 Dose: 75 mls/hr Documented by: Ceftriaxone Sodium 1 gm/ (Sodium Chloride) 100 mls @ 200 mls/hr IV Q24H [facility] Last Admin: 06/06/21 17:30 Dose: 200 mls/hr Documented by: Magnesium Sulfate 2 gm/ Premix 50 mls @ 25 mls/hr IV ONETIME ONE Stop: 06/05/21 14:00 Last Admin: 06/05/21 12:29 Dose: 25 mls/hr Documented by: Magnesium Sulfate 2 gm/ Premix 50 mls @ 25 mls/hr IV ONETIME ONE Stop: 06/06/21 08:51 Last Admin: 06/06/21 08:47 Dose: Not Given Documented by: Levofloxacin (Levofloxacin 500 Mg Tab) 500 mg PO ONETIME ONE Stop: 06/04/21 03:46 Last Admin: 06/04/21 04:01 Dose: 500 mg Documented by: Lorazepam (Lorazepam 2 Mg/Ml Sdv) 0.5 mg IVPUSH ONETIME ONE Stop: 06/07/21 11:21 Last Admin: 06/07/21 12:03 Dose: 0.5 mg Documented by: Morphine Sulfate (Morphine 2 Mg/Ml Syringe) 2 mg IVPUSH ONETIME ONE Stop: 06/04/21 00:49 Last Admin: 06/04/21 01:02 Dose: 2 mg Documented by: Morphine Sulfate (Morphine 2 Mg/Ml Syringe) 2 mg IVPUSH Q2H PRN PRN Reason: Pain (severe 7-10) Stop: 06/05/21 08:29 Last Admin: 06/04/21 18:16 Dose: 2 mg Documented by: Oxycodone HCl (Oxycodone 5 Mg Tab) 5 mg PO Q4H PRN PRN Reason: Pain (moderate 4-6) Temazepam (Temazepam 7.5 Mg Cap) 7.5 mg PO BEDTIME PRN PRN Reason: Sleep - Patient Data Result Diagrams: 06/06/21 07:20 06/06/21 07:20 Sepsis Event Note - Focused Exam Vital Signs: Vital Signs Pulse Ox Pulse Ox 06/07/21 10:00 83 L 06/07/21 09:51 83 L - Problem List & Annotations (1) UTI, Urinary tract infectious disease SNOMED Code(s): 04641393 Code(s): N39.0 - URINARY TRACT INFECTION, SITE NOT SPECIFIED Status: Acute Priority: High Current Visit: Yes (2) Failure to thrive in adult SNOMED Code(s): 929479000 Code(s): R62.7 - ADULT FAILURE TO THRIVE Status: Chronic Priority: High Current Visit: Yes (3) Decubitus ulcer of sacral region, unstageable SNOMED Code(s): 717069431 Code(s): L89.150 - PRESSURE ULCER OF SACRAL REGION, UNSTAGEABLE Status: Chronic Priority: High Current Visit: Yes (4) Total self-care deficit SNOMED Code(s): 24793000 Code(s): R68.89 - OTHER GENERAL SYMPTOMS AND SIGNS Status: Acute Priority: High Current Visit: Yes (5) Multiple sclerosis SNOMED Code(s): 54820596 Code(s): G35 - MULTIPLE SCLEROSIS Status: Chronic Priority: High Current Visit: Yes - My Orders Last 24 Hours: My Active Orders 06/06/21 Dinner Regular Diet [DIET] - Free Text/Narrative Note: I have seen and examined the patient independently of Jose De Jesus Guerra PA-C and have discussed the case with him. I have reviewed and agree with the orders and plan of care outlined by him. Please see orders.
[2021-06-07] MEDS: Gabapentin 600 MG Tab PO SCH ×3 (09:54→23:13)
[2021-06-07] MEDS: Pantoprazole 40 MG Vial IVPUSH SCH ×2 (09:57→23:13)
[2021-06-07] MEDS ORDERED: fentaNYL 12 MCG/HR Transdermal Patch TRDERM SCH (10:00)
[2021-06-07] MEDS ORDERED: LORazepam 2 MG/ML SDV IVPUSH ONE (11:20)
[2021-06-07] MEDS ORDERED: Bismuth Subsalicylate 262 MG/15 ML Susp 236 ML Bottle PO ONE ×2 (11:21→18:54)
[2021-06-07] MEDS ORDERED: LORazepam 2 MG/ML SDV IVPUSH PRN (11:23)
--- NOTE | 2021-06-08 08:38 | PCM.PN ---
- General Info Date of Service: 06/08/21 Admission Dx/Problem (Free Text): Admission Diagnosis/Problem Admission Diagnosis/Problem Ambulatory dysfunction - Patient Data Vitals - Most Recent: Last Vital Signs Temp 99.7 F 06/07/21 22:59 Pulse 54 L 06/07/21 22:59 Resp 18 06/07/21 22:59 BP 112/49 L 06/07/21 22:59 Pulse Ox 88 L 06/07/21 22:59 Weight - Most Recent: 123 lb 14.4 oz I&O - Last 24 Hours: Intake & Output 06/07/21 06/08/21 06/08/21 22:59 06:59 14:59 Intake Total 550 Output Total 300 Balance 250 Med Orders - Current: Current Medications Acetaminophen (Acetaminophen 325 Mg Tab) 650 mg PO Q4H PRN PRN Reason: Pain (Mild 1-3)/fever Last Admin: 06/06/21 20:45 Dose: 650 mg Documented by: Diazepam (Diazepam 5 Mg Tab) 5 mg PO QPM PRN PRN Reason: Anxiety Last Admin: 06/06/21 20:45 Dose: 5 mg Documented by: Docusate Sodium (Docusate Sodium 100 Mg Cap) 100 mg PO BID PRN PRN Reason: Constipation Fentanyl (Fentanyl 12 Mcg/Hr Transdermal Patch) 12 mcg TRDERM Q72H [facility] Last Admin: 06/07/21 09:54 Dose: 12 mcg Documented by: Gabapentin (Gabapentin 600 Mg Tab) 600 mg PO TID GEETA Last Admin: 06/07/21 23:13 Dose: 600 mg Documented by: Lorazepam (Lorazepam 2 Mg/Ml Sdv) 0.5 mg IVPUSH Q4H PRN PRN Reason: Anxiety Miscellaneous Information (Remove Fentanyl Patch) 1 ea TRDERM Q72H GEETA Morphine Sulfate (Morphine 2 Mg/Ml Syringe) 2 mg IVPUSH Q2H PRN PRN Reason: Pain (severe 7-10) Last Admin: 06/06/21 14:04 Dose: 2 mg Documented by: Ondansetron HCl (Ondansetron 4 Mg Tab.Dis) 4 mg PO Q4H PRN PRN Reason: nausea, able to take PO Oxycodone/Acetaminophen (Acetaminophen/Oxycodone 325-5 Mg Tab) 1 tab PO Q4H PRN PRN Reason: Pain Last Admin: 06/07/21 10:50 Dose: 1 tab Documented by: Pantoprazole Sodium (Pantoprazole 40 Mg Vial) 40 mg IVPUSH Q12H [facility] Last Admin: 06/07/21 23:13 Dose: 40 mg Documented by: Discontinued Medications Al Hydroxide/Mg Hydroxide (Aluminum Hydroxide/Magnesium Hydroxide/Simethicone Susp 30 Ml Cup) 30 ml PO ONETIME ONE Stop: 06/04/21 16:58 Last Admin: 06/04/21 17:01 Dose: 30 ml Documented by: Al Hydroxide/Mg Hydroxide (Aluminum Hydroxide/Magnesium Hydroxide/Simethicone Susp 30 Ml Cup) 30 ml PO ONETIME ONE Stop: 06/05/21 12:44 Last Admin: 06/05/21 13:03 Dose: 30 ml Documented by: Bismuth Subsalicylate (Bismuth Subsalicylate 262 Mg/15 Ml Susp 236 Ml Bottle) 30 ml PO ONETIME ONE Stop: 06/07/21 11:22 Last Admin: 06/07/21 12:02 Dose: 30 ml Documented by: Bismuth Subsalicylate (Bismuth Subsalicylate 262 Mg/15 Ml Susp 236 Ml Bottle) 30 ml PO Q4HR ONE Stop: 06/07/21 18:55 Last Admin: 06/07/21 23:15 Dose: Not Given Documented by: Gabapentin (Gabapentin 300 Mg Cap) 600 mg PO TID [facility] Last Admin: 06/05/21 20:47 Dose: 600 mg Documented by: Heparin Sodium (Porcine) (Heparin Sodium 5,000 Units/Ml Vial) 5,000 units GRIFFIN BCUT Q8H [facility] Last Admin: 06/07/21 09:52 Dose: 5,000 units Documented by: Ceftriaxone Sodium 1 gm/ (Sodium Chloride) 100 mls @ 200 mls/hr IV ONETIME ONE Stop: 06/04/21 04:15 Last Admin: 06/04/21 04:01 Dose: 200 mls/hr Documented by: Sodium Chloride (Normal Saline) 1,000 mls @ 75 mls/hr IV ASDIRECTED [facility] Last Admin: 06/06/21 07:35 Dose: 75 mls/hr Documented by: Ceftriaxone Sodium 1 gm/ (Sodium Chloride) 100 mls @ 200 mls/hr IV Q24H [facility] Last Admin: 06/06/21 17:30 Dose: 200 mls/hr Documented by: Magnesium Sulfate 2 gm/ Premix 50 mls @ 25 mls/hr IV ONETIME ONE Stop: 06/05/21 14:00 Last Admin: 06/05/21 12:29 Dose: 25 mls/hr Documented by: Magnesium Sulfate 2 gm/ Premix 50 mls @ 25 mls/hr IV ONETIME ONE Stop: 06/06/21 08:51 Last Admin: 06/06/21 08:47 Dose: Not Given Documented by: Levofloxacin (Levofloxacin 500 Mg Tab) 500 mg PO ONETIME ONE Stop: 06/04/21 03:46 Last Admin: 06/04/21 04:01 Dose: 500 mg Documented by: Lorazepam (Lorazepam 2 Mg/Ml Sdv) 0.5 mg IVPUSH ONETIME ONE Stop: 06/07/21 11:21 Last Admin: 06/07/21 12:03 Dose: 0.5 mg Documented by: Morphine Sulfate (Morphine 2 Mg/Ml Syringe) 2 mg IVPUSH ONETIME ONE Stop: 06/04/21 00:49 Last Admin: 06/04/21 01:02 Dose: 2 mg Documented by: Morphine Sulfate (Morphine 2 Mg/Ml Syringe) 2 mg IVPUSH Q2H PRN PRN Reason: Pain (severe 7-10) Stop: 06/05/21 08:29 Last Admin: 06/04/21 18:16 Dose: 2 mg Documented by: Oxycodone HCl (Oxycodone 5 Mg Tab) 5 mg PO Q4H PRN PRN Reason: Pain (moderate 4-6) Temazepam (Temazepam 7.5 Mg Cap) 7.5 mg PO BEDTIME PRN PRN Reason: Sleep - Exam Urinary Catheter Total Time: 2Days 9Hours - Patient Data Result Diagrams: 06/06/21 07:20 06/06/21 07:20 Sepsis Event Note - Evaluation Sepsis Screening Result: Possible Sepsis Risk - Focused Exam Vital Signs: Vital Signs Temp Pulse Resp BP Pulse Ox 06/07/21 22:59 99.7 F 54 L 18 112/49 L 88 L - Problem List & Annotations (1) Frequent falls SNOMED Code(s): 075698628 Code(s): R29.6 - REPEATED FALLS Status: Acute Priority: High Current V isit: Yes (2) Ambulatory dysfunction SNOMED Code(s): 028227673 Code(s): R26.2 - DIFFICULTY IN WALKING, NOT ELSEWHERE CLASSIFIED Status: Acute Priority: High Current Visit: Yes (3) Fever and chills SNOMED Code(s): 593754815 Code(s): R50.9 - FEVER, UNSPECIFIED Status: Resolved Priority: High Current Visit: Yes (4) Total self-care deficit SNOMED Code(s): 27724009 Code(s): R68.89 - OTHER GENERAL SYMPTOMS AND SIGNS Status: Acute Priority: High Current Visit: Yes (5) Decubitus ulcer of sacral region, unstageable SNOMED Code(s): 169104634 Code(s): L89.150 - PRESSURE ULCER OF SACRAL REGION, UNSTAGEABLE Status: Chronic Priority: High Current Visit: Yes (6) Failure to thrive in adult SNOMED Code(s): 337607231 Code(s): R62.7 - ADULT FAILURE TO THRIVE Status: Chronic Priority: High Current Visit: Yes (7) Multiple sclerosis SNOMED Code(s): 85536319 Code(s): G35 - MULTIPLE SCLEROSIS Status: Chronic Priority: High Current Visit: Yes (8) Generalized weakness SNOMED Code(s): 95406253 Code(s): R53.1 - WEAKNESS Status: Chronic Priority: High Current Visit: Yes (9) HLD (hyperlipidemia) SNOMED Code(s): 71074824 Code(s): E78.5 - HYPERLIPIDEMIA, UNSPECIFIED Status: Chronic Priority: Low Current Visit: No Qualifiers: Hyperlipidemia type: unspecified Qualified Code(s): E78.5 - Hyperlipidemia, unspecified (10) History of CVA (cerebrovascular accident) SNOMED Code(s): 773673192 Code(s): Z86.73 - PRSNL HX OF TIA (TIA), AND CEREB INFRC W/O RESID DEFICITS Status: Chronic Priority: Medium Current Visit: No (11) Macular degeneration SNOMED Code(s): 357516491 Code(s): H35.30 - UNSPECIFIED MACULAR DEGENERATION Status: Chronic Priority: Low Current Visit: No (12) Physical deconditioning SNOMED Code(s): 70458896378533 Code(s): R53.81 - OTHER MALAISE Status: Chronic Priority: High Current Visit: Yes (13) History of GI bleed SNOMED Code(s): 697753515 Code(s): Z87.19 - PERSONAL HISTORY OF OTHER DISEASES OF THE DIGESTIVE SYSTEM Status: Chronic Priority: Low Current Visit: No (14) Urinary incontinence SNOMED Code(s): 626900065 Code(s): R32 - UNSPECIFIED URINARY INCONTINENCE Status: Chronic Priority: Low Current Visit: No Qualifiers: Urinary Incontinence type: unspecified incontinence Qualified Code(s): R32 - Unspecified urinary incontinence (15) Recurrent UTI SNOMED Code(s): 691524321 Code(s): N39.0 - URINARY TRACT INFECTION, SITE NOT SPECIFIED Status: Chronic Priority: High Current Visit: Yes (16) Chronic back pain SNOMED Code(s): 772473360 Code(s): M54.9 - DORSALGIA, UNSPECIFIED; G89.29 - OTHER CHRONIC PAIN Status: Chronic Priority: Low Current Visit: Yes Qualifiers: Back pain location: back pain in unspecified location Back pain laterality: unspecified Qualified Code(s): M54.9 - Dorsalgia, unspecified; G89.29 - Other chronic pain (17) Dementia SNOMED Code(s): 63741620 Code(s): F03.90 - UNSPECIFIED DEMENTIA WITHOUT BEHAVIORAL DISTURBANCE Status: Chronic Priority: Medium Current Visit: No Qualifiers: Dementia type: unspecified type Dementia behavioral disturbance: without behavioral disturbance Qualified Code(s): F03.90 - Unspecified dementia without behavioral disturbance (18) UTI, Urinary tract infectious disease SNOMED Code(s): 44362631 Code(s): N39.0 - URINARY TRACT INFECTION, SITE NOT SPECIFIED Status: Acute Priority: High Current Visit: Yes (19) Hypomagnesemia SNOMED Code(s): 561603728 Code(s): E83.42 - HYPOMAGNESEMIA Status: Resolved Priority: High Current Visit: Yes (20) Bronchitis SNOMED Code(s): 29495019 Code(s): J40 - BRONCHITIS, NOT SPECIFIED ACUTE OR CHRONIC Status: Acute Priority: High Current Visit: Yes (21) GERD (gastroesophageal reflux disease) SNOMED Code(s): 767664678 Code(s): K21.9 - GASTRO-ESOPHAGEAL REFLUX DISEASE WITHOUT ESOPHAGITIS Status: Acute Priority: High Current Visit: Yes Qualifiers: Esophagitis presence: esophagitis presence not specified Qualified Code(s): K21.9 - Gastro-esophageal reflux disease without esophagitis - My Orders Last 24 Hours: My Active Orders 06/07/21 10:00 fentaNYL [Duragesic] 12 mcg TRDERM Q72H 06/07/21 11:20 Patient Status [ADT] Routine 06/07/21 11:23 Cooling Warming Measures [RC] ASDIRECTED LORazepam [Ativan] 0.5 mg IVPUSH Q4H PRN Heat Therapy [OM.PC] Routine 06/07/21 11:26 Resuscitation Status Routine 06/07/21 16:59 Renew/Continue Urinary Catheter [OM.PC] Routine 06/10/21 10:00 Remove Patch 1 ea TRDERM Q72H - Assessment Assessment:: 06/04/2021 The patient is a 81-year-old lady with chronic multiple sclerosis who had been admitted secondary to inability to care for herself. While at home she is essentially been bedbound. The patient lives by herself. The patient had been admitted as an inpatient. The patient has a pre-existing unstageable sacral decubitus ulcer and wound care has been ordered for this. She has also been recommended to have PT OT as well for discharge planning as well as prison placement. The patient lives alone. The patient had x-rays in ER which did not show anything acute. Repeat laboratory studies have been ordered for the morning. The patient also had been noted to have a mild urinary tract infection and she will be kept on Rocephin 2 g IV daily. This will continue until cultures show organism and species. The patient will also have DVT prophylaxis with use of heparin. The patient should be appropriate for discharge in 3 to 4 days depending on placement. 06/05/2021 The patient is a chronically ill 81-year-old lady who has been living at home and unable to care for herself. Wound care will continue for the decubitus ulcer on her sacrum. The patient also has been encouraged to ambulate. She has been offered medication for her pain and she is refused this. The patient's magnesium will be replaced. I have ordered repeat laboratory studies for the morning her electrolytes will be replaced as necessary. PT OT will continue. The patient will need placement although she has refused this in the past. The patient is simply at this point unable to care for self. The patient urinary tract infection we will continue antibiotics with Rocephin. Cultures are currently pending. She will continue on her diet as tolerated. Currently awaiting placement. 06/06/2021 This is a 81-year-old female who presents to ED with a fever of 103 and generalized weakness. Patient reportedly fell and was unable to get up. Is reportedly been falling frequently. Carries a history of HLD, GI bleed, urinary incontinence, recurrent UTI, MS, chronic back pain, history of CVA, dementia. Left hip x-rays obtained showing orthopedic hardware within the left hip affixing an old healed fracture and osteoporosis with vascular calcification degenerative change within the lower lumbar spine but no acute abnormality. L eft knee x-rays obtained showing chondrocalcinosis within both menisci and osteoporosis with a small joint effusion but nothing acute. Chest x-ray is obtained showing worsening interstitial change from prior x-ray. Differential includes worsening interstitial fibrosis versus bronchitis which is superimposed on fibrosis. There are other findings noted. UA is obtained and is suggestive of UTI. Urine culture today returns 10-50,000 CFU's of coagulase-negative Staphylococcus. Patient has been receiving 1 g IV Rocephin. Electrolytes were supplemented yesterday with magnesium. Labs today remain grossly negative. PT and OT have been working with the patient and recommending SNF placement. Patient is reluctant to this but is aware that she needs more help than she has available to her. Social work is consulted. Plan will be for discharge pending placement. 06/07/2021 81-year-old female admitted due to UTI and multiple falls. Blood cultures have thus far been negative and urine cultures are growing 10-50,000 CFU coagulase negative Staphylococcus. Patient has been receiving 1 g IV Rocephin. Imaging was concerning for bronchitis as well. Patient has had saturations in the 70s to 80s overnight but has been refusing her oxygen. This morning she refused lab draws and further imaging. Patient reports she does not want any further work- up and she would like to discharge to the prison on comfort cares. We will discuss antibiotic choice further. She is aware that her overall prognosis is poor. She is aware that by refusing labs and oxygen she may experience IN, hypoxic brain injury, renal or liver failure and possibly even . She sta jacinta she would like to discharge the prison and not come back to the hospital for anything further. Social work is getting admission paperwork. PT and OT have worked with the patient are recommending SNF. Patient's daughters were at bedside. - Plan Plan:: Fever and chills UTI, Urinary tract infectious disease Urinary incontinence Recurrent UTI Bronchitis * Continue Rocephin 1 gm * Await urine cultures - 10-50 CFU coagulase negative Staphylococcus * Await blood cultures - negative thus far * Patient refusing future labs and imaging * Discuss comfort care/hospice Frequent falls Ambulatory dysfunction Total self-care deficit Decubitus ulcer of sacral region, unstageable Failure to thrive in adult Multiple sclerosis Generalized weakness Physical deconditioning Chronic back pain Dementia Macular degeneration History of CVA (cerebrovascular accident) * Home medications as ordered * PRN pain medications * Start 12mg fentanyl patch * PT/OT * CM/SW for likely placement * PT wound care for sacral ulcer * Dressing to sacral wound * Monitor labs * Consider hospice/comfort cares due to rapid decline Hypomagnesemia, resolved * Supplemented * Patient refusing future lab draws HLD (hyperlipidemia) * No acute concerns History of GI bleed GERD, acute on chronic * Continue protonix BID IVP * No acute bleeding concerns * Patient refusing endoscopy or future workup Code status: DNR/DNI PCP: Elvie Donovan NP DVT prophylaxis: Heparin Social: She resides at home alone. Has been at [facility] and [facility] in the past. Disposition: Patient mated to medical floor for suspected UTI, failure to thrive, and likely placement. Likely discharge tomorrow pending placement
[2021-06-08] MEDS: Gabapentin 600 MG Tab PO SCH (08:48)
[2021-06-08] MEDS: Pantoprazole 40 MG Vial IVPUSH SCH (08:48)
[2021-06-08 08:49] VITALS: BP 102/58; PULSE 50
--- NOTE | 2021-06-08 10:20 | PCM.DCSUM1 ---
<Jose De Jesus Guerra - Last Filed: 06/08/21 12:50> Discharge Summary - Hospital Course HPI Initial Comments: The patient is a 81-year-old lady who had presented to the emergency department out of concern for a fever. Reportedly she had a fever at home of 103 F. The patient however, is not really sure why she came to the emergency room. Information has been taken from the patient's charting and it has been reported that she was unable to get up and had been lying on the floor for 1 to 2 hours before being discovered. The patient has a long history of severe multiple sclerosis and has been essentially bedridden. The patient also reportedly has a decubitus ulcer to her sacrum. The patient has been at home alone and she reports that she has had multiple falls. In July 2020 the patient had been [facility] and apparently she did not like the outcome and had returned home. The patient reports that she had fallen and hit her knee on toilet seat and her main concern is pain of her left knee that is severe in nature. She also has pain in the left hip area from the fall. The patient had surgery for hip fracture left side. The patient has denied any fever or chills although it has been reported that she had fever and chills at home. The patient also has denied any dysuria hematuria or abdominal pain. The patient became somewhat defensive when asked about urinary or fecal incontinence. Diagnosis: Stroke: No - Discharge Data Discharge Date: 06/08/21 (Admit date: 06/04/2021) Discharge Disposition: DC/Tfer to SNF 03 Condition: Fair - Referral to Home Health Primary Care Physician: Elvie Donovan NP - Discharge Diagnosis/Problem(s) (1) Frequent falls SNOMED Code(s): 978293228 ICD Code: R29.6 - REPEATED FALLS Status: Acute Priority: High Current Visit: Yes (2) Ambulatory dysfunction SNOMED Code(s): 876718039 ICD Code: R26.2 - DIFFICULTY IN WALKING, NOT ELSEWHERE CLASSIFIED Status: Acute Priority: High Current Visit: Yes (3) Fever and chills SNOMED Code(s): 002886425 ICD Code: R50.9 - FEVER, UNSPECIFIED Status: Resolved Priority: High Current Visit: Yes (4) Total self-care deficit SNOMED Code(s): 64660223 ICD Code: R68.89 - OTHER GENERAL SYMPTOMS AND SIGNS Status: Acute Priority: High Current Visit: Yes (5) Decubitus ulcer of sacral region, unstageable SNOMED Code(s): 763963217 ICD Code: L89.150 - PRESSURE ULCER OF SACRAL REGION, UNSTAGEABLE Status: Chronic Priority: High Current Visit: Yes (6) Failure to thrive in adult SNOMED Code(s): 378583531 ICD Code: R62.7 - ADULT FAILURE TO THRIVE Status: Chronic Priority: High Current Visit: Yes (7) Multiple sclerosis SNOMED Code(s): 11825795 ICD Code: G35 - MULTIPLE SCLEROSIS Status: Chronic Priority: High Current Visit: Yes (8) Generalized weakness SNOMED Code(s): 96146193 ICD Code: R53.1 - WEAKNESS Status: Chronic Priority: High Current Visit: Yes (9) HLD (hyperlipidemia) SNOMED Code(s): 24517766 ICD Code: E78.5 - HYPERLIPIDEMIA, UNSPECIFIED Status: Chronic Priority: Low Current Visit: No Qualifiers: Hyperlipidemia type: unspecified Qualified Code(s): E78.5 - Hyperlipidemia, unspecified (10) History of CVA (cerebrovascular accident) SNOMED Code(s): 561975974 ICD Code: Z86.73 - PRSNL HX OF TIA (TIA), AND CEREB INFRC W/O RESID DEFICITS Status: Chronic Priority: Medium Current Visit: No (11) Macular degeneration SNOMED Code(s): 300887002 ICD Code: H35.30 - UNSPECIFIED MACULAR DEGENERATION Status: Chronic Priority: Low Current Visit: No (12) Physical deconditioning SNOMED Code(s): 64449608581902 ICD Code: R53.81 - OTHER MALAISE Status: Chronic Priority: High Current Visit: Yes (13) History of GI bleed SNOMED Code(s): 635831006 ICD Code: Z87.19 - PERSONAL HISTORY OF OTHER DISEASES OF THE DIGESTIVE SYSTEM Status: Chronic Priority: Low Current Visit: No (14) Urinary incontinence SNOMED Code(s): 746867527 ICD Code: R32 - UNSPECIFIED URINARY INCONTINENCE Status: Chronic Priority: Low Current Visit: No Qualifiers: Urinary Incontinence type: unspecified incontinence Qualified Code(s): R32 - Unspecified urinary incontinence (15) Recurrent UTI SNOMED Code(s): 369388988 ICD Code: N39.0 - URINARY TRACT INFECTION, SITE NOT SPECIFIED Status: Chronic Priority: High Current Visit: Yes (16) Chronic back pain SNOMED Code(s): 438028502 ICD Code: M54.9 - DORSALGIA, UNSPECIFIED; G89.29 - OTHER CHRONIC PAIN Status: Chronic Priority: Low Current Visit: Yes Qualifiers: Back pain location: back pain in unspecified location Back pain laterality: unspecified Qualified Code(s): M54.9 - Dorsalgia, unspecified; G89.29 - Other chronic pain (17) Dementia SNOMED Code(s): 78510234 ICD Code: F03.90 - UNSPECIFIED DEMENTIA WITHOUT BEHAVIORAL DISTURBANCE Status: Chronic Priority: Medium Current Visit: No Qualifiers: Dementia type: unspecified type Dementia behavioral disturbance: without behavioral disturbance Qualified Code(s): F03.90 - Unspecified dementia without behavioral disturbance (18) UTI, Urinary tract infectious disease SNOMED Code(s): 68261804 ICD Code: N39.0 - URINARY TRACT INFECTION, SITE NOT SPECIFIED Status: Acute Priority: High Current Visit: Yes (19) Hypomagnesemia SNOMED Code(s): 148927966 ICD Code: E83.42 - HYPOMAGNESEMIA Status: Resolved Priority: High Current Visit: Yes (20) Bronchitis SNOMED Code(s): 45901484 ICD Code: J40 - BRONCHITIS, NOT SPECIFIED ACUTE OR CHRONIC Status: Acute Priority: High Current Visit: Yes (21) GERD (gastroesophageal reflux disease) SNOMED Code(s): 413639384 ICD Code: K21.9 - GASTRO-ESOPHAGEAL REFLUX DISEASE WITHOUT ESOPHAGITIS Status: Acute Priority: High Current Visit: Yes Qualifiers: Esophagitis presence: esophagitis presence not specified Qualified Code(s): K21.9 - Gastro-esophageal reflux disease without esophagitis - Patient Summary/Data Consults: Consultations 06/04/21 08:27 PT Evaluation and Treatment [CONS] Routine 06/06/21 08:37 Consult to Case Management/Accounts Payable Coordinator [CONS] Routine Labs Pending at D/C: None Recommended Follow-up Testing/Procedures: Follow-up with primary care provider as needed for comfort care * Patient refusing further blood draws and imaging * Patient refusing to wear oxygen while here * Patient discharged on comfort care. * Patient has ulcer on sacrum. PT wound care has been dealing with this although patient has been refusing at times. * Nursing to change sacral Mepilex daily * Patient started on multiple oral and transdermal pain medications please monitor this. Hospital Course: 81-year-old female who presented to ED on 06/04/2021 with a fever of 103 degrees and generalized weakness. She reportedly fell and was unable able to get up. She has reportedly been falling much more frequently and does carry history of MS. Also carries a history of HLD, GI bleed, urinary incontinence, recurrent UTIs, chronic back pain, history of CVA, dementia. Left hip x-rays obtained showing orthopedic hardware within the left hip affixing an old healed fracture and osteoporosis with vascular calcification. Degenerative change within the lower lumbar spine is noted but there is no acute abnormality. Left knee x-rays obtained showing chondrocalcinosis within both menisci and osteoporosis with a small joint effusion but nothing acute. Chest x-ray is obtained showing worsening interstitial change from prior x-ray. Differential includes worsening interstitial fibrosis versus bronchitis which is superimposed on fibrosis. There are other findings noted which appear to be chronic. UA is obtained and is suggestive of UTI. Urine culture returns 10-50 CFU's of coagulase-negative Staphylococcus. Patient has been receiving 1 g of IV Rocephin since admission. Magnesium was supplemented. PT and OT were working with the patient and did recommend SNF. Throughout her stay patient has been noting worsening generalized pain. She reports her appetite has been decreasing she feels that she does not want to continue to fight anymore. Discussion ensues about makenna nt's CODE STATUS she ultimately decided she would like to be DNR/DNI/comfort care. Saturations were noted to be in the low 80s and patient has been refusing to wear oxygen. Johns catheter was placed on admission due to patient having a large sacral ulceration. She would like to continue this Johns catheter at discharge for comfort care. PT wound care was consulted to care for the patient's sacral ulcer however she has been refusing debridement or other cares. Nursing has been changing the Mepilex dressing on her sacral region and this should continue at SNF. Patient ultimately refuses imaging, blood draws, and further antibiotic therapy. She is aware of the risk of hypoxic brain injury or due to not wearing oxygen. Patient is ultimately accepted at [facility]. Throughout her stay she did report abdominal pain as well, mostly epigastric in region. She has been refusing further work-up for this. She did request Pepto-Bismol which she stated helped substantially. She was receiving p.o. Percocet and this will be continued at discharge. She was also receiving 0.5 mg as needed Ativan for anxiety and this will be continued at discharge as well. She is on gabapentin and as needed Valium for sleep and prescriptions for this were sent for SNF. She was started on a low-dose fentanyl patch which may be titrated at SNF, with the hope of her decreasing some of her p.o. pain medications. Patient did report multiple times that she does not want to return to the hospital should anything happen. Recommend follow-up with primary care provider as needed for comfort cares. We did discuss hospice however patient and family do not want to go down that route at this time, however they may in the future. Patient's daughters were involved in her care. Patient discharged to [facility] today on comfort cares. - Patient Instructions Diet: Usual Diet as Tolerated Activity: As Tolerated Driving: Do Not Drive Showering/Bathing: May Shower Wound/Incision Care: Keep Operative Site/Wound Site Clean and Dry, Change Dressing Daily Notify Provider of: Fever, Increased Pain, Nausea and/or Vomiting Other/Special Instructions: Follow-up with primary care provider as needed for c omfort care. Patient discharged on comfort cares and states she wishes not to return to the hospital should it be warranted. Patient has been refusing oxygen while here. She may wear this as needed if saturations drop below 88%. Due to comfort care patient may refuse. Continue Johns catheter for comfort cares. Pain medications as ordered. Patient is aware this may lead to sleepiness and or constipation. Resume home medications as directed. Prescription sent for these. Apply heating pad as needed to abdomen for pain. Should symptoms return or worsen follow-up with primary care provider or return the emergency room if patient requests. - Discharge Plan *PRESCRIPTION DRUG MONITORING PROGRAM REVIEWED*: No *COPY OF PRESCRIPTION DRUG MONITORING REPORT IN PATIENT [place]: No Prescriptions/Med Rec: LORazepam [Ativan] 0.5 mg PO Q6H PRN #10 tablet PRN Reason: Anxiety fentaNYL [Duragesic] 12 mcg TRDERM Q72H #4 patch Gabapentin [Neurontin] 600 mg PO TID #30 cap Bismuth Subsalicylate [Pepto Bismol] 30 ml PO Q8H PRN #1 bottle PRN Reason: Heartburn Acetaminophen/oxyCODONE [Percocet 325-5 MG] 1 tab PO Q4H PRN #20 tablet PRN Reason: Pain Pantoprazole [ProTONIX] 40 mg PO BID #40 tab.cr Acetaminophen [Tylenol] 650 mg PO Q4H PRN #30 tablet PRN Reason: Pain (Mild 1-3)/fever diazePAM [Valium.] 5 mg PO QPM PRN #20 tablet PRN Reason: Sleep Home Medications: Home Meds Acetaminophen [Tylenol] 650 mg PO Q4H PRN #30 tablet 06/08/21 [Rx] Acetaminophen/oxyCODONE [Percocet 325-5 MG] 1 tab PO Q4H PRN #20 tablet 06/08/21 [Rx] Bismuth Subsalicylate [Pepto Bismol] 30 ml PO Q8H PRN #1 bottle 06/08/21 [Rx] Gabapentin [Neurontin] 600 mg PO TID #30 cap 06/08/21 [Rx] LORazepam [Ativan] 0.5 mg PO Q6H PRN #10 tablet 06/08/21 [Rx] Pantoprazole [ProTONIX] 40 mg PO BID #40 tab.cr 06/08/21 [Rx] diazePAM [Valium.] 5 mg PO QPM PRN #20 tablet 06/08/21 [Rx] fentaNYL [Duragesic] 12 mcg TRDERM Q72H #4 patch 06/08/21 [Rx] Oxygen Therapy Mode: Room Air (Patient refusing oxygen while here) Maintain SpO2% greater than: 88 Patient Handouts: Urinary Tract Infection, Adult, [id number], Acute Urinary Retention, Female, [id number] Referrals: Serjio Wright MD [Ordering Only Provider] - (Please see ephraim 7-10 days on rounds at the jail.) - Discharge Summary/Plan Comment DC Time >30 min.: Yes Total # of Minutes for Discharge Time: 45 mins - General Info Date of Service: 06/08/21 Functional Status: Reports: Pain Controlled, Tolerating Diet, Ambulating, Urinating. Denies: New Symptoms - Review of Systems General: Reports: Weakness, Fatigue. Denies: Fever, Malaise, Chills HEENT: Reports: No Symptoms. Denies: Headaches, Sore Throat Pulmonary: Reports: No Symptoms. Denies: Shortness of Breath, Cough, Sputum, Wheezing Cardiovascular: Reports: No Symptoms, Dyspnea on Exertion. Denies: Chest Pain, Palpitations, Edema Gastrointestinal: Reports: Abdominal Pain (epigastric ). Denies: Constipation, Diarrhea, Nausea, Vomiting Genitourinary: Reports: No Symptoms. Denies: Pain Musculoskeletal: Reports: No Symptoms Skin: Reports: No Symptoms. Denies: Cyanosis Neurological: Reports: Pre-Existing Deficit (MS), Difficulty Walking, Weakness, Gait Disturbance. Denies: Confusion, Dizziness, Headache, Numbness, Syncope, Tingling Psychiatric: Reports: No Symptoms - Patient Data Vitals - Most Recent: Last Vital Signs Temp 99.1 F 06/08/21 08:37 Pulse 50 L 06/08/21 08:37 Resp 16 06/08/21 08:37 BP 102/58 L 06/08/21 08:37 Pulse Ox 88 L 06/08/21 08:37 Weight - Most Recent: 56.2 kg I&O - Last 24 hours: Intake & Output 06/07/21 06/08/21 06/08/21 22:59 06:59 14:59 Intake Total 550 Output Total 300 Balance 250 Med Orders - Current: Current Medications Acetaminophen (Acetaminophen 325 Mg Tab) 650 mg PO Q4H PRN PRN Reason: Pain (Mild 1-3)/fever Last Admin: 06/06/21 20:45 Dose: 650 mg Documented by: Diazepam (Diazepam 5 Mg Tab) 5 mg PO QPM PRN PRN Reason: Anxiety Last Admin: 06/06/21 20:45 Dose: 5 mg Documented by: Docusate Sodium (Docusate Sodium 100 Mg Cap) 100 mg PO BID PRN PRN Reason: Constipation Fentanyl (Fentanyl 12 Mcg/Hr Transdermal Patch) 12 mcg TRDERM Q72H [facility] Last Admin: 06/07/21 09:54 Dose: 12 mcg Documented by: Gabapentin (Gabapentin 600 Mg Tab) 600 mg PO TID [facility] Last Admin: 06/08/21 08:48 Dose: 600 mg Documented by: Lorazepam (Lorazepam 2 Mg/Ml Sdv) 0.5 mg IVPUSH Q4H PRN PRN Reason: Anxiety Miscellaneous Information (Remove Fentanyl Patch) 1 ea TRDERM Q72H [facility] Morphine Sulfate (Morphine 2 Mg/Ml Syringe) 2 mg IVPUSH Q2H PRN PRN Reason: Pain (severe 7-10) Last Admin: 06/06/21 14:04 Dose: 2 mg Documented by: Ondansetron HCl (Ondansetron 4 Mg Tab.Dis) 4 mg PO Q4H PRN PRN Reason: nausea, able to take PO Oxycodone/Acetaminophen (Acetaminophen/Oxycodone 325-5 Mg Tab) 1 tab PO Q4H PRN PRN Reason: Pain Last Admin: 06/07/21 10:50 Dose: 1 tab Documented by: Pantoprazole Sodium (Pantoprazole 40 Mg Vial) 40 mg IVPUSH Q12H [facility] Last Admin: 06/08/21 08:48 Dose: 40 mg Documented by: Discontinued Medications Al Hydroxide/Mg Hydroxide (Aluminum Hydroxide/Magnesium Hydroxide/Simethicone Susp 30 Ml Cup) 30 ml PO ONETIME ONE Stop: 06/04/21 16:58 Last Admin: 06/04/21 17:01 Dose: 30 ml Documented by: Al Hydroxide/Mg Hydroxide (Aluminum Hydroxide/Magnesium Hydroxide/Simethicone Susp 30 Ml Cup) 30 ml PO ONETIME ONE Stop: 06/05/21 12:44 Last Admin: 06/05/21 13:03 Dose: 30 ml Documented by: Bismuth Subsalicylate (Bismuth Subsalicylate 262 Mg/15 Ml Susp 236 Ml Bottle) 30 ml PO ONETIME ONE Stop: 06/07/21 11:22 Last Admin: 06/07/21 12:02 Dose: 30 ml Documented by: Bismuth Subsalicylate (Bismuth Subsalicylate 262 Mg/15 Ml Susp 236 Ml Bottle) 30 ml PO Q4HR ONE Stop: 06/07/21 18:55 Last Admin: 06/07/21 23:15 Dose: Not Given Documented by: Gabapentin (Gabapentin 300 Mg Cap) 600 mg PO TID [facility] Last Admin: 06/05/21 20:47 Dose: 600 mg Documented by: Heparin Sodium (Porcine) (Heparin Sodium 5,000 Units/Ml Vial) 5,000 units SUBCUT Q8H [facility] Last Admin: 06/07/21 09:52 Dose: 5,000 units Documented by: Ceftriaxone Sodium 1 gm/ (Sodium Chloride) 100 mls @ 200 mls/hr IV ONETIME ONE Stop: 06/04/21 04:15 Last Admin: 06/04/21 04:01 Dose: 200 mls/hr Documented by: Sodium Chloride (Normal Saline) 1,000 mls @ 75 mls/hr IV ASDIRECTED [facility] Last Admin: 06/06/21 07:35 Dose: 75 mls/hr Documented by: Ceftriaxone Sodium 1 gm/ (Sodium Chloride) 100 mls @ 200 mls/hr IV Q24H [facility] Last Admin: 06/06/21 17:30 Dose: 200 mls/hr Documented by: Magnesium Sulfate 2 gm/ Premix 50 mls @ 25 mls/hr IV ONETIME ONE Stop: 06/05/21 14:00 Last Admin: 06/05/21 12:29 Dose: 25 mls/hr Documented by: Magnesium Sulfate 2 gm/ Premix 50 mls @ 25 mls/hr IV ONETIME ONE Stop: 06/06/21 08:51 Last Admin: 06/06/21 08:47 Dose: Not Given Documented by: Levofloxacin (Levofloxacin 500 Mg Tab) 500 mg PO ONETIME ONE Stop: 06/04/21 03:46 Last Admin: 06/04/21 04:01 Dose: 500 mg Documented by: Lorazepam (Lorazepam 2 Mg/Ml Sdv) 0.5 mg IVPUSH ONETIME ONE Stop: 06/07/21 11:21 Last Admin: 06/07/21 12:03 Dose: 0.5 mg Documented by: Morphine Sulfate (Morphine 2 Mg/Ml Syringe) 2 mg IVPUSH ONETIME ONE Stop: 06/04/21 00:49 Last Admin: 06/04/21 01:02 Dose: 2 mg Documented by: Morphine Sulfate (Morphine 2 Mg/Ml Syringe) 2 mg IVPUSH Q2H PRN PRN Reason: Pain (severe 7-10) Stop: 06/05/21 08:29 Last Admin: 06/04/21 18:16 Dose: 2 mg Documented by: Oxycodone HCl (Oxycodone 5 Mg Tab) 5 mg PO Q4H PRN PRN Reason: Pain (moderate 4-6) Temazepam (Temazepam 7.5 Mg Cap) 7.5 mg PO BEDTIME PRN PRN Reason: Sleep - Exam Quality Assessment: Reports: Urine Catheter. Denies: Supplemental Oxygen (Patietn refusing ), DVT Prophylaxis (comfort cares ) General: Reports: Alert, Oriented, Cooperative, No Acute Distress HEENT: Reports: Pupils Equal, Pupils Reactive, Mucous Membr. Moist/[place] Neck: Reports: Supple, Trachea Midline Lungs: Reports: Normal Respiratory Effort, Decreased Breath Sounds Cardiovascular: Reports: Regular Rate, Regular Rhythm GI/Abdominal Exam: Normal Bowel Sounds, Soft, No Distention, Tender (epigastric region - refusing further workup) (Female) Exam: Deferred Rectal (Female) Exam: Deferred Back Exam: Reports: Normal Inspection, Decreased Range of Motion Extremities: Normal Inspection, Normal Range of Motion, Non-Tender, No Pedal Edema, Normal Capillary Refill Skin: Reports: Warm, Dry, Intact Neurological: Reports: No New Focal Deficit Psy/Mental Status: Reports: Alert, Anxious, Depressed *Q Meaningful Use (DIS) - VTE *Q VTE Mechanical Contraindications *Q: At Risk for Falls <Armando Mehta - Last Filed: 06/08/21 13:40> Discharge Summary - Referral to Home Health Primary Care Physician: Elvie Donovan NP - Discharge Diagnosis/Problem(s) (1) UTI, Urinary tract infectious disease SNOMED Code(s): 74500198 ICD Code: N39.0 - URINARY TRACT INFECTION, SITE NOT SPECIFIED Status: Acute Priority: High Current Visit: Yes (2) Failure to thrive in adult SNOMED Code(s): 418393376 ICD Code: R62.7 - ADULT FAILURE TO THRIVE Status: Chronic Priority: High Current Visit: Yes (3) Decubitus ulcer of sacral region, unstageable SNOMED Code(s): 168199072 ICD Code: L89.150 - PRESSURE ULCER OF SACRAL REGION, UNSTAGEABLE Status: Chronic Priority: High Current Visit: Yes (4) Total self-care deficit SNOMED Code(s): 07048739 ICD Code: R68.89 - OTHER GENERAL SYMPTOMS AND SIGNS Status: Acute Priority: High Current Visit: Yes (5) Multiple sclerosis SNOMED Code(s): 54317152 ICD Code: G35 - MULTIPLE SCLEROSIS Status: Chronic Priority: High Current Visit: Yes - Patient Summary/Data Consults: Consultations 06/04/21 08:27 PT Evaluation and Treatment [CONS] Routine 06/06/21 08:37 Consult to Case Management/Accounts Payable Coordinator [CONS] Routine Hospital Course: I have seen and examined the patient independently of Jose De Jesus Guerra PA-C and have discussed the case with him. I have reviewed and agree with the orders and plan of care outlined by him. Please see orders. - Patient Data Vitals - Most Recent: Last Vital Signs Temp 37.3 C 06/08/21 08:37 Pulse 50 L 06/08/21 08:37 Resp 16 06/08/21 08:37 BP 102/58 L 06/08/21 08:37 Pulse Ox 88 L 06/08/21 08:37 I&O - Last 24 hours: Intake & Output 06/07/21 06/08/21 06/08/21 22:59 06:59 14:59 Intake Total 550 210 Output Total 300 Balance 250 210 Lab Results - Last 24 hrs: Laboratory Results - last 24 hr 06/08/21 Range/Units 10:05 SARS-CoV-2 RNA (CONNIE) Negative (NEGATIVE) Med Orders - Current: Current Medications Acetaminophen (Acetaminophen 325 Mg Tab) 650 mg PO Q4H PRN PRN Reason: Pain (Mild 1-3)/fever Last Admin: 06/06/21 20:45 Dose: 650 mg Documented by: Diazepam (Diazepam 5 Mg Tab) 5 mg PO QPM PRN PRN Reason: Anxiety Last Admin: 06/06/21 20:45 Dose: 5 mg Documented by: Docusate Sodium (Docusate Sodium 100 Mg Cap) 100 mg PO BID PRN PRN Reason: Constipation Fentanyl (Fentanyl 12 Mcg/Hr Transdermal Patch) 12 mcg TRDERM Q72H [facility] Last Admin: 06/07/21 09:54 Dose: 12 mcg Documented by: Gabapentin (Gabapentin 600 Mg Tab) 600 mg PO TID [facility] Last Admin: 06/08/21 08:48 Dose: 600 mg Documented by: Lorazepam (Lorazepam 2 Mg/Ml Sdv) 0.5 mg IVPUSH Q4H PRN PRN Reason: Anxiety Miscellaneous Information (Remove Fentanyl Patch) 1 ea TRDERM Q72H [facility] Morphine Sulfate (Morphine 2 Mg/Ml Syringe) 2 mg IVPUSH Q2H PRN PRN Reason: Pain (severe 7-10) Last Admin: 06/06/21 14:04 Dose: 2 mg Documented by: Ondansetron HCl (Ondansetron 4 Mg Tab.Dis) 4 mg PO Q4H PRN PRN Reason: nausea, able to take PO Oxycodone/Acetaminophen (Acetaminophen/Oxycodone 325-5 Mg Tab) 1 tab PO Q4H PRN PRN Reason: Pain Last Admin: 06/07/21 10:50 Dose: 1 tab Documented by: Pantoprazole Sodium (Pantoprazole 40 Mg Vial) 40 mg IVPUSH Q12H [facility] Last Admin: 06/08/21 08:48 Dose: 40 mg Documented by: Discontinued Medications Al Hydroxide/Mg Hydroxide (Aluminum Hydroxide/Magnesium Hydroxide/Simethicone Susp 30 Ml Cup) 30 ml PO ONETIME ONE Stop: 06/04/21 16:58 Last Admin: 06/04/21 17:01 Dose: 30 ml Documented by: Al Hydroxide/Mg Hydroxide (Aluminum Hydroxide/Magnesium Hydroxide/Simethicone Susp 30 Ml Cup) 30 ml PO ONETIME ONE Stop: 06/05/21 12:44 Last Admin: 06/05/21 13:03 Dose: 30 ml Documented by: Bismuth Subsalicylate (Bismuth Subsalicylate 262 Mg/15 Ml Susp 236 Ml Bottle) 30 ml PO ONETIME ONE Stop: 06/07/21 11:22 Last Admin: 06/07/21 12:02 Dose: 30 ml Documented by: Bismuth Subsalicylate (Bismuth Subsalicylate 262 Mg/15 Ml Susp 236 Ml Bottle) 30 ml PO Q4HR ONE Stop: 06/07/21 18:55 Last Admin: 06/07/21 23:15 Dose: Not Given Documented by: Gabapentin (Gabapentin 300 Mg Cap) 600 mg PO TID [facility] Last Admin: 06/05/21 20:47 Dose: 600 mg Documented by: Heparin Sodium (Porcine) (Heparin Sodium 5,000 Units/Ml Vial) 5,000 units SUBCUT Q8H [facility] Last Admin: 06/07/21 09:52 Dose: 5,000 units Documented by: Ceftriaxone Sodium 1 gm/ (Sodium Chloride) 100 mls @ 200 mls/hr IV ONETIME ONE Stop: 06/04/21 04:15 Last Admin: 06/04/21 04:01 Dose: 200 mls/hr Documented by: Sodium Chloride (Normal Saline) 1,000 mls @ 75 mls/hr IV ASDIRECTED [facility] Last Admin: 06/06/21 07:35 Dose: 75 mls/hr Documented by: Ceftriaxone Sodium 1 gm/ (Sodium Chloride) 100 mls @ 200 mls/hr IV Q24H [facility] Last Admin: 06/06/21 17:30 Dose: 200 mls/hr Documented by: Magnesium Sulfate 2 gm/ Premix 50 mls @ 25 mls/hr IV ONETIME ONE Stop: 06/05/21 14:00 Last Admin: 06/05/21 12:29 Dose: 25 mls/hr Documented by: Magnesium Sulfate 2 gm/ Premix 50 mls @ 25 mls/hr IV ONETIME ONE Stop: 06/06/21 08:51 Last Admin: 06/06/21 08:47 Dose: Not Given Documented by: Levofloxacin (Levofloxacin 500 Mg Tab) 500 mg PO ONETIME ONE Stop: 06/04/21 03:46 Last Admin: 06/04/21 04:01 Dose: 500 mg Documented by: Lorazepam (Lorazepam 2 Mg/Ml Sdv) 0.5 mg IVPUSH ONETIME ONE Stop: 06/07/21 11:21 Last Admin: 06/07/21 12:03 Dose: 0.5 mg Documented by: Morphine Sulfate (Morphine 2 Mg/Ml Syringe) 2 mg IVPUSH ONETIME ONE Stop: 06/04/21 00:49 Last Admin: 06/04/21 01:02 Dose: 2 mg Documented by: Morphine Sulfate (Morphine 2 Mg/Ml Syringe) 2 mg IVPUSH Q2H PRN PRN Reason: Pain (severe 7-10) Stop: 06/05/21 08:29 Last Admin: 06/04/21 18:16 Dose: 2 mg Documented by: Oxycodone HCl (Oxycodone 5 Mg Tab) 5 mg PO Q4H PRN PRN Reason: Pain (moderate 4-6) Temazepam (Temazepam 7.5 Mg Cap) 7.5 mg PO BEDTIME PRN PRN Reason: Sleep
== END 2021-06-08 13:13 | DRG 690 ==
LOC: JD.ED 23:58 → JD.MS 06-04 07:20
PROVIDERS: ADMIT Internal Medicine; ATTEND Internal Medicine
DX: N30.01 Acute cystitis with hematuria (principal); R50.9 Fever, unspecified; W19.XXXA Unspecified fall, initial encounter; Z51.5 Encounter for palliative care; R26.2 Difficulty in walking, not elsewhere classified; R68.89 Other general symptoms and signs; L89.150 Pressure ulcer of sacral region, unstageable; R62.7 Adult failure to thrive; G35 Multiple sclerosis; R53.1 Weakness; Z20.822 Contact with and (suspected) exposure to COVID-19; Z66 Do not resuscitate; E78.5 Hyperlipidemia, unspecified; H35.30 Unspecified macular degeneration; R53.81 Other malaise; M54.9 Dorsalgia, unspecified; G89.29 Other chronic pain; E83.42 Hypomagnesemia; J20.9 Acute bronchitis, unspecified; K21.9 Gastro-esophageal reflux disease without esophagitis; H54.7 Unspecified visual loss; M11.20 Other chondrocalcinosis, unspecified site; M25.462 Effusion, left knee; B95.7 Other staphylococcus as the cause of diseases classified elsewhere; M81.0 Age-related osteoporosis without current pathological fracture; E78.00 Pure hypercholesterolemia, unspecified; F03.90 Unspecified dementia, unspecified severity, without behavioral disturbance, psychotic disturbance, mood disturbance, and anxiety; Z86.73 Personal history of transient ischemic attack (TIA), and cerebral infarction without residual deficits; Z87.19 Personal history of other diseases of the digestive system; Z88.2 Allergy status to sulfonamides; Z98.49 Cataract extraction status, unspecified eye; Z87.891 Personal history of nicotine dependence; Z79.899 Other long term (current) drug therapy
CPT/HCPCS: 36415; 71045; 73502; 73562; 80053; 81001; 82550; 83605; 85025; 87040 ×2; 87086; 96365; 96375; 99285; A9270; J0696; J2270; U0002; 51702; 80048; 83735; 97162-GP; 97530-GP; 97597-GP; 99222; 99232; 99233; 99239; C9113; J1644; J2060; J3475; J7030